=== PATIENT | male | born 1940 | race African-American/Black ===

== ENCOUNTER 2019-08-22 23:38 | Emergency (ER) | payer OTHER ==
[2019-08-22 23:52] LABS: Absolute Lymphocytes (CBC) 2.3 K/uL (0.7-4.9); Basophils % 0.7 % (0-1.3); Hematocrit 38.5 % (39.6-49.0); RBC Red Blood Cell Count 4.56 M/uL (4.33-5.43)
[2019-08-22 23:56] LABS: Protime INR 1.02
[2019-08-22] MEDS ORDERED: NA CHLORIDE 0.9% 1,000 ML ONE (23:59)
[2019-08-22] MEDS ORDERED: THIAMINE 200 MG/2 ML INJ ONE (23:59)
--- NOTE | 2019-08-23 00:05 | ER ---
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 They had seen him at 1729 and he was ok just weak. Pt did have blackout on Wednesday which he blamed on low blood sugar. Transition of care: patient was not received from another setting of care. An acute neurological deficit is present. The charge nurse has been notified. The patient has been moved to a treatment area. The patients blood glucose was checked before arriving to the hospital and was found to be normal. Onset of symptoms was August 22, 2019 at 17:30. Risk Assessment: Do you want to hurt yourself or someone else? Patient reports no desire to harm self or others. Initial Sepsis Screen: Does the patient meet any 2 criteria? No. Patient's initial sepsis screen is negative. Does the patient have a suspected source of infection? No. Patient's initial sepsis screen is negative. Care prior to arrival: None. 23:36 Method Of Arrival: Wheelchair 23:36 Acuity: PANCHO 1 Triage Assessment: 23:36 The onset of the patients symptoms was August 22, 2019 at 17:30. Stroke Activation: Symtpom onset >3 hours and < 6 hours Physician: Stroke Attending; Name: ; Notified At: ; Arrived At: Physician: Chief Stroke Resident; Name: ; Notified At: ; Arrived At: Physician: Stroke Resident; Name: ; Notified At: ; Arrived At: Physician: ED Attending; Name: Clint; Notified At: 23:36; Arrived At: 23:36 Physician: ED Resident; Name: ; Notified At: ; Arrived At: Historical: - Allergies: 08/23 00:06 Sulfa (Sulfonamide Antibiotics); fc - Home Meds: 00:06 aspirin 81 mg Oral TbEC 1 tab once daily [Active]; atorvastatin 20 mg oral tab 1 tab fc once daily [Active]; glimepiride 2 mg Oral tab 1 tab three times a day [Active]; metformin 1,000 mg oral tab 1 tab 2 times per day [Active]; gabapentin 100 mg oral cap 1 caps twice a day [Active]; - PMHx: 00:06 Diabetes - NIDDM; Hypertension; High Cholesterol; CVA; Myocardial infarction; CAD; fc - PSHx: 00:06 hemmorhoid SX; fc - Immunization history:: Adult Immunizations unknown. - Coronavirus screen:: The patient has NOT traveled to [place], [place], or [place] in the past 14 days. - Family history:: not pertinent. - Social history:: Smoking status: Patient/guardian denies using tobacco, but has a distant history of tobacco abuse, Patient uses alcohol, occasionally. Patient/guardian denies using street drugs. - Ebola Screening: : Patient negative for fever greater than or equal to 101.5 degrees Fahrenheit, and additional compatible Ebola Virus Disease symptoms. Screenin/04 23:36 Abuse screen: Denies threats or abuse. Nutritional screening: No deficits noted. fc Tuberculosis screening: No symptoms or risk factors identified. Fall Risk None identified. Assessment: 23:40 General: Appears in no apparent distress. Behavior is calm, Altered. Pain: Unable to jb4 use pain scale. Patient is disoriented. Neuro: Level of Consciousness is awake, Oriented to Unable to obtain. Teaching Assistant are unable to obtain. Speech is slurred, with expressive aphasia noted, Facial symmetry appears normal, Pupils are pinpoint. Cardiovascular: Patient's skin is warm and dry. Respiratory: Airway is patent Respiratory effort is even, unlabored, Respiratory pattern is regular, symmetrical. GI: No signs and/or symptoms were reported involving the gastrointestinal system. : No signs and/or symptoms were reported regarding the genitourinary system. EENT: No signs and/or symptoms were reported regarding the EENT system. Derm: Skin is intact, Skin is dry, Skin is normal, Skin temperature is warm. 23:40 Reassessment: unable to perform NIH stroke scale, pt is unable to follow commands or jb4 properly respond to questions. 08/23 00:15 Reassessment: instructed to hold Trandate for Systolic less than 170. jb4 00:16 Reassessment: Patient's family at bedside; aware of plan for transfer. lp1 00:50 Reassessment: Attempted to call report, instructed to wait for call back. jb4 01:05 The patient has not been NPO before screening. The patient is not alert and/or unable jb4 to follow commands. Bedside swallow screen discontinued. Patient kept NPO until cleared by Speech Therapy or Physician. The patient failed the bedside swallow screening. The patient will be kept NPO until cleared by Speech Therapy or Physician. Provider notified of bedside swallow screening results: Alex Jaramillo MD. 01:19 Reassessment: Report called to MONICA Robles. jb4 02:03 Reassessment: Patient appears in no apparent distress at this time. No changes from jb4 previously documented assessment. Patient and/or family updated on plan of care and expected duration. Pain level reassessed. Pt's family is at the bedside. Pt is moving his lower arms and speech is garbled. Vital Signs: 08/22 23:38 BP 186 / 78; Pulse 84; Resp 18; Temp 98.5(TE); Pulse Ox 97% on R/A; Weight 104.33 kg fc (R); Height 5 ft. 10 in. (177.80 cm) (R); Pain 0/10; 23:45 BP 186 / 77; Pulse 88; Resp 18; Pulse Ox 96% on R/A; lp1 02/05 00:15 BP 181 / 77; Pulse 85; Resp 19; Pulse Ox 97% on R/A; lp1 00:17 BP 176 / 78; Pulse 84; Resp 18; Pulse Ox 96% on R/A; jb4 00:30 BP 138 / 86; Pulse 80; Resp 18; Pulse Ox 97% on R/A; jb4 01:00 BP 177 / 74; Pulse 83; Resp 16; Pulse Ox 98% on R/A; jb4 01:30 BP 179 / 70; Pulse 85; Resp 18; Pulse Ox 97% on R/A; jb4 02:00 BP 173 / 70; Pulse 89; Resp 16; Pulse Ox 97% on R/A; jb4 08/22 23:38 Body Mass Index 33.00 (104.33 kg, 177.80 cm) ED Course: 08/22 23:36 Patient has correct armband on for positive identification. Placed in gown. Bed in low fc position. Call light in reach. Side rails up X2. telegraph dispatcher on. Pulse ox on. NIBP on. 23:37 Inserted saline lock: 20 gauge in left antecubital area, using aseptic technique. fc 23:38 Arm band placed on Patient placed in an exam room, on a stretcher. fc 23:39 Patient arrived in ED. jg7 23:39 Alex Jaramillo MD is Attending Physician. annalisa 23:50 EKG done, by ED staff, reviewed by Alex Jaramillo MD. fc 23:53 Triage completed. fc 23:58 X-ray(s) taken. fc 02 02:23 No provider procedures requiring assistance completed. Patient transferred, IV remains jb4 in place. 09:55 CT Stroke Brain w/o Contrast In Process Unspecified. EDMS Administered Medications: 00:03 Drug: Thiamine 100 mg Route: IV; Rate: bolus; Site: left antecubital; lp1 01:01 Follow up: Response: No adverse reaction; IV Status: Completed infusion jb4 00:03 Drug: NS 0.9% 1000 ml Route: IV; Rate: 1 bolus; Site: left antecubital; lp1 00:08 Drug: Decadron - Dexamethasone 10 mg Route: IVP; Site: left antecubital; jb4 00:33 Follow up: Response: No adverse reaction jb4 00:10 Drug: Keppra 1000 mg Route: IV; Rate: per protocol; Site: left antecubital; jb4 00:33 Follow up: Response: No adverse reaction; IV Status: Completed infusion jb4 00:45 Drug: Magnesium Sulfate 1 grams Route: IVPB; Infused Over: 1 hrs; Site: left jb4 antecubital; 01:19 Not Given (Physician Discretion): Trandate 10 mg IVP once; Over 2 minutes jb4 01:19 Not Given (Physician Discretion): Trandate 20 mg IVP once; Over 2 minutes jb4 Point of Care Testing: Blood Glucose: 08/22 23:38 Blood Glucose: 132 mg/dL; fc Ranges: Outcome: 08/23 00:04 ER care complete, transfer ordered by . annalisa 02:23 Transferred by ground EMS EMS. to [facility], Transfer form jb4 completed. X-rays sent w/ patient. 02:23 Condition: stable 02:23 Discharge instructions given to family, Instructed on the need for transfer, Demonstrated understanding of instructions. 02:24 Patient left the ED. jb4 Signatures: Dispatcher [employer] Alex Villeda MD MD cha Chretien, Felicia, RN RN Elsa Swanson, RN RN lp1 Fei Herrera RN RN jb4 Mansi Morrow jg7 Corrections: (The following items were deleted from the chart) 08/22 23:57 23:53 Inserted saline lock: 20 gauge in left antecubital area, using aseptic technique. [facility] 08/23 01:00 02 23:50 Reassessment: unable to perform NIH stroke scale, pt is unable to follow jb4 commands or properly respond to questions. jb4 08/23 02:28 08/22 23:53 Elsa Swanson, RN is Primary Nurse. lp1 lp1
--- NOTE | 2019-08-23 00:06 | EDPHYS ---
Physician Documentation [facility] Name: Luis Fernando Fox Age: 78 yrs Sex: Male : 1940 Arrival Date: 08/22/2019 Time: 23:39 Bed 6 Private MD: ED Physician Alex Jaramillo HPI: 08/22 23:42 This 78 yrs old Black Male presents to ER via Unassigned with complaints of S/S of annalisa Possible Stroke. 23:42 The patient's problem is reported as altered mental status, disoriented to self, place, annalisa time, confused. Onset: The symptoms/episode began/occurred at an unknown time. Duration: The episode is continuous. Context: occurred at home. The symptoms are alleviated by nothing. The symptoms are aggravated by nothing. Associated signs and symptoms: The patient has no apparent associated signs or symptoms. Severity of symptoms: At their worst the symptoms were moderate in the emergency department the symptoms are unchanged. Patient's baseline: Neuro: alert and fully oriented. The patient has not experienced similar symptoms in the past. Historical: - Allergies: 08/23 00:06 Sulfa (Sulfonamide Antibiotics); fc - Home Meds: 00:06 aspirin 81 mg Oral TbEC 1 tab once daily [Active]; atorvastatin 20 mg oral tab 1 tab fc once daily [Active]; glimepiride 2 mg Oral tab 1 tab three times a day [Active]; metformin 1,000 mg oral tab 1 tab 2 times per day [Active]; gabapentin 100 mg oral cap 1 caps twice a day [Active]; - PMHx: 00:06 Diabetes - NIDDM; Hypertension; High Cholesterol; CVA; Myocardial infarction; CAD; fc - PSHx: 00:06 hemmorhoid SX; fc - Immunization history:: Adult Immunizations unknown. - Coronavirus screen:: The patient has NOT traveled to [place], [place], or [place] in the past 14 days. - Family history:: not pertinent. - Social history:: Smoking status: Patient/guardian denies using tobacco, but has a distant history of tobacco abuse, Patient uses alcohol, occasionally. Patient/guardian denies using street drugs. - Ebola Screening: : Patient negative for fever greater than or equal to 101.5 degrees Fahrenheit, and additional compatible Ebola Virus Disease symptoms. ROS: 08/22 23:42 Constitutional: Negative for fever, chills, and weight loss, Eyes: Negative for injury, annalisa pain, redness, and discharge, ENT: Negative for injury, pain, and discharge, Neck: Negative for injury, pain, and swelling, Cardiovascular: Negative for chest pain, palpitations, and edema, Respiratory: Negative for shortness of breath, cough, wheezing, and pleuritic chest pain, Abdomen/GI: Negative for abdominal pain, nausea, vomiting, diarrhea, and constipation, Back: Negative for injury and pain, : Negative for injury, bleeding, discharge, and swelling, MS/Extremity: Negative for injury and deformity, Skin: Negative for injury, rash, and discoloration, Psych: Negative for depression, anxiety, suicide ideation, homicidal ideation, and hallucinations, Allergy/Immunology: Negative for hives, rash, and allergies, Endocrine: Negative for neck swelling, polydipsia, polyuria, polyphagia, and marked weight changes, Hematologic/Lymphatic: Negative for swollen nodes, abnormal bleeding, and unusual bruising. Neuro: Positive for altered mental status, gait disturbance, speech changes, weakness. Exam: 23:42 Constitutional: This is a well developed, well nourished patient who is awake, alert, annalisa and in no acute distress. Head/Face: Normocephalic, atraumatic. Eyes: Pupils equal round and reactive to light, extra-ocular motions intact. Lids and lashes normal. Conjunctiva and sclera are non-icteric and not injected. Cornea within normal limits. Periorbital areas with no swelling, redness, or edema. ENT: Nares patent. No nasal discharge, no septal abnormalities noted. Tympanic membranes are normal and external auditory canals are clear. Oropharynx with no redness, swelling, or masses, exudates, or evidence of obstruction, uvula midline. Mucous membranes moist. Neck: Trachea midline, no thyromegaly or masses palpated, and no cervical lymphadenopathy. Supple, full range of motion without nuchal rigidity, or vertebral point tenderness. No Meningismus. Chest/axilla: Normal chest wall appearance and motion. Nontender with no deformity. No lesions are appreciated. Cardiovascular: Regular rate and rhythm with a normal S1 and S2. No gallops, murmurs, or rubs. Normal PMI, no JVD. No pulse deficits. Respiratory: Lungs have equal breath sounds bilaterally, clear to auscultation and percussion. No rales, rhonchi or wheezes noted. No increased work of breathing, no retractions or nasal flaring. Abdomen/GI: Soft, non-tender, with normal bowel sounds. No distension or tympany. No guarding or rebound. No evidence of tenderness throughout. Back: No spinal tenderness. No costovertebral tenderness. Full range of motion. Male : Normal genitalia with no discharge or lesions. Skin: Warm, dry with normal turgor. Normal color with no rashes, no lesions, and no evidence of cellulitis. Psych: Awake, alert, with orientation to person, place and time. Behavior, mood, and affect are within normal limits. 23:42 Musculoskeletal/extremity: ROM: full passive range of motion, limited active range of motion, Circulation is intact in all extremities. Sensation intact. Compartment Syndrome exam of affected extremity: is normal. DVT Exam: no pain, no swelling, no tenderness, negative Homans' sign noted on exam, no appreciated bluish discoloration, no erythema, no increased warmth. 23:44 Radiologist reports: see report annalisa Vital Signs: 23:38 BP 186 / 78; Pulse 84; Resp 18; Temp 98.5(TE); Pulse Ox 97% on R/A; Weight 104.33 kg fc (R); Height 5 ft. 10 in. (177.80 cm) (R); Pain 0/10; 23:45 BP 186 / 77; Pulse 88; Resp 18; Pulse Ox 96% on R/A; lp1 02/05 00:15 BP 181 / 77; Pulse 85; Resp 19; Pulse Ox 97% on R/A; lp1 00:17 BP 176 / 78; Pulse 84; Resp 18; Pulse Ox 96% on R/A; jb4 00:30 BP 138 / 86; Pulse 80; Resp 18; Pulse Ox 97% on R/A; jb4 01:00 BP 177 / 74; Pulse 83; Resp 16; Pulse Ox 98% on R/A; jb4 01:30 BP 179 / 70; Pulse 85; Resp 18; Pulse Ox 97% on R/A; jb4 02:00 BP 173 / 70; Pulse 89; Resp 16; Pulse Ox 97% on R/A; jb4 08/22 23:38 Body Mass Index 33.00 (104.33 kg, 177.80 cm) fc MDM: 08/22 23:40 Patient medically screened. [facility] 23:44 Data reviewed: vital signs, nurses notes, lab test result(s), EKG, radiologic studies, [facility] CT scan, plain films. 08/22 23:42 Order name: Basic Metabolic Panel [facility] 08/22 23:42 Order name: CBC with Diff [facility] 08/22 23:42 Order name: LFT's [facility] 08/22 23:42 Order name: Magnesium [facility] 08/22 23:42 Order name: NT PRO-BNP [facility] 08/22 23:42 Order name: PT-INR [facility] 08/22 23:42 Order name: Troponin (emerg Dept Use Only) [facility] 08/22 23:42 Order name: Lipase [facility] 08/22 23:42 Order name: Urine Culture [facility] 08/22 23:54 Order name: CBC with Automated Diff; Complete Time: 00:15 EDMS 08/22 23:57 Order name: Protime (+INR); Complete Time: 00:15 EDMS 08/23 00:11 Order name: Glucose, Ancillary Testing; Complete Time: 00:15 EDMS 08/23 00:29 Order name: Basic Metabolic Panel; Complete Time: 00:30 EDMS 08/23 00:30 Order name: Liver (Hepatic) Function; Complete Time: 00:30 EDMS 08/22 23:42 Order name: XRAY Chest (1 view) [facility] 08/22 23:42 Order name: EKG; Complete Time: 23:42 [facility] 08/22 23:42 Order name: Cardiac monitoring; Complete Time: 00:03 [facility] 08/22 23:42 Order name: CT Head Brain wo Cont [facility] 08/22 23:43 Order name: CT Stroke Brain w/o Contrast jb4 08/23 00:30 Order name: Troponin (Emerg Dept Use Only); Complete Time: 00:30 EDMS 08/23 00:30 Order name: NT PRO-BNP; Complete Time: 00:30 EDMS 08/23 00:30 Order name: Magnesium; Complete Time: 00:30 EDMS 08/23 00:30 Order name: Lipase [facility] 08/22 23:42 Order name: EKG - Nurse/Tech; Complete Time: 00:03 [facility] 08/22 23:42 Order name: IV Saline Lock; Complete Time: 00:03 [facility] 08/22 23:42 Order name: Labs collected and sent; Complete Time: 00:03 [facility] 08/22 23:42 Order name: O2 Per Protocol; Complete Time: 00:03 annalisa 08/22 23:42 Order name: O2 Sat Monitoring; Complete Time: 00:03 [facility] 08/22 23:42 Order name: Blood Glucose Level; Complete Time: 00:03 [facility] 08/22 23:54 Order name: Seizure Precautions; Complete Time: 01:36 [facility] Administered Medications: 08/23 00:03 Drug: Thiamine 100 mg Route: IV; Rate: bolus; Site: left antecubital; lp1 01:01 Follow up: Response: No adverse reaction; IV Status: Completed infusion jb4 00:03 Drug: NS 0.9% 1000 ml Route: IV; Rate: 1 bolus; Site: left antecubital; lp1 00:08 Drug: Decadron - Dexamethasone 10 mg Route: IVP; Site: left antecubital; jb4 00:33 Follow up: Response: No adverse reaction jb4 00:10 Drug: Keppra 1000 mg Route: IV; Rate: per protocol; Site: left antecubital; jb4 00:33 Follow up: Response: No adverse reaction; IV Status: Completed infusion jb4 00:45 Drug: Magnesium Sulfate 1 grams Route: IVPB; Infused Over: 1 hrs; Site: left jb4 antecubital; 01:19 Not Given (Physician Discretion): Trandate 10 mg IVP once; Over 2 minutes jb4 01:19 Not Given (Physician Discretion): Trandate 20 mg IVP once; Over 2 minutes jb4 Point of Care Testing: Blood Glucose: 08/22 23:38 Blood Glucose: 132 mg/dL; fc Ranges: Critical Glucose Levels:Adult <50 mg/dl or >400 mg/dl <40 mg/dl or >180 mg/dl Disposition: 08/23/19 00:04 Transfer ordered to [facility]. Diagnosis are Essential (primary) hypertension, Aphasia following nontraumatic intracerebral hemorrhage - with vasogenic edema, Hypomagnesemia. - Reason for transfer: Higher level of care. - Accepting physician is to [place], dr cervantes. - Condition is Fair. - Problem is new. - Symptoms have improved. Signatures: Dispatcher [employer] EDAlex Roche MD MD cha Chretien, Felicia, RN RN fc Elsa Swanson, RN RN lp1 Fei Herrera RN RN jb4 Corrections: (The following items were deleted from the chart) 08/23 00:30 00:04 08/23/2019 00:04 Transfer ordered to [facility]. annalisa Diagnosis is Essential (primary) hypertension; Aphasia following nontraumatic intracerebral hemorrhage - with vasogenic edema. Reason for transfer: Higher level of care. Accepting physician is to [place], dr cervantes. Condition is Fair. Problem is new. Symptoms have improved. annalisa 02:24 00:30 08/23/2019 00:04 Transfer ordered to [facility]. jb4 Diagnosis is Essential (primary) hypertension; Aphasia following nontraumatic intracerebral hemorrhage - with vasogenic edema; Hypomagnesemia. Reason for transfer: Higher level of care. Accepting physician is to dr billy feldman. Condition is Fair. Problem is new. Symptoms have improved. annalisa
[2019-08-23] MEDS ORDERED: LEVETIRACETAM 500 MG/5 ML VIAL IV ONE ×2 (00:09)
[2019-08-23] MEDS ORDERED: NA CHLORIDE 0.9% 100 ML IV ONE (00:09)
[2019-08-23] MEDS ORDERED: dexAMETHasone 10 MG/ML VIAL ONE (00:09)
[2019-08-23 00:21] LABS: ALT/SGPT 29 U/L (12-78); AST/SGOT 20 U/L (15-37); Albumin 3.7 g/dL (3.4-5.0); Alkaline Phosphatase 45 U/L (45-117); BUN Blood Urea Nitrogen 27 mg/dL (7-18); Bicarbonate 27 mmol/L (21-32); Bilirubin Direct < 0.1 mg/dL (0-0.2); Bilirubin Total 0.3 mg/dL (0.2-1.0); Glucose Level 169 mg/dL (74-106); Lipase 103 U/L (73-393); NT PRO-BNP 467 pg/mL (<450); Potassium 3.8 mmol/L (3.5-5.1); Protein, Total 7.5 g/dL (6.4-8.2); Sodium Level 137 mmol/L (136-145); Troponin (Emerg Dept Use Only) < 0.02 ng/mL (0.0-0.045)
[2019-08-23 00:29] LABS: Magnesium 1.4 mg/dL (1.8-2.4)
[2019-08-23] MEDS ORDERED: LABETALOL 20 MG/4ML SYRINGE IV ONE (00:31)
[2019-08-23] MEDS ORDERED: MAGNESIUM SULFATE 1 gm IVPB 1 GM/100 ML BAG IV ONE (00:42)
--- NOTE | 2019-08-23 08:35 | RAD REPORT ---
EXAM DESCRIPTION: Nadia Single View08/23/2019 12:13 am CLINICAL HISTORY: cough COMPARISON: none FINDINGS: The lungs appear clear of acute infiltrate. The heart is normal size IMPRESSION: No acute abnormalities displayed
--- NOTE | 2019-08-23 09:10 | EKG ---
Test Date: 2019-08-22 Test Time: 23:50:26 Construction Management Assistant: JOSHUA MEASUREMENT RESULTS: Intervals: Rate: 85 NM: 168 QRSD: 80 QT: 410 QTc: 487 [place]: P: 71 NM: 168 QRS: 69 T: 41 INTERPRETIVE STATEMENTS: Sinus rhythm with occasional premature ventricular complexes and premature atrial complexes Prolonged QT Abnormal ECG Compared to ECG 11/11/1998 11:39:00 Atrial premature complex(es) now present Ventricular premature complex(es) now present Prolonged QT interval now present Electronically Signed On 08-23-19 09:09:52 STRUCTURAL WELDER by Jose Marion
[2019-08-23 09:37] VITALS: TEMP 98.5
[2019-08-23 09:46] VITALS: O2SAT 97
[2019-08-23 09:47] VITALS: BP 173/70
--- NOTE | 2019-08-23 10:59 | RAD REPORT ---
EXAM DESCRIPTION: CT - Ct Stroke Brain Wo Cont - 08/23/2019 2:04 am CLINICAL HISTORY: DIZZINESS COMPARISON: None. TECHNIQUE: Axial unenhanced CT imaging of the brain. Reformatted coronal and sagittal images obtaine d. This examination was performed according to our departmental dose optimization program, which include s automated exposure control, adjustment of the mA and/or kV according to patient size and/or use of iterative reconstruction technique. FINDINGS: There is a 2.2 cm hyperdense mass at the left parietal-occipital junction within the white matter with surrounding marked edema. There is effacement of the overlying sulci. There is an 9 mm h yperdense focus slightly more laterally within the left parietal lobe compatible with an additional s mall focus of hemorrhage within a mass lesion. There is moderate generalized cortical atrophy. There is an extra-axial fluid collection overlying th e right posterior parietal cortex, 5.6 x 2.2 x 5.4 cm which may represent an arachnoid cyst. 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 There is no midline shift. There is no hemorrhage within the posterior fossa. The vermis and cerebellum appear normal. No cerebellar tonsillar ectopia. Sella con tents appear normal. Intraorbital contents appear normal. Clear paranasal sinuses. Mastoid air cells are well aerated. Int act skull base and calvarium. Unremarkable scalp soft tissues. IMPRESSION: 1. Two hemorrhagic foci within the left parietal occipital lobe with significant associa mervat vasogenic edema suggestive of metastatic lesions. No midline shift. 2. Extra-axial fluid collection over the posterior right parietal lobe suspicious for an arachnoid cy st. 3. 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 4. Generalized cortical atrophy. Findings directly discussed with Dr. Alex Jaramillo at 1210 hours on 08/23/2019. Electronically signed by: Heather Fitzpatrick DO 08/23/2019 12:15 AM DETECTIVE BUREAU CHIEF Due to temporary technical issues with the PACS/Fluency reporting system, reports are being signed by the in house radiologist as a courtesy to ensure prompt reporting. The interpreting radiologist is f ully responsible for the content of the report.
== END 2019-08-23 02:24 | disposition short-term general hospital (02) ==
LOC: ER 23:38
DX: I61.9 Nontraumatic intracerebral hemorrhage, unspecified (principal); R47.01 Aphasia; G93.6 Cerebral edema; E83.42 Hypomagnesemia; I10 Essential (primary) hypertension; E11.9 Type 2 diabetes mellitus without complications; I25.2 Old myocardial infarction; I25.10 Atherosclerotic heart disease of native coronary artery without angina pectoris; Z88.2 Allergy status to sulfonamides
CPT/HCPCS: 96365; 93005; 85025; 80048; 36415; 83735; 85610; 82947 ×2; 80076; 84484; 83690; 83880; 70450; 71045; 96375; 99285; J3411; J3475; J1100; J1953 ×2; J7030

== ENCOUNTER 2019-11-20 19:39 | Emergency (ER) | payer OTHER ==
--- OUTSIDE RECORDS SUMMARY | 2019-11-20 19:43 | XMS REPORT ---
:1940 Author Organization [facility] t Address [address] 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 Medications Ordered Filled Start Stop Current Ordering Indication Dosage Frequency Signature Comments Components Medication Medication Date Date Medication? Clinician (SIG) Name Name amlodipine amlodipine No 1 Q1D amlodipine 10 mg 10 mg 10 mg tablet Take tablet Take tablet 1 tablet 1 tablet Take 1 every day every day tablet by oral by oral every day route. route. by oral route. atorvastati atorvastati No 1 Q1D atorvast at n 20 mg n 20 mg in 20 mg tablet Take tablet Take tablet 1 tablet 1 tablet Take 1 every day every day tablet by oral by oral every day route. route. by oral route. dexamethaso dexamethaso No dexameth as ne 2 tab ne 2 tab one 2 tab twice daily twice daily twice daily gabapentin gabapentin No 1capsul BID gabapent in 100 mg 100 mg e(s) 100 mg capsule capsule capsule Take 1 Take 1 Take 1 capsule capsule capsule twice a day twice a day twice a by oral by oral day by route. route. oral route. glimepiride glimepiride No 1 Q1D glimepir id 2 mg tablet 2 mg tablet e 2 mg Take 1 Take 1 tablet tablet tablet Take 1 every day every day tablet by oral by oral every day route. route. by oral route. metformin metformin No 1 BID metformin 1,000 mg 1,000 mg 1,000 mg tablet Take tablet Take tablet 1 tablet 1 tablet Take 1 twice a day twice a day tablet by oral by oral twice a route. route. day by oral route. valsartan valsartan No 1 Q1D valsartan 320 320 320 mg-hydrochl mg-hydrochl mg-hydro ch orothiazide orothiazide lorothia zi 25 mg 25 mg de 25 mg tablet Take tablet Take tablet 1 tablet 1 tablet Take 1 every day every day tablet by oral by oral every day route. route. by oral route. Vital Signs Vital Name Observation Time Observation Value Comments BP Diastolic 2019-09-26 00:00:00 75 mm[Hg] Height 2019-09-26 00:00:00 69 [in_i] BP Systolic 2019-09-26 00:00:00 135 mm[Hg] Body Weight 2019-09-26 00:00:00 199 [lb_av] Encounters Start End Encounter Admission Attending Care Care Encounter Date/Time Date/Time Type Type Clinicians Facility Department ID 2019-09-26 2019-09-26 [facility] [place] - [id number] 00:00:00 00:00:00 [facility] , SAND CAR[employer]ER: [id number] Young, [email or web address]_ [place] [address], [place] Direct [phone], Ph. Results Test Description Test Time Test Comments Text Results Atomic Results Result Comments TISSUE EXAM 2019-09-07 16:35:00 Surgical Pathology Re port Case: [id number] Authorizing Provider: Kaden Doran i, MD Collected: [id number] Ordering Location: [facility] PERIOPERATIVE Received: 1422 SERVICE S Pathologist: Arsalan Kim MD Specimens: A) - Soft Tissu e, Other, left medial parietal lesion B) - Soft Tissue, Other, Left Medial Parietal Lesion A. BRAIN, LEFT MEDIAL PARIET AL, CRANIOTOMY:METASTATIC ADENOC ARCINOMA, CONSISTENT WITH LUNG PRIMARYB. BRAIN, L EFT MEDIAL PARIETAL, CRANIOTOMY:METASTATIC ADENOC ARCINOMA, CONSISTENT WITH LUNG PRIMARY Signi ng Pathologist Direct Phone Line: [phone] tronically signed by Arsalan Kim MD on 2019 at 4:35 PMThe tumor is well-circumscribed with gland formation. Immunoperoxidase stains for cytokeratin 7, TTF1, Napsin-A and CEA are diffuse ly positive. Immunoperoxidase stains for cytokeratin 20, cdx-2, villain, PAX-5, [place]-8 , thyroglobulin, and WT-1 are negative in tumor. The findings are consistent with a lung prima ry. Positivity for Napsin-A with negative stain ing for thyroglobulin excludes a thyroid primary. 84097 x 2; 52532; 28270; 27860 x 10Multifocal brain tumors suspicious for metastasis of unknown primaryA. Soft tissue other, left medi al parietal lesion. B. Soft tissue, other, descr iption left medial parietal lesionA. Received f [facility] for intraoperative consultation diagnosis labeled with the patient's name, acc ession number and "soft tissue" is a 0.5 x 0.5 x 0.2 cm aggregate of multiple shields-pink fragmen t of soft tissue. Touch prep is performed and frozen section is performed. The specimen is s ubmitted entirely for permanent sections in [facility] te FSA1. HS/plB. Specimen is received in form chava labeled with the patient's name, accession nu mber and "soft tissue" consists of multiple shields-pink and hemorrhagic fragments of tis cielo measuring from 1.5 x 1 x 0.5 to 0.8 x 0.3 x 0.2 to 0.1 x 0.1 x 0.1 cm in aggregate. The spe cimen is serially sectioned and submitted enti rely into cassettes B1-B2. HS/ew A. FSA1, TP1: L EFT MEDIAL PARIETAL LESION, BIOPSY: - METASTAT IC ADENOCARCINOMAVerbally repor mervat to Dr. You by Dr. Kim at 2:40 p.m. Aug. Performed on A and BThe interpretation of this case included the use of immunohistochemis try or special stains.Control Slides Examin ed: In-house known positive controls were evalu ated along with the test tissue. These control slides run alongside of the patients sample show appropriate staining. Internal positive and negati ve controls when available are evaluated Immu nohistochemistry technical testing was perfor med at [facility], Patho logy Laboratory where it was developed and its per formance characteristics were determi rosalio. It has not been cleared or approved by the U .S. Food and Drug Administration. The FDA has determined that such clearance or approval is not necessary. The test is used for clinical purpose s. It should not be regarded as investigational or for research. This laboratory is certified unde r the Clinical Laboratory Improvement Amend ments of 1988 (CLIA-88) as qualified to pe rform high complexity clinical laboratory testing. POCT-GLUCOSE METER 2019-09-07 07:52:00 Test Item Value Reference Range Comments POC-GLUCOSE METER (BEAKER) 220 mg/dL 70-110 : Not ified RN/MD: TESTED AT [facility] [address] (test code = 1538) [place], [address]: Lab Intern/Technic cyn ID = [id number] for KAI ADAMS BASIC METABOLIC [id number] 04:25:00 Test Item Value Reference Range Comments SODIUM (BEAKER) (test 133 meq/L 136-145 code = 381) POTASSIUM (BEAKER) (test 5.1 meq/L 3.5-5.1 code = 379) CHLORIDE (BEAKER) (test 105 meq/L 98-107 code = 382) CO2 (BEAKER) (test code = 24 meq/L 22-29 355) BLOOD UREA NITROGEN 30 mg/dL 7-21 (BEAKER) (test code = 354) CREATININE (BEAKER) (test 1.32 mg/dL 0.57-1.25 code = 358) GLUCOSE RANDOM (BEAKER) 245 mg/dL 70-105 (test code = 652) CALCIUM (BEAKER) (test 8.0 mg/dL 8.4-10.2 code = 697) EGFR (BEAKER) (test code 64 mL/min/1.73 sq m EST IMATED GFR IS NOT = 1092) ACCURATE CREA TININE CLEARANCE IN PRE DICTING GLOMERULAR FILTR ATION RATE. ESTIMATED GFR IS NOT APPLICABLE F OR DIALYSIS PATIENT S. Lab Intern ID - GALAPCBC (HEMOGRAM ONLY)2019-09-07 03:54:00 Test Item Value Reference Range Comments WHITE BLOOD CELL COUNT (BEAKER) (test code = 14.3 K/ L 3.5 -10.5 775) RED BLOOD CELL COUNT (BEAKER) (test code = 761) 3.91 M/ L 4.63-6.08 HEMOGLOBIN (BEAKER) (test code = 410) 11.0 GM/DL 13.7-17.5 HEMATOCRIT (BEAKER) (test code = 411) 34.2 % 40.1-51.0 MEAN CORPUSCULAR VOLUME (BEAKER) (test code = 87.5 fL 79 .0-92.2 753) MEAN CORPUSCULAR HEMOGLOBIN (BEAKER) (test code 28.1 pg 25.7-32.2 = 751) MEAN CORPUSCULAR HEMOGLOBIN CONC (BEAKER) (test 32.2 GM/DL 32.3-36.5 code = 752) RED CELL DISTRIBUTION WIDTH (BEAKER) (test code 13.6 % 11.6-14.4 = 412) PLATELET COUNT (BEAKER) (test code = 756) 136 K/CU MM 150-45 0 MEAN PLATELET VOLUME (BEAKER) (test code = 754) 10.5 fL 9.4-12.4 NUCLEATED RED BLOOD CELLS (BEAKER) (test code = 0 /100 WBC 0-0 413) POCT-GLUCOSE [id number] 21:57:00 Test Item Value Reference Range Comments POC-GLUCOSE METER (BEAKER) 286 mg/dL 70-110 : NERY MERVAT AT [facility] [address] [facility] (test code = 1538) [facility], [address]: Lab Intern/Technic cyn ID = [id number] for MURIEL PHELAN HERNANDEZ POCT-GLUCOSE [id number] 18:03:00 Test Item Value Reference Range Comments POC-GLUCOSE METER (BEAKER) 215 mg/dL 70-110 : NERY MERVAT AT [facility] [address] [facility] (test code = 1538) [facility], [address]: Lab Intern/Technic cyn ID = [id number] for JAS SMALL POCT-GLUCOSE [id number] 12:10:00 Test Item Value Reference Range Comments POC-GLUCOSE METER (BEAKER) 294 mg/dL 70-110 : Not ified RN/MD: TESTED AT (test code = 1538) [facility] [address] [facility], [address]: Lab Intern/ Cytopathologist ID = [id number] for ANGIE CHEEMA POCT-GLUCOSE [id number] 08:18:00 Test Item Value Reference Range Comments POC-GLUCOSE METER (BEAKER) 283 mg/dL 70-110 : Not ified RN/MD: TESTED AT (test code = 1538) [facility] [address] [facility], [address]: Lab Intern/ Cytopathologist ID = [id number] for ANGIE CHEEMA [id number] 06:56:00 Test Item Value Reference Range Comments PROSTATE SPECIFIC ANTIGEN (BEAKER) (test code = 3.8 ng/mL 0.0-4.0 844) Lab Intern ID - DBCARCINOEMBRYONIC ANTIGEN (CEA)2019-09-06 06:56:00 Test Item Value Reference Range Comments CARCINOEMBRYONIC ANTIGEN (BEAKER) (test code = 2.0 ng/mL 0 .0-5.0 685) Lab Intern ID - DBBASIC METABOLIC [id number] 06:36:00 Test Item Value Reference Range Comments SODIUM (BEAKER) (test 134 meq/L 136-145 code = 381) POTASSIUM (BEAKER) (test 4.7 meq/L 3.5-5.1 code = 379) CHLORIDE (BEAKER) (test 106 meq/L 98-107 code = 382) CO2 (BEAKER) (test code = 23 meq/L 22-29 355) BLOOD UREA NITROGEN 34 mg/dL 7-21 (BEAKER) (test code = 354) CREATININE (BEAKER) (test 1.50 mg/dL 0.57-1.25 code = 358) GLUCOSE RANDOM (BEAKER) 293 mg/dL 70-105 (test code = 652) CALCIUM (BEAKER) (test 7.9 mg/dL 8.4-10.2 code = 697) EGFR (BEAKER) (test code 55 mL/min/1.73 sq m EST IMATED GFR IS NOT = 1092) ACCURATE CREA TININE CLEARANCE IN PRE DICTING GLOMERULAR FILTR ATION RATE. ESTIMATED GFR IS NOT APPLICABLE F OR DIALYSIS PATIENT S. Lab Intern ID - NOREEN [facility] (HEMOGRAM ONLY)2019-09-06 06:09:00 Test Item Value Reference Range Comments WHITE BLOOD CELL COUNT (BEAKER) (test code = 14.9 K/ L 3.5 -10.5 775) RED BLOOD CELL COUNT (BEAKER) (test code = 761) 3.78 M/ L 4.63-6.08 HEMOGLOBIN (BEAKER) (test code = 410) 10.7 GM/DL 13.7-17.5 HEMATOCRIT (BEAKER) (test code = 411) 33.0 % 40.1-51.0 MEAN CORPUSCULAR VOLUME (BEAKER) (test code = 87.3 fL 79 .0-92.2 753) MEAN CORPUSCULAR HEMOGLOBIN (BEAKER) (test code 28.3 pg 25.7-32.2 = 751) MEAN CORPUSCULAR HEMOGLOBIN CONC (BEAKER) (test 32.4 GM/DL 32.3-36.5 code = 752) RED CELL DISTRIBUTION WIDTH (BEAKER) (test code 13.7 % 11.6-14.4 = 412) PLATELET COUNT (BEAKER) (test code = 756) 135 K/CU MM 150-45 0 MEAN PLATELET VOLUME (BEAKER) (test code = 754) 10.0 fL 9.4-12.4 NUCLEATED RED BLOOD CELLS (BEAKER) (test code = 0 /100 WBC 0-0 413) POCT-GLUCOSE [id number] 22:52:00 Test Item Value Reference Range Comments POC-GLUCOSE METER (BEAKER) 288 mg/dL 70-110 : NERY MERVAT AT [facility] [address] [facility] (test code = 1538) [place], [address]: Lab Intern/Technic cyn ID = [id number] for PORFIRIO BARKER POCT-GLUCOSE [id number] 18:18:00 Test Item Value Reference Range Comments POC-GLUCOSE METER (BEAKER) 276 mg/dL 70-110 : Not ified RN/MD: TESTED AT (test code = 1538) [facility] [address] [facility], [address]: Lab Intern/ Cytopathologist ID = [id number] for ANGIE CHEEMA [id number] 11:57:00 Test Item Value Reference Range Comments MAGNESIUM (BEAKER) (test code = 627) 2.1 mg/dL 1.6-2.6 Lab Intern ID - LORIN FPOCT-GLUCOSE [id number] 11:39:00 Test Item Value Reference Range Comments POC-GLUCOSE METER (BEAKER) 298 mg/dL 70-110 : NERY MERVAT AT [facility] [address] [facility] (test code = 1538) [facility], [address]: Lab Intern/Technic cyn ID = [id number] for THAO GRANADOS POCT-GLUCOSE [id number] 07:53:00 Test Item Value Reference Range Comments POC-GLUCOSE METER (BEAKER) 223 mg/dL 70-110 : Not ified RN/MD: TESTED AT (test code = 1538) [facility] [address] [facility], [address]: Lab Intern/ Cytopathologist ID = [id number] for ANGIE CHEEMA CT, BRAIN, WITHOUT [id number] 04:33:00FINAL REPORT CT Head without contrast CLINICAL HISTORY: s/p craniotomy for resection of brain lesion TECHNIQUE: Contiguous axial images through the head without contrast. This exam was performed according to the departmental dose optimization program which includes automated exposure control, adjustment of the mA and/or kV according to the patient size, and/or use of an iterative reconstruction technique. COMPARISON: CT head dated 08/23/2019 FINDINGS:Postsurgical changes of a left parietal craniotomy for resection of a hemorrhagic lesion in the left parietal lobe. There is small amount of gas, blood in the resection cavity. Thin extra-axial blood along the craniotomy defect. There is improved surrounding edema with minimal mass effect on adjacent structures. Unchanged encephalomalacia of the right posterior frontal parietal and occipital lobes with ex vacuo dilatation of the right lateral ventricle. Scattered areas of pneumocephalus along the falx and left cerebral convexity. The additional previously described parenchymal lesions are not well-seen on the current examination. No acute large territory infarction. There is periventricular and subcortical white matter hypodensity which is nonspecific but compatible with chronic microvascular ischemic change. There are ather osclerotic calcifications of the intracranial circulation. There is generalized parenchymal volume loss . Basilar cisterns are patent. The visualized paranasal sinuses are well-aerated. Intraorbital contents are unremarkable. Postsurgical changes of the left parietal scalp. IMPRESSION: Expected post surgical changes of left parietal craniotomy for resection of a left parietal lobe hemorrhagic lesion. Small amount of blood within the resection bed and along the craniotomy defect. The additional previously described supratentorial parenchymal lesions are not well-seen on the current examination. Signed: Renee Iniguezeport Verified Date/Time: 09/05/2019 04:33:40 C METABOLIC [id number] 04:00:00 Test Item Value Reference Range Comments SODIUM (BEAKER) (test 133 meq/L 136-145 code = 381) POTASSIUM (BEAKER) (test 4.8 meq/L 3.5-5.1 code = 379) CHLORIDE (BEAKER) (test 105 meq/L 98-107 code = 382) CO2 (BEAKER) (test code = 21 meq/L 22-29 355) BLOOD UREA NITROGEN 29 mg/dL 7-21 (BEAKER) (test code = 354) CREATININE (BEAKER) (test 1.66 mg/dL 0.57-1.25 code = 358) GLUCOSE RANDOM (BEAKER) 253 mg/dL 70-105 (test code = 652) CALCIUM (BEAKER) (test 7.8 mg/dL 8.4-10.2 code = 697) EGFR (BEAKER) (test code 49 mL/min/1.73 sq m EST IMATED GFR IS NOT = 1092) ACCURATE CREA TININE CLEARANCE IN PRE DICTING GLOMERULAR FILTR ATION RATE. ESTIMATED GFR IS NOT APPLICABLE F OR DIALYSIS PATIENT S. Lab Intern ID - NOREEN [id number] 03:56:00 Test Item Value Reference Range Comments PHOSPHORUS (BEAKER) (test code = 604) 4.5 mg/dL 2.3-4.7 Lab Intern ID - NOREEN [id number] 03:56:00 Test Item Value Reference Range Comments MAGNESIUM (BEAKER) (test code = 627) 1.7 mg/dL 1.6-2.6 Lab Intern ID - NOREEN [facility] W/PLT COUNT & AUTO [id number] 03:41:00 Test Item Value Reference Range Comments WHITE BLOOD CELL COUNT (BEAKER) (test code = 19.4 K/ L 3.5 -10.5 775) RED BLOOD CELL COUNT (BEAKER) (test code = 761) 4.19 M/ L 4.63-6.08 HEMOGLOBIN (BEAKER) (test code = 410) 11.9 GM/DL 13.7-17.5 HEMATOCRIT (BEAKER) (test code = 411) 36.0 % 40.1-51.0 MEAN CORPUSCULAR VOLUME (BEAKER) (test code = 85.9 fL 79 .0-92.2 753) MEAN CORPUSCULAR HEMOGLOBIN (BEAKER) (test code 28.4 pg 25.7-32.2 = 751) MEAN CORPUSCULAR HEMOGLOBIN CONC (BEAKER) (test 33.1 GM/DL 32.3-36.5 code = 752) RED CELL DISTRIBUTION WIDTH (BEAKER) (test code 13.6 % 11.6-14.4 = 412) PLATELET COUNT (BEAKER) (test code = 756) 144 K/CU MM 150-45 0 MEAN PLATELET VOLUME (BEAKER) (test code = 754) 9.7 fL 9.4-12.4 NUCLEATED RED BLOOD CELLS (BEAKER) (test code = 0 /100 WBC 0-0 413) NEUTROPHILS RELATIVE PERCENT (BEAKER) (test code 93 % = 429) LYMPHOCYTES RELATIVE PERCENT (BEAKER) (test code 3 % = 430) MONOCYTES RELATIVE PERCENT (BEAKER) (test code = 3 % 431) EOSINOPHILS RELATIVE PERCENT (BEAKER) (test code 0 % = 432) BASOPHILS RELATIVE PERCENT (BEAKER) (test code = 0 % 437) NEUTROPHILS ABSOLUTE COUNT (BEAKER) (test code = 17.92 K/ L 1.78-5.38 670) LYMPHOCYTES ABSOLUTE COUNT (BEAKER) (test code = 0.64 K/ L 1.32-3.57 414) MONOCYTES ABSOLUTE COUNT (BEAKER) (test code = 0.64 K/ L 0 .30-0.82 415) EOSINOPHILS ABSOLUTE COUNT (BEAKER) (test code = 0.00 K/ L 0.04-0.54 416) BASOPHILS ABSOLUTE COUNT (BEAKER) (test code = 0.02 K/ L 0 .01-0.08 417) IMMATURE GRANULOCYTES-RELATIVE PERCENT (BEAKER) 1 % 0-1 (test code = 2801) POCT-GLUCOSE [id number] 17:02:00 Test Item Value Reference Range Comments POC-GLUCOSE METER (BEAKER) 202 mg/dL 70-110 : NERY MERVAT AT [facility] [address] [facility] (test code = 1538) [facility], [address]: Lab Intern/Technic cyn ID = [id number] for LYNN DEGROOT POCT-GLUCOSE [id number] 15:03:00 Test Item Value Reference Range Comments POC-GLUCOSE METER (BEAKER) 171 mg/dL 70-110 : NERY MERVAT AT [address] (test code = 1538) [facility], [address]: Lab Intern/Technic cyn ID = [id number] for ROEL MCDANIEL POCT-GLUCOSE [id number] 11:29:00 Test Item Value Reference Range Comments POC-GLUCOSE METER (BEAKER) 177 mg/dL 70-110 : NERY MERVAT AT [address] (test code = 1538) [facility], [address]: Lab Intern/Technic cyn ID = [id number] for TON WALL BASIC METABOLIC [id number] 04:36:00 Test Item Value Reference Range Comments SODIUM (BEAKER) (test 133 meq/L 136-145 code = 381) POTASSIUM (BEAKER) (test 4.9 meq/L 3.5-5.1 code = 379) CHLORIDE (BEAKER) (test 102 meq/L 98-107 code = 382) CO2 (BEAKER) (test code = 25 meq/L 22-29 355) BLOOD UREA NITROGEN 31 mg/dL 7-21 (BEAKER) (test code = 354) CREATININE (BEAKER) (test 1.61 mg/dL 0.57-1.25 code = 358) GLUCOSE RANDOM (BEAKER) 241 mg/dL 70-105 (test code = 652) CALCIUM (BEAKER) (test 8.5 mg/dL 8.4-10.2 code = 697) EGFR (BEAKER) (test code 51 mL/min/1.73 sq m EST IMATED GFR IS NOT = 1092) ACCURATE CREA TININE CLEARANCE IN PRE DICTING GLOMERULAR FILTR ATION RATE. ESTIMATED GFR IS NOT APPLICABLE F OR DIALYSIS PATIENT S. Lab Intern ID - [facility] (HEMOGRAM ONLY)2019-09-04 04:12:00 Test Item Value Reference Range Comments WHITE BLOOD CELL COUNT (BEAKER) (test code = 11.0 K/ L 3.5 -10.5 775) RED BLOOD CELL COUNT (BEAKER) (test code = 761) 4.31 M/ L 4.63-6.08 HEMOGLOBIN (BEAKER) (test code = 410) 12.4 GM/DL 13.7-17.5 HEMATOCRIT (BEAKER) (test code = 411) 36.4 % 40.1-51.0 MEAN CORPUSCULAR VOLUME (BEAKER) (test code = 84.5 fL 79 .0-92.2 753) MEAN CORPUSCULAR HEMOGLOBIN (BEAKER) (test code 28.8 pg 25.7-32.2 = 751) MEAN CORPUSCULAR HEMOGLOBIN CONC (BEAKER) (test 34.1 GM/DL 32.3-36.5 code = 752) RED CELL DISTRIBUTION WIDTH (BEAKER) (test code 13.2 % 11.6-14.4 = 412) PLATELET COUNT (BEAKER) (test code = 756) 138 K/CU MM 150-45 0 MEAN PLATELET VOLUME (BEAKER) (test code = 754) 10.3 fL 9.4-12.4 NUCLEATED RED BLOOD CELLS (BEAKER) (test code = 0 /100 WBC 0-0 413) POCT-GLUCOSE [id number] 21:26:00 Test Item Value Reference Range Comments POC-GLUCOSE METER (BEAKER) 307 mg/dL 70-110 : NERY MERVAT AT [address] (test code = 1538) [facility], [address]: Lab Intern/Technic cyn ID = [id number] for DOVE CHEKAR A POCT-GLUCOSE [id number] 17:04:00 Test Item Value Reference Range Comments POC-GLUCOSE METER (BEAKER) 237 mg/dL 70-110 : NERY MERVAT AT [address] (test code = 1538) [facility], [address]: Lab Intern/Technic cyn ID = [id number] for Naida Richardson BASIC METABOLIC [id number] 04:53:00 Test Item Value Reference Range Comments SODIUM (BEAKER) (test 131 meq/L 136-145 code = 381) POTASSIUM (BEAKER) (test 4.4 meq/L 3.5-5.1 code = 379) CHLORIDE (BEAKER) (test 103 meq/L 98-107 code = 382) CO2 (BEAKER) (test code = 21 meq/L 22-29 355) BLOOD UREA NITROGEN 25 mg/dL 7-21 (BEAKER) (test code = 354) CREATININE (BEAKER) (test 1.34 mg/dL 0.57-1.25 code = 358) GLUCOSE RANDOM (BEAKER) 209 mg/dL 70-105 (test code = 652) CALCIUM (BEAKER) (test 8.4 mg/dL 8.4-10.2 code = 697) EGFR (BEAKER) (test code 63 mL/min/1.73 sq m EST IMATED GFR IS NOT = 1092) ACCURATE CREA TININE CLEARANCE IN PRE DICTING GLOMERULAR FILTR ATION RATE. ESTIMATED GFR IS NOT APPLICABLE F OR DIALYSIS PATIENT S. Lab Intern ID - NOREEN [facility] W/PLT COUNT & AUTO [id number] 04:34:00 Test Item Value Reference Range Comments WHITE BLOOD CELL COUNT (BEAKER) (test code = 8.4 K/ L 3.5 -10.5 775) RED BLOOD CELL COUNT (BEAKER) (test code = 761) 4.39 M/ L 4.63-6.08 HEMOGLOBIN (BEAKER) (test code = 410) 12.4 GM/DL 13.7-17.5 HEMATOCRIT (BEAKER) (test code = 411) 37.7 % 40.1-51.0 MEAN CORPUSCULAR VOLUME (BEAKER) (test code = 85.9 fL 79 .0-92.2 753) MEAN CORPUSCULAR HEMOGLOBIN (BEAKER) (test code 28.2 pg 25.7-32.2 = 751) MEAN CORPUSCULAR HEMOGLOBIN CONC (BEAKER) (test 32.9 GM/DL 32.3-36.5 code = 752) RED CELL DISTRIBUTION WIDTH (BEAKER) (test code 13.1 % 11.6-14.4 = 412) PLATELET COUNT (BEAKER) (test code = 756) 127 K/CU MM 150-45 0 MEAN PLATELET VOLUME (BEAKER) (test code = 754) 10.0 fL 9.4-12.4 NUCLEATED RED BLOOD CELLS (BEAKER) (test code = 0 /100 WBC 0-0 413) NEUTROPHILS RELATIVE PERCENT (BEAKER) (test code 72 % = 429) LYMPHOCYTES RELATIVE PERCENT (BEAKER) (test code 16 % = 430) MONOCYTES RELATIVE PERCENT (BEAKER) (test code = 11 % 431) EOSINOPHILS RELATIVE PERCENT (BEAKER) (test code 0 % = 432) BASOPHILS RELATIVE PERCENT (BEAKER) (test code = 0 % 437) NEUTROPHILS ABSOLUTE COUNT (BEAKER) (test code = 6.04 K/ L 1.78-5.38 670) LYMPHOCYTES ABSOLUTE COUNT (BEAKER) (test code = 1.37 K/ L 1.32-3.57 414) MONOCYTES ABSOLUTE COUNT (BEAKER) (test code = 0.88 K/ L 0 .30-0.82 415) EOSINOPHILS ABSOLUTE COUNT (BEAKER) (test code = 0.02 K/ L 0.04-0.54 416) BASOPHILS ABSOLUTE COUNT (BEAKER) (test code = 0.01 K/ L 0 .01-0.08 417) IMMATURE GRANULOCYTES-RELATIVE PERCENT (BEAKER) 1 % 0-1 (test code = 2801) POCT-GLUCOSE [id number] 22:58:00 Test Item Value Reference Range Comments POC-GLUCOSE METER (BEAKER) 226 mg/dL 70-110 : NERY MERVAT AT [facility] [address] [facility] (test code = 1538) [facility], [address]: Lab Intern/Technic cyn ID = [id number] for MARGARITA KUMAR [id number] 11:49:00 Test Item Value Reference Range Comments PARTIAL THROMBOPLASTIN TIME (BEAKER) (test code 22.4 seconds 22.5-36.0 = 760) PROTHROMBIN TIME/[id number] 11:48:00 Test Item Value Reference Range Comments PROTIME (BEAKER) (test code = 759) 13.8 seconds 11.9-14.2 INR (BEAKER) (test code = 370) 1.1 <=5.9 Effective 12/14/2018: PT Reference Range ChangeNew: 11.9-14.2 Previous: 11.7- 14.7RECOMMENDED COUMADIN/WARFARIN INR THERAPY RANGESSTANDARD DOSE: 2.0-3.0 Includes: PROPHYLAXIS for venous thrombosis, systemic embolization; TREATMENT for venous thrombosis and/or pulmonary embolus.HIGH RISK: Target INR is2.5-3.5 for patients wiht mechanical heart valves.RAD, CHEST, 1 VIEW, NON [id number] 10:57:00Reason for exam:->preopShould this be performed at the bedside?->YesFINAL REPORT History: Preoperative examination Comparison: 08/16/2014 Findings: The lungs are clear. No pleural effusions or pneumothorax. The heart shadow is normal in size. Thethoracic aorta is mildly tortuous. Hypertrophic changes are present in the spine. Impression: No evidence of acute cardiopulmonary disease. Signed: Zacarias Cantu Verified Date/Time: 09/02/201910:57:02 Reading Location: [address] Reading Room POCT-GLUCOSE [id number] 22:36:00 Test Item Value Reference Range Comments POC-GLUCOSE METER (BEAKER) 232 mg/dL 70-110 : NERY MERVAT AT [address] (test code = 1538) [facility], 7 [address]: Lab Intern/Technic cyn ID = [id number] for TASH STONER A POCT-GLUCOSE [id number] 18:54:00 Test Item Value Reference Range Comments POC-GLUCOSE METER (BEAKER) 242 mg/dL 70-110 : NERY MERVAT AT [address] (test code = 1538) [facility], 7 [address]: Lab Intern/Technic cyn ID = [id number] for KE KHOURY IA [id number] 12:31:00Medical Cytology Report Case: [id number] Authorizing Provider: Anjali Rosa MD Collected: 08/29/2019 1710 Ordering Location: [address] Received: 08/30/2019 0999 Service Pathologist: Jamison Miller MD Specimen: Thyroid, Right RIGHT LOBE THYROID GLAND NODULE FNA BY CLINICIAN (CYTOSPINS AND CELL BLOCK OF ASPIRATE): - DIAGNOSTIC CATEGORY: 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 Abundant background colloid is seen on cell block sections. Mild cytological atypia is most likely due to extensive Hurthle cell changes. Immunostains performed on cell block section show the follicular cells are positive for PAX8 and thyroglobulin. Synaptophysin and calcitonin show mainly nonspecific staining in those cells. The findings are supportive follicular nature of the cells sampled. 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 Clinical/radiological correlation is bela mmended. 53810, 41547, 17130, 33326 x 3(3.5 x 1.9 x 2.9 cm) mostly solid slightly heterogeneous solid nodule in the head to lower pole of the right thyroid lobe.RIGHT LOBE THYROID GLAND NODULE FNAReceived 35 ml cytorich red fixative samplePrepared cell block(A2) using collodion bag and 4 cytospinsColle cted: [id number]: [id number] interpretation of this case included the use of immunohistochemistryor special stains.Please see the immunohistochemistry results in the COMMENT section. Control SlidesExamined: In-house known positive controls were evaluated along with the test tissue. These control slides run alongside of the patients sample show appropriate staining. Internal positive and negative controls when available are evaluated Immunohistochemistry technical testing was performed at [facility], Pathology Laboratory where it was developed and its performance characteristics were determined. It has not been cleared or approved by the U.S. Food and Drug Administration. The FDA has determined that such clearance or approval is not necessary. The test is used for clinical purposes. It should not be regarded as investigational or for research. This laboratory is certified under the Clinical Laboratory Improvement Amendments of 1988 (CLIA-88) as qualified to perform hi complexity clinical laboratory testing.[facility], Department of Pathology,[address] [place] [address], [facility], [address] [place] [address], [facility], [facility] of [facility], [address] [place] [address], [place] [address], TRCS-GLUCOSE [id number] 12:18:00 Test Item Value Reference Range Comments POC-GLUCOSE METER (BEAKER) 211 mg/dL 70-110 : NERY MERVAT AT [facility] [address] [place] [address] (test code = 1538) [facility], [address]: Lab Intern/Technic cyn ID = [id number] for KE KHOURY IA POCT-GLUCOSE [id number] 08:20:00 Test Item Value Reference Range Comments POC-GLUCOSE METER (BEAKER) 167 mg/dL 70-110 : NERY MERVAT AT [address] (test code = 1538) [facility], 7 [address]: Lab Intern/Technic cyn ID = [id number] for KEVIN KHOURYRIC IA BASIC METABOLIC [id number] 05:53:00 Test Item Value Reference Range Comments SODIUM (BEAKER) (test 131 meq/L 136-145 code = 381) POTASSIUM (BEAKER) (test 4.5 meq/L 3.5-5.1 Specime n slightly code = 379) hemolyzed CHLORIDE (BEAKER) (test 104 meq/L 98-107 code = 382) CO2 (BEAKER) (test code = 20 meq/L 22-29 355) BLOOD UREA NITROGEN 26 mg/dL 7-21 (BEAKER) (test code = 354) CREATININE (BEAKER) (test 1.38 mg/dL 0.57-1.25 Specim en slightly code = 358) hemolyzed GLUCOSE RANDOM (BEAKER) 165 mg/dL 70-105 (test code = 652) CALCIUM (BEAKER) (test 8.1 mg/dL 8.4-10.2 code = 697) EGFR (BEAKER) (test code 61 mL/min/1.73 sq m EST IMATED GFR IS NOT = 1092) ACCURATE CREA TININE CLEARANCE IN PRE DICTING GLOMERULAR FILTR ATION RATE. ESTIMATED GFR IS NOT APPLICABLE F OR DIALYSIS PATIENT S. Lab Intern ID - EMELYN WPOCT-GLUCOSE [id number] 21:11:00 Test Item Value Reference Range Comments POC-GLUCOSE METER (BEAKER) 226 mg/dL 70-110 : NERY MERVAT AT [address] (test code = 1538) [facility], 7 30: Lab Intern/Technic cyn ID = [id number] for TASH STONER A POCT-GLUCOSE [id number] 17:14:00 Test Item Value Reference Range Comments POC-GLUCOSE METER (BEAKER) 218 mg/dL 70-110 : NERY MERVAT AT [address] (test code = 1538) [facility], 7 [address]: Lab Intern/Technic cyn ID = [id number] for KHOURY, KE IA POCT-GLUCOSE [id number] 12:07:00 Test Item Value Reference Range Comments POC-GLUCOSE METER (BEAKER) 167 mg/dL 70-110 : NERY MERVAT AT [address] (test code = 1538) [facility], 7 [address]: Lab Intern/Technic cyn ID = [id number] for KHOURY, KE IA POCT-GLUCOSE [id number] 09:12:00 Test Item Value Reference Range Comments POC-GLUCOSE METER (BEAKER) 162 mg/dL 70-110 : NERY MERVAT AT [address] (test code = 1538) [facility], 7 30: Lab Intern/Technic cyn ID = [id number] for KHOURY, KE IA BASIC METABOLIC [id number] 07:05:00 Test Item Value Reference Range Comments SODIUM (BEAKER) (test 134 meq/L 136-145 code = 381) POTASSIUM (BEAKER) (test 4.1 meq/L 3.5-5.1 code = 379) CHLORIDE (BEAKER) (test 106 meq/L 98-107 code = 382) CO2 (BEAKER) (test code = 22 meq/L 22-29 355) BLOOD UREA NITROGEN 27 mg/dL 7-21 (BEAKER) (test code = 354) CREATININE (BEAKER) (test 1.42 mg/dL 0.57-1.25 code = 358) GLUCOSE RANDOM (BEAKER) 171 mg/dL 70-105 (test code = 652) CALCIUM (BEAKER) (test 8.3 mg/dL 8.4-10.2 code = 697) EGFR (BEAKER) (test code 59 mL/min/1.73 sq m EST IMATED GFR IS NOT = 1092) ACCURATE CREA ISAAKINE CLEARANCE IN PRE DICTING GLOMERULAR FILTR ATION RATE. ESTIMATED GFR IS NOT APPLICABLE F OR DIALYSIS PATIENT S. Lab Intern ID - LAPOCT-GLUCOSE [id number] 21:59:00 Test Item Value Reference Range Comments POC-GLUCOSE METER (BEAKER) 310 mg/dL 70-110 : NERY MERVAT AT [address] (test code = 1538) [facility], 7 30: Lab Intern/Technic cyn ID = [id number] for KATIA RODRIGUEZ POCT-GLUCOSE [id number] 18:32:00 Test Item Value Reference Range Comments POC-GLUCOSE METER (BEAKER) 222 mg/dL 70-110 : NERY MERVAT AT [address] (test code = 1538) [facility], 7 [address]: Lab Intern/Technic cyn ID = [id number] for BROWN, MONA LLE POCT-GLUCOSE [id number] 13:39:00 Test Item Value Reference Range Comments POC-GLUCOSE METER (BEAKER) 148 mg/dL 70-110 : NERY MERVAT AT [address] (test code = 1538) [facility], 7 30: Lab Intern/Technic cyn ID = [id number] for BROWN, MONA LLE POCT-GLUCOSE [id number] 07:59:00 Test Item Value Reference Range Comments POC-GLUCOSE METER (BEAKER) 214 mg/dL 70-110 : NERY MERVAT AT [address] (test code = 1538) [facility], 7 30: Lab Intern/Technic cyn ID = [id number] for BROWN, MONA LLE BASIC METABOLIC [id number] 05:54:00 Test Item Value Reference Range Comments SODIUM (BEAKER) (test 135 meq/L 136-145 code = 381) POTASSIUM (BEAKER) (test 4.4 meq/L 3.5-5.1 code = 379) CHLORIDE (BEAKER) (test 108 meq/L 98-107 code = 382) CO2 (BEAKER) (test code = 21 meq/L 22-29 355) BLOOD UREA NITROGEN 30 mg/dL 7-21 (BEAKER) (test code = 354) CREATININE (BEAKER) (test 1.41 mg/dL 0.57-1.25 code = 358) GLUCOSE RANDOM (BEAKER) 159 mg/dL 70-105 (test code = 652) CALCIUM (BEAKER) (test 8.0 mg/dL 8.4-10.2 code = 697) EGFR (BEAKER) (test code 59 mL/min/1.73 sq m EST IMATED GFR IS NOT = 1092) ACCURATE CREA TININE CLEARANCE IN PRE DICTING GLOMERULAR FILTR ATION RATE. ESTIMATED GFR IS NOT APPLICABLE F OR DIALYSIS PATIENT S. Lab Intern ID - GALAPCBC W/PLT COUNT & AUTO [id number] 05:14:00 Test Item Value Reference Range Comments WHITE BLOOD CELL COUNT (BEAKER) (test code = 7.6 K/ L 3.5 -10.5 775) RED BLOOD CELL COUNT (BEAKER) (test code = 761) 4.44 M/ L 4.63-6.08 HEMOGLOBIN (BEAKER) (test code = 410) 12.6 GM/DL 13.7-17.5 HEMATOCRIT (BEAKER) (test code = 411) 37.9 % 40.1-51.0 MEAN CORPUSCULAR VOLUME (BEAKER) (test code = 85.4 fL 79 .0-92.2 753) MEAN CORPUSCULAR HEMOGLOBIN (BEAKER) (test code 28.4 pg 25.7-32.2 = 751) MEAN CORPUSCULAR HEMOGLOBIN CONC (BEAKER) (test 33.2 GM/DL 32.3-36.5 code = 752) RED CELL DISTRIBUTION WIDTH (BEAKER) (test code 13.4 % 11.6-14.4 = 412) PLATELET COUNT (BEAKER) (test code = 756) 131 K/CU MM 150-45 0 MEAN PLATELET VOLUME (BEAKER) (test code = 754) 10.2 fL 9.4-12.4 NUCLEATED RED BLOOD CELLS (BEAKER) (test code = 0 /100 WBC 0-0 413) NEUTROPHILS RELATIVE PERCENT (BEAKER) (test code 70 % = 429) LYMPHOCYTES RELATIVE PERCENT (BEAKER) (test code 18 % = 430) MONOCYTES RELATIVE PERCENT (BEAKER) (test code = 12 % 431) EOSINOPHILS RELATIVE PERCENT (BEAKER) (test code 0 % = 432) BASOPHILS RELATIVE PERCENT (BEAKER) (test code = 0 % 437) NEUTROPHILS ABSOLUTE COUNT (BEAKER) (test code = 5.29 K/ L 1.78-5.38 670) LYMPHOCYTES ABSOLUTE COUNT (BEAKER) (test code = 1.37 K/ L 1.32-3.57 414) MONOCYTES ABSOLUTE COUNT (BEAKER) (test code = 0.87 K/ L 0 .30-0.82 415) EOSINOPHILS ABSOLUTE COUNT (BEAKER) (test code = 0.01 K/ L 0.04-0.54 416) BASOPHILS ABSOLUTE COUNT (BEAKER) (test code = 0.00 K/ L 0 .01-0.08 417) IMMATURE GRANULOCYTES-RELATIVE PERCENT (BEAKER) 1 % 0-1 (test code = 2801) POCT-GLUCOSE [id number] 21:36:00 Test Item Value Reference Range Comments POC-GLUCOSE METER (BEAKER) 242 mg/dL 70-110 : NERY MERVAT AT [facility] [address] [facility] (test code = 1538) [facility], [address]: Lab Intern/Technic cyn ID = [id number] for KATIA RODRIGUEZ U/S, FINE NEEDLE ASPIRATION (FNA), [id number] 19:49:00Discussed with IR Dr. Montano for exam:->right thyroid noduleFINAL REPORT History: Right thyroid nodule. PROCEDURE: Following informed written consent and limited sonographic examination of the right thyroid lobe, the patient's cervical region was prepped and draped in the usual sterile manner. 2% lidocaine was given locally for anesthesia. No conscious sedation was administered. Using ultrasound guidance and an anterior approach, a total of three 25-gauge fine-needle aspirates were obtained from the patient's solid right thyroid lobe nodule described below and submitted to pathology for evaluation. Overall, the patient tolerated the procedure well without immediate complications and was discharged from the department in stable condition. FINDINGS: Limited sonographic examination of the right thyroid lobe performed prior to and during the biopsy demonstrates a 3.5 x 1.9 x 2.9 cm mostly solid slightly heterogeneous solid nodule in the head to lower pole of the right thyroid lobe. A small cystic component is also seen adjacent to thenodule. During the aspirates, the needle tip is noted to lie within the solid component of the nodule. After the aspiration, there are no surrounding fluid collections or or evidence for hemorrhage. IMPRESSION: 1. Successful uncomplicated ultrasound-guided fine-needle aspiration of the patient's solidright thyroid nodule as described in detail above. This procedure was performed by Elsa Benitez PA-C under direct supervision by me. Signed: Angel Cuetoort Verified Date/Time: 08/29/201919:49:28 Reading Location: [facility] P048 Angio Body Reading Room POCT-GLUCOSE [id number] 18:04:00 Test Item Value Reference Range Comments POC-GLUCOSE METER (BEAKER) 176 mg/dL 70-110 : NERY MERVAT AT [address] (test code = 1538) [facility], 7 [address]: Lab Intern/Technic cyn ID = [id number] for BROWN, MONA LLE POCT-GLUCOSE [id number] 12:58:00 Test Item Value Reference Range Comments POC-GLUCOSE METER (BEAKER) 136 mg/dL 70-110 : NERY MERVAT AT [address] (test code = 1538) [facility], 7 [address]: Lab Intern/Technic cyn ID = [id number] for BROWN, MONA LLE POCT-GLUCOSE [id number] 08:20:00 Test Item Value Reference Range Comments POC-GLUCOSE METER (BEAKER) 154 mg/dL 70-110 : NERY MERVAT AT [address] (test code = 1538) [facility], 7 [address]: Lab Intern/Technic cyn ID = [id number] for BROWN, MONA LLE BASIC METABOLIC [id number] 06:46:00 Test Item Value Reference Range Comments SODIUM (BEAKER) (test 135 meq/L 136-145 code = 381) POTASSIUM (BEAKER) (test 4.6 meq/L 3.5-5.1 Specime n slightly code = 379) hemolyzed CHLORIDE (BEAKER) (test 109 meq/L 98-107 code = 382) CO2 (BEAKER) (test code = 19 meq/L 22-29 355) BLOOD UREA NITROGEN 29 mg/dL 7-21 (BEAKER) (test code = 354) CREATININE (BEAKER) (test 1.37 mg/dL 0.57-1.25 Specim en slightly code = 358) hemolyzed GLUCOSE RANDOM (BEAKER) 150 mg/dL 70-105 (test code = 652) CALCIUM (BEAKER) (test 8.1 mg/dL 8.4-10.2 code = 697) EGFR (BEAKER) (test code 61 mL/min/1.73 sq m EST IMATED GFR IS NOT = 1092) ACCURATE CREA TININE CLEARANCE IN PRE DICTING GLOMERULAR FILTR ATION RATE. ESTIMATED GFR IS NOT APPLICABLE F OR DIALYSIS PATIENT S. Lab Intern ID - NOREEN MPROTHROMBIN [id number] 06:14:00 Test Item Value Reference Range Comments PROTIME (BEAKER) (test code = 759) 13.9 seconds 11.9-14.2 INR (BEAKER) (test code = 370) 1.1 <=5.9 Effective 12/14/2018: PT Reference Range ChangeNew: 11.9-14.2 Previous: 11.7- 14.7RECOMMENDED COUMADIN/WARFARIN INR THERAPY RANGESSTANDARD DOSE: 2.0-3.0 Includes: PROPHYLAXIS for venous thrombosis, systemic embolization; TREATMENT for venous thrombosis and/or pulmonary embolus.HIGH RISK: Target INR is2.5-3.5 for patients wiht mechanical heart valves.CBC W/PLT COUNT & AUTO [id number] 06:05:00 Test Item Value Reference Range Comments WHITE BLOOD CELL COUNT (BEAKER) (test code = 8.8 K/ L 3.5 -10.5 775) RED BLOOD CELL COUNT (BEAKER) (test code = 761) 4.61 M/ L 4.63-6.08 HEMOGLOBIN (BEAKER) (test code = 410) 13.0 GM/DL 13.7-17.5 HEMATOCRIT (BEAKER) (test code = 411) 39.8 % 40.1-51.0 MEAN CORPUSCULAR VOLUME (BEAKER) (test code = 86.3 fL 79 .0-92.2 753) MEAN CORPUSCULAR HEMOGLOBIN (BEAKER) (test code 28.2 pg 25.7-32.2 = 751) MEAN CORPUSCULAR HEMOGLOBIN CONC (BEAKER) (test 32.7 GM/DL 32.3-36.5 code = 752) RED CELL DISTRIBUTION WIDTH (BEAKER) (test code 13.6 % 11.6-14.4 = 412) PLATELET COUNT (BEAKER) (test code = 756) 138 K/CU MM 150-45 0 MEAN PLATELET VOLUME (BEAKER) (test code = 754) 10.4 fL 9.4-12.4 NUCLEATED RED BLOOD CELLS (BEAKER) (test code = 0 /100 WBC 0-0 413) NEUTROPHILS RELATIVE PERCENT (BEAKER) (test code 80 % = 429) LYMPHOCYTES RELATIVE PERCENT (BEAKER) (test code 11 % = 430) MONOCYTES RELATIVE PERCENT (BEAKER) (test code = 8 % 431) EOSINOPHILS RELATIVE PERCENT (BEAKER) (test code 0 % = 432) BASOPHILS RELATIVE PERCENT (BEAKER) (test code = 0 % 437) NEUTROPHILS ABSOLUTE COUNT (BEAKER) (test code = 7.07 K/ L 1.78-5.38 670) LYMPHOCYTES ABSOLUTE COUNT (BEAKER) (test code = 0.98 K/ L 1.32-3.57 414) MONOCYTES ABSOLUTE COUNT (BEAKER) (test code = 0.72 K/ L 0 .30-0.82 415) EOSINOPHILS ABSOLUTE COUNT (BEAKER) (test code = 0.00 K/ L 0.04-0.54 416) BASOPHILS ABSOLUTE COUNT (BEAKER) (test code = 0.00 K/ L 0 .01-0.08 417) IMMATURE GRANULOCYTES-RELATIVE PERCENT (BEAKER) 1 % 0-1 (test code = 2801) POCT-GLUCOSE [id number] 21:00:00 Test Item Value Reference Range Comments POC-GLUCOSE METER (BEAKER) 236 mg/dL 70-110 : NERY MERVAT AT [facility] [address] [facility] (test code = 1538) [facility], [address]: Lab Intern/Technic cyn ID = [id number] for KATIA RODRIGUEZ CT, [id number] 16:23:00Please specify:->AdrenalsFINAL REPORT CT scan of the abdomen and pelvis. HISTORY: Evaluate adrenal lesi on. COMPARISON STUDY: CT scan of the abdomen and pelvis dated August 25, 2019 TECHNIQUE: Contiguoushelical slices were acquired through the abdomen and pelvis posted ministration of oral contrast. Nointravenous contrast was administered. This exam was performed according to our department dose optimization program which includes automated exposure control, adjustment of the mA and/or kV according to the patient's size and/or use of iterative reconstruction technique. FINDINGS: Two nodules are seen in the right lung base measuring 1 mm in size each, stable from previous and for which no imaging follow-up is recommended in a low-risk patient. There is a 1.2 cm bleb in the left lower lobe. The liver, spleen, pancreas, adrenal glands and kidneys are unremarkable. There is a 2.8 x 2.6 cm lesion in the right adrenal gland with Hounsfield units of 8 consistent with a benign adenoma. There are no dilated loops of bowel seen to suggest obstruction. A normal appendix is seen. Diverticulosis is noted wi thout evidence of diverticulitis. There is no free fluid or free air. No suspicious adenopathy is seen. The aorta is normal in caliber. Atherosclerosis is identified. Bone windows demonstrate degenerative changes. IMPRESSION:1. The lesion in right adrenal gland represents an adenoma.2. No other significant change from previous. Signed: Patricia Regaladoeport Verified Date/Time: 08/28/2019 16:23:59Reading Location: [address] Body Reading Room POCT- GLUCOSE [id number] 16:09:00 Test Item Value Reference Range Comments POC-GLUCOSE METER (BEAKER) 152 mg/dL 70-110 : NERY MERVAT AT [facility] [address] [facility] (test code = 1538) [facility], [address]: Lab Intern/Technic cyn ID = [id number] for BANKS GLADYS Sandy POCT-GLUCOSE [id number] 11:48:00 Test Item Value Reference Range Comments POC-GLUCOSE METER (BEAKER) 214 mg/dL 70-110 : Not ified RN/MD: TESTED AT (test code = 1538) [facility] [address] [facility], [address]: Lab Intern/ Cytopathologist ID = [id number] for HELENA ROSEN BASIC METABOLIC [id number] 08:30:00 Test Item Value Reference Range Comments SODIUM (BEAKER) (test 137 meq/L 136-145 code = 381) POTASSIUM (BEAKER) (test 4.5 meq/L 3.5-5.1 code = 379) CHLORIDE (BEAKER) (test 109 meq/L 98-107 code = 382) CO2 (BEAKER) (test code = 22 meq/L 22-29 355) BLOOD UREA NITROGEN 28 mg/dL 7-21 (BEAKER) (test code = 354) CREATININE (BEAKER) (test 1.37 mg/dL 0.57-1.25 code = 358) GLUCOSE RANDOM (BEAKER) 153 mg/dL 70-105 (test code = 652) CALCIUM (BEAKER) (test 8.3 mg/dL 8.4-10.2 code = 697) EGFR (BEAKER) (test code 61 mL/min/1.73 sq m EST IMATED GFR IS NOT = 1092) ACCURATE CREA TININE CLEARANCE IN PRE DICTING GLOMERULAR FILTR ATION RATE. ESTIMATED GFR IS NOT APPLICABLE F OR DIALYSIS PATIENT S. Lab Intern ID - ANTONIETTA CPOCT-GLUCOSE [id number] 08:16:00 Test Item Value Reference Range Comments POC-GLUCOSE METER (BEAKER) 166 mg/dL 70-110 : NERY MERVAT AT [facility] [address] [facility] (test code = 1538) [facility], [address]: Lab Intern/Technic cyn ID = [id number] for KERRI DOE CBC W/PLT COUNT & AUTO [id number] 08:10:00 Test Item Value Reference Range Comments WHITE BLOOD CELL COUNT (BEAKER) (test code = 8.7 K/ L 3.5 -10.5 775) RED BLOOD CELL COUNT (BEAKER) (test code = 761) 4.52 M/ L 4.63-6.08 HEMOGLOBIN (BEAKER) (test code = 410) 12.8 GM/DL 13.7-17.5 HEMATOCRIT (BEAKER) (test code = 411) 38.9 % 40.1-51.0 MEAN CORPUSCULAR VOLUME (BEAKER) (test code = 86.1 fL 79 .0-92.2 753) MEAN CORPUSCULAR HEMOGLOBIN (BEAKER) (test code 28.3 pg 25.7-32.2 = 751) MEAN CORPUSCULAR HEMOGLOBIN CONC (BEAKER) (test 32.9 GM/DL 32.3-36.5 code = 752) RED CELL DISTRIBUTION WIDTH (BEAKER) (test code 13.5 % 11.6-14.4 = 412) PLATELET COUNT (BEAKER) (test code = 756) 144 K/CU MM 150-45 0 MEAN PLATELET VOLUME (BEAKER) (test code = 754) 10.7 fL 9.4-12.4 NUCLEATED RED BLOOD CELLS (BEAKER) (test code = 0 /100 WBC 0-0 413) NEUTROPHILS RELATIVE PERCENT (BEAKER) (test code 79 % = 429) LYMPHOCYTES RELATIVE PERCENT (BEAKER) (test code 12 % = 430) MONOCYTES RELATIVE PERCENT (BEAKER) (test code = 9 % 431) EOSINOPHILS RELATIVE PERCENT (BEAKER) (test code 0 % = 432) BASOPHILS RELATIVE PERCENT (BEAKER) (test code = 0 % 437) NEUTROPHILS ABSOLUTE COUNT (BEAKER) (test code = 6.89 K/ L 1.78-5.38 670) LYMPHOCYTES ABSOLUTE COUNT (BEAKER) (test code = 1.02 K/ L 1.32-3.57 414) MONOCYTES ABSOLUTE COUNT (BEAKER) (test code = 0.75 K/ L 0 .30-0.82 415) EOSINOPHILS ABSOLUTE COUNT (BEAKER) (test code = 0.00 K/ L 0.04-0.54 416) BASOPHILS ABSOLUTE COUNT (BEAKER) (test code = 0.01 K/ L 0 .01-0.08 417) IMMATURE GRANULOCYTES-RELATIVE PERCENT (BEAKER) 0 % 0-1 (test code = 2801) POCT-GLUCOSE [id number] 21:52:00 Test Item Value Reference Range Comments POC-GLUCOSE METER (BEAKER) 195 mg/dL 70-110 : NERY MERVAT AT [address] (test code = 1538) [facility], [address]: Lab Intern/Technic cyn ID = [id number] for DEBBY PHELANSarbjit OLSEN POCT-GLUCOSE [id number] 17:49:00 Test Item Value Reference Range Comments POC-GLUCOSE METER (BEAKER) 217 mg/dL 70-110 : NERY MERVAT AT [address] (test code = 1538) [facility], [address]: Lab Intern/Technic cyn ID = [id number] for KE KHOURY SHARLA POCT-GLUCOSE [id number] 12:14:00 Test Item Value Reference Range Comments POC-GLUCOSE METER (BEAKER) 215 mg/dL 70-110 : NERY MERVAT AT [address] (test code = 1538) [facility], [address]: Lab Intern/Technic cyn ID = [id number] for IRAIDA KE IA POCT-GLUCOSE [id number] 08:29:00 Test Item Value Reference Range Comments POC-GLUCOSE METER (BEAKER) 160 mg/dL 70-110 : NERY MERVAT AT [facility] [address] (test code = 1538) [facility], 7 75: Lab Intern/Technic cyn ID = [id number] for KHOURY, [place] BASIC METABOLIC [id number] 06:45:00 Test Item Value Reference Range Comments SODIUM (BEAKER) (test 134 meq/L 136-145 code = 381) POTASSIUM (BEAKER) (test 4.3 meq/L 3.5-5.1 code = 379) CHLORIDE (BEAKER) (test 106 meq/L 98-107 code = 382) CO2 (BEAKER) (test code = 22 meq/L 22-29 355) BLOOD UREA NITROGEN 28 mg/dL 7-21 (BEAKER) (test code = 354) CREATININE (BEAKER) (test 1.49 mg/dL 0.57-1.25 code = 358) GLUCOSE RANDOM (BEAKER) 165 mg/dL 70-105 (test code = 652) CALCIUM (BEAKER) (test 8.2 mg/dL 8.4-10.2 code = 697) EGFR (BEAKER) (test code 56 mL/min/1.73 sq m EST IMATED GFR IS NOT = 1092) ACCURATE CREA TININE CLEARANCE IN PRE DICTING GLOMERULAR FILTR ATION RATE. ESTIMATED GFR IS NOT APPLICABLE F OR DIALYSIS PATIENT S. Lab Intern ID - EMELYN WCBC W/PLT COUNT & AUTO [id number] 05:44:00 Test Item Value Reference Range Comments WHITE BLOOD CELL COUNT (BEAKER) (test code = 8.9 K/ L 3.5 -10.5 775) RED BLOOD CELL COUNT (BEAKER) (test code = 761) 4.43 M/ L 4.63-6.08 HEMOGLOBIN (BEAKER) (test code = 410) 12.2 GM/DL 13.7-17.5 HEMATOCRIT (BEAKER) (test code = 411) 37.2 % 40.1-51.0 MEAN CORPUSCULAR VOLUME (BEAKER) (test code = 84.0 fL 79 .0-92.2 753) MEAN CORPUSCULAR HEMOGLOBIN (BEAKER) (test code 27.5 pg 25.7-32.2 = 751) MEAN CORPUSCULAR HEMOGLOBIN CONC (BEAKER) (test 32.8 GM/DL 32.3-36.5 code = 752) RED CELL DISTRIBUTION WIDTH (BEAKER) (test code 13.5 % 11.6-14.4 = 412) PLATELET COUNT (BEAKER) (test code = 756) 152 K/CU MM 150-45 0 MEAN PLATELET VOLUME (BEAKER) (test code = 754) 10.4 fL 9.4-12.4 NUCLEATED RED BLOOD CELLS (BEAKER) (test code = 0 /100 WBC 0-0 413) NEUTROPHILS RELATIVE PERCENT (BEAKER) (test code 80 % = 429) LYMPHOCYTES RELATIVE PERCENT (BEAKER) (test code 11 % = 430) MONOCYTES RELATIVE PERCENT (BEAKER) (test code = 9 % 431) EOSINOPHILS RELATIVE PERCENT (BEAKER) (test code 0 % = 432) BASOPHILS RELATIVE PERCENT (BEAKER) (test code = 0 % 437) NEUTROPHILS ABSOLUTE COUNT (BEAKER) (test code = 7.13 K/ L 1.78-5.38 670) LYMPHOCYTES ABSOLUTE COUNT (BEAKER) (test code = 0.97 K/ L 1.32-3.57 414) MONOCYTES ABSOLUTE COUNT (BEAKER) (test code = 0.77 K/ L 0 .30-0.82 415) EOSINOPHILS ABSOLUTE COUNT (BEAKER) (test code = 0.00 K/ L 0.04-0.54 416) BASOPHILS ABSOLUTE COUNT (BEAKER) (test code = 0.01 K/ L 0 .01-0.08 417) IMMATURE GRANULOCYTES-RELATIVE PERCENT (BEAKER) 0 % 0-1 (test code = 2801) POCT-GLUCOSE [id number] 21:51:00 Test Item Value Reference Range Comments POC-GLUCOSE METER (BEAKER) 156 mg/dL 70-110 : Not ified RN/MD: TESTED AT (test code = 1538) [facility] [address] [facility], [address]: Lab Intern/ Cytopathologist ID = [id number] for BOOKER AILEEN POCT-GLUCOSE [id number] 17:32:00 Test Item Value Reference Range Comments POC-GLUCOSE METER (BEAKER) 177 mg/dL 70-110 : NERY MERVAT AT [facility] [address] [facility] (test code = 1538) [facility], [address]: Lab Intern/Technic cyn ID = [id number] for KHOURY, KE IA POCT-GLUCOSE [id number] 12:14:00 Test Item Value Reference Range Comments POC-GLUCOSE METER (BEAKER) 210 mg/dL 70-110 : NERY MERVAT AT [address] (test code = 1538) [facility], [address]: Lab Intern/Technic cyn ID = [id number] for KHOURY, KE IA POCT-GLUCOSE [id number] 08:16:00 Test Item Value Reference Range Comments POC-GLUCOSE METER (BEAKER) 169 mg/dL 70-110 : NERY MERVAT AT [address] (test code = 1538) [facility], [address]: Lab Intern/Technic cyn ID = [id number] for KHOURY, KE IA BASIC METABOLIC [id number] 07:33:00 Test Item Value Reference Range Comments SODIUM (BEAKER) (test 133 meq/L 136-145 code = 381) POTASSIUM (BEAKER) (test 4.5 meq/L 3.5-5.1 code = 379) CHLORIDE (BEAKER) (test 105 meq/L 98-107 code = 382) CO2 (BEAKER) (test code = 23 meq/L 22-29 355) BLOOD UREA NITROGEN 28 mg/dL 7-21 (BEAKER) (test code = 354) CREATININE (BEAKER) (test 1.54 mg/dL 0.57-1.25 code = 358) GLUCOSE RANDOM (BEAKER) 158 mg/dL 70-105 (test code = 652) CALCIUM (BEAKER) (test 8.5 mg/dL 8.4-10.2 code = 697) EGFR (BEAKER) (test code 53 mL/min/1.73 sq m EST IMATED GFR IS NOT = 1092) ACCURATE CREA TININE CLEARANCE IN PRE DICTING GLOMERULAR FILTR ATION RATE. ESTIMATED GFR IS NOT APPLICABLE F OR DIALYSIS PATIENT S. Lab Intern ID - PIAYA LCBC W/PLT COUNT & AUTO [id number] 05:59:00 Test Item Value Reference Range Comments WHITE BLOOD CELL COUNT (BEAKER) (test code = 8.5 K/ L 3.5 -10.5 775) RED BLOOD CELL COUNT (BEAKER) (test code = 761) 4.48 M/ L 4.63-6.08 HEMOGLOBIN (BEAKER) (test code = 410) 12.7 GM/DL 13.7-17.5 HEMATOCRIT (BEAKER) (test code = 411) 37.8 % 40.1-51.0 MEAN CORPUSCULAR VOLUME (BEAKER) (test code = 84.4 fL 79 .0-92.2 753) MEAN CORPUSCULAR HEMOGLOBIN (BEAKER) (test code 28.3 pg 25.7-32.2 = 751) MEAN CORPUSCULAR HEMOGLOBIN CONC (BEAKER) (test 33.6 GM/DL 32.3-36.5 code = 752) RED CELL DISTRIBUTION WIDTH (BEAKER) (test code 13.6 % 11.6-14.4 = 412) PLATELET COUNT (BEAKER) (test code = 756) 152 K/CU MM 150-45 0 MEAN PLATELET VOLUME (BEAKER) (test code = 754) 11.1 fL 9.4-12.4 NUCLEATED RED BLOOD CELLS (BEAKER) (test code = 0 /100 WBC 0-0 413) NEUTROPHILS RELATIVE PERCENT (BEAKER) (test code 81 % = 429) LYMPHOCYTES RELATIVE PERCENT (BEAKER) (test code 11 % = 430) MONOCYTES RELATIVE PERCENT (BEAKER) (test code = 8 % 431) EOSINOPHILS RELATIVE PERCENT (BEAKER) (test code 0 % = 432) BASOPHILS RELATIVE PERCENT (BEAKER) (test code = 0 % 437) NEUTROPHILS ABSOLUTE COUNT (BEAKER) (test code = 6.88 K/ L 1.78-5.38 670) LYMPHOCYTES ABSOLUTE COUNT (BEAKER) (test code = 0.90 K/ L 1.32-3.57 414) MONOCYTES ABSOLUTE COUNT (BEAKER) (test code = 0.67 K/ L 0 .30-0.82 415) EOSINOPHILS ABSOLUTE COUNT (BEAKER) (test code = 0.00 K/ L 0.04-0.54 416) BASOPHILS ABSOLUTE COUNT (BEAKER) (test code = 0.00 K/ L 0 .01-0.08 417) IMMATURE GRANULOCYTES-RELATIVE PERCENT (BEAKER) 0 % 0-1 (test code = 2801) POCT-GLUCOSE [id number] 21:46:00 Test Item Value Reference Range Comments POC-GLUCOSE METER (BEAKER) 219 mg/dL 70-110 : NERY MERVAT AT [facility] [address] [facility] (test code = 1538) [facility], [address]: Lab Intern/Technic cyn ID = [id number] for ROSITA LOPEZ POCT-GLUCOSE [id number] 17:19:00 Test Item Value Reference Range Comments POC-GLUCOSE METER (BEAKER) 225 mg/dL 70-110 : NERY MERVAT AT [facility] [address] [facility] (test code = 1538) [facility], [address]: Lab Intern/Technic cyn ID = [id number] for KE KHOURY IA CT, CHEST, WITH [id number] 16:30:00FINAL REPORT CT of the chest, abdomen and pelvis, with contrast Clinical History: Neoplasm: abdomen, metastaticMEtastatic brain lesions, assess for primary Technique: CT of thechest, abdomen and pelvis is performed with intravenous contrast administration. This exam was performed according to our departmental dose optimization program which includes automated exposure control, adjustment of the mA and/or kV according to patient's size and/or use of iterative reconstructivetechnique. Comparison Film: None Discussion: In the right lobe of thyroid, there is a 2.6 cm nodule. No supraclavicular, axillary, mediastinal or hilar lymphadenopathy. The main pulmonary artery is mildly enlarged, measuring 3.2 cm. Heart and pericardium are unremarkable. There is no mass or consolida tion in the lung. No pleural effusion. In the middle lobe, there is a subpleural 8 mm nodular opacity. Central airways are patent, no bronchiectasis, or bronchial wall thickening. No liver lesion is identified. There is no biliary ductal dilatation, and the gallbladder is unremarkable. The spleen, pancreas are unremarkable. In the right adrenal gland, there is a indeterminate 3 cm nodule. Kidneys demonstrate no mass, hydronephrosis or radiopaque stone. No evidence of bowel obstruction or abnormal bowel wall thickening. There is colonic diverticulosis, no evidence of acute diverticulitis. Normal appendix. In the pelvis, bladder is unremarkable. Prostate gland is enlarged. There is advanced vascularcalcification with suspected occlusion versus critical narrowing of the distal aorta and common iliac vessels and reconstitution of flow more distally. No ascites, or lymphadenopathy. Osseous structures demonstrate degenerative changes. No suspicious bony lesion is identified. Impression: 2.6 cm right thyroid nodule, amenable to sonographic correlation. 8mm pulmonary nodule in the right middle lobe. Suggest three month follow-up and/or PET correlation. Indeterminate 3 cm right adrenal lesion. If further characterization is desired, consider dedicated adrenal protocol CT or MRI. Enlarged prostate gland. Advanced atherosclerotic disease. The distal aorta, and common iliac vessels appear occluded or critically stenotic. Signed: Danette Davis MDReport Verified Date/Time: 08/25/2019 16:30:29 Reading Location: [facility] C013X Ortho Consult Reading Room CT, [id number] 16:30:00FINAL REPORT CT of the chest, abdomen and pelvis, with contrast Clinical History: Neoplasm: abdomen, metastaticMEtastatic brain lesions, assess for primary Technique: CT of thechest, abdomen and pelvis is performed with intravenous contrast administration. This exam was performed according to our departmental dose optimization program which includes automated exposure control, adjustment of the mA and/or kV according to patient's size and/or use of iterative reconstructivetechnique. Comparison Film: None Discussion: In the right lobe of thyroid, there is a 2.6 cm nodule. No supraclavicular, axillary, mediastinal or hilar lymphadenopathy. The main pulmonary artery is mildly enlarged, measuring 3.2 cm. Heart and pericardium are unremarkable. There is no mass or consolida tion in the lung. No pleural effusion. In the middle lobe, there is a subpleural 8 mm nodular opacity. Central airways are patent, no bronchiectasis, or bronchial wall thickening. No liver lesion is identified. There is no biliary ductal dilatation, and the gallbladder is unremarkable. The spleen, pancreas are unremarkable. In the right adrenal gland, there is a indeterminate 3 cm nodule. Kidneys demonstrate no mass, hydronephrosis or radiopaque stone. No evidence of bowel obstruction or abnormal bowel wall thickening. There is colonic diverticulosis, no evidence of acute diverticulitis. Normal appendix. In the pelvis, bladder is unremarkable. Prostate gland is enlarged. There is advanced vascularcalcification with suspected occlusion versus critical narrowing of the distal aorta and common iliac vessels and reconstitution of flow more distally. No ascites, or lymphadenopathy. Osseous structures demonstrate degenerative changes. No suspicious bony lesion is identified. Impression: 2.6 cm right thyroid nodule, amenable to sonographic correlation. 8mm pulmonary nodule in the right middle lobe. Suggest three month follow-up and/or PET correlation. Indeterminate 3 cm right adrenal lesion. If further characterization is desired, consider dedicated adrenal protocol CT or MRI. Enlarged prostate gland. Advanced atherosclerotic disease. The distal aorta, and common iliac vessels appear occluded or critically stenotic. Signed: Danette Daviseport Verified Date/Time: 08/25/2019 16:30:29 Reading Location: [facility] C0X Ortho Consult Reading Room POCT-GLUCOSE [id number] 11:56:00 Test Item Value Reference Range Comments POC-GLUCOSE METER (BEAKER) 187 mg/dL 70-110 : NERY LOPEZ AT [address] (test code = 1538) [facility], [address]: Lab Intern/Technic cyn ID = [id number] for KHOURY, KE IA POCT-GLUCOSE [id number] 08:56:00 Test Item Value Reference Range Comments POC-GLUCOSE METER (BEAKER) 154 mg/dL 70-110 : NERY MERVAT AT [address] (test code = 1538) [facility], [address]: Lab Intern/Technic cyn ID = [id number] for KHOURY, KE IA CBC W/PLT COUNT & AUTO [id number] 06:23:00 Test Item Value Reference Range Comments WHITE BLOOD CELL COUNT (BEAKER) (test code = 10.9 K/ L 3.5 -10.5 775) RED BLOOD CELL COUNT (BEAKER) (test code = 761) 4.57 M/ L 4.63-6.08 HEMOGLOBIN (BEAKER) (test code = 410) 13.2 GM/DL 13.7-17.5 HEMATOCRIT (BEAKER) (test code = 411) 38.3 % 40.1-51.0 MEAN CORPUSCULAR VOLUME (BEAKER) (test code = 83.8 fL 79 .0-92.2 753) MEAN CORPUSCULAR HEMOGLOBIN (BEAKER) (test code 28.9 pg 25.7-32.2 = 751) MEAN CORPUSCULAR HEMOGLOBIN CONC (BEAKER) (test 34.5 GM/DL 32.3-36.5 code = 752) RED CELL DISTRIBUTION WIDTH (BEAKER) (test code 13.5 % 11.6-14.4 = 412) PLATELET COUNT (BEAKER) (test code = 756) 167 K/CU MM 150-45 0 MEAN PLATELET VOLUME (BEAKER) (test code = 754) 11.4 fL 9.4-12.4 NUCLEATED RED BLOOD CELLS (BEAKER) (test code = 0 /100 WBC 0-0 413) NEUTROPHILS RELATIVE PERCENT (BEAKER) (test code 85 % = 429) LYMPHOCYTES RELATIVE PERCENT (BEAKER) (test code 9 % = 430) MONOCYTES RELATIVE PERCENT (BEAKER) (test code = 6 % 431) EOSINOPHILS RELATIVE PERCENT (BEAKER) (test code 0 % = 432) BASOPHILS RELATIVE PERCENT (BEAKER) (test code = 0 % 437) NEUTROPHILS ABSOLUTE COUNT (BEAKER) (test code = 9.21 K/ L 1.78-5.38 670) LYMPHOCYTES ABSOLUTE COUNT (BEAKER) (test code = 0.99 K/ L 1.32-3.57 414) MONOCYTES ABSOLUTE COUNT (BEAKER) (test code = 0.64 K/ L 0 .30-0.82 415) EOSINOPHILS ABSOLUTE COUNT (BEAKER) (test code = 0.00 K/ L 0.04-0.54 416) BASOPHILS ABSOLUTE COUNT (BEAKER) (test code = 0.01 K/ L 0 .01-0.08 417) IMMATURE GRANULOCYTES-RELATIVE PERCENT (BEAKER) 0 % 0-1 (test code = 2801) [id number] 06:12:00 Test Item Value Reference Range Comments MAGNESIUM (BEAKER) (test code = 627) 2.0 mg/dL 1.6-2.6 Lab Intern ID - NOREEN MBASIC METABOLIC [id number] 06:12:00 Test Item Value Reference Range Comments SODIUM (BEAKER) (test 137 meq/L 136-145 code = 381) POTASSIUM (BEAKER) (test 4.4 meq/L 3.5-5.1 code = 379) CHLORIDE (BEAKER) (test 107 meq/L 98-107 code = 382) CO2 (BEAKER) (test code = 21 meq/L 22-29 355) BLOOD UREA NITROGEN 23 mg/[facility] 7-[facility] (test code = 354) CREATININE (BEAKER) (test 1.44 mg/dL 0.57-1.25 code = 358) GLUCOSE RANDOM ([facility]) 144 mg/dL 70-105 (test code = 652) CALCIUM (BEAKER) (test 9.3 mg/dL 8.4-10.2 code = 697) EGFR ([facility]) (test code 58 mL/min/1.73 sq m EST IMATED GFR IS NOT = 1092) ACCURATE CREA TININE CLEARANCE IN PRE DICTING GLOMERULAR FILTR ATION RATE. ESTIMATED GFR IS NOT APPLICABLE F OR DIALYSIS PATIENT S. Lab Intern ID - NOREEN MPOCT-GLUCOSE [id number] 20:14:00 Test Item Value Reference Range Comments POC-GLUCOSE METER (BEAKER) 120 mg/dL 70-110 : Not ified RN/MD: TESTED AT (test code = 1538) [address], [address]: Lab Intern/ Cytopathologist ID = [id number] for JENNIFER RUIZ POCT-GLUCOSE [id number] 18:17:00 Test Item Value Reference Range Comments POC-GLUCOSE METER (BEAKER) 153 mg/dL 70-110 : NERY MERVAT AT [address] (test code = 1538) [facility], [address]: Lab Intern/Technic cyn ID = [id number] for NECROKIRTI, JAS EPH POCT-GLUCOSE [id number] 12:20:00 Test Item Value Reference Range Comments POC-GLUCOSE METER (BEAKER) 149 mg/dL 70-110 : NERY MERVAT AT [address] (test code = 1538) [facility], [address]: Lab Intern/Technic cyn ID = [id number] for NECROTO, JAS EPH POCT-GLUCOSE [id number] 06:15:00 Test Item Value Reference Range Comments POC-GLUCOSE METER (BEAKER) 154 mg/dL 70-110 : NERY MERVAT AT [address] (test code = 1538) [facility], [address]: Lab Intern/Technic cyn ID = [id number] for Li, Margaret [id number] 04:59:00 Test Item Value Reference Range Comments PHOSPHORUS (BEAKER) (test code = 604) 3.0 mg/dL 2.3-4.7 Lab Intern TERESA Alvarez on admission and Daily AM afterwardsMAGNESIUM 2019-08-24 04:59:00 Test Item Value Reference Range Comments MAGNESIUM (BEAKER) (test code = 627) 2.1 mg/dL 1.6-2.6 Lab Intern TERESA Alvarez on admission and Daily AM afterwardsBASIC METABOLIC [id number] 04:59:00 Test Item Value Reference Range Comments SODIUM (BEAKER) (test 137 meq/L 136-145 code = 381) POTASSIUM (BEAKER) (test 4.4 meq/L 3.5-5.1 code = 379) CHLORIDE (BEAKER) (test 108 meq/L 98-107 code = 382) CO2 (BEAKER) (test code = 23 meq/L 22-29 355) BLOOD UREA NITROGEN 23 mg/dL 7-21 (BEAKER) (test code = 354) CREATININE (BEAKER) (test 1.46 mg/dL 0.57-1.25 code = 358) GLUCOSE RANDOM (BEAKER) 158 mg/dL 70-105 (test code = 652) CALCIUM (BEAKER) (test 8.7 mg/dL 8.4-10.2 code = 697) EGFR (BEAKER) (test code 57 mL/min/1.73 sq m EST IMATED GFR IS NOT = 1092) ACCURATE CREA TININE CLEARANCE IN PRE DICTING GLOMERULAR FILTR ATION RATE. ESTIMATED GFR IS NOT APPLICABLE F OR DIALYSIS PATIENT S. Gonzalo Alvarez on admission and Daily AM afterwardsCBC (HEMOGRAM ONLY)2019-08-24 03:42:00 Test Item Value Reference Range Comments WHITE BLOOD CELL COUNT (BEAKER) (test code = 9.1 K/ L 3.5 -10.5 775) RED BLOOD CELL COUNT (BEAKER) (test code = 761) 4.03 M/ L 4.63-6.08 HEMOGLOBIN (BEAKER) (test code = 410) 11.4 GM/DL 13.7-17.5 HEMATOCRIT (BEAKER) (test code = 411) 34.0 % 40.1-51.0 MEAN CORPUSCULAR VOLUME (BEAKER) (test code = 84.4 fL 79 .0-92.2 753) MEAN CORPUSCULAR HEMOGLOBIN (BEAKER) (test code 28.3 pg 25.7-32.2 = 751) MEAN CORPUSCULAR HEMOGLOBIN CONC (BEAKER) (test 33.5 GM/DL 32.3-36.5 code = 752) RED CELL DISTRIBUTION WIDTH (BEAKER) (test code 13.3 % 11.6-14.4 = 412) PLATELET COUNT (BEAKER) (test code = 756) 146 K/CU MM 150-45 0 MEAN PLATELET VOLUME (BEAKER) (test code = 754) 10.8 fL 9.4-12.4 NUCLEATED RED BLOOD CELLS (BEAKER) (test code = 0 /100 WBC 0-0 413) POCT-GLUCOSE [id number] 23:51:00 Test Item Value Reference Range Comments POC-GLUCOSE METER (BEAKER) 152 mg/dL 70-110 : NERY MERVAT AT [facility] [address] [facility] (test code = 1538) [facility], [address]: Lab Intern/Technic cyn ID = [id number] for Margaret Marquez [id number] 22:28:00 Test Item Value Reference Range Comments MAGNESIUM (BEAKER) (test code = 627) 2.6 mg/dL 1.6-2.6 Lab Intern ID - DBPOCT-GLUCOSE [id number] 18:40:00 Test Item Value Reference Range Comments POC-GLUCOSE METER (BEAKER) 174 mg/dL 70-110 : NERY MERVAT AT [facility] [address] [facility] (test code = 1538) [facility], [address]: Lab Intern/Technic cyn ID = [id number] for JAS SMALL EPH [id number] 15:28:00 Test Item Value Reference Range Comments MAGNESIUM (BEAKER) (test code = 2.0 mg/dL 1.6-2.6 Specimen slightly hemolyzed 627) Lab Intern ID - [id number] 15:28:00 Test Item Value Reference Range Comments SODIUM (BEAKER) (test code = 381) 136 meq/L 136-145 Lab Intern ID - BSLIPID [id number] 15:28:00 Test Item Value Reference Range Comments TRIGLYCERIDES (BEAKER) (test 43 mg/dL Spe cimen slightly hemolyzed code = 540) CHOLESTEROL (BEAKER) (test code 145 mg/dL Specimen slightly hemolyzed = 631) HDL CHOLESTEROL (BEAKER) (test 40 mg/dL code = 976) LDL CHOLESTEROL CALCULATED 96 mg/dL (BEAKER) (test code = 633) Triglyceride Reference Range: Low Risk <150 Borderline 150-199 High Risk 200-499 Very High Risk >=500Cholesterol Reference Range: Low Risk <200 Borderline 200-239 High Risk >240HDL Cholesterol Reference Range: Low Risk >=60 High Risk <40LDL Cholesterol Reference Range: Optimal <100 Near Optimal 100-129 Borderline 130-159 High 160-189 Very High >=190 Lab Intern ID - BSPOCT-GLUCOSE [id number] 13:49:00 Test Item Value Reference Range Comments POC-GLUCOSE METER (BEAKER) 176 mg/dL 70-110 : NERY MERVAT AT [facility] [address] [facility] (test code = 1538) [facility], [address]: Lab Intern/Technic cyn ID = [id number] for JAS SMALL EPH MR, BRAIN, [id number] 13:31:00Anesthesia:->NoneDeos the patient have an implanted electronic device?->YesFINAL REPORT MR, BRAIN, WITH \\T\\ WITHOUT CONTRAST INDICATION: ICH TECHNIQUE: Multiplanar, multisequence MR imaging of the brain was obtained before and after uneventful administration of gadolinium contrast. COMPARISON: CT brain August 16, 2014, CT angiography August 23, 2019 FINDINGS:Parenchymal hemorrhage in the left occipital lobe as expected given prior imaging. Enhancing, nonhemorrhagic disease more peripherally in the occipital lobe with a small degree of adjacent vasogenic edema. Peripherally enhancing bilobed lesion is noted at the parieto- occipital region on the left without associated hemorrhagic change. A third area of enhancement without hemorrhagic conversion is present in the right frontal lobe anteriorly, measuring 8 mm in greatest dimension. There is no midline shift. The ventricular system is normal in size and configuration. No abnormality of the skullbase or calvarium is present. The visualized paranasal sinuses, mastoid air cells, and orbits are within normal limits. 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 Signed: JR Crystal Robert ANNAgabrielaort Verified Date/Time: 08/23/2019 13:31:53 Reading Location: [facility] C013V Neuro Reading Room GLOBIN [id number] 08:25:00 Test Item Value Reference Range Comments HEMOGLOBIN A1C (BEAKER) (test code = 368) 6.8 % 4.3-6. 1 [id number] 07:52:00 Test Item Value Reference Range Comments PHOSPHORUS (BEAKER) (test code = 604) 2.2 mg/dL 2.3-4.7 Lab Intern ID - ASOnce on admission and Daily AM afterwardsPOCT-GLUCOSE METER 2019-08-23 07:03:00 Test Item Value Reference Range Comments POC-GLUCOSE METER (BEAKER) 175 mg/dL 70-110 : NERY MERVAT AT [facility] [address] [facility] (test code = 1538) [facility], [address]: Lab Intern/Technic cyn ID = [id number] for MOE SOLORIO EDENILSON CT, CTANGIO [id number] 05:51:00Anesthesia:->NoneFINAL REPORT EXAM: CT, CAROTID, ANGIO, CT, CTANGIO BRAIN CLINICAL INDICATION: Known intracranial hemorrhage. TECHNIQUE: Helical CT of the head without IV contrast. Postcontrast CTA of the head and CTA of the neck with IV contrast. Multiplanar reconstructed images. 3D reconstructions with MIP images were performed. This exam was performed according to our departmental dose-o ptimization program, which includes automated exposure control, adjustment of the mA and/or kV according to patient size and/or use of iterative reconstruction technique. COMPARISON: 08/16/2014 noncontrast FINDINGS:CT HEAD: Parenchyma: Acute parenchymal hemorrhage centered at the left parasagittal parie david lobe with measurements of 2.4 x 1.6 x 2.2 cm (4 cc). No intraventricular extension or shift of midline structures. Moderate associated vasogenic edema. Chronic posterior right MCA territory with exvacuo dilatation of the right lateral ventricle. Patchy and confluent areas of hypoattenuation are present in the cerebral white matter that are nonspecific but compatible with moderate chronic microvascular ischemic changes. Generalized cerebral parenchymal volume loss. Extra-axial Collection: None Ventricular System: No hydrocephalus. Osseous Structures: Normal Paranasal Sinuses: Predominantly clear Tympanomastoid Cavities: Normal Other: None CTA HEAD: Anterior Circulation:Right intracranial internal carotid artery (ICA): Diffusely diminutive with marked atherosclerotic calcifications at the supraclinoid segment.Right anterior cerebral artery (MICA): NormalRight middle cerebral artery (MCA): Moderately diminutive with mild to moderate stenosis of the mid M1 segment. No large vessel central cut off. There is tapering of the distal posterior branches compatible with chronic infarction. Left intracranial internal carotid artery (ICA): Moderate atherosclerotic narrowing of the cavernous andsupraclinoid segments with patent flow at the terminus. Left anterior cerebral artery (MICA): NormalLeft middle cerebral artery (MCA): Normal Anterior communicating artery (AComm): PresentPosterior communicating arteries (PComm): Present bilaterally. Posterior Circulation:Right posterior cerebral artery (ENGINEERING VICE PRESIDENT): There is fusiform dilatation of the proximal P2 segment at the junction with the right posterior communicating artery with diameter of 0.6 cm and length of 0.7 cm.Left posterior cerebral artery(ENGINEERING VICE PRESIDENT): Hypoplastic P1 segment with the remainder of the left MICA supplied by the left posterior communicating artery Right vertebral artery (VA): Diminutive distal to the takeoff of the PICA with mild irregular stenosis of the V4 segment.Left vertebral artery (VA): Mild focal stenosis of the distal Y2rgobeoo.Basilar artery (BA): Hypoplastic without focal stenosis. Other: No evidence of vascular malformation. Dural Venous Sinuses: Normal CTA NECK:Aortic arch and proximal great vessels: Atherosclerotic changes without significant narrowing. Right carotid arterial system: Atherosclerotic changes results in internal carotid artery occlusion with faint reconstitution at the skull base. Left carotid arterial system: Mild (<50%) internal carotid artery narrowing at the carotid bulb. Evaluatio n somewhat limited by marked tortuosity and medialized course of the internal carotid artery. Right vertebral artery: Diffusely hypoplastic without focal stenosis.Left vertebral artery: Normal Where applicable, evaluation of internal carotid artery (ICA) stenosis was performed using NASCET-like criteria, where the site of greatest stenosis is compared to the diameter of the ICA distal to the stenosis at a point where the ICA noel become parallel. Neck Soft Tissues: Unremarkable. Osseous Structures: No acute osseous abnormality. Multilevel advanced degenerative disc disease of the cervical spine.Included Lung Apices: Moderate paraseptal emphysema. IMPRESSION: 1.Acute focal intraparenchymal hemor rhage within the left parietal lobe with moderate vasogenic edema. No shift of midline structures orintraventricular extension of hemorrhage. No etiology identified on CTA.2. Remote right MCA territory infarction and background of moderate chronic microvascular ischemic changes of the brain.3. Occluded extracranial right ICA with faint reconstitution at the skull base. Mild atherosclerotic narrowingof the left ICA at the carotid bulb although evaluation is somewhat limited by vessel tortuosity.4. Multifocal moderate to mild intracranial stenoses, as described, without large vessel cut off. There is fusiform 0.6 cm dilatation of the proximal right P2 segment.5.Pulmonary emphysema. Signed: Jere Roach MDReport Verified Date/Time: 08/23/2019 05:51:29 CT, CAROTID, [id number] 05:51:00FINAL REPORT EXAM: CT, CAROTID, ANGIO, CT, CTANGIO BRAIN CLINICAL INDICATION: Known intracranial hemorrhage. TECHNIQUE: Helical CT of the head without IV contrast. Postcontrast CTA of the head and CTA of the neck with IV contrast. Multiplanar reconstructed images. 3D reconstructions with MIP images were performed. This exam was performed according to our departmental dose-optimization program, which includes automated exposure control, adjustment of the mA and/or kV accord ing to patient size and/or use of iterative reconstruction technique. COMPARISON: 08/16/2014 noncontrast FINDINGS:CT HEAD: Parenchyma: Acute parenchymal hemorrhage centered at the left parasagittal parietal lobe with measurements of 2.4 x 1.6 x 2.2 cm (4 cc). No intraventricular extension or shift of midline structures. Moderate associated vasogenic edema. Chronic posterior right MCA territory with exvacuo dilatation of the right lateral ventricle. Patchy and confluent areas of hypoattenuation are present in the cerebral white matter that are nonspecific but compatible with moderate chronic microvascular ischemic changes. Generalized cerebral parenchymal volume loss. Extra-axial Collection: None Ventricular System: No hydrocephalus. Osseous Structures: Normal Paranasal Sinuses: Predominantly clear Tympanomastoid Cavities: Normal Other: None CTA HEAD: Anterior Circulation:Right intracranial internal carotid artery (ICA): Diffusely diminutive with marked atherosclerotic calcifications at the supraclinoid segment.Right anterior cerebral artery (MICA): NormalRight middle cerebral artery (MCA): Moderately diminutive with mild to moderate stenosis of the mid M1 segment. No large vessel central cut off. There is tapering of the distal posterior branches compatible with chronic infarction. Left intracranial internal carotid artery (ICA): Moderate atherosclerotic narrowing of the cavernous andsupraclinoid segments with patent flow at the terminus. Left anterior cerebral artery (MICA): NormalLe ft middle cerebral artery (MCA): Normal Anterior communicating artery (AComm): PresentPosterior communicating arteries (PComm): Present bilaterally. Posterior Circulation:Right posterior cerebral artery (ENGINE[employer]ING VICE PRESIDENT): There is fusiform dilatation of the proximal P2 segment at the junction with the right posterior communicating artery with diameter of 0.6 cm and length of 0.7 cm.Left posterior cerebral artery(ENG[employer]ICE PRESIDENT): Hypoplastic P1 segment with the remainder of the left IMCA supplied by the left posterior communicating artery Right vertebral artery (VA): Diminutive distal to the takeoff of the PICA with mild irregular stenosis of the V4 segment.Left vertebral artery (VA): Mild focal stenosis of the distal [id number].Basilar artery (BA): Hypoplastic without focal stenosis. Other: No evidence of vascular malformation. Dural Venous Sinuses: Normal CTA NECK:Aortic arch and proximal great vessels: Atherosclerotic changes without significant narrowing. Right carotid arterial system: Atherosclerotic changes results in internal carotid artery occlusion with faint reconstitution at the skull base. Left carotid arterial system: Mild (<50%) internal carotid artery narrowing at the carotid bulb. Evaluation somewhat limited by marked tortuosity and medialized course of the internal carotid artery. Right vertebral artery: Diffusely hypoplastic without focal stenosis.Left vertebral artery: Normal Where applicable, evaluation of internal carotid artery (ICA) stenosis was performed using NASCET-like criteria, where the site of greatest stenosis is compared to the diameter of the ICA distal to the stenosis at a point where the ICA noel become parallel. Neck Soft Tissues: Unremarkable. Osseous Structures: No acute osseous abnormality. Multilevel advanced degenerative disc disease of the cervical spine.Included Lung Apices: Moderate paraseptal emphysema. IMPRESSION: 1.Acute focal intraparenchymal hemorrhage within the left parietal lobe with moderate vasogenic edema. No shift of midline structures or intraventricular extension of hemorrhage. No etiology identified on CTA.2. Remote right MCA territory infarction and background of moderate chronic microvascular ischemic changes of the brain.3. Occluded extracranial right ICA with faint reconstitution at the skull base. Mild atherosclerotic narrowingof the left ICA at the carotid bulb although evaluation is somewhat limited by vessel tortuosity.4. Multifocal moderate to mild intracranial stenoses, as described, without large vessel cut off. There is fusiform 0.6 cm dilatation of the proximal right P2 segment.5.Pulmonary emphysema. Signed: Jere Roach MDReport Verified Date/Time: 08/23/2019 05:51:29 PROTHROMBIN TIME/[id number] 05:06:00 Test Item Value Reference Range Comments PROTIME (BEAKER) (test code = 759) 13.8 seconds 11.9-14.2 INR (BEAKER) (test code = 370) 1.1 <=5.9 Effective 12/14/2018: PT Reference Range ChangeNew: 11.9-14.2 Previous: 11.7- 14.7RECOMMENDED COUMADIN/WARFARIN INR THERAPY RANGESSTANDARD DOSE: 2.0-3.0 Includes: PROPHYLAXIS for venous thrombosis, systemic embolization; TREATMENT for venous thrombosis and/or pulmonary embolus.HIGH RISK: Target INR is2.5-3.5 for patients wiht mechanical heart valves.[id number] 05:06:00 Test Item Value Reference Range Comments PARTIAL THROMBOPLASTIN TIME (BEAKER) (test code 23.7 seconds 22.5-36.0 = 760) [id number] 05:05:00 Test Item Value Reference Range Comments MAGNESIUM (BEAKER) (test code = 627) 1.5 mg/dL 1.6-2.6 Lab Intern ID - ASOnce on admission and Daily AM afterwardsBASIC METABOLIC PANEL 2019-08-23 05:05:00 Test Item Value Reference Range Comments SODIUM (BEAKER) (test 133 meq/L 136-145 code = 381) POTASSIUM (BEAKER) (test 4.0 meq/L 3.5-5.1 code = 379) CHLORIDE (BEAKER) (test 103 meq/L 98-107 code = 382) CO2 (BEAKER) (test code = 22 meq/L 22-29 355) BLOOD UREA NITROGEN 25 mg/dL 7-21 (BEAKER) (test code = 354) CREATININE (BEAKER) (test 1.59 mg/dL 0.57-1.25 code = 358) GLUCOSE RANDOM (BEAKER) 221 mg/dL 70-105 (test code = 652) CALCIUM (BEAKER) (test 9.0 mg/dL 8.4-10.2 code = 697) EGFR (BEAKER) (test code 52 mL/min/1.73 sq m EST IMATED GFR IS NOT = 1092) ACCURATE CREA TININE CLEARANCE IN PRE DICTING GLOMERULAR FILTR ATION RATE. ESTIMATED GFR IS NOT APPLICABLE F OR DIALYSIS PATIENT S. Lab Intern ID - ASOnce on admission and Daily AM afterwardsHEPATIC FUNCTION PANEL 2019-08-23 05:05:00 Test Item Value Reference Range Comments TOTAL PROTEIN (BEAKER) (test code = 770) 7.0 gm/dL 6.0-8.3 ALBUMIN (BEAKER) (test code = 1145) 4.0 g/dL 3.5-5.0 BILIRUBIN TOTAL (BEAKER) (test code = 377) 0.4 mg/dL 0.2-1 .2 BILIRUBIN DIRECT (BEAKER) (test code = 706) 0.1 mg/dL 0.1- 0.5 ALKALINE PHOSPHATASE (BEAKER) (test code = 346) 44 U/L 40-150 AST (SGOT) (BEAKER) (test code = 353) 19 U/L 5-34 ALT (SGPT) (BEAKER) (test code = 347) 23 U/L 6-55 Lab Intern ID - ASOnce on admission and Daily AM afterwardsCBC (HEMOGRAM ONLY) 2019-08-23 04:45:00 Test Item Value Reference Range Comments WHITE BLOOD CELL COUNT (BEAKER) (test code = 6.4 K/ L 3.5 -10.5 775) RED BLOOD CELL COUNT (BEAKER) (test code = 761) 4.37 M/ L 4.63-6.08 HEMOGLOBIN (BEAKER) (test code = 410) 12.3 GM/DL 13.7-17.5 HEMATOCRIT (BEAKER) (test code = 411) 37.2 % 40.1-51.0 MEAN CORPUSCULAR VOLUME (BEAKER) (test code = 85.1 fL 79 .0-92.2 753) MEAN CORPUSCULAR HEMOGLOBIN (BEAKER) (test code 28.1 pg 25.7-32.2 = 751) MEAN CORPUSCULAR HEMOGLOBIN CONC (BEAKER) (test 33.1 GM/DL 32.3-36.5 code = 752) RED CELL DISTRIBUTION WIDTH (BEAKER) (test code 13.0 % 11.6-14.4 = 412) PLATELET COUNT (BEAKER) (test code = 756) 150 K/CU MM 150-45 0 MEAN PLATELET VOLUME (BEAKER) (test code = 754) 10.3 fL 9.4-12.4 NUCLEATED RED BLOOD CELLS (BEAKER) (test code = 0 /100 WBC 0-0 413)
[2019-11-20 20:19] LABS: Absolute Lymphocytes (CBC) 0.9 K/uL (0.7-4.9); Basophils % 0.3 % (0-1.3); Hematocrit 38.9 % (39.6-49.0); Lymphocytes % 12.9 % (15.3-44.8); MPV 8.3 fL (7.6-11.3); RBC Red Blood Cell Count 4.56 M/uL (4.33-5.43)
[2019-11-20 20:20] LABS: Protime INR 1.24
--- NOTE | 2019-11-20 20:55 | RAD REPORT ---
EXAM DESCRIPTION: RAD - Chest Single View - 11/20/2019 8:13 pm CLINICAL HISTORY: edema COMPARISON: Portable August 22 TECHNIQUE: AP portable chest image was obtained 11/20/2019 8:13 pm . FINDINGS: Lung volumes are low. No peripheral mass or consolidation. No failure or volume overload. Heart and vasculature are normal. No measurable pleural effusion and no pneumothorax. No acute bony a bnormality seen. No acute aortic findings suspected. IMPRESSION: No acute cardiopulmonary process.
[2019-11-20 20:59] LABS: ALT/SGPT 35 U/L (12-78); AST/SGOT 16 U/L (15-37); Albumin 3.3 g/dL (3.4-5.0); Alkaline Phosphatase 45 U/L (45-117); BUN Blood Urea Nitrogen 14 mg/dL (7-18); Bicarbonate 25 mmol/L (21-32); Bilirubin Direct 0.1 mg/dL (0-0.2); Bilirubin Total 0.5 mg/dL (0.2-1.0); Glucose Level 181 mg/dL (74-106); NT PRO-BNP 682 pg/mL (<450); Potassium 3.7 mmol/L (3.5-5.1); Protein, Total 6.9 g/dL (6.4-8.2); Sodium Level 139 mmol/L (136-145); Troponin (Emerg Dept Use Only) < 0.02 ng/mL (0.0-0.045)
[2019-11-20 21:01] LABS: Magnesium 1.1 mg/dL (1.8-2.4)
[2019-11-20 21:13] LABS: Urine White Blood Cell Casts OK
[2019-11-20 21:14] LABS: Blood Morphology Comment NOTED (NOT SEEN); Burr Cells 1+; Platelet Estimate DECR
[2019-11-20 21:27] LABS: Urine Blood 2+ (NEG); Urine Glucose TRACE (NEG); Urine Protein 3+ (NEG); Urine Specific Gravity >1.030 (1.005-1.030); Urine pH 5.5 (5.0-7.0)
[2019-11-20 21:42] LABS: Urine Bacteria <20 /HPF (NONE SEEN); Urine Culture Reflex Order NOT NEEDED; Urine Mucus 2+ /HPF (NONE SEEN)
[2019-11-20] MEDS ORDERED: MAGNESIUM SULFATE 1 gm IVPB 1 GM/100 ML BAG IV ONE (22:00)
--- NOTE | 2019-11-20 22:25 | EDPHYS ---
Physician Documentation [facility] Name: Luis Fernando Fox Age: 79 yrs Sex: Male : 1940 Arrival Date: 11/20/2019 Time: 19:40 Bed 5 Private MD: ED Physician Bill Ramos HPI: 11/19 21:31 This 79 yrs old Black Male presents to ER via EMS with complaints of lowr extremtiy tw4 swelling. 21:31 The patient presents with swelling. The complaints affect the left lateral ankle, tw4 lateral aspect of left foot, left Achilles, left heel, left medial ankle, medial aspect of left foot, anterior aspect of left ankle and dorsum of left foot, right ankle, lateral aspect of right foot, right Achilles, right heel, medial aspect of right foot, anterior aspect of right ankle and dorsum of right foot. Onset: The symptoms/episode began/occurred 1 week(s) ago. Modifying factors: The symptoms are alleviated by nothing. the symptoms are aggravated by nothing. Associated signs and symptoms: The patient has no apparent associated signs or symptoms. Severity of symptoms: At their worst the symptoms were moderate, in the emergency department the symptoms are unchanged. The patient has not experienced similar symptoms in the past. Historical: - Allergies: 19:40 Sulfa (Sulfonamide Antibiotics); jb4 - Home Meds: 19:40 atorvastatin 20 mg Oral tab 1 tab once daily [Active]; gabapentin 100 mg Oral cap 1 jb4 caps twice a day [Active]; aspirin 81 mg Oral TbEC 1 tab once daily [Active]; metformin 1,000 mg Oral tab 1 tab 2 times per day [Active]; glimepiride 2 mg Oral tab 1 tab three times a day [Active]; amlodipine oral [Active]; - PMHx: 19:40 CAD; CVA; Diabetes - NIDDM; High Cholesterol; Hypertension; Myocardial infarction; jb4 stage 4 brain cancer; - PSHx: 19:40 hemmorhoid SX; tumor removal; jb4 - Immunization history:: Adult Immunizations up to date. - Social history:: Smoking status: Patient denies any tobacco usage or history of. Patient uses alcohol, occasionally. Patient/guardian denies using street drugs. ROS: 21:31 Constitutional: Negative for fever, chills, and weight loss, Eyes: Negative for injury, tw4 pain, redness, and discharge, Cardiovascular: Negative for chest pain, palpitations, and edema, Respiratory: Negative for shortness of breath, cough, wheezing, and pleuritic chest pain, Abdomen/GI: Negative for abdominal pain, nausea, vomiting, diarrhea, and constipation, Back: Negative for injury and pain, Skin: Negative for injury, rash, and discoloration, Neuro: Negative for headache, weakness, numbness, tingling, and seizure. 21:31 MS/extremity: Positive for swelling, of the right foot and left foot. Exam: 21:31 Constitutional: This is a well developed, well nourished patient who is awake, alert, tw4 and in no acute distress. Head/Face: Normocephalic, atraumatic. Chest/axilla: Normal chest wall appearance and motion. Nontender with no deformity. No lesions are appreciated. Cardiovascular: Regular rate and rhythm with a normal S1 and S2. No gallops, murmurs, or rubs. Normal PMI, no JVD. No pulse deficits. Respiratory: Lungs have equal breath sounds bilaterally, clear to auscultation and percussion. No rales, rhonchi or wheezes noted. No increased work of breathing, no retractions or nasal flaring. Abdomen/GI: Soft, non-tender, with normal bowel sounds. No distension or tympany. No guarding or rebound. No evidence of tenderness throughout. Vital Signs: 19:40 BP 128 / 92; Pulse 82; Resp 18; Temp 97.6(TE); Pulse Ox 96% on R/A; Weight 81.65 kg jb4 (R); Height 5 ft. 6 in. (167.64 cm); Pain 0/10; 20:30 BP 130 / 67; Pulse 77; Resp 20; Pulse Ox 97% on R/A; jb4 21:30 BP 141 / 62; Pulse 79; Resp 22; Pulse Ox 98% on R/A; jb4 22:30 BP 146 / 67; Pulse 76; Resp 16; Pulse Ox 99% on R/A; jb4 23:45 BP 138 / 63; Pulse 74; Resp 20; Pulse Ox 98% on R/A; jb4 19:40 Body Mass Index 29.05 (81.65 kg, 167.64 jason) jb4 MDM: 19:41 Patient medically screened. tw4 23:50 Data reviewed: vital signs, nurses notes. Data reviewed: lab test result(s), cardiac tw4 enzymes, CBC, hepatic panel, EKG, radiologic studies, CT scan. Data interpreted: Pulse oximetry: Interpretation: normal. Counseling: I had a detailed discussion with the patient and/or guardian regarding: the historical points, exam findings, and any diagnostic results supporting the discharge/admit diagnosis, lab results, radiology results. Special discussion: I discussed with the patient/guardian in detail that at this point there is no indication for admission to the hospital. It is understood, however, that if the symptoms persist or worsen the patient needs to return immediately for re-evaluation. 11/19 19:45 Order name: Basic Metabolic Panel; Complete Time: 21:38 11/19 21:38 Interpretation: Normal except: GLUC 181; CRE 1.94; GFR 41. 11/19 19:45 Order name: CBC with Diff; Complete Time: 21:38 11/19 21:38 Interpretation: Normal except: HGB 12.9; HCT 38.9; PLT 97; LYM% 12.9; JOSSUE% 78.9. 11/19 19:45 Order name: LFT's; Complete Time: 21:38 11/19 21:38 Interpretation: Normal except: ALB 3.3; GLOB 3.6; A/G 0.9. 11/19 19:45 Order name: Magnesium; Complete Time: 21:38 11/19 21:38 Interpretation: Abnormal: MG 1.1. 11/19 19:45 Order name: NT PRO-BNP; Complete Time: 21:38 11/19 21:38 Interpretation: Abnormal: NT PRO-BNP 682. 11/19 19:45 Order name: PT-INR; Complete Time: 21:38 11/19 21:39 Interpretation: Abnormal: PT 14.6. 11/19 19:45 Order name: Troponin (emerg Dept Use Only); Complete Time: 21:38 11/19 21:39 Interpretation: Within normal limits: TROPED < 0.02. 11/19 19:45 Order name: XRAY Chest (1 view); Complete Time: 21:38 11/19 19:45 Order name: Urine Microscopic Only; Complete Time: 21:55 [facility] 11/19 20:20 Order name: Glucose, Ancillary Testing; Complete Time: 21:38 EDCT 11/19 21:39 Interpretation: Abnormal: GLUC,ANCIL 163. 11/19 20:29 Order name: CBC Smear Scan; Complete Time: 21:38 EDCT 11/19 21:26 Order name: Urine Dipstick--Ancillary (enter results); Complete Time: 21:38 ct 11/19 21:39 Interpretation: Abnormal: USPGR >1.030; UKET 1+; UBLD 2+; UPROT 3+. 11/19 22:32 Order name: CT Head Brain wo Cont 11/19 19:45 Order name: EKG; Complete Time: 19:46 [facility] 11/19 19:45 Order name: Cardiac monitoring; Complete Time: 20:09 [facility] 11/19 19:45 Order name: EKG - Nurse/Tech; Complete Time: 20:38 [facility] 11/19 19:45 Order name: IV Saline Lock; Complete Time: 20:09 [facility] 11/19 19:45 Order name: Labs collected and sent; Complete Time: 20:09 [facility] 11/19 19:45 Order name: O2 Per Protocol; Complete Time: 20:09 [facility] 11/19 19:45 Order name: O2 Sat Monitoring; Complete Time: 20:09 [facility] 11/19 19:45 Order name: Urine Dipstick-Ancillary (obtain specimen); Complete Time: 21:22 tw4 EC:31 Rhythm is regular. QRS [place] is Normal. VA interval is normal. QRS interval is normal. tw4 QT interval is prolonged. No Q waves. T waves are Normal. No ST changes noted. Clinical impression: NSR w/ Non-specific ST/T Changes. Interpreted by me. Reviewed by me. Administered Medications: 21:57 Drug: Magnesium Sulfate 1 grams Route: IVPB; Infused Over: 1 hrs; Site: right rv antecubital; 22:27 Follow up: Response: No adverse reaction; IV Status: Completed infusion; IV Intake: jb4 100ml Disposition: 11/20/19 22:23 Discharged to Home. Impression: Edema, unspecified, Hypomagnesemia, Weakness. - Condition is Stable. - Discharge Instructions: Hypomagnesemia, Tremor, Weakness, Edema, [id number], Essential Tremor. - Medication Reconciliation Form, Thank You Letter, Antibiotic Education, Prescription Opioid Use form. - Follow up: Private Physician; When: Upon discharge from the Emergency Department; Reason: Recheck today's complaints, Continuance of care, Re-evaluation by your physician. Follow up: Jordi Cervantes MD; When: Upon discharge from the Emergency Department; Reason: Recheck today's complaints, Continuance of care, Re-evaluation by your physician. Follow up: Jamin De Dios MD; When: Upon discharge from the Emergency Department; Reason: Recheck today's complaints, Continuance of care, Re-evaluation by your physician. - Problem is new. - Symptoms have improved. Signatures: Dispatcher [employer] EDMS Fei Herrera, RN RN jb4 Bill Ramos MD MD tw4 Capo Fang RN RN rv Corrections: (The following items were deleted from the chart) 23:52 22:23 11/20/2019 22:23 Discharged to Home. Impression: Edema, unspecified; tw4 Hypomagnesemia; Weakness. Condition is Stable. Forms are Medication Reconciliation Form, Thank You Letter, Antibiotic Education, Prescription Opioid Use. Follow up: Private Physician; When: Upon discharge from the Emergency Department; Reason: Recheck today's complaints, Continuance of care, Re-evaluation by your physician. Problem is new. Symptoms have improved. tw4 11/20 00:10 05/ 23:52 11/20/2019 22:23 Discharged to Home. Impression: Edema, unspecified; jb4 Hypomagnesemia; Weakness. Condition is Stable. Discharge Instructions: Hypomagnesemia, Weakness, Edema, [id number], Tremor, Essential Tremor. Forms are Medication Reconciliation Form, Thank You Letter, Antibiotic Education, Prescription Opioid Use. Follow up: Private Physician; When: Upon discharge from the Emergency Department; Reason: Recheck today's complaints, Continuance of care, Re-evaluation by your physician. Follow up: Jordi Cervantes; When: Upon discharge from the Emergency Department; Reason: Recheck today's complaints, Continuance of care, Re-evaluation by your physician. Follow up: Jamin De Dios; When: Upon discharge from the Emergency Department; Reason: Recheck today's complaints, Continuance of care, Re-evaluation by your physician. Problem is new. Symptoms have improved. tw4
--- NOTE | 2019-11-20 22:25 | ER ---
Nurse's Notes [facility] [address] Name: Luis Fernando Fox Age: 79 yrs Sex: Male : 1940 Arrival Date: 11/20/2019 Time: 19:40 Bed 5 Private MD: Diagnosis: Edema, unspecified;Hypomagnesemia;Weakness Presentation: 11/19 19:40 Chief complaint: EMS states: PT's family called due to swelling of the lower extremity, jb4 being forgetful, and twitching on the left side all starting 1 week ago. Pt has a history of brain cancer. 19:40 Coronavirus screen: Proceed with normal triage. Ebola Screen: No symptoms or risks jb4 identified at this time. Initial Sepsis Screen: Does the patient meet any 2 criteria? No. Patient's initial sepsis screen is negative. Does the patient have a suspected source of infection? No. Patient's initial sepsis screen is negative. Risk Assessment: Do you want to hurt yourself or someone else? Patient reports no desire to harm self or others. Onset of symptoms was November 14, 2019. Transition of care: patient was received from another setting of care (hospital). 19:40 Method Of Arrival: EMS: [facility] jb4 19:40 Acuity: PANCHO 3 jb4 Historical: - Allergies: 19:40 Sulfa (Sulfonamide Antibiotics); jb4 - Home Meds: 19:40 atorvastatin 20 mg Oral tab 1 tab once daily [Active]; gabapentin 100 mg Oral cap 1 jb4 caps twice a day [Active]; aspirin 81 mg Oral TbEC 1 tab once daily [Active]; metformin 1,000 mg Oral tab 1 tab 2 times per day [Active]; glimepiride 2 mg Oral tab 1 tab three times a day [Active]; amlodipine oral [Active]; - PMHx: 19:40 CAD; CVA; Diabetes - NIDDM; High Cholesterol; Hypertension; Myocardial infarction; jb4 stage 4 brain cancer; - PSHx: 19:40 hemmorhoid SX; tumor removal; jb4 - Immunization history:: Adult Immunizations up to date. - Social history:: Smoking status: Patient denies any tobacco usage or history of. Patient uses alcohol, occasionally. Patient/guardian denies using street drugs. Screenin:00 Abuse screen: Denies threats or abuse. Nutritional screening: No deficits noted. jb4 Tuberculosis screening: No symptoms or risk factors identified. Fall Risk IV access (20 points). Total John Fall Scale indicates No Risk (0-24 pts). Assessment: 19:40 General: Appears in no apparent distress. comfortable, Behavior is calm, cooperative, jb4 appropriate for age. Pain: Denies pain. Neuro: Level of Consciousness is awake, alert, obeys commands, Oriented to person, place, situation, Pt is aware if who the president is and aware of length of service, but believes the year is 2016.. Speech is normal, Facial symmetry appears normal, Pupils are Pupil Size: Left pupil is 3mm and 2mm on the right pinpoint. Cardiovascular: Patient's skin is warm and dry. Pulses are 2+ in right dorsalis pedis artery and left dorsalis pedis artery Edema is 1+ to left ankle and right ankle is 3+ to left foot and right foot pitting to left ankle, left foot, right ankle and right foot Rhythm is sinus rhythm. Respiratory: Airway is patent Respiratory effort is even, unlabored, Respiratory pattern is regular, symmetrical. GI: No signs and/or symptoms were reported involving the gastrointestinal system. : No signs and/or symptoms were reported regarding the genitourinary system. EENT: No signs and/or symptoms were reported regarding the EENT system. Derm: Skin is intact, Skin is dry, Skin is normal, Skin temperature is warm. Musculoskeletal: Circulation, motion, and sensation intact. Capillary refill < 3 seconds, in bilateral toes. Range of motion: intact in all extremities, Swelling present in right foot and left foot. 21:00 Reassessment: Patient appears in no apparent distress at this time. Patient and/or jb4 family updated on plan of care and expected duration. Pain level reassessed. Patient is alert, oriented x 3, equal unlabored respirations, skin warm/dry/pink. Patient denies pain at this time. 21:30 Reassessment: Provider renotified of Magnesium of 1.1. See [facility] for orders. jb4 22:00 Reassessment: Patient appears in no apparent distress at this time. Patient and/or jb4 family updated on plan of care and expected duration. Pain level reassessed. Patient is alert, oriented x 3, equal unlabored respirations, skin warm/dry/pink. 22:30 Reassessment: Provider notified pt continues to have twitch in the left arm, provider jb4 placed an order for CT. 22:45 Reassessment: Family updated on plan of care. Family reports last known normal was jb4 yesterday \T\ 1200, tried to call the patient earlier today and he did not answer, daughter went to check on him around 1800 and noticed he had a twitch in his left arm and was forgetful. Provider notified, no new orders at this time. 11/20 00:07 Reassessment: Patient appears in no apparent distress at this time. Patient and/or jb4 family updated on plan of care and expected duration. Pain level reassessed. Patient is alert, oriented x 3, equal unlabored respirations, skin warm/dry/pink. Provider continues with decision to d/c patient. Tremor in left arm remains present. PT and daughter verbalized understanding of d/c and follow up instructions. Denies questions or concerns. PT assisted to vehicle via wheelchair. Patient denies pain at this time. Vital Signs: 11/19 19:40 BP 128 / 92; Pulse 82; Resp 18; Temp 97.6(TE); Pulse Ox 96% on R/A; Weight 81.65 kg jb4 (R); Height 5 ft. 6 in. (167.64 cm); Pain 0/10; 20:30 BP 130 / 67; Pulse 77; Resp 20; Pulse Ox 97% on R/A; jb4 21:30 BP 141 / 62; Pulse 79; Resp 22; Pulse Ox 98% on R/A; jb4 22:30 BP 146 / 67; Pulse 76; Resp 16; Pulse Ox 99% on R/A; jb4 23:45 BP 138 / 63; Pulse 74; Resp 20; Pulse Ox 98% on R/A; jb4 19:40 Body Mass Index 29.05 (81.65 kg, 167.64 cm) jb4 ED Course: 19:40 Patient arrived in ED. ds1 19:40 Arm band placed on right wrist. jb4 19:40 Patient has correct armband on for positive identification. Placed in gown. Bed in low jb4 position. Call light in reach. Side rails up X 1. ekg monitor on. Pulse ox on. NIBP on. 19:40 Initial lab(s) drawn, by me, sent to lab. Inserted saline lock: 20 gauge in right jb4 antecubital area, using aseptic technique. Blood collected. 19:41 Capo Fang, RN is Primary Nurse. rv 19:41 Bill Ramos MD is Attending Physician. tw4 19:51 Triage completed. jb4 20:08 EKG done, by ED staff, reviewed by Bill Ramos MD. jb4 20:13 XRAY Chest (1 view) In Process Unspecified. EDMS 20:38 Troponin (emerg Dept Use Only) Sent. jb4 20:38 NT PRO-BNP Sent. jb4 20:38 Magnesium Sent. jb4 20:38 LFT's Sent. jb4 20:38 Basic Metabolic Panel Sent. jb4 20:39 CBC Smear Scan Sent. jb4 21:13 Primary Nurse role handed off by Capo Fang RN jb4 21:13 Fei Herrera, RN is Primary Nurse. jb4 22:57 CT Head Brain wo Cont In Process Unspecified. EDMS 23:51 Jordi Cervantes MD is Referral Physician. tw4 23:52 Jamin De Dios MD is Referral Physician. tw4 11/20 00:00 No provider procedures requiring assistance completed. IV discontinued, intact, jb4 bleeding controlled, No redness/swelling at site. Pressure dressing applied. Administered Medications: 11/19 21:57 Drug: Magnesium Sulfate 1 grams Route: IVPB; Infused Over: 1 hrs; Site: right rv antecubital; 22:27 Follow up: Response: No adverse reaction; IV Status: Completed infusion; IV Intake: jb4 100ml Intake: 22:27 IV: 100ml; Total: 100ml. jb4 Outcome: 22:23 Discharge ordered by . tw4 11/20 00:07 Discharged to home via wheelchair, with family. jb4 Condition: stable Discharge instructions given to patient, family, Instructed on discharge instructions, follow up and referral plans. Demonstrated understanding of instructions, follow-up care. 00:10 Patient left the ED. jb4 Signatures: Dispatcher [employer] [facility] Clarissa Meneses ds1 Fei Herrera, MONICA RN jb4 Bill Ramos MD MD tw4 Capo Fang RN RN rv Corrections: (The following items were deleted from the chart) 11/19 22:49 22:48 Response: No adverse reaction; IV Status: Completed infusion; IV Intake: 100ml [id number]
[2019-11-20] MEDS ORDERED: FUROSEMIDE 20 MG TABLET ONE (22:30)
[2019-11-21 00:24] VITALS: TEMP 97.6
[2019-11-21 00:27] VITALS: O2SAT 98
[2019-11-21 00:31] VITALS: BP 138/63
--- NOTE | 2019-11-21 11:36 | EKG ---
Test Date: 2019-11-20 Test Time: 20:21:19 Photographic Machine Operator: JOSHUA MEASUREMENT RESULTS: Intervals: Rate: 78 DC: 158 QRSD: 78 QT: 422 QTc: 481 [place]: P: 58 DC: 158 QRS: 52 T: 38 INTERPRETIVE STATEMENTS: Sinus rhythm with premature atrial complexes Prolonged QT Abnormal ECG Compared to ECG 08/22/2019 23:50:26 Ventricular premature complex(es) no longer present Electronically Signed On 11-21-19 11:34:56 CDT by Abel Burgess
--- NOTE | 2019-11-21 11:56 | RAD REPORT ---
EXAM DESCRIPTION: Head Brain Wo Cont CLINICAL HISTORY: 79-year-old male with involuntary LEFT arm movement. COMPARISON: 08/22/2019. TECHNIQUE: CT brain without contrast. This exam was performed according to our departmental dose opt imization program which includes use of automated exposure control, adjustment of the mA and/or kV ac cording to patient size and/or use of iterative reconstruction technique. FINDINGS: Multifocal regions of patchy hypoattenuation are present in a subcortical and periventricu lar deep white matter distribution, nonspecific; however, most likely represent small vessel ischemic disease, age indeterminate. The ventricles, and sulci are enlarged compatible with underlying volume loss. 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 Additionally bilateral parietal volume loss appears similar in comparison to the previous examination. The painter-white matter differentiation is preserved. Ther e is no mass effect, midline shift, intra- or extra-axial fluid collection/acute hemorrhage. The os seous structures reveal postoperative changes of the LEFT parietal high convexity otherwise are unrem arkable. The paranasal sinuses and mastoid air cells are clear. IMPRESSION: 1. No acute intracranial abnormalities. Nonspecific white matter change most likely sm all vessel ischemic disease, age indeterminate. 2. CT is insensitive for early evaluation of acute stroke. If there is clinical concern for acute ischemia, an MRI may be considered. Electronically signed by: Christina Quigley MD 11/20/2019 11:37 PM CDT Due to temporary technical issues with the PACS/Fluency reporting system, reports are being signed by the in house radiologist as a courtesy to ensure prompt reporting. The interpreting radiologist is f ully responsible for the content of the report.
== END 2019-11-21 00:10 | disposition home or self-care (01) ==
LOC: ER 19:39
DX: E83.42 Hypomagnesemia (principal); R53.1 Weakness; I10 Essential (primary) hypertension; E78.00 Pure hypercholesterolemia, unspecified; E11.9 Type 2 diabetes mellitus without complications; I25.2 Old myocardial infarction; Z79.82 Long term (current) use of aspirin; Z88.2 Allergy status to sulfonamides; Z85.841 Personal history of malignant neoplasm of brain; Z86.73 Personal history of transient ischemic attack (TIA), and cerebral infarction without residual deficits
CPT/HCPCS: 96365; 93005; 85025; 80048; 36415; 83735; 85610; 82947; 80076; 84484; 83880; 70450; 71045; 99285; J3475; 81003; 81015

== ENCOUNTER 2019-11-24 09:49 | Emergency (ER) | payer OTHER ==
--- OUTSIDE RECORDS SUMMARY | 2019-11-24 09:54 | XMS REPORT | Clinical Summary ---
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 (09/06/2019 5:25 AM RAILWAY SWITCH OPERATOR) CEA, SERUM 2.0 0.0 - 5.0 ng/mL [facility] Specimen Blood Narrative Performed At [facility] - DB [facility] Performing Organization Address [facility]/[place] [address] CENTER Magnesium (09/05/2019 11:23 AM RAILWAY SWITCH OPERATOR)Only the most recent of7 resultswithin the time period is included. Magnesium 2.1 1.6 - 2.6 mg/dL [facility] Specimen Blood Narrative Performed At [facility] - [place] F [facility] Performing Organization Address [facility] [place] [address] [place] CBC with platelet count + automated diff (09/05/2019 3:24 AM RAILWAY SWITCH OPERATOR)Only the most recent of8 resultswithin the time period is included. WBC 19.4 (H) 3.5 - 10.5 K/L [facility] RBC 4.19 (L) 4.63 - 6.08 M/L [facility] Hemoglobin 11.9 (L) 13.7 - 17.5 GM/DL [facility] Hematocrit 36.0 (L) 40.1 - 51.0 % [facility] MCV 85.9 79.0 - 92.2 fL [facility] MCH 28.4 25.7 - 32.2 pg [facility] MCHC 33.1 32.3 - 36.5 GM/DL [facility] RDW 13.6 11.6 - 14.4 % [facility] Platelets 144 (L) 150 - 450 K/CU MM [facility] MPV 9.7 9.4 - 12.4 fL [facility] HE ALTH [facility] nRBC 0 0 - 0 /[address] [facility] AL[facility] % Neutros 93 % [facility] AL[facility] % Lymphs 3 % [facility] % Monos 3 % [facility] AL[facility] % Eos 0 % [facility] ALTH [facility] % Baso 0 % [facility] # Neutros 17.92 (H) 1.78 - 5.38 K/L [facility] # Lymphs 0.64 (L) 1.32 - 3.57 K/L [facility] # Monos 0.64 0.30 - 0.82 K/L [facility] # Eos 0.00 (L) 0.04 - 0.54 K/L [facility] # Baso 0.02 0.01 - 0.08 K/L [facility] Immature 1 0 - 1 % [facility] ALTH [facility] Granulocytes-Relative MEDICAL CE NTER Specimen Blood Performing Organization Address City/[facility]/Zipcode Phone Number [address] [address] CENTER Phosphorus (09/05/2019 3:24 AM RAILWAY SWITCH OPERATOR)Only the most recent of3 resultswithin the time period is included. Phosphorus 4.5 2.3 - 4.7 mg/dL [facility] Specimen Blood Narrative Performed At [facility] - NOREEN Patel [facility] Performing Organization Address City/[facility]/Zipcode Phone Number [address] brain without IV contrast (09/05/2019 3:13 AM RAILWAY SWITCH OPERATOR) Specimen Narrative Performed At FINAL REPORT GE R[facility] CT Head without contrast CLINICAL HISTORY: s/p craniotomy for res ection of brain lesion TECHNIQUE: Contiguous axial images throu gh the head without contrast. This exam was performed according to the departmental dose optimization program which includes auto mated exposure control, adjustment of the mA and/or kV according to the patient size, and/or use of an iterative reconstruction techn ique. COMPARISON: CT head dated 08/23/2019 FINDINGS: Postsurgical changes of a left parietal craniotomy for resection of a hemorrhagic lesion in the left parietal lobe. There is small amount of gas, blood in the resection cavity. T hin extra-axial blood along the craniotomy defect. There is improved surrounding edema with minimal mass effect on adjacent structur es. Unchanged encephalomalacia of the right posterior frontal parietal and occipital lobes with ex vacuo dilatation of the right lateral ventricle. Scattered areas of pneumoceph alus along the falx and left cerebral convexity. The additional previ ously described parenchymal lesions are not well-seen on the current examination. No acute large territory infarction. There is periventr icular and subcortical white matter hypodensity which is nonspecific but compatible with chronic microvascular ischemic change. There are atherosclerotic calcifications of the intracranial circu lation. There is generalized parenchymal volume loss .Basilar cis terns are patent.The visualized paranasal sinuses are well-ae rated. Intraorbital contents are unremarkable. Postsurgical changes o f the left parietal scalp. IMPRESSION: Expected postsurgical changes of left pa rietal craniotomy for resection of a left parietal lobe hemorr hagic lesion. Small amount of blood within the resection bed and along the craniotomy defect. The additional previously described supr atentorial parenchymal lesions are not well-seen on the current examination. Signed: Kj Iniguez MD Report Verified Date/Time:09/05/2019 04:33:40 Procedure Note Interface, External Ris In - 09/05/2019 6:04 AM RAILWAY SWITCH OPERATOR FINAL REPORT CT Head without contrast CLINICAL HISTORY: s/p craniotomy for res ection of brain lesion TECHNIQUE: Contiguous axial images throu gh the head without contrast. This exam was performed according to the departmental dose optimization program which includes auto mated exposure control, adjustment of the mA and/or kV according to the patient size, and/or use of an iterative reconstruction techn ique. COMPARISON: CT head dated 08/23/2019 FINDINGS: Postsurgical changes of a left parietal craniotomy for resection of a hemorrhagic lesion in the left parietal lobe. There is small amount of gas, blood in the resection cavity. T hin extra-axial blood along the craniotomy defect. There is improved surrounding edema with minimal mass effect on adjacent structur es. Unchanged encephalomalacia of the right posterior frontal parietal and occipital lobes with ex vacuo dilatation of the right lateral ventricle. Scattered areas of pneumoceph alus along the falx and left cerebral convexity. The additional previ ously described parenchymal lesions are not well-seen on the current examination. No acute large territory infarction. There is periventr icular and subcortical white matter hypodensity which is nonspecific but compatible with chronic microvascular ischemic change. There are atherosclerotic calcifications of the intracranial circu lation. There is generalized parenchymal volume loss . Basilar ciste rns are patent. The visualized paranasal sinuses are well-ae rated. Intraorbital contents are unremarkable. Postsurgical changes o f the left parietal scalp. IMPRESSION: Expected postsurgical changes of left pa rietal craniotomy for resection of a left parietal lobe hemorr hagic lesion. Small amount of blood within the resection bed and along the craniotomy defect. The additional previously described supr atentorial parenchymal lesions are not well-seen on the current examination. Signed: Kj Iniguez MD Report Verified Date/Time: 09/05/2019 0 4:33:40 Performing Organization Address City/State/Zipcode Phone Number GE [facility] Tissue Exam (09/04/2019 1:54 PM RAILWAY SWITCH OPERATOR) Case Report Surgical Pathology Report Case: [id number] [facility] Authorizing Provider:Kaden Cisneros MDCollected: 09/04/[address] [place] [address] MEDICAL Ordering Location: [facility] PERIOPERATIVE Received:09/04/2019 1422 CENTER SERVICES Pathologist: Arsalan Kim MD Specimens: A) - Soft Tis cielo, Other, left medial parietal lesion B) - Soft Tissue, Other, Left Medial Parietal Lesion DIAGNOSIS A. BRAIN, LEFT MEDIAL PARIETAL, CRANIOTOMY: [facility] METASTATIC ADENOCARCINOMA, CONSISTENT WITH LUNG PRIMARY [facility] B. BRAIN, LEFT MEDIAL PARIETAL, CRANIOTOMY: METASTATIC ADENOCARCINOMA, CONSISTENT WITH LUNG PRIMARY Signing Pathologist Direct Phone Line: COMMENT The tumor is well-circumscribed [facility] with gland formation. [facility] Immunoperoxidase stains for CENT ER cytokeratin 7, TTF1, Napsin-A and CEA are diffusely positive. Immunoperoxidase stains for cytokeratin 20, cdx-2, villain, PAX-5, Lowell-8, thyroglobulin, and WT-1 are negative in tumor. The findings are consistent with a lung primary. Positivity for Napsin-A with negative staining for thyroglobulin excludes a thyroid primary. CPT Code(s) 03053 x 2; 24045; 59083; 91306 C [facility] x 10 [facility] CLINICAL HISTORY Multifocal brain tumors susp icious for metastasis of unknown primary [facility] SPECIMEN SOURCE A. Soft tissue other, left [facility] medial parietal lesion. B. [facility] tissue, other, description left CENTER medial parietal lesion GROSS DESCRIPTION A. Received fresh for intrao perative consultation diagnosis labeled with the patient's name, accession number and "soft tissue" is a 0.5 x 0.5 x 0.2 cm aggregate of multiple shields-pink fragment of soft ti [facility] ssue. Touch prep is performe d and frozen section is performed. The specimen is submitted entirely for permanent sections in cassette FSA1. HS/pl [facility] B. Specimen is received in f ormalin labeled with the patient's name, accession number and "soft tissue" consists of multiple shields-pink and hemorrhagic fragments of tissue measuring from 1.5 x 1 x 0.5 to 0.8 x 0.3 x 0.2 to 0.1 x 0.1 x 0.1 cm in aggregate. The specimen is serially sectioned and submitted entirely into cassettes B1-B2. HS/ew INTRAOPERATIVE A. FSA1, TP1: LEFT MEDIAL PARIETAL LESION, BIOPS Y: [facility] CONSULTATION - METASTATIC ADENOCARCINOMA H [facility] Verbally reported to Dr. You by Dr. Kim at 2 :40 p.m. Sep 04, 2019. MICROSCOPIC DESCRIPTION Performed on A and B [facility] CENTER SPECIAL STUDIES The interpretation of this c ase included the use of immunohistochemistry or special stains. [facility] Control Slides Examined: In -house known positive controls were evaluated along with the test tissue. These control slides run alongside of the patients sample show appropriate staining. Internal posit CENTER zeus and negative controls when available are joyce pope Immunohistochemistry technic al testing was performed at [facility], Pathology Laboratory where it was developed and its performance characteristics were determined. It has not be en cleared or approved by [facility] [place].S. Food and Drug Administration. The FDA has determined that such clearance or approval is not necessary. The test is used for clinical purposes. It should not be regarde d as investigational or for research. This laboratory is certified under the Clinical Laboratory Improvement Amendments of 1988 (CLIA-88) as qualified to perform high complexity clinical laboratory testing. Specimen Tissue Tissue - Soft tissue (navigational jayant pt) Performing Organization Address City/State/Zipcode Phone Number [facility] [address] [place] [address] CENTER ECG 12 lead (09/02/2019 11:48 AM RAILWAY SWITCH OPERATOR) Specimen Narrative Performed At Ventricular Rate 56 BPM GE MUSE Atrial Rate 56 BPM P-R Interval 180 ms QRS Duration 76 ms Q-T Interval 438 ms QTC Calculation(Bazett) 422 ms P [place] 52 degrees R [place] 44 degrees T [place] 101 degrees Sinus bradycardia T wave inversion in I and aVL Nonspecific T wave abnormality Abnormal ECG When compared with ECG of 17-AUG-2014 07 :20, T wave inversion now evident in Lateral leads Confirmed by MD YURI, DEDE ([id number]) on 09/04/2019 6:49:21 PM Procedure Note Interface, External Ris In - 09/04/2019 6:49 PM RAILWAY SWITCH OPERATOR Ventricular Rate 56 BPM Atrial Rate 56 BPM P-R Interval 180 ms QRS Duration 76 ms Q-T Interval 438 ms QTC Calculation(Bazett) 422 ms P [place] 52 degrees R [place] 44 degrees T [place] 101 degrees Sinus bradycardia T wave inversion in I and aVL Nonspecific T wave abnormality Abnormal ECG When compared with ECG of 17-AUG-2014 07 :20, T wave inversion now evident in Lateral leads Confirmed by MD YURI, DEDE ([id number]) on 09/04/2019 6:49:21 PM Performing Organization Address [facility] Phone Number AVA aPTT (09/02/2019 11:17 AM RAILWAY SWITCH OPERATOR)Only the most recent of2 resultswithin the time period is included. PTT 22.4 (L) 22.5 - 36.0 seconds [facility] Specimen Blood Performing Organization Address [facility] Phone Number [address] [address] CENTER Prothrombin time/INR (09/02/2019 11:17 AM RAILWAY SWITCH OPERATOR)Only the most recent of3 results within the time period is included. Protime 13.8 11.9 - 14.2 seconds [facility] INR 1.1 <=5.9 [facility] Specimen Blood Narrative Performed At Effective 12/14/2018: PT Reference Range [facility] Change New: 11.9-14.2Previous: 11.7-14.7 RECOMMENDED COUMADIN/WARFARIN INR THERAPY RANGES STANDARD DOSE: 2.0-3.0Includes: PROPHYLAXIS for venous thrombosis, systemic embolization; TREATMENT for venous thrombosis and/or pulmonary embolus. HIGH RISK: Target INR is 2.5-3.5 for patients wiht mechanical heart valves. Performing Organization Address [facility] Phone Number [address] [address] [place] XR chest 1 view portable / bedside (09/02/2019 10:26 AM RAILWAY SWITCH OPERATOR) Specimen Narrative Performed At FINAL REPORT [facility] History: Preoperative examination Comparison: 08/16/2014 Findings: The lungs are clear. No pleura l effusions or pneumothorax. The heart shadow is normal in size. The thoracic aorta is mildly tortuous. Hypertrophic changes are prese nt in the spine. Impression: No evidence of acute cardiop ulmonary disease. Signed: Zacarias Cantu MD Report Verified Date/Time:09/02/2019 10:57:02 Reading Location: [facility] B1 C013T Transitio nal Reading Room Procedure Note Interface, External Ris In - 09/02/2019 10:59 AM RAILWAY SWITCH OPERATOR FINAL REPORT History: Preoperative examination Comparison: 08/16/2014 Findings: The lungs are clear. No pleura l effusions or pneumothorax. The heart shadow is normal in size. The thoracic aorta is mildly tortuous. Hypertrophic changes are prese nt in the spine. Impression: No evidence of acute cardiop ulmonary disease. Signed: Zacarias Cantu MD Report Verified Date/Time: 09/02/2019 1 0:57:02 Reading Location: [facility] B1 C013T Transitio nal Reading Room Performing Organization Address City/State/Zipcode Phone Number GE [facility] Cytology (08/29/2019 5:10 PM RAILWAY SWITCH OPERATOR) Case Report Medical Cytology Report Case: [id number] [facility] Authorizing Provider:Anjali Rosa MDCollected: 08/29/2019 1710 [facility] Ordering Location: [address] Received:08/30/2019 0938 Service Pathologist: Jamison Miller MD Specimen:Thyroid, Right DIAGNOSIS RIGHT LOBE THYROID GLAND NOD ULE FNA BY CLINICIAN (CYTOSPINS AND CELL BLOCK OF ASPIRATE): [facility] - DIAGNOSTIC CATEGORY: BENIGN [facility] - 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 Clinical/radiological correlation is recommended. CPT Code(s) 30259, 17709, 79778, 99048 x 3 C [facility] CLINICAL DATA (3.5 x 1.9 x 2.9 cm) mostly [facility] solid slightly heterogeneous [facility] solid nodule in the head to lower pole of the right thyroid lobe. SPECIMEN SOURCE RIGHT LOBE THYROID GLAND NODULE [facility] FNA [facility] GROSS DESCRIPTION Received 35 ml cytorich red fixative sample [facility] Prepared cell block(A2) using collodion bag and 4 cytospins [facility] Collected: [id number] Received: [id number] SPECIAL STUDIES The interpretation of this c ase included the use of immunohistochemistry or special stains. [facility] Please see the immunohistochemistry results in t he COMMENT section. [facility] Control Slides Examined: In -house known positive controls were evaluated along with the test tissue. These control slides run alongside of the patients sample show appropriate staining. Internal posit zeus and negative controls when available are joyce pope Immunohistochemistry technic al testing was performed at [facility], Pathology Laboratory where it was developed and its performance characteristics were determined. It has not be en cleared or approved by [facility] [place]. Food and Drug Administration. The FDA has determined that such clearance or approval is not necessary. The test is used for clinical purposes. It should not be regarde d as investigational or for research. This laboratory is certified under the Clinical Laboratory Improvement Amendments of 1988 (CLIA-88) as qualified to perform high complexity clinical laboratory testing. Gross assessment was [facility] performed at [place], Department of [facility] Pathology, [address] [place] [address], Technical component was [facility] performed at [place], Department of [facility] Pathology, [address] [place] [address], Professional component [facility] was performed at [place], Department of [facility] Pathology, [address] [place] [address], Specimen Fine Needle Aspirate - Thyroid, Right Narrative Performed At This result has an attachment that is no t available. Performing Organization Address City/State/Zipcode Phone Number [facility] MEDICAL [address] [place] [address] CENTER US fine needle aspiration thyroid (08/29/2019 4:50 PM RAILWAY SWITCH OPERATOR) Specimen Narrative Performed At FINAL REPORT [employer] History: Right thyroid nodule. PROCEDURE: Following informed written consent and l imited sonographic examination of the right thyroid lobe, t he patient's cervical region was prepped and draped in the usual ster ile manner. 2% lidocaine was given locally for anesthesia. No conscio us sedation was administered. Using ultrasound guidance and an anterio r approach, a total of three 25-gauge fine-needle aspirates were obta ined from the patient's solid right thyroid lobe nodule described belo w and submitted to pathology for evaluation. Overall, the patient lynette erated the procedure well without immediate complications and was discharged from the department in stable condition. FINDINGS: Limited sonographic examination of the r ight thyroid lobe performed prior to and during the biopsy demonstra chloe a 3.5 x 1.9 x 2.9 cm mostly solid slightly heterogeneous jayshree d nodule in the head to lower pole of the right thyroid lobe. A small cystic component is also seen adjacent to the nodule. During the aspir ates, the needle tip is noted to lie within the solid component of the nodule. After the aspiration, there are no surrounding flu id collections or or evidence for hemorrhage. IMPRESSION: 1. Successful uncomplicated ultrasound-g uided fine-needle aspiration of the patient's solid right thyroid nod ule as described in detail above. This procedure was performed by Elsa hernandez PA-C under direct supervision by me. Signed: Angel Cueto MD Report Verified Date/Time:08/29/2019 19:49:28 Reading Location: [facility] P048 [facility] Body Reading Room Procedure Note Interface, External Ris In - 08/29/2019 7:51 PM RAILWAY SWITCH OPERATOR FINAL REPORT History: Right thyroid nodule. PROCEDURE: Following informed written consent and l imited sonographic examination of the right thyroid lobe, t he patient's cervical region was prepped and draped in the usual ster ile manner. 2% lidocaine was given locally for anesthesia. No conscio us sedation was administered. Using ultrasound guidance and an anterio r approach, a total of three 25-gauge fine-needle aspirates were obta ined from the patient's solid right thyroid lobe nodule described belo w and submitted to pathology for evaluation. Overall, the patient lynette erated the procedure well without immediate complications and was discharged from the department in stable condition. FINDINGS: Limited sonographic examination of the r ight thyroid lobe performed prior to and during the biopsy demonstra chloe a 3.5 x 1.9 x 2.9 cm mostly solid slightly heterogeneous jayshree d nodule in the head to lower pole of the right thyroid lobe. A small cystic component is also seen adjacent to the nodule. During the aspir ates, the needle tip is noted to lie within the solid component of the nodule. After the aspiration, there are no surrounding flu id collections or or evidence for hemorrhage. IMPRESSION: 1. Successful uncomplicated ultrasound-g uided fine-needle aspiration of the patient's solid right thyroid nod ule as described in detail above. This procedure was performed by Elsa hernandez PA-C under direct supervision by me. Signed: Angel Cueto MD Report Verified Date/Time: 08/29/2019 1 9:49:28 Reading Location: [place] [address] Angio Body Reading Room Performing Organization Address City/State/Zipcode Phone Number [employer] CT abdomen/pelvis without iv contrast (08/28/2019 2:46 PM RAILWAY SWITCH OPERATOR) Specimen Narrative Performed At FINAL REPORT [employer] CT scan of the abdomen and pelvis. HISTORY: Evaluate adrenal lesion. COMPARISON STUDY: CT scan of the abdomen and pelvis dated August 25, 2019 TECHNIQUE: Contiguous helical slices wer e acquired through the abdomen and pelvis posted ministration o f oral contrast. No intravenous contrast was administered. T his exam was performed according to our department dose optimiz ation program which includes automated exposure control, adjustment o f the mA and/or kV according to the patient's size and/or use of iter ative reconstruction technique. FINDINGS: Two nodules are seen in the ri ght lung base measuring 1 mm in size each, stable from previous and f or which no imaging follow-up is recommended in a low-risk patient. Th ere is a 1.2 cm bleb in the left lower lobe. The liver, spleen, pancreas, adrenal gla nds and kidneys are unremarkable. There is a 2.8 x 2.6 cm le tri in the right adrenal gland with Hounsfield units of 8 consist ent with a benign adenoma. There are no dilated loops of bowel seen to suggest obstruction. A normal appendix is seen. Diverticulosis is noted without evidence of diverticulitis. There is no free fluid or free air. No s uspicious adenopathy is seen. The aorta is normal in caliber. Atherosc lerosis is identified. Bone windows demonstrate degenerative ch anges. IMPRESSION: 1. The lesion in right adrenal gland rep resents an adenoma. 2. No other significant change from prev ious. Signed: Reggie Regalado MD Report Verified Date/Time:08/28/2019 16:23:59 Reading Location: [facility] C013Y CT Body R [facility] Room Procedure Note Interface, External Ris In - 08/28/2019 4:26 PM RAILWAY SWITCH OPERATOR FINAL REPORT CT scan of the abdomen and pelvis. HISTORY: Evaluate adrenal lesion. COMPARISON STUDY: CT scan of the abdomen and pelvis dated August 25, 2019 TECHNIQUE: Contiguous helical slices wer e acquired through the abdomen and pelvis posted ministration o f oral contrast. No intravenous contrast was administered. T his exam was performed according to our department dose optimiz ation program which includes automated exposure control, adjustment o f the mA and/or kV according to the patient's size and/or use of iter ative reconstruction technique. FINDINGS: Two nodules are seen in the ri ght lung base measuring 1 mm in size each, stable from previous and f or which no imaging follow-up is recommended in a low-risk patient. Th ere is a 1.2 cm bleb in the left lower lobe. The liver, spleen, pancreas, adrenal gla nds and kidneys are unremarkable. There is a 2.8 x 2.6 cm le tri in the right adrenal gland with Hounsfield units of 8 consist ent with a benign adenoma. There are no dilated loops of bowel seen to suggest obstruction. A normal appendix is seen. Diverticulosis is noted without evidence of diverticulitis. There is no free fluid or free air. No s uspicious adenopathy is seen. The aorta is normal in caliber. Atherosc lerosis is identified. Bone windows demonstrate degenerative ch anges. IMPRESSION: 1. The lesion in right adrenal gland rep resents an adenoma. 2. No other significant change from prev ious. Signed: Reggie Regalado MD Report Verified Date/Time: 08/28/2019 1 6:23:59 Reading Location: [facility] B1 C013Y CT Body R eading Room Performing Organization Address City/State/Zipcode Phone Number [employer] CT abdomen/pelvis with IV contrast (08/25/2019 2:50 PM RAILWAY SWITCH OPERATOR) Specimen Narrative Performed At FINAL REPORT [employer] CT of the chest, abdomen and pelvis, wit h contrast Clinical History:Neoplasm: abdomen, metastatic MEtastatic brain lesions, assess for chuyita amber Technique: CT of the chest, abdomen and pelvis is performed with intravenous contrast administration. This exam was performed according to our departmental dose optim ization program which includes automated exposure control, adj ustment of the mA and/or kV according to patient's size and/or use o f iterative reconstructive technique. Comparison Film:None Discussion: In the right lobe of thyroid, there is a 2.6 cm nodule. No supraclavicular, axillary, mediastinal o r hilar lymphadenopathy. The main pulmonary artery is mildly enlarged , measuring 3.2 cm. Heart and pericardium are unremarkable. There is no mass or consolidation in the lung. No pleural effusion. In the middle lobe, there is a subpleura l 8 mm nodular opacity. Central airways are patent, no bronchiec tasis, or bronchial wall thickening. No liver lesion is identified. There is no biliary ductal dilatation, and the gallbladder is unremarkable. The spleen, pancreas are unremarkable. I n the right adrenal gland, there is a indeterminate 3 cm nodule. Kidneys demonstrate no mass, hydronephro sis or radiopaque stone. No evidence of bowel obstruction or abno rmal bowel wall thickening. There is colonic diverticulosis, no evid ence of acute diverticulitis. Normal appendix. In the pelvis, bladder is unremarkable. Prostate gland is enlarged. There is advanced vascular calcification with suspected occlusion versus critical narrowing of the distal aorta and common iliac vessels and reconstitution of flow more distally. No ascites, or lymphadenopathy. Osseous structures demo nstrate degenerative changes. No suspicious bony lesion is identified. Impression: 2.6 cm right thyroid nodule, amenable to sonographic correlation. 8mm pulmonary nodule in the right middle lobe. Suggest three month follow-up and/or PET correlation. Indeterminate 3 cm right adrenal lesion. If further characterization is desired, consider dedicated adrenal p rotocol CT or MRI. Enlarged prostate gland. Advanced atherosclerotic disease. The di stal aorta, and common iliac vessels appear occluded or critically st enotic. Signed: Danette Davis MD Report Verified Date/Time:08/25/2019 16:30:29 Reading Location: [facility] C013X [facility] Reading Room Procedure Note Interface, External Ris In - 08/25/2019 4:32 PM RAILWAY SWITCH OPERATOR FINAL REPORT CT of the chest, abdomen and pelvis, wit h contrast Clinical History: Neoplasm: abdomen, me tastatic MEtastatic brain lesions, assess for chuyita amber Technique: CT of the chest, abdomen and pelvis is performed with intravenous contrast administration. Th is exam was performed according to our departmental dose optim ization program which includes automated exposure control, adj ustment of the mA and/or kV according to patient's size and/or use o f iterative reconstructive technique. Comparison Film: None Discussion: In the right lobe of thyroid, there is a 2.6 cm nodule. No supraclavicular, axillary, mediastinal o r hilar lymphadenopathy. The main pulmonary artery is mildly enlarged , measuring 3.2 cm. Heart and pericardium are unremarkable. There is no mass or consolidation in the lung. No pleural effusion. In the middle lobe, there is a subpleura l 8 mm nodular opacity. Central airways are patent, no bronchiec tasis, or bronchial wall thickening. No liver lesion is identified. There is no biliary ductal dilatation, and the gallbladder is unremarkable. The spleen, pancreas are unremarkable. I n the right adrenal gland, there is a indeterminate 3 cm nodule. Kidneys demonstrate no mass, hydronephro sis or radiopaque stone. No evidence of bowel obstruction or abno rmal bowel wall thickening. There is colonic diverticulosis, no evid ence of acute diverticulitis. Normal appendix. In the pelvis, bladder is unremarkable. Prostate gland is enlarged. There is advanced vascular calcification with suspected occlusion versus critical narrowing of the distal aorta and common iliac vessels and reconstitution of flow more distally. No ascites, or lymphadenopathy. Osseous structures demo nstrate degenerative changes. No suspicious bony lesion is identified. Impression: 2.6 cm right thyroid nodule, amenable to sonographic correlation. 8mm pulmonary nodule in the right middle lobe. Suggest three month follow-up and/or PET correlation. Indeterminate 3 cm right adrenal lesion. If further characterization is desired, consider dedicated adrenal p rotocol CT or MRI. Enlarged prostate gland. Advanced atherosclerotic disease. The di stal aorta, and common iliac vessels appear occluded or critically st enotic. Signed: Danette Davis MD Report Verified Date/Time: 08/25/2019 1 6:30:29 Reading Location: [address] Reading Room Performing Organization Address City/State/Zipcode Phone Number [employer] CT chest with IV contrast (08/25/2019 2:50 PM RAILWAY SWITCH OPERATOR) Specimen Narrative Performed At FINAL REPORT [employer] CT of the chest, abdomen and pelvis, wit h contrast Clinical History:Neoplasm: abdomen, metastatic MEtastatic brain lesions, assess for chuyita amber Technique: CT of the chest, abdomen and pelvis is performed with intravenous contrast administration. This exam was performed according to our departmental dose optim ization program which includes automated exposure control, adj ustment of the mA and/or kV according to patient's size and/or use o f iterative reconstructive technique. Comparison Film:None Discussion: In the right lobe of thyroid, there is a 2.6 cm nodule. No supraclavicular, axillary, mediastinal o r hilar lymphadenopathy. The main pulmonary artery is mildly enlarged , measuring 3.2 cm. Heart and pericardium are unremarkable. There is no mass or consolidation in the lung. No pleural effusion. In the middle lobe, there is a subpleura l 8 mm nodular opacity. Central airways are patent, no bronchiec tasis, or bronchial wall thickening. No liver lesion is identified. There is no biliary ductal dilatation, and the gallbladder is unremarkable. The spleen, pancreas are unremarkable. I n the right adrenal gland, there is a indeterminate 3 cm nodule. Kidneys demonstrate no mass, hydronephro sis or radiopaque stone. No evidence of bowel obstruction or abno rmal bowel wall thickening. There is colonic diverticulosis, no evid ence of acute diverticulitis. Normal appendix. In the pelvis, bladder is unremarkable. Prostate gland is enlarged. There is advanced vascular calcification with suspected occlusion versus critical narrowing of the distal aorta and common iliac vessels and reconstitution of flow more distally. No ascites, or lymphadenopathy. Osseous structures demo nstrate degenerative changes. No suspicious bony lesion is identified. Impression: 2.6 cm right thyroid nodule, amenable to sonographic correlation. 8mm pulmonary nodule in the right middle lobe. Suggest three month follow-up and/or PET correlation. Indeterminate 3 cm right adrenal lesion. If further characterization is desired, consider dedicated adrenal p rotocol CT or MRI. Enlarged prostate gland. Advanced atherosclerotic disease. The di stal aorta, and common iliac vessels appear occluded or critically st enotic. Signed: Danette Davis MD Report Verified Date/Time:08/25/2019 16:30:29 Reading Location: [address] Reading Room Procedure Note Interface, External Ris In - 08/25/2019 4:32 PM RAILWAY SWITCH OPERATOR FINAL REPORT CT of the chest, abdomen and pelvis, wit h contrast Clinical History: Neoplasm: abdomen, me tastatic MEtastatic brain lesions, assess for chuyita amber Technique: CT of the chest, abdomen and pelvis is performed with intravenous contrast administration. Th is exam was performed according to our departmental dose optim ization program which includes automated exposure control, adj ustment of the mA and/or kV according to patient's size and/or use o f iterative reconstructive technique. Comparison Film: None Discussion: In the right lobe of thyroid, there is a 2.6 cm nodule. No supraclavicular, axillary, mediastinal o r hilar lymphadenopathy. The main pulmonary artery is mildly enlarged , measuring 3.2 cm. Heart and pericardium are unremarkable. There is no mass or consolidation in the lung. No pleural effusion. In the middle lobe, there is a subpleura l 8 mm nodular opacity. Central airways are patent, no bronchiec tasis, or bronchial wall thickening. No liver lesion is identified. There is no biliary ductal dilatation, and the gallbladder is unremarkable. The spleen, pancreas are unremarkable. I n the right adrenal gland, there is a indeterminate 3 cm nodule. Kidneys demonstrate no mass, hydronephro sis or radiopaque stone. No evidence of bowel obstruction or abno rmal bowel wall thickening. There is colonic diverticulosis, no evid ence of acute diverticulitis. Normal appendix. In the pelvis, bladder is unremarkable. Prostate gland is enlarged. There is advanced vascular calcification with suspected occlusion versus critical narrowing of the distal aorta and common iliac vessels and reconstitution of flow more distally. No ascites, or lymphadenopathy. Osseous structures demo nstrate degenerative changes. No suspicious bony lesion is identified. Impression: 2.6 cm right thyroid nodule, amenable to sonographic correlation. 8mm pulmonary nodule in the right middle lobe. Suggest three month follow-up and/or PET correlation. Indeterminate 3 cm right adrenal lesion. If further characterization is desired, consider dedicated adrenal p rotocol CT or MRI. Enlarged prostate gland. Advanced atherosclerotic disease. The di stal aorta, and common iliac vessels appear occluded or critically st enotic. Signed: Danette Davis MD Report Verified Date/Time: 08/25/2019 1 6:30:29 Reading Location: [address] Reading Room Performing Organization Address City/State/Zipcode Phone Number [facility] Sodium (08/23/2019 2:09 PM RAILWAY SWITCH OPERATOR) Sodium 136 136 - 145 meq/L [facility] Specimen Blood Narrative Performed At [place] [facility] - BS [facility] Performing Organization Address City/[facility]/Zipcode Phone Number [facility] [address] [place] [phone] CENTER Lipid panel (08/23/2019 2:09 PM RAILWAY SWITCH OPERATOR) Triglycerides 43Comment: Specimen slightly mg/dL [facility] hemolyzed [facility] Cholesterol 145Comment: Specimen slightly mg/dL CH I [facility] HDL 40 mg/dL [facility] LDL Calculated 96 mg/dL [facility] Specimen Blood Narrative Performed At Triglyceride Reference Range: [facility] Low Risk <150 [id number] High Risk 200-499 Very High Risk>=500 Cholesterol Reference Range: Low Risk <200 [id number] High Risk>240 HDL Cholesterol Reference Range: Low Risk >=60 High Risk <40 LDL Cholesterol Reference Range: Optimal<100 Near [id number] Very High >=190 [place] ID - BS Performing Organization Address City/State/Zipcode Phone Number [facility] [address] [place] [address] CENTER MR brain without & with IV contrast (08/23/2019 1:00 PM RAILWAY SWITCH OPERATOR) Specimen Narrative Performed At FINAL REPORT [employer] MR, BRAIN, WITH \\T\\ WITHOUT CONTRAST INDICATION: ICH TECHNIQUE: Multiplanar, multisequence MR imaging of the brain was obtained before and after uneventful adm inistration of gadolinium contrast. COMPARISON: CT brain August 16, 2014, C T angiography August 23, 2019 FINDINGS: Parenchymal hemorrhage in the left occip ital lobe as expected given prior imaging. Enhancing, nonhemorrhagic disease more peripherally in the occipital lobe with a small degree o f adjacent vasogenic edema. Peripherally enhancing bilobed lesion is noted at the parieto-occipital region on the left wit hout associated hemorrhagic change. A third area of enhancement with out hemorrhagic conversion is present in the right frontal lobe anteri ginny, measuring 8 mm in greatest dimension. There is no midline shift. The ventricular system is normal in size and configuration. No abnormality of the skull base or calv arium is present. The visualized paranasal sinuses, mastoid ai r cells, and orbits are within normal limits. 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 Signed: JR Crystal Robert MD Report Verified Date/Time:08/23/2019 13:31:53 Reading Location: [facility] C013V [facility] Room Procedure Note Interface, External Ris In - 08/23/2019 1:34 PM RAILWAY SWITCH OPERATOR FINAL REPORT MR, BRAIN, WITH \\T\\ WITHOUT CONTRAST INDICATION: ICH TECHNIQUE: Multiplanar, multisequence MR imaging of the brain was obtained before and after uneventful adm inistration of gadolinium contrast. COMPARISON: CT brain August 16, 2014, C T angiography August 23, 2019 FINDINGS: Parenchymal hemorrhage in the left occip ital lobe as expected given prior imaging. Enhancing, nonhemorrhagic disease more peripherally in the occipital lobe with a small degree o f adjacent vasogenic edema. Peripherally enhancing bilobed lesion is noted at the parieto-occipital region on the left wit hout associated hemorrhagic change. A third area of enhancement with out hemorrhagic conversion is present in the right frontal lobe anteri ginny, measuring 8 mm in greatest dimension. There is no midline shift. The ventricular system is normal in size and configuration. No abnormality of the skull base or calv arium is present. The visualized paranasal sinuses, mastoid ai r cells, and orbits are within normal limits. 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 Signed: JR Crystal Robert MD Report Verified Date/Time: 08/23/2019 1 3:31:53 Reading Location: [facility] B1 C013V [facility] Room Performing Organization Address City/State/Zipcode Phone Number GE [facility]IS Hemoglobin A1c (08/23/2019 6:50 AM RAILWAY SWITCH OPERATOR) Hemoglobin A1C 6.8 (H) 4.3 - 6.1 % [facility] Specimen Blood Performing Organization Address City/State/Zipcode Phone Number [facility] [address] [place] [phone] CENTER CTA carotid (08/23/2019 5:03 AM RAILWAY SWITCH OPERATOR) Specimen Narrative Performed At FINAL REPORT GE RIS EXAM: CT, CAROTID, ANGIO, CT, CTANGIO BRAIN CLINICAL INDICATION: Known intracranial hemorrhage. TECHNIQUE: Helical CT of the head withou t IV contrast. Postcontrast CTA of the head and CTA of the neck with IV contrast. Multiplanar reconstructed images. 3D reconstructions with MIP images were performed. This exam was performed accor ding to our departmental dose-optimization program, which include s automated exposure control, adjustment of the mA and/or kV according to patient size and/or use of iterative reconstruction technique. COMPARISON: 08/16/2014 noncontrast FINDINGS: CT HEAD: Parenchyma: Acute parenchymal hemorrhage centered at the left parasagittal parietal lobe with measurem ents of 2.4 x 1.6 x 2.2 cm (4 cc). No intraventricular extension or sh ift of midline structures. Moderate associated vasogenic edema. Chr onic posterior right MCA territory with ex vacuo dilatation of th e right lateral ventricle. Patchy and confluent areas of hypoattenu ation are present in the cerebral white matter that are nonspecif ic but compatible with moderate chronic microvascular ischemic changes. Generalized cerebral parenchymal volume loss. Extra-axial Collection:None Ventricular System:No hydrocephalus. Osseous Structures:Normal Paranasal Sinuses:Predominantly onelia r Tympanomastoid Cavities:Normal Other:None CTA HEAD: Anterior Circulation: Right intracranial internal carotid tessy ry (ICA): Diffusely diminutive with marked atherosclerotic c alcifications at the supraclinoid segment. Right anterior cerebral artery (MICA): No rmal Right middle cerebral artery (MCA): Mode rately diminutive with mild to moderate stenosis of the mid M1 segme nt. No large vessel central cut off. There is tapering of the distal posterior branches compatible with chronic infarction. Left intracranial internal carotid arter y (ICA): Moderate atherosclerotic narrowing of the caverno us and supraclinoid segments with patent flow at the terminus. Left anterior cerebral artery (MICA): Nor mal Left middle cerebral artery (MCA): Jory l Anterior communicating artery (AComm): P resent Posterior communicating arteries (PComm) : Present bilaterally. Posterior Circulation: Right posterior cerebral artery ([employer]CRETARY): T here is fusiform dilatation of the proximal P2 segment at the juncti on with the right posterior communicating artery with diameter of 0. 6 cm and length of 0.7 cm. Left posterior cerebral artery (ES[employer] SECRETARY): Hy poplastic P1 segment with the remainder of the left MICA supplied by th e left posterior communicating artery Right vertebral artery (VA): Diminutive distal to the takeoff of the PICA with mild irregular stenosis of the V4 segment. Left vertebral artery (VA): Mild focal s tenosis of the distal V4 segment. Basilar artery (BA): Hypoplastic without focal stenosis. Other: No evidence of vascular malformat ion. Dural Venous Sinuses:Normal CTA NECK: Aortic arch and proximal great vessels: Atherosclerotic changes without significant narrowing. 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 Left carotid arterial system: Mild (<50% ) internal carotid artery narrowing at the carotid bulb.Evalua tion somewhat limited by marked tortuosity and medialized course of the internal carotid artery. Right vertebral artery: Diffusely hypopl astic without focal stenosis. Left vertebral artery: Normal Where applicable, evaluation of internal carotid artery(ICA) stenosis was performed using NASCET-like criteria, where the site of greatest stenosis is compared to the lucas meter of the ICA distal to the stenosis at a point where the ICA wa lls become parallel. Neck Soft Tissues: Unremarkable. Osseous Structures:No acute osseous abnormality. Multilevel advanced degenerative disc disease of th e cervical spine. Included Lung Apices: Moderate parasepta l emphysema. IMPRESSION: 1.Acute focal intraparenchymal hemorrhag e within the left parietal lobe with moderate vasogenic edema. No s hift of midline structures or intraventricular extension of hemorrhage . No etiology identified on CTA. 2. Remote right MCA territory infarction and background of moderate chronic microvascular ischemic changes o f the brain. 3. Occluded extracranial right ICA with faint reconstitution at the skull base. Mild atherosclerotic narrowi ng of the left ICA at the carotid bulb although evaluation is some what limited by vessel tortuosity. 4. Multifocal moderate to mild intracran ial stenoses, as described, without large vessel cut off. There is f usiform 0.6 cm dilatation of the proximal right P2 segment. 5.Pulmonary emphysema. Signed: Jere Roach MD Report Verified Date/Time:08/23/2019 05:51:29 Procedure Note Interface, External Ris In - 08/23/2019 5:54 AM RAILWAY SWITCH OPERATOR FINAL REPORT EXAM: CT, CAROTID, ANGIO, CT, CTANGIO B RAIN CLINICAL INDICATION: Known intracranial hemorrhage. TECHNIQUE: Helical CT of the head withou t IV contrast. Postcontrast CTA of the head and CTA of the neck with IV contrast. Multiplanar reconstructed images. 3D reconstructions with MIP images were performed. This exam was performed accor ding to our departmental dose-optimization program, which include s automated exposure control, adjustment of the mA and/or kV according to patient size and/or use of iterative reconstruction technique. COMPARISON: 08/16/2014 noncontrast FINDINGS: CT HEAD: Parenchyma: Acute parenchymal hemorrhage centered at the left parasagittal parietal lobe with measurem ents of 2.4 x 1.6 x 2.2 cm (4 cc). No intraventricular extension or sh ift of midline structures. Moderate associated vasogenic edema. Chr onic posterior right MCA territory with ex vacuo dilatation of th e right lateral ventricle. Patchy and confluent areas of hypoattenu ation are present in the cerebral white matter that are nonspecif ic but compatible with moderate chronic microvascular ischemic changes. Generalized cerebral parenchymal volume loss. Extra-axial Collection: None Ventricular System: No hydrocephalus. Osseous Structures: Normal Paranasal Sinuses: Predominantly clear Tympanomastoid Cavities: Normal Other: None CTA HEAD: Anterior Circulation: Right intracranial internal carotid tessy ry (ICA): Diffusely diminutive with marked atherosclerotic c alcifications at the supraclinoid segment. Right anterior cerebral artery (MICA): No rmal Right middle cerebral artery (MCA): Mode rately diminutive with mild to moderate stenosis of the mid M1 segme nt. No large vessel central cut off. There is tapering of the distal posterior branches compatible with chronic infarction. Left intracranial internal carotid arter y (ICA): Moderate atherosclerotic narrowing of the caverno us and supraclinoid segments with patent flow at the terminus. Left anterior cerebral artery (MICA): Nor mal Left middle cerebral artery (MCA): Jory l Anterior communicating artery (AComm): P resent Posterior communicating arteries (PComm) : Present bilaterally. Posterior Circulation: Right posterior cerebral artery (ESCROW SECRETARY): T here is fusiform dilatation of the proximal P2 segment at the juncti on with the right posterior communicating artery with diameter of 0. 6 cm and length of 0.7 cm. Left posterior cerebral artery (ESCROW SECRETARY): Hy poplastic P1 segment with the remainder of the left MICA supplied by th e left posterior communicating artery Right vertebral artery (VA): Diminutive distal to the takeoff of the PICA with mild irregular stenosis of the V4 segment. Left vertebral artery (VA): Mild focal s tenosis of the distal V4 segment. Basilar artery (BA): Hypoplastic without focal stenosis. Other: No evidence of vascular malformat ion. Dural Venous Sinuses: Normal CTA NECK: Aortic arch and proximal great vessels: Atherosclerotic changes without significant narrowing. 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 Left carotid arterial system: Mild (<50% ) internal carotid artery narrowing at the carotid bulb. Evaluati on somewhat limited by marked tortuosity and medialized course of the internal carotid artery. Right vertebral artery: Diffusely hypopl astic without focal stenosis. Left vertebral artery: Normal Where applicable, evaluation of internal carotid artery (ICA) stenosis was performed using NASCET-like criteria, where the site of greatest stenosis is compared to the lucas meter of the ICA distal to the stenosis at a point where the ICA wa lls become parallel. Neck Soft Tissues: Unremarkable. Osseous Structures: No acute osseous ab normality. Multilevel advanced degenerative disc disease of th e cervical spine. Included Lung Apices: Moderate parasepta l emphysema. IMPRESSION: 1.Acute focal intraparenchymal hemorrhag e within the left parietal lobe with moderate vasogenic edema. No s hift of midline structures or intraventricular extension of hemorrhage . No etiology identified on CTA. 2. Remote right MCA territory infarction and background of moderate chronic microvascular ischemic changes o f the brain. 3. Occluded extracranial right ICA with faint reconstitution at the skull base. Mild atherosclerotic narrowi ng of the left ICA at the carotid bulb although evaluation is some what limited by vessel tortuosity. 4. Multifocal moderate to mild intracran ial stenoses, as described, without large vessel cut off. There is f usiform 0.6 cm dilatation of the proximal right P2 segment. 5.Pulmonary emphysema. Signed: Jere Roach MD Report Verified Date/Time: 08/23/2019 0 5:51:29 Performing Organization Address City/State/Zipcode Phone Number [facility] CTA brain (08/23/2019 5:03 AM RAILWAY SWITCH OPERATOR) Specimen Narrative Performed At FINAL REPORT Media Redefined [facility] EXAM: CT, CAROTID, ANGIO, CT, CTANGIO BRAIN CLINICAL INDICATION: Known intracranial hemorrhage. TECHNIQUE: Helical CT of the head withou t IV contrast. Postcontrast CTA of the head and CTA of the neck with IV contrast. Multiplanar reconstructed images. 3D reconstructions with MIP images were performed. This exam was performed accor ding to our departmental dose-optimization program, which include s automated exposure control, adjustment of the mA and/or kV according to patient size and/or use of iterative reconstruction technique. COMPARISON: 08/16/2014 noncontrast FINDINGS: CT HEAD: Parenchyma: Acute parenchymal hemorrhage centered at the left parasagittal parietal lobe with measurem ents of 2.4 x 1.6 x 2.2 cm (4 cc). No intraventricular extension or sh ift of midline structures. Moderate associated vasogenic edema. Chr onic posterior right MCA territory with ex vacuo dilatation of th e right lateral ventricle. Patchy and confluent areas of hypoattenu ation are present in the cerebral white matter that are nonspecif ic but compatible with moderate chronic microvascular ischemic changes. Generalized cerebral parenchymal volume loss. Extra-axial Collection:None Ventricular System:No hydrocephalus. Osseous Structures:Normal Paranasal Sinuses:Predominantly onelia r Tympanomastoid Cavities:Normal Other:None CTA HEAD: Anterior Circulation: Right intracranial internal carotid tessy ry (ICA): Diffusely diminutive with marked atherosclerotic c alcifications at the supraclinoid segment. Right anterior cerebral artery (MICA): No rmal Right middle cerebral artery (MCA): Mode rately diminutive with mild to moderate stenosis of the mid M1 segme nt. No large vessel central cut off. There is tapering of the distal posterior branches compatible with chronic infarction. Left intracranial internal carotid arter y (ICA): Moderate atherosclerotic narrowing of the caverno us and supraclinoid segments with patent flow at the terminus. Left anterior cerebral artery (MICA): Nor mal Left middle cerebral artery (MCA): Jory l Anterior communicating artery (AComm): P resent Posterior communicating arteries (PComm) : Present bilaterally. Posterior Circulation: Right posterior cerebral artery (ESCROW SECRETARY): T here is fusiform dilatation of the proximal P2 segment at the juncti on with the right posterior communicating artery with diameter of 0. 6 cm and length of 0.7 cm. Left posterior cerebral artery (ESCROW SECRETARY): Hy poplastic P1 segment with the remainder of the left MICA supplied by th e left posterior communicating artery Right vertebral artery (VA): Diminutive distal to the takeoff of the PICA with mild irregular stenosis of the V4 segment. Left vertebral artery (VA): Mild focal s tenosis of the distal V4 segment. Basilar artery (BA): Hypoplastic without focal stenosis. Other: No evidence of vascular malformat ion. Dural Venous Sinuses:Normal CTA NECK: Aortic arch and proximal great vessels: Atherosclerotic changes without significant narrowing. 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 Left carotid arterial system: Mild (<50% ) internal carotid artery narrowing at the carotid bulb.Evalua tion somewhat limited by marked tortuosity and medialized course of the internal carotid artery. Right vertebral artery: Diffusely hypopl astic without focal stenosis. Left vertebral artery: Normal Where applicable, evaluation of internal carotid artery(ICA) stenosis was performed using NASCET-like criteria, where the site of greatest stenosis is compared to the lucas meter of the ICA distal to the stenosis at a point where the ICA wa lls become parallel. Neck Soft Tissues: Unremarkable. Osseous Structures:No acute osseous abnormality. Multilevel advanced degenerative disc disease of th e cervical spine. Included Lung Apices: Moderate parasepta l emphysema. IMPRESSION: 1.Acute focal intraparenchymal hemorrhag e within the left parietal lobe with moderate vasogenic edema. No s hift of midline structures or intraventricular extension of hemorrhage . No etiology identified on CTA. 2. Remote right MCA territory infarction and background of moderate chronic microvascular ischemic changes o f the brain. 3. Occluded extracranial right ICA with faint reconstitution at the skull base. Mild atherosclerotic narrowi ng of the left ICA at the carotid bulb although evaluation is some what limited by vessel tortuosity. 4. Multifocal moderate to mild intracran ial stenoses, as described, without large vessel cut off. There is f usiform 0.6 cm dilatation of the proximal right P2 segment. 5.Pulmonary emphysema. Signed: Jere Roach MD Report Verified Date/Time:08/23/2019 05:51:29 Procedure Note Interface, External Ris In - 08/23/2019 5:54 AM RAILWAY SWITCH OPERATOR FINAL REPORT EXAM: CT, CAROTID, ANGIO, CT, CTANGIO B [facility] CLINICAL INDICATION: Known intracranial hemorrhage. TECHNIQUE: Helical CT of the head withou t IV contrast. Postcontrast CTA of the head and CTA of the neck with IV contrast. Multiplanar reconstructed images. 3D reconstructions with MIP images were performed. This exam was performed accor ding to our departmental dose-optimization program, which include s automated exposure control, adjustment of the mA and/or kV according to patient size and/or use of iterative reconstruction technique. COMPARISON: 08/16/2014 noncontrast FINDINGS: CT HEAD: Parenchyma: Acute parenchymal hemorrhage centered at the left parasagittal parietal lobe with measurem ents of 2.4 x 1.6 x 2.2 cm (4 cc). No intraventricular extension or sh ift of midline structures. Moderate associated vasogenic edema. Chr onic posterior right MCA territory with ex vacuo dilatation of th e right lateral ventricle. Patchy and confluent areas of hypoattenu ation are present in the cerebral white matter that are nonspecif ic but compatible with moderate chronic microvascular ischemic changes. Generalized cerebral parenchymal volume loss. Extra-axial Collection: None Ventricular System: No hydrocephalus. Osseous Structures: Normal Paranasal Sinuses: Predominantly clear Tympanomastoid Cavities: Normal Other: None CTA HEAD: Anterior Circulation: Right intracranial internal carotid tessy ry (ICA): Diffusely diminutive with marked atherosclerotic c alcifications at the supraclinoid segment. Right anterior cerebral artery (MICA): No rmal Right middle cerebral artery (MCA): Mode rately diminutive with mild to moderate stenosis of the mid M1 segme nt. No large vessel central cut off. There is tapering of the distal posterior branches compatible with chronic infarction. Left intracranial internal carotid arter y (ICA): Moderate atherosclerotic narrowing of the caverno us and supraclinoid segments with patent flow at the terminus. Left anterior cerebral artery (MICA): Nor mal Left middle cerebral artery (MCA): Jory l Anterior communicating artery (AComm): P resent Posterior communicating arteries (PComm) : Present bilaterally. Posterior Circulation: Right posterior cerebral artery (ESCROW SECRETARY): T here is fusiform dilatation of the proximal P2 segment at the juncti on with the right posterior communicating artery with diameter of 0. 6 cm and length of 0.7 cm. Left posterior cerebral artery (ESCROW SECRETARY): Hy poplastic P1 segment with the remainder of the left MICA supplied by th e left posterior communicating artery Right vertebral artery (VA): Diminutive distal to the takeoff of the PICA with mild irregular stenosis of the V4 segment. Left vertebral artery (VA): Mild focal s tenosis of the distal V4 segment. Basilar artery (BA): Hypoplastic without focal stenosis. Other: No evidence of vascular malformat ion. Dural Venous Sinuses: Normal CTA NECK: Aortic arch and proximal great vessels: Atherosclerotic changes without significant narrowing. 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 Left carotid arterial system: Mild (<50% ) internal carotid artery narrowing at the carotid bulb. Evaluati on somewhat limited by marked tortuosity and medialized course of the internal carotid artery. Right vertebral artery: Diffusely hypopl astic without focal stenosis. Left vertebral artery: Normal Where applicable, evaluation of internal carotid artery (ICA) stenosis was performed using NASCET-like criteria, where the site of greatest stenosis is compared to the lucas meter of the ICA distal to the stenosis at a point where the ICA wa lls become parallel. Neck Soft Tissues: Unremarkable. Osseous Structures: No acute osseous ab normality. Multilevel advanced degenerative disc disease of th e cervical spine. Included Lung Apices: Moderate parasepta l emphysema. IMPRESSION: 1.Acute focal intraparenchymal hemorrhag e within the left parietal lobe with moderate vasogenic edema. No s hift of midline structures or intraventricular extension of hemorrhage . No etiology identified on CTA. 2. Remote right MCA territory infarction and background of moderate chronic microvascular ischemic changes o f the brain. 3. Occluded extracranial right ICA with faint reconstitution at the skull base. Mild atherosclerotic narrowi ng of the left ICA at the carotid bulb although evaluation is some what limited by vessel tortuosity. 4. Multifocal moderate to mild intracran ial stenoses, as described, without large vessel cut off. There is f usiform 0.6 cm dilatation of the proximal right P2 segment. 5.Pulmonary emphysema. Signed: Jere Roach MD Report Verified Date/Time: 08/23/2019 0 5:51:29 Performing Organization Address City/State/Zipcode Phone Number [facility] Hepatic function panel (08/23/2019 4:35 AM RAILWAY SWITCH OPERATOR) Protein, Total 7.0 6.0 - 8.3 gm/dL [facility] Albumin 4.0 3.5 - 5.0 g/dL [facility] Total Bilirubin 0.4 0.2 - 1.2 mg/dL [facility] Bilirubin, Direct 0.1 0.1 - 0.5 mg/dL [facility] Alkaline Phosphatase 44 40 - 150 U/L [facility] AST 19 5 - 34 U/L [facility] ALT 23 6 - 55 U/L [facility] Specimen Blood Narrative Performed At [place] [facility] Once on admission and Daily AM afterwards Performing Organization Address City/State/Zipcode Phone Number [facility] [address] [place] [address] CENTER after 11/23/2018 Insurance Payer Benefit Plan / Group Subscriber ID Type Phone A ddress [employer] xxxxxxxxx Maps Contracted Advance Directives For more information, please contact:[facility], [place] [phone] Code Status Date Activated Date Inactivated Comments Full Code 09/04/2019 9:13 PM 09/07/2019 3:27 PM This code status was determined by: Patient Full Code 08/23/2019 4:12 AM 09/04/2019 9:13 PM This code status was determined by: Child Full Code 08/16/2014 3:45 PM 08/20/2014 3:41 PM This code status was determined by: Patient
--- OUTSIDE RECORDS SUMMARY | 2019-11-24 09:57 | XMS REPORT ---
:1940 Author Organization [facility] t Address [address] 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 Results Test Description Test Time Test Comments Text Results Atomic Results Result Comments TISSUE EXAM 2019-09-07 16:35:00 Surgical Pathology Re port Case: [id number] Authorizing Provider: Kaden Doran i, MD Collected: 7617 Ordering Location: [facility] Received: 1422 SERVICE S Pathologist: Arsalan Kim MD Specimens: A) - Soft Tissu e, Other, left medial parietal lesion B) - Soft Tissue, Other, Left Medial Parietal Lesion A. BRAIN, LEFT MEDIAL PARIET AL, CRANIOTOMY:METASTATIC ADENOC ARCINOMA, CONSISTENT WITH LUNG PRIMARYB. BRAIN, L EFT MEDIAL PARIETAL, CRANIOTOMY:METASTATIC ADENOC ARCINOMA, CONSISTENT WITH LUNG PRIMARY Signi ng Pathologist Direct Phone Line: [phone] tronically signed by Arsalan Kim MD on 2019 at 4:35 PMThe tumor is well-circumscribed with gland formation. Immunoperoxidase stains for cytokeratin 7, TTF1, Napsin-A and CEA are diffuse ly positive. Immunoperoxidase stains for cytokeratin 20, cdx-2, villain, PAX-5, [place]-8 , thyroglobulin, and WT-1 are negative in tumor. The findings are consistent with a lung prima ry. Positivity for Napsin-A with negative stain ing for thyroglobulin excludes a thyroid primary. 82526 x 2; 59418; 49529; 83535 x 10Multifocal brain tumors suspicious for metastasis of unknown primaryA. Soft tissue other, left medi al parietal lesion. B. Soft tissue, other, descr iption left medial parietal lesionA. Received f [facility] for intraoperative consultation diagnosis labeled with the patient's name, acc ession number and "soft tissue" is a 0.5 x 0.5 x 0.2 cm aggregate of multiple shields-pink fragmen t of soft tissue. Touch prep is performed and frozen section is performed. The specimen is s ubmitted entirely for permanent sections in [facility] te FSA1. HS/plB. Specimen is received in [...] nohistochemistry technical testing was perfor med at [facility], Patho logy Laboratory where it was [...] 70-110 : Not ified RN/MD: TESTED AT [facility] [address] (test code = 1538) [place], [address]: Development Consultant/Technic cyn ID = [id number] for KAI ADAMS BASIC METABOLIC [id number] 04:25:00 Test Item Value Reference Range Comments [...] NOT APPLICABLE F OR DIALYSIS PATIENT S. Development Consultant ID - GALAPCBC (HEMOGRAM ONLY)2019-09-07 03:54:00 Test [...] = 0 /100 WBC 0-0 413) POCT-GLUCOSE [id number] 21:57:00 Test Item Value Reference Range Comments POC-GLUCOSE METER (BEAKER) 286 mg/dL 70-110 : NERY MERVAT AT [facility] [address] [facility] (test code = 1538) [facility], [address]: Development Consultant/Technic cyn ID = [id number] for MURIEL PHELAN HERNANDEZ POCT-GLUCOSE [id number] 18:03:00 Test Item Value Reference Range Comments POC-GLUCOSE METER (BEAKER) 215 mg/dL 70-110 : NERY MERVAT AT [facility] [address] [facility] (test code = 1538) [facility], [address]: Development Consultant/Technic cyn ID = [id number] for JAS SMALL POCT-GLUCOSE [id number] 12:10:00 Test Item Value Reference Range Comments POC-GLUCOSE METER (BEAKER) 294 mg/dL 70-110 : Not ified RN/MD: TESTED AT (test code = 1538) [facility] [address] [facility], [address]: Development Consultant/ Assistant Shift Supervisor ID = [id number] for ANGIE CHEEMA POCT-GLUCOSE [id number] 08:18:00 Test Item Value Reference Range Comments POC-GLUCOSE METER (BEAKER) 283 mg/dL 70-110 : Not ified RN/MD: TESTED AT (test code = 1538) [facility] [address] [facility], [address]: Development Consultant/ Assistant Shift Supervisor ID = [id number] for ANGIE CHEEMA [id number] 06:56:00 Test Item Value Reference Range Comments PROSTATE SPECIFIC ANTIGEN (BEAKER) (test code = 3.8 ng/mL 0.0-4.0 844) Development Consultant ID - DBCARCINOEMBRYONIC ANTIGEN (CEA)2019-09-06 06:56:00 Test Item Value Reference Range Comments CARCINOEMBRYONIC ANTIGEN (BEAKER) (test code = 2.0 ng/mL 0 .0-5.0 685) Development Consultant ID - DBBASIC METABOLIC [id number] 06:36:00 Test Item Value Reference Range Comments [...] NOT APPLICABLE F OR DIALYSIS PATIENT S. Development Consultant ID - NOREEN [facility] (HEMOGRAM ONLY)2019-09-06 06:09:00 Test Item Value Reference [...] = 0 /100 WBC 0-0 413) POCT-GLUCOSE [id number] 22:52:00 Test Item Value Reference Range Comments POC-GLUCOSE METER (BEAKER) 288 mg/dL 70-110 : NERY MERVAT AT [facility] [address] [facility] (test code = 1538) [place], [address]: Development Consultant/Technic cyn ID = [id number] for PORFIRIO BARKER POCT-GLUCOSE [id number] 18:18:00 Test Item Value Reference Range Comments POC-GLUCOSE METER (BEAKER) 276 mg/dL 70-110 : Not ified RN/MD: TESTED AT (test code = 1538) [facility] [address] [facility], [address]: Development Consultant/ Assistant Shift Supervisor ID = [id number] for ANGIE CHEEMA [id number] 11:57:00 Test Item Value Reference Range Comments MAGNESIUM (BEAKER) (test code = 627) 2.1 mg/dL 1.6-2.6 Development Consultant ID - LORIN FPOCT-GLUCOSE [id number] 11:39:00 Test Item Value Reference Range Comments POC-GLUCOSE METER (BEAKER) 298 mg/dL 70-110 : NERY MERVAT AT [facility] [address] [facility] (test code = 1538) [facility], [address]: Development Consultant/Technic cyn ID = [id number] for THAO GRANADOS POCT-GLUCOSE [id number] 07:53:00 Test Item Value Reference Range Comments POC-GLUCOSE METER (BEAKER) 223 mg/dL 70-110 : Not ified RN/MD: TESTED AT (test code = 1538) [facility] [address] [facility] [facility], [address]: Development Consultant/ Assistant Shift Supervisor ID = [id number] for ANGIE CHEEMA CT, BRAIN, WITHOUT [id number] 04:33:00FINAL REPORT CT Head without contrast CLINICAL [...] Iniguezeport Verified Date/Time: 09/05/2019 04:33:40 C METABOLIC [id number] 04:00:00 Test Item Value Reference Range Comments [...] NOT APPLICABLE F OR DIALYSIS PATIENT S. Development Consultant ID - NOREEN [id number] 03:56:00 Test Item Value Reference Range Comments PHOSPHORUS (BEAKER) (test code = 604) 4.5 mg/dL 2.3-4.7 Development Consultant ID - NOREEN [id number] 03:56:00 Test Item Value Reference Range Comments MAGNESIUM (BEAKER) (test code = 627) 1.7 mg/dL 1.6-2.6 Development Consultant ID - NOREEN MCBC W/PLT COUNT & AUTO [id number] 03:41:00 Test Item Value Reference Range Comments [...] % 0-1 (test code = 2801) POCT-GLUCOSE [id number] 17:02:00 Test Item Value Reference Range Comments POC-GLUCOSE METER (BEAKER) 202 mg/dL 70-110 : NERY MERVAT AT [facility] [address] [facility] (test code = 1538) [facility], [address]: Development Consultant/Technic cyn ID = [id number] for LYNN DEGROOT POCT-GLUCOSE [id number] 15:03:00 Test Item Value Reference Range Comments POC-GLUCOSE METER (BEAKER) 171 mg/dL 70-110 : NERY MERVAT AT [address] (test code = 1538) [facility], [address]: Development Consultant/Technic cyn ID = [id number] for ROEL MCDANIEL POCT-GLUCOSE [id number] 11:29:00 Test Item Value Reference Range Comments POC-GLUCOSE METER (BEAKER) 177 mg/dL 70-110 : NERY MERVAT AT [address] (test code = 1538) [facility], [address]: Development Consultant/Technic cyn ID = [id number] for TON WALL BASIC METABOLIC [id number] 04:36:00 Test Item Value Reference Range Comments [...] NOT APPLICABLE F OR DIALYSIS PATIENT S. Development Consultant ID - LACBC (HEMOGRAM ONLY)2019-09-04 04:12:00 Test [...] = 0 /100 WBC 0-0 413) POCT-GLUCOSE [id number] 21:26:00 Test Item Value Reference Range Comments POC-GLUCOSE METER (BEAKER) 307 mg/dL 70-110 : NERY MERVAT AT [address] (test code = 1538) [facility], [address]: Development Consultant/Technic cyn ID = [id number] for DOVE CHEKAR A POCT-GLUCOSE [id number] 17:04:00 Test Item Value Reference Range Comments POC-GLUCOSE METER (BEAKER) 237 mg/dL 70-110 : NERY MERVAT AT [address] (test code = 1538) [facility], [address]: Development Consultant/Technic cyn ID = [id number] for Naida Richardson BASIC METABOLIC [id number] 04:53:00 Test Item Value Reference Range Comments [...] NOT APPLICABLE F OR DIALYSIS PATIENT S. Development Consultant ID - NOREEN MCBC W/PLT COUNT & AUTO [id number] 04:34:00 Test Item Value Reference Range Comments [...] % 0-1 (test code = 2801) POCT-GLUCOSE [id number] 22:58:00 Test Item Value Reference Range Comments POC-GLUCOSE METER (BEAKER) 226 mg/dL 70-110 : NERY MERVAT AT [facility] [address] [facility] code = 1538[facility], [address]: Development Consultant/Technic cyn ID = [id number] for MARGARITA KUMAR [id number] 11:49:00 Test Item Value Reference Range Comments PARTIAL THROMBOPLASTIN TIME (BEAKER) (test code 22.4 seconds 22.5-36.0 = 760) PROTHROMBIN TIME/[id number] 11:48:00 Test Item Value Reference Range Comments [...] mechanical heart valves.RAD, CHEST, 1 VIEW, NON [id number] 10:57:00Reason for exam:->preopShould this be performed at the bedside?->YesFINAL REPORT History: Preoperative examination Comparison: 08/16/2014 Findings: The lungs are clear. No pleural effusions or pneumothorax. The heart shadow is normal in size. Thethoracic aorta is mildly tortuous. Hypertrophic changes are present in the spine. Impression: No evidence of acute cardiopulmonary disease. Signed: Zacarias Cantu Verified Date/Time: 09/02/201910:57:02 Reading Location: [address] Reading Room POCT-GLUCOSE [id number] 22:36:00 Test Item Value Reference Range Comments POC-GLUCOSE METER (BEAKER) 232 mg/dL 70-110 : NERY MERVAT AT [address] (test code = 1538) [facility], [address]: Development Consultant/Technic cyn ID = [id number] for TASH STONER A POCT-GLUCOSE [id number] 18:54:00 Test Item Value Reference Range Comments POC-GLUCOSE METER (BEAKER) 242 mg/dL 70-110 : NERY MERVAT AT [address] (test code = 1538) [facility], [address]: Development Consultant/Technic cyn ID = [id number] for KE KHOURY IA [id number] 12:31:00Medical Cytology Report Case: [id number] Authorizing Provider: Anjali Rosa MD Collected: 08/29/2019 1710 Ordering Location: [address] Received: 08/30/2019 0965 Service Pathologist: Jamison Miller MD Specimen: Thyroid, Right RIGHT LOBE THYROID GLAND NODULE FNA BY CLINICIAN (CYTOSPINS AND CELL BLOCK OF ASPIRATE): - DIAGNOSTIC 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 Clinical/radiological correlation is bela mmended. 03968, 99013, 81078, 08752 x 3(3.5 x 1.9 x 2.9 cm) mostly solid slightly heterogeneous solid nodule in the head to lower pole of the right thyroid lobe.RIGHT LOBE THYROID GLAND NODULE FNAReceived 35 ml cytorich red fixative samplePrepared cell block(A2) using collodion bag and 4 cytospinsColle cted: [id number]: [id number] interpretation of this case included the use of immunohistochemistryor special stains.Please see the immunohistochemistry results in the COMMENT section. Control SlidesExamined: In-house known positive controls were evaluated along with the test tissue. These control slides run alongside of the patients sample show appropriate staining. Internal positive and negative controls when available are evaluated Immunohistochemistry technical testing was performed at [facility], Pathology Laboratory where it was developed [...] qualified to perform hi complexity clinical laboratory testing.[facility], Department of Pathology,[address] [place] [address], [facility], [address] [place] [address], [facility], [facility] of [facility], [address] [place] [address], [place] [address], YZKA-GLUCOSE [id number] 12:18:00 Test Item Value Reference Range Comments POC-GLUCOSE METER (BEAKER) 211 mg/dL 70-110 : NERY MERVAT AT [facility] [address] [place] [address] (test code = 1538) [facility], [address]: Development Consultant/Technic cyn ID = [id number] for KE KHOURY IA POCT-GLUCOSE [id number] 08:20:00 Test Item Value Reference Range Comments POC-GLUCOSE METER (BEAKER) 167 mg/dL 70-110 : NERY MERVAT AT [address] (test code = 1538) [facility], [address]: Development Consultant/Technic cyn ID = [id number] for KEVIN KHOURYRIC IA BASIC METABOLIC [id number] 05:53:00 Test Item Value Reference Range Comments [...] NOT APPLICABLE F OR DIALYSIS PATIENT S. Development Consultant ID - EMELYN WPOCT-GLUCOSE [id number] 21:11:00 Test Item Value Reference Range Comments POC-GLUCOSE METER (BEAKER) 226 mg/dL 70-110 : NERY MERVAT AT [address] (test code = 1538) [facility], [address]: Development Consultant/Technic cyn ID = [id number] for TASH STONER A POCT-GLUCOSE [id number] 17:14:00 Test Item Value Reference Range Comments POC-GLUCOSE METER (BEAKER) 218 mg/dL 70-110 : NERY MERVAT AT [address] (test code = 1538) [facility], [address]: Development Consultant/Technic cyn ID = [id number] for KHOURY, KE IA POCT-GLUCOSE [id number] 12:07:00 Test Item Value Reference Range Comments POC-GLUCOSE METER (BEAKER) 167 mg/dL 70-110 : NERY MERVAT AT [address] (test code = 1538) [facility], [address]: Development Consultant/Technic cyn ID = [id number] for KHOURY, KE IA POCT-GLUCOSE [id number] 09:12:00 Test Item Value Reference Range Comments POC-GLUCOSE METER (BEAKER) 162 mg/dL 70-110 : NERY MERVAT AT [address] (test code = 1538) [facility], [address]: Development Consultant/Technic cyn ID = [id number] for KHOURY, KE IA BASIC METABOLIC [id number] 07:05:00 Test Item Value Reference Range Comments [...] NOT APPLICABLE F OR DIALYSIS PATIENT S. Development Consultant ID - LAPOCT-GLUCOSE [id number] 21:59:00 Test Item Value Reference Range Comments POC-GLUCOSE METER (BEAKER) 310 mg/dL 70-110 : NERY MERVAT AT [address] (test code = 1538) [facility], [address]: Development Consultant/Technic cyn ID = [id number] for KATIA RODRIGUEZ POCT-GLUCOSE [id number] 18:32:00 Test Item Value Reference Range Comments POC-GLUCOSE METER (BEAKER) 222 mg/dL 70-110 : NERY MERVAT AT [address] (test code = 1538) [facility], [address]: Development Consultant/Technic cyn ID = [id number] for BROWN, MONA LLE POCT-GLUCOSE [id number] 13:39:00 Test Item Value Reference Range Comments POC-GLUCOSE METER (BEAKER) 148 mg/dL 70-110 : NERY MERVAT AT [address] (test code = 1538) [facility], 7 [address]: Development Consultant/Technic cyn ID = [id number] for BROWN, MONA LLE POCT-GLUCOSE [id number] 07:59:00 Test Item Value Reference Range Comments POC-GLUCOSE METER (BEAKER) 214 mg/dL 70-110 : NERY MERVAT AT [address] (test code = 1538) [facility], 7 [address]: Development Consultant/Technic cyn ID = [id number] for BROWN, MONA LLE BASIC METABOLIC [id number] 05:54:00 Test Item Value Reference Range Comments [...] NOT APPLICABLE F OR DIALYSIS PATIENT S. Development Consultant ID - GALAPCBC W/PLT COUNT & AUTO [id number] 05:14:00 Test Item Value Reference Range Comments [...] % 0-1 (test code = 2801) POCT-GLUCOSE [id number] 21:36:00 Test Item Value Reference Range Comments POC-GLUCOSE METER (BEAKER) 242 mg/dL 70-110 : NERY MERVAT AT [facility] [address] [facility] (test code = 1538) [facility], [address]: Development Consultant/Technic cyn ID = [id number] for KATIA RODRIGUEZ U/S, FINE NEEDLE ASPIRATION (FNA), [id number] 19:49:00Discussed with IR Dr. Montano for exam:->right [...] Angel Cuetoort Verified Date/Time: 08/29/201919:49:28 Reading Location: [facility] P048 Angio Body Reading Room POCT-GLUCOSE [id number] 18:04:00 Test Item Value Reference Range Comments POC-GLUCOSE METER (BEAKER) 176 mg/dL 70-110 : NERY MERVAT AT [address] (test code = 1538) [facility], [address]: Development Consultant/Technic cyn ID = [id number] for BROWN, MONA LLE POCT-GLUCOSE [id number] 12:58:00 Test Item Value Reference Range Comments POC-GLUCOSE METER (BEAKER) 136 mg/dL 70-110 : NERY MERVAT AT [address] (test code = 1538) [facility], [address]: Development Consultant/Technic cyn ID = [id number] for BROWN, MONA LLE POCT-GLUCOSE [id number] 08:20:00 Test Item Value Reference Range Comments POC-GLUCOSE METER (BEAKER) 154 mg/dL 70-110 : NERY MERVAT AT [address] (test code = 1538) [facility], [address]: Development Consultant/Technic cyn ID = [id number] for BROWN, MONA LLE BASIC METABOLIC [id number] 06:46:00 Test Item Value Reference Range Comments [...] NOT APPLICABLE F OR DIALYSIS PATIENT S. Development Consultant ID - NOREEN MPROTHROMBIN TIME/[id number] 06:14:00 Test Item Value Reference Range Comments [...] mechanical heart valves.CBC W/PLT COUNT & AUTO [id number] 06:05:00 Test Item Value Reference Range Comments [...] % 0-1 (test code = 2801) POCT-GLUCOSE [id number] 21:00:00 Test Item Value Reference Range Comments POC-GLUCOSE METER (BEAKER) 236 mg/dL 70-110 : NERY MERVAT AT [facility] [address] [facility] (test code = 1538) [facility], [address]: Development Consultant/Technic cyn ID = [id number] for KATIA RODRIGUEZ CT, [id number] 16:23:00Please specify:->AdrenalsFINAL REPORT CT scan of the [...] Patricia Regaladoeport Verified Date/Time: 08/28/2019 16:23:59Reading Location: [address] Body Reading Room POCT- GLUCOSE [id number] 16:09:00 Test Item Value Reference Range Comments POC-GLUCOSE METER (BEAKER) 152 mg/dL 70-110 : NERY MERVAT AT [facility] [address] [facility] (test code = 1538) [facility], [address]: Development Consultant/Technic cyn ID = [id number] for BANKS GLADYS Sandy POCT-GLUCOSE [id number] 11:48:00 Test Item Value Reference Range Comments POC-GLUCOSE METER (BEAKER) 214 mg/dL 70-110 : Not ified RN/MD: TESTED AT (test code = 1538) [facility] [address] [facility], [address]: Development Consultant/ Assistant Shift Supervisor ID = [id number] for HELENA ROSEN BASIC METABOLIC [id number] 08:30:00 Test Item Value Reference Range Comments [...] NOT APPLICABLE F OR DIALYSIS PATIENT S. Development Consultant ID - ANTONIETTA CPOCT-GLUCOSE [id number] 08:16:00 Test Item Value Reference Range Comments POC-GLUCOSE METER (BEAKER) 166 mg/dL 70-110 : NERY MERVAT AT [facility] [address] [facility] (test code = 1538) [facility], [address]: Development Consultant/Technic cyn ID = [id number] for KERRI DOE CBC W/PLT COUNT & AUTO [id number] 08:10:00 Test Item Value Reference Range Comments [...] % 0-1 (test code = 2801) POCT-GLUCOSE [id number] 21:52:00 Test Item Value Reference Range Comments POC-GLUCOSE METER (BEAKER) 195 mg/dL 70-110 : NERY EMRVAT AT [address] (test code = 1538) [facility], [address]: Development Consultant/Technic cyn ID = [id number] for DEBBY PHELANSarbjit OLSEN POCT-GLUCOSE [id number] 17:49:00 Test Item Value Reference Range Comments POC-GLUCOSE METER (BEAKER) 217 mg/dL 70-110 : NERY MERVAT AT [address] (test code = 1538) [facility], [address]: Development Consultant/Technic cyn ID = [id number] for KE KHOURY SHARLA POCT-GLUCOSE [id number] 12:14:00 Test Item Value Reference Range Comments POC-GLUCOSE METER (BEAKER) 215 mg/dL 70-110 : NERY MERVAT AT [address] (test code = 1538) [facility], [address]: Development Consultant/Technic cyn ID = [id number] for IRAIDA KE IA POCT-GLUCOSE [id number] 08:29:00 Test Item Value Reference Range Comments POC-GLUCOSE METER (BEAKER) 160 mg/dL 70-110 : NERY MERVAT AT [facility] [address] [place] (test code = 1538) [facility], [address]: Development Consultant/Technic cyn ID = [id number] for KHOURY, KE IA BASIC METABOLIC [id number] 06:45:00 Test Item Value Reference Range Comments [...] NOT APPLICABLE F OR DIALYSIS PATIENT S. Development Consultant ID - EMELYN WCBC W/PLT COUNT & AUTO [id number] 05:44:00 Test Item Value Reference Range Comments [...] % 0-1 (test code = 2801) POCT-GLUCOSE [id number] 21:51:00 Test Item Value Reference Range Comments POC-GLUCOSE METER (BEAKER) 156 mg/dL 70-110 : Not ified RN/MD: TESTED AT (test code = 1538) [facility] [address] [facility], [address]: Development Consultant/ Assistant Shift Supervisor ID = [id number] for BOOKER AILEEN POCT-GLUCOSE [id number] 17:32:00 Test Item Value Reference Range Comments POC-GLUCOSE METER (BEAKER) 177 mg/dL 70-110 : NERY MERVAT AT [facility] [address] [facility] (test code = 1538) [facility], [address]: Development Consultant/Technic cyn ID = [id number] for KHOURY, KE IA POCT-GLUCOSE [id number] 12:14:00 Test Item Value Reference Range Comments POC-GLUCOSE METER (BEAKER) 210 mg/dL 70-110 : NERY MERVAT AT [address] (test code = 1538) [facility], [address]: Development Consultant/Technic cyn ID = [id number] for KHOURY, KE IA POCT-GLUCOSE [id number] 08:16:00 Test Item Value Reference Range Comments POC-GLUCOSE METER (BEAKER) 169 mg/dL 70-110 : NERY MERVAT AT [address] (test code = 1538) [facility], [address]: Development Consultant/Technic cyn ID = [id number] for KHOURY, KE IA BASIC METABOLIC [id number] 07:33:00 Test Item Value Reference Range Comments [...] NOT APPLICABLE F OR DIALYSIS PATIENT S. Development Consultant ID - PIAYA LCBC W/PLT COUNT & AUTO [id number] 05:59:00 Test Item Value Reference Range Comments [...] % 0-1 (test code = 2801) POCT-GLUCOSE [id number] 21:46:00 Test Item Value Reference Range Comments POC-GLUCOSE METER (BEAKER) 219 mg/dL 70-110 : NERY MERVAT AT [facility] [address] [facility] (test code = 1538) [facility], [address]: Development Consultant/Technic cyn ID = [id number] for ROSITA LOPEZ POCT-GLUCOSE [id number] 17:19:00 Test Item Value Reference Range Comments POC-GLUCOSE METER (BEAKER) 225 mg/dL 70-110 : NERY MERVAT AT [facility] [address] [facility] (test code = 1538) [facility], [address]: Development Consultant/Technic cyn ID = [id number] for KE KHOURY IA CT, CHEST, WITH [id number] 16:30:00FINAL REPORT CT of the chest, abdomen [...] MDReport Verified Date/Time: 08/25/2019 16:30:29 Reading Location: [facility] C013X Ortho Consult Reading Room CT, [id number] 16:30:00FINAL REPORT CT of the chest, abdomen [...] Daviseport Verified Date/Time: 08/25/2019 16:30:29 Reading Location: [facility] C0X Ortho Consult Reading Room POCT-GLUCOSE [id number] 11:56:00 Test Item Value Reference Range Comments POC-GLUCOSE METER (BEAKER) 187 mg/dL 70-110 : NERY LOPEZ AT [address] (test code = 1538) [facility], [address]: Development Consultant/Technic cyn ID = [id number] for KHOURY, KE IA POCT-GLUCOSE [id number] 08:56:00 Test Item Value Reference Range Comments POC-GLUCOSE METER (BEAKER) 154 mg/dL 70-110 : NERY MERVAT AT [address] (test code = 1538) [facility], 7 30: Development Consultant/Technic cyn ID = [id number] for KHOURY, [place] CBC W/PLT COUNT & AUTO [id number] 06:23:00 Test Item Value Reference Range Comments [...] 0 % 0-1 (test code = 2801) [id number] 06:12:00 Test Item Value Reference Range Comments MAGNESIUM (BEAKER) (test code = 627) 2.0 mg/dL 1.6-2.6 Development Consultant ID - NOREEN MBASIC METABOLIC [id number] 06:12:00 Test Item Value Reference Range Comments SODIUM (BEAKER) (test 137 meq/L 136-145 code = 381) POTASSIUM (BEAKER) (test 4.4 meq/L 3.5-5.1 code = 379) CHLORIDE (BEAKER) (test 107 meq/L 98-107 code = 382) CO2 (BEAKER) (test code = 21 meq/L 22-29 355) BLOOD UREA NITROGEN 23 mg/dL 7-21 [facility] (test code = 354) CREATININE (BEAKER) (test 1.44 mg/dL 0.57-1.25 code = 358) GLUCOSE RANDOM ([facility]) 144 mg/dL 70-105 (test code = 652) CALCIUM (BEAKER) (test 9.3 mg/dL 8.4-10.2 code = 697) EGFR ([facility]) (test code 58 mL/min/1.73 sq m EST IMATED GFR IS NOT = 1092) ACCURATE CREA TININE CLEARANCE IN PRE DICTING GLOMERULAR FILTR ATION RATE. ESTIMATED GFR IS NOT APPLICABLE F OR DIALYSIS PATIENT S. Development Consultant ID - NOREEN MPOCT-GLUCOSE [id number] 20:14:00 Test Item Value Reference Range Comments POC-GLUCOSE METER (BEAKER) 120 mg/dL 70-110 : Not ified RN/MD: TESTED AT (test code = 1538) [address], [address]: Development Consultant/ Assistant Shift Supervisor ID = [id number] for JENNIFER RUIZ POCT-GLUCOSE [id number] 18:17:00 Test Item Value Reference Range Comments POC-GLUCOSE METER (BEAKER) 153 mg/dL 70-110 : NERY MERVAT AT [address] (test code = 1538) [facility], [address]: Development Consultant/Technic cyn ID = [id number] for NECROKIRTI, JAS EPH POCT-GLUCOSE [id number] 12:20:00 Test Item Value Reference Range Comments POC-GLUCOSE METER (BEAKER) 149 mg/dL 70-110 : NERY MERVAT AT [address] (test code = 1538) [facility], [address]: Development Consultant/Technic cyn ID = [id number] for NECROTO, JAS EPH POCT-GLUCOSE [id number] 06:15:00 Test Item Value Reference Range Comments POC-GLUCOSE METER (BEAKER) 154 mg/dL 70-110 : NERY MERVAT AT [address] (test code = 1538) [facility], [address]: Development Consultant/Technic cyn ID = [id number] for Li, Margaret [id number] 04:59:00 Test Item Value Reference Range Comments PHOSPHORUS (BEAKER) (test code = 604) 3.0 mg/dL 2.3-4.7 Development Consultant TERESA Alvarez on admission and Daily AM afterwardsMAGNESIUM 2019-08-24 04:59:00 Test Item Value Reference Range Comments MAGNESIUM (BEAKER) (test code = 627) 2.1 mg/dL 1.6-2.6 Development Consultant TERESA Alvarez on admission and Daily AM afterwardsBASIC METABOLIC [id number] 04:59:00 Test Item Value Reference Range Comments [...] = 0 /100 WBC 0-0 413) POCT-GLUCOSE [id number] 23:51:00 Test Item Value Reference Range Comments POC-GLUCOSE METER (BEAKER) 152 mg/dL 70-110 : NERY MERVAT AT [facility] [address] [facility] (test code = 1538) [facility], [address]: Development Consultant/Technic cyn ID = [id number] for Margaret Marquez [id number] 22:28:00 Test Item Value Reference Range Comments MAGNESIUM (BEAKER) (test code = 627) 2.6 mg/dL 1.6-2.6 Development Consultant ID - DBPOCT-GLUCOSE [id number] 18:40:00 Test Item Value Reference Range Comments POC-GLUCOSE METER (BEAKER) 174 mg/dL 70-110 : NERY MERVAT AT [facility] [address] [facility] (test code = 1538) [facility], [address]: Development Consultant/Technic cyn ID = [id number] for JAS SMALL EPH [id number] 15:28:00 Test Item Value Reference Range Comments MAGNESIUM (BEAKER) (test code = 2.0 mg/dL 1.6-2.6 Specimen slightly hemolyzed 627) Development Consultant ID - [id number] 15:28:00 Test Item Value Reference Range Comments SODIUM (BEAKER) (test code = 381) 136 meq/L 136-145 Development Consultant ID - BSLIPID [id number] 15:28:00 Test Item Value Reference Range Comments [...] Borderline 130-159 High 160-189 Very High >=190 Development Consultant ID - BSPOCT-GLUCOSE [id number] 13:49:00 Test Item Value Reference Range Comments POC-GLUCOSE METER (BEAKER) 176 mg/dL 70-110 : NERY MERVAT AT [facility] [address] [facility] (test code = 1538) [facility], [address]: Development Consultant/Technic cyn ID = [id number] for JAS SMALL EPH MR, BRAIN, [id number] 13:31:00Anesthesia:->NoneDeos the patient have an implanted electronic [...] ANNAgabrielaort Verified Date/Time: 08/23/2019 13:31:53 Reading Location: [facility] C013V Neuro Reading Room GLOBIN [id number] 08:25:00 Test Item Value Reference Range Comments HEMOGLOBIN A1C (BEAKER) (test code = 368) 6.8 % 4.3-6. 1 [id number] 07:52:00 Test Item Value Reference Range Comments PHOSPHORUS (BEAKER) (test code = 604) 2.2 mg/dL 2.3-4.7 Development Consultant ID - ASOnce on admission and Daily AM afterwardsPOCT-GLUCOSE METER 2019-08-23 07:03:00 Test Item Value Reference Range Comments POC-GLUCOSE METER (BEAKER) 175 mg/dL 70-110 : NERY MERVAT AT [facility] [address] [facility] (test code = 1538) [facility], [address]: Development Consultant/Technic cyn ID = [id number] for MOE SOLORIO EDENILSON CT, CTANGIO [id number] 05:51:00Anesthesia:->NoneFINAL REPORT EXAM: CT, CAROTID, ANGIO, CT, [...] Present bilaterally. Posterior Circulation:Right posterior cerebral artery (PAIN COORDINATOR): There is fusiform dilatation of the proximal P2 segment at the junction with the right posterior communicating artery with diameter of 0.6 cm and length of 0.7 cm.Left posterior cerebral artery(PAIN COORDINATOR): Hypoplastic P1 segment with the remainder of the left MICA supplied by the left posterior communicating artery Right vertebral artery (VA): Diminutive distal to the takeoff of the PICA with mild irregular stenosis of the V4 segment.Left vertebral artery (VA): Mild focal stenosis of the distal [id number].Basilar artery (BA): Hypoplastic without focal stenosis. Other: [...] MDReport Verified Date/Time: 08/23/2019 05:51:29 CT, CAROTID, [id number] 05:51:00FINAL REPORT EXAM: CT, CAROTID, ANGIO, CT, [...] Present bilaterally. Posterior Circulation:Right posterior cerebral artery (PAIN COORDINATOR): There is fusiform dilatation of the proximal P2 segment at the junction with the right posterior communicating artery with diameter of 0.6 cm and length of 0.7 cm.Left posterior cerebral artery(PAIN COORDINATOR): Hypoplastic P1 segment with the remainder of the left MICA supplied by the left posterior communicating artery Right vertebral artery (VA): Diminutive distal to the takeoff of the PICA with mild irregular stenosis of the V4 segment.Left vertebral artery (VA): Mild focal stenosis of the distal [id number].Basilar artery (BA): Hypoplastic without focal stenosis. Other: [...] Roach MDReport Verified Date/Time: 08/23/2019 05:51:29 PROTHROMBIN TIME/[id number] 05:06:00 Test Item Value Reference Range Comments PROTIME (BEAKER) (test code = 759) 13.8 seconds 11.9-14.2 INR (BEAKER) (test code = 370) 1.1 <=5.9 Effective 12/14/2018: PT Reference Range ChangeNew: 11.9-14.2 Previous: 11.7- 14.7RECOMMENDED COUMADIN/WARFARIN INR THERAPY RANGESSTANDARD DOSE: 2.0-3.0 Includes: PROPHYLAXIS for venous thrombosis, systemic embolization; TREATMENT for venous thrombosis and/or pulmonary embolus.HIGH RISK: Target INR is2.5-3.5 for patients wiht mechanical heart valves.[id number] 05:06:00 Test Item Value Reference Range Comments PARTIAL THROMBOPLASTIN TIME (BEAKER) (test code 23.7 seconds 22.5-36.0 = 760) [id number] 05:05:00 Test Item Value Reference Range Comments MAGNESIUM (BEAKER) (test code = 627) 1.5 mg/dL 1.6-2.6 Development Consultant ID - ASOnce on admission and Daily [...] NOT APPLICABLE F OR DIALYSIS PATIENT S. Development Consultant ID - ASOnce on admission and Daily [...] (test code = 347) 23 U/L 6-55 Development Consultant ID - ASOnce on admission and Daily [...]
[2019-11-24] MEDS ORDERED: D50W 25 GM/50 ML SYRINGE/VIAL IV ONE (10:07)
[2019-11-24 10:25] LABS: Absolute Lymphocytes (CBC) 0.9 K/uL (0.7-4.9); Basophils % 0.2 % (0-1.3); Hematocrit 32.5 % (39.6-49.0); Lymphocytes % 16.2 % (15.3-44.8); MPV 7.9 fL (7.6-11.3); RBC Red Blood Cell Count 3.82 M/uL (4.33-5.43)
[2019-11-24 10:31] LABS: Protime INR 1.22
--- NOTE | 2019-11-24 10:31 | RAD REPORT ---
EXAM DESCRIPTION: CT - Ct Stroke Brain Wo Cont - 11/24/2019 10:19 am CLINICAL HISTORY: right sided weakness, slurred speech CVA symptomology COMPARISON: Head Brain Wo Cont dated 11/20/2019; Ct Stroke Brain Wo Cont dated 08/22/2019 TECHNIQUE: All CT scans are performed using dose optimization technique as appropriate and may inclu de automated exposure control or mA/KV adjustment according to patient size. FINDINGS: No intracranial hemorrhage, hydrocephalus or extra-axial fluid collection.Large area of gl iosis is seen in the right parietal lobe likely related to prior infarction. Moderate brain atrophy w ith moderate periventricular and deep white matter chronic microvascular ischemic changes are noted. The paranasal sinuses and mastoids are clear. Left superior posterior craniotomy changes. IMPRESSION: No acute intracranial abnormality. The findings were discussed with Dr. Jaramillo On 11/24/2019 at 10:25 a.m. by telephone.
[2019-11-24 10:37] LABS: Potassium 3.3 mmol/L (3.5-5.1)
--- NOTE | 2019-11-24 10:51 | RAD REPORT ---
EXAM DESCRIPTION: RAD - Chest Single View - 11/24/2019 10:39 am CLINICAL HISTORY: MD quiñones Chest pain. COMPARISON: Chest Single View dated 11/20/2019; Chest Single View dated 08/22/2019 FINDINGS: Portable technique limits examination quality. The lungs are grossly clear. The heart is normal in size. No displaced fractures. IMPRESSION: No acute intrathoracic process suspected.
--- NOTE | 2019-11-24 11:41 | ER ---
Nurse's Notes [facility] Name: Luis Fernando Fox Age: 79 yrs Sex: Male : 1940 Arrival Date: 11/24/2019 Time: 09:55 Bed 3 Private MD: Diagnosis: Hypokalemia;Hypoglycemia, unspecified;Type 2 diabetes mellitus Presentation: 11/23 09:55 Chief complaint: EMS states: R SIDED WEAKNESS AND INCREASED SLURRED SPEECH. LAST KNOWN bp NORMAL Y/D. Coronavirus screen: Proceed with normal triage. Ebola Screen: No symptoms or risks identified at this time. An acute neurological deficit is present. The charge nurse has been notified. The patient has been moved to a treatment area. The patients blood glucose was checked before arriving to the hospital and was found to be hypoglycemic. Initial Sepsis Screen: Does the patient meet any 2 criteria? Altered Mental Status. No. Patient's initial sepsis screen is negative. Does the patient have a suspected source of infection? No. Patient's initial sepsis screen is negative. Risk Assessment: Do you want to hurt yourself or someone else? Patient reports no desire to harm self or others. Onset of symptoms is unknown. Care prior to arrival: Glucose check: 41. 09:55 Method Of Arrival: EMS: [facility] bp 09:55 Acuity: PANCHO 2 bp Triage Assessment: 10:00 The onset of the patients symptoms was November 23, 2019 at 06:30. General: Appears in no bp apparent distress. comfortable, Behavior is calm, cooperative. Pain: Denies pain. EENT: No deficits noted. Neuro: Level of Consciousness is obeys commands, confused, lethargic, Oriented to person, place, [place] are weak on right Weakness in right arm(s) leg(s) Speech is slurred, Facial droop on right, Reports paresthesias weakness. Cardiovascular: Rhythm is sinus rhythm. Respiratory: No deficits noted. GI: No signs and/or symptoms were reported involving the gastrointestinal system. : No signs and/or symptoms were reported regarding the genitourinary system. Derm: No deficits noted. Musculoskeletal: No deficits noted. Stroke Activation: Symptom onset > 6 hours Physician: Stroke Attending; Name: ; Notified At: ; Arrived At: Physician: Chief Stroke Resident; Name: ; Notified At: ; Arrived At: Physician: Stroke Resident; Name: ; Notified At: ; Arrived At: Physician: ED Attending; Name: ; Notified At: ; Arrived At: Physician: ED Resident; Name: ; Notified At: ; Arrived At: Historical: - Allergies: Sulfa (Sulfonamide Antibiotics); bp - Home Meds: metformin 1,000 mg Oral tab 1 tab 2 times per day [Active]; glimepiride 2 mg Oral tab 1 bp tab three times a day [Active]; gabapentin 100 mg Oral cap 1 caps twice a day [Active]; atorvastatin 20 mg Oral tab 1 tab once daily [Active]; aspirin 81 mg Oral TbEC 1 tab once daily [Active]; amlodipine oral [Active]; - PMHx: stage 4 brain cancer; Myocardial infarction; Hypertension; High Cholesterol; Diabetes - bp NIDDM; CVA; CAD; - Immunization history:: Adult Immunizations unknown. - Social history:: Smoking status: unknown. Screenin:00 Abuse screen: Denies threats or abuse. Denies injuries from another. Nutritional bp screening: No deficits noted. Tuberculosis screening: No symptoms or risk factors identified. Fall Risk None identified. Assessment: 10:00 VAN Scoring: Arm Drift: Flaccid/no antigravity Visual Disturbance: No visual bp disturbance noted. Aphasia: No aphasia noted. Neglect: No neglect noted. The patient has not been NPO before screening. The patient is alert, and able to follow commands. The patient exhibits slurred or garbled speech. The patient is exhibiting difficulty speaking. The patient does not exhibit difficulty understanding words. The patient is able to swallow own secretions with no drooling or need for suction. NOT TRIED NOT TRIED The patient failed the bedside swallow screening. The patient will be kept NPO until cleared by Speech Therapy or Physician. Provider notified of bedside swallow screening results: Alex Jaramillo MD. T-PA (Activase) Screening: Contraindications: Other: STAGE 4 BRAIN CA Patient reports onset of signs and symptoms of stroke greater than 6 hours ago: Yes. General: SEE TRIAGE NOTE. 10:53 Reassessment: PT RETURNED FROM CT. bp 11:00 Reassessment: S/S IMPROVING. bp 12:04 Reassessment: Patient appears in no apparent distress at this time. Patient is alert, ca1 oriented x 3, equal unlabored respirations, skin warm/dry/pink. Tolerated juice and sandwich. 12:42 Reassessment: Patient appears in no apparent distress at this time. Patient is alert, ca1 oriented x 3, equal unlabored respirations, skin warm/dry/pink. 12:56 Reassessment: PT D/C HOME VIA W/C WITH FAMILY, DX WITH HYPOGLYCEMIA. bp Vital Signs: 09:55 BP 128 / 64; Pulse 71; Resp 18; Temp 98.3; Pulse Ox 95% ; bp 10:53 BP 146 / 62; Pulse 77; Resp 19; Pulse Ox 100% ; bp 11:30 BP 161 / 68; Pulse 83; Resp 16 S; Pulse Ox 100% on R/A; ca1 12:00 BP 164 / 74; Pulse 91; Resp 16 S; Pulse Ox 100% on R/A; ca1 12:30 BP 157 / 78; Pulse 94; Resp 16 S; Pulse Ox 99% on R/A; ca1 NIH Stroke Scale Scores: 10:00 NIHSS Score: 10 bp 10:42 NIHSS Score: 0 annalisa 11:00 NIHSS Score: 4 bp ED Course: 09:55 Patient arrived in ED. bp 09:58 Triage completed. bp 09:59 Arm band placed on Patient placed in an exam room, on a stretcher, in view of staff bp members, on alarm security or surveillance monitor, on pulse oximetry. 10:00 Patient has correct armband on for positive identification. Bed in low position. Call bp light in reach. Side rails up X2. 10:00 Inserted saline lock: 22 gauge in right hand, using aseptic technique. bp 10:02 Alex Jaramillo MD is Attending Physician. annalisa 10:06 Catracho Moreira, MONICA is Primary Nurse. bp 10:19 No provider procedures requiring assistance completed. Initial lab(s) drawn, by me, ca1 sent to lab. Missed attempt(s): 20 gauge in left antecubital area. Bleeding controlled, band aid applied, catheter tip intact. 10:20 CT Stroke Brain w/o Contrast In Process Unspecified. EDMS 10:39 Stroke CXR 1 View In Process Unspecified. EDMS 12:43 IV discontinued, intact, bleeding controlled, No redness/swelling at site. Pressure ca1 dressing applied. Administered Medications: 10:03 Drug: D50W 50 ml Route: IVP; Site: right hand; aa5 10:52 Follow up: Response: Blood sugar is elevated bp Point of Care Testing: Blood Glucose: 09:59 Blood Glucose: 30 mg/dL; bp 10:27 Blood Glucose: 62 mg/dL; aa5 10:27 Dr. Jaramillo notified. aa5 Ranges: Outcome: 11:41 Discharge ordered by . annalisa 12:43 Discharged to home via wheelchair, with family. ca1 12:43 Condition: stable 12:43 Discharge instructions given to patient, Instructed on discharge instructions, follow up and referral plans. Demonstrated understanding of instructions, follow-up care. 12:58 Patient left the ED. bp NIH Stroke Scale - NIH Stroke Score Date: 11/24/2019 Time: 10:00 Total Score = 10 1a. Level of Consciousness (LOC) - 0(Alert) 1b. Level of Consciousness (LOC) (Year \T\ Age) - 0(Both) 1c. LOC Commands (Open \T\ Closes Eyes/Petroleum Geologist) - 0(Both) 2. Best Gaze (Lateral Gaze Paresis) - 0(Normal) 3. Visual Field Loss - 0(No visual loss) 4. Facial Palsy - 2(Partial paralysis) 5a. Left Arm: Motor (10-second hold) - 0(No drift) 5b. Right Arm: Motor (10-second hold) - 3(No effort against gravity) 6a. Left Leg: Motor (5-second hold - always test supine) - 1(Drift) 6b. Right Leg: Motor (5-second hold - always test supine) - 3(No effort against gravity) 7. Limb Ataxia (finger/nose \T\ heel/lauren - test with eyes open) - 0(Absent) 8. Sensory Loss (pinprick arms/legs/face) - 0(Normal) 9. Best Language: Aphasia (description/naming/reading) - 0(No aphasia) 10. Dysarthria (speech clarity - read or repeat words) - 1(Mild to Moderate) 11. Extinction and Inattention (visual/tactile/auditory/spatial/personal) - 0(No abnormality) Initials: bp NIH Stroke Scale - NIH Stroke Score Date: 11/24/2019 Time: 10:42 Total Score = 0 1a. Level of Consciousness (LOC) - 0(Alert) 1b. Level of Consciousness (LOC) (Year \T\ Age) - 0(Both) 1c. LOC Commands (Open \T\ Closes Eyes/Petroleum Geologist) - 0(Both) 2. Best Gaze (Lateral Gaze Paresis) - 0(Normal) 3. Visual Field Loss - 0(No visual loss) 4. Facial Palsy - 0(Normal) 5a. Left Arm: Motor (10-second hold) - 0(No drift) 5b. Right Arm: Motor (10-second hold) - 0(No drift) 6a. Left Leg: Motor (5-second hold - always test supine) - 0(No drift) 6b. Right Leg: Motor (5-second hold - always test supine) - 0(No drift) 7. Limb Ataxia (finger/nose \T\ heel/lauren - test with eyes open) - 0(Absent) 8. Sensory Loss (pinprick arms/legs/face) - 0(Normal) 9. Best Language: Aphasia (description/naming/reading) - 0(No aphasia) 10. Dysarthria (speech clarity - read or repeat words) - 0(Normal) 11. Extinction and Inattention (visual/tactile/auditory/spatial/personal) - 0(No abnormality) Initials: [facility] NIH Stroke Scale - NIH Stroke Score Date: 11/24/2019 Time: 11:00 Total Score = 4 1a. Level of Consciousness (LOC) - 0(Alert) 1b. Level of Consciousness (LOC) (Year \T\ Age) - 0(Both) 1c. LOC Commands (Open \T\ Closes Eyes/Petroleum Geologist) - 0(Both) 2. Best Gaze (Lateral Gaze Paresis) - 0(Normal) 3. Visual Field Loss - 0(No visual loss) 4. Facial Palsy - 1(Minor Paralysis) 5a. Left Arm: Motor (10-second hold) - 0(No drift) 5b. Right Arm: Motor (10-second hold) - 1(Drift) 6a. Left Leg: Motor (5-second hold - always test supine) - 0(No drift) 6b. Right Leg: Motor (5-second hold - always test supine) - 1(Drift) 7. Limb Ataxia (finger/nose \T\ heel/lauren - test with eyes open) - 0(Absent) 8. Sensory Loss (pinprick arms/legs/face) - 0(Normal) 9. Best Language: Aphasia (description/naming/reading) - 0(No aphasia) 10. Dysarthria (speech clarity - read or repeat words) - 1(Mild to Moderate) 11. Extinction and Inattention (visual/tactile/auditory/spatial/personal) - 0(No abnormality) Initials: bp Signatures: Dispatcher [employer] Alex Villeda MD MD cha Calderon, Audri, RN RN aa5 Catracho Moreira RN RN Kimberly Pires RN RN ca1 Corrections: (The following items were deleted from the chart) 10:27 10:25 Blood Glucose: Blood Glucose Reading=62 mg/dL. aa5 aa5
--- NOTE | 2019-11-24 11:41 | EDPHYS ---
Physician Documentation [facility] Name: Luis Fernando Fox Age: 79 yrs Sex: Male : 1940 Arrival Date: 11/24/2019 Time: 09:55 Bed 3 Private MD: ED Physician Alex Jaramillo HPI: 11/23 10:40 This 79 yrs old Black Male presents to ER via EMS with complaints of Weakness. annalisa Historical: - Allergies: 09:59 Sulfa (Sulfonamide Antibiotics); bp - Home Meds: 09:59 metformin 1,000 mg Oral tab 1 tab 2 times per day [Active]; glimepiride 2 mg Oral tab 1 bp tab three times a day [Active]; gabapentin 100 mg Oral cap 1 caps twice a day [Active]; atorvastatin 20 mg Oral tab 1 tab once daily [Active]; aspirin 81 mg Oral TbEC 1 tab once daily [Active]; amlodipine oral [Active]; - PMHx: 09:59 stage 4 brain cancer; Myocardial infarction; Hypertension; High Cholesterol; Diabetes - bp NIDDM; CVA; CAD; - Immunization history:: Adult Immunizations unknown. - Social history:: Smoking status: unknown. ROS: 10:42 Constitutional: Negative for fever, chills, and weight loss, Eyes: Negative for injury, annalisa pain, redness, and discharge, ENT: Negative for injury, pain, and discharge, Neck: Negative for injury, pain, and swelling, Cardiovascular: Negative for chest pain, palpitations, and edema, Respiratory: Negative for shortness of breath, cough, wheezing, and pleuritic chest pain, Abdomen/GI: Negative for abdominal pain, nausea, vomiting, diarrhea, and constipation, Back: Negative for injury and pain, : Negative for injury, bleeding, discharge, and swelling, MS/Extremity: Negative for injury and deformity, Skin: Negative for injury, rash, and discoloration, Psych: Negative for depression, anxiety, suicide ideation, homicidal ideation, and hallucinations, Allergy/Immunology: Negative for hives, rash, and allergies, Endocrine: Negative for neck swelling, polydipsia, polyuria, polyphagia, and marked weight changes, Hematologic/Lymphatic: Negative for swollen nodes, abnormal bleeding, and unusual bruising. 10:42 Neuro: Positive for altered mental status, speech changes, weakness, of the right arm, left arm, right leg and left leg. Exam: 10:42 Constitutional: This is a well developed, well nourished patient who is awake, alert, annalisa and in no acute distress. Head/Face: Normocephalic, atraumatic. Eyes: Pupils equal round and reactive to light, extra-ocular motions intact. Lids and lashes normal. Conjunctiva and sclera are non-icteric and not injected. Cornea within normal limits. Periorbital areas with no swelling, redness, or edema. ENT: Nares patent. No nasal discharge, no septal abnormalities noted. Tympanic membranes are normal and external auditory canals are clear. Oropharynx with no redness, swelling, or masses, exudates, or evidence of obstruction, uvula midline. Mucous membranes moist. Neck: Trachea midline, no thyromegaly or masses palpated, and no cervical lymphadenopathy. Supple, full range of motion without nuchal rigidity, or vertebral point tenderness. No Meningismus. Chest/axilla: Normal chest wall appearance and motion. Nontender with no deformity. No lesions are appreciated. Cardiovascular: Regular rate and rhythm with a normal S1 and S2. No gallops, murmurs, or rubs. Normal PMI, no JVD. No pulse deficits. Respiratory: Lungs have equal breath sounds bilaterally, clear to auscultation and percussion. No rales, rhonchi or wheezes noted. No increased work of breathing, no retractions or nasal flaring. Abdomen/GI: Soft, non-tender, with normal bowel sounds. No distension or tympany. No guarding or rebound. No evidence of tenderness throughout. Back: No spinal tenderness. No costovertebral tenderness. Full range of motion. Male : Normal genitalia with no discharge or lesions. Skin: Warm, dry with normal turgor. Normal color with no rashes, no lesions, and no evidence of cellulitis. MS/ Extremity: Pulses equal, no cyanosis. Neurovascular intact. Full, normal range of motion. Neuro: Awake and alert, GCS 15, oriented to person, place, time, and situation. Cranial nerves II-XII grossly intact. Motor strength 5/5 in all extremities. Sensory grossly intact. Cerebellar exam normal. Normal gait. Psych: Awake, alert, with orientation to person, place and time. Behavior, mood, and affect are within normal limits. Vital Signs: 09:55 BP 128 / 64; Pulse 71; Resp 18; Temp 98.3; Pulse Ox 95% ; bp 10:53 BP 146 / 62; Pulse 77; Resp 19; Pulse Ox 100% ; bp 11:30 BP 161 / 68; Pulse 83; Resp 16 S; Pulse Ox 100% on R/A; ca1 12:00 BP 164 / 74; Pulse 91; Resp 16 S; Pulse Ox 100% on R/A; ca1 12:30 BP 157 / 78; Pulse 94; Resp 16 S; Pulse Ox 99% on R/A; ca1 NIH Stroke Scale Scores: 10:00 NIHSS Score: 10 bp 10:42 NIHSS Score: 0 annalisa 11:00 NIHSS Score: 4 bp MDM: 10:03 Patient medically screened. [facility] 10:44 Data reviewed: vital signs, nurses notes, lab test result(s), EKG, radiologic studies, [facility] CT scan, plain films. 10:44 Data interpreted: security monitor: rate is 71 beats/min. Test interpretation: by ED [facility] physician or midlevel provider: ECG, plain radiologic studies. Counseling: I had a detailed discussion with the patient and/or guardian regarding: the historical points, exam findings, and any diagnostic results supporting the discharge/admit diagnosis, lab results, radiology results, the need for outpatient follow up, for definitive care, a neurologist. 10:44 ED course: generalized weakness this am, fbs 41mg/dl. [facility] 10:48 Medication response: d50 given, pt in usual state, no deficits, last glimepiride [facility] yesterday. 11:43 ED course: pt at baseline, tolerated Po diet, pt to withhold glimepiride until seen by [facility] pcp. 11/23 10:06 Order name: Basic Metabolic Panel; Complete Time: 11:35 ca1 11/23 10:06 Order name: CBC with Diff ca1 11/23 10:06 Order name: Protime (+inr); Complete Time: 11:35 ca1 11/23 10:06 Order name: Ptt, Activated; Complete Time: 11:35 ca1 11/23 10:06 Order name: Glucose [facility] 11/23 10:12 Order name: Glucose, Ancillary Testing; Complete Time: 10:40 EDMS 11/23 10:06 Order name: CT Stroke Brain w/o Contrast; Complete Time: 10:40 ca1 11/23 10:06 Order name: Stroke CXR 1 View; Complete Time: 11:35 [facility] 11/23 10:06 Order name: EKG; Complete Time: 10:07 [facility] 11/23 10:36 Order name: Glucose, Ancillary Testing; Complete Time: 10:40 EDIN 11/23 11:53 Order name: Urine Dipstick--Ancillary (enter results) 11/23 12:06 Order name: CBC Smear Scan [facility] 11/23 12:20 Order name: Glucose, Ancillary Testing [facility] 11/23 10:06 Order name: Accucheck; Complete Time: 10:06 [facility] 11/23 10:06 Order name: Cardiac monitoring; Complete Time: 10: [facility] 11/23 10:06 Order name: EKG - Nurse/Tech; Complete Time: 10:07 [facility] 11/23 10:06 Order name: IV Saline Lock; Complete Time: 10:07 [facility] 11/23 10:06 Order name: Labs collected and sent; Complete Time: 10:20 [facility] 11/23 10:06 Order name: NPO; Complete Time: 10:07 [facility] 11/23 10:06 Order name: O2 Per Protocol; Complete Time: 10: [facility] 11/23 10:06 Order name: O2 Sat Monitoring; Complete Time: 10: [facility] 11/23 10:06 Order name: Stroke Swallow Screen; Complete Time: 10:07 [facility] 11/23 10:39 Order name: Diet Regular; Complete Time: 10:40 [facility] 11/23 11:38 Order name: PO challenge: juice please; Complete Time: 11:47 [facility] 11/23 11:52 Order name: Blood Glucose Level; Complete Time: 12:08 [facility] Administered Medications: 10:03 Drug: [id number] 50 ml Route: IVP; Site: right hand; aa5 10:52 Follow up: Response: Blood sugar is elevated bp Point of Care Testing: Blood Glucose: 09:59 Blood Glucose: 30 mg/dL; bp 10:27 Blood Glucose: 62 mg/dL; aa5 10:27 Dr. Jaramillo notified. aa5 Ranges: Critical Glucose Levels:Adult <50 mg/dl or >400 mg/dl <40 mg/dl or >180 mg/dl Disposition: 11/24/19 11:41 Discharged to Home. Impression: Hypokalemia, Hypoglycemia, unspecified, Type 2 diabetes mellitus. - Condition is Stable. - Discharge Instructions: Type 2 Diabetes Mellitus, Diagnosis, Adult, Potassium Content of Foods, Hypoglycemia, Blood Glucose Monitoring, Adult, Type 2 Diabetes Mellitus, Diagnosis, Adult, [id number], Hypoglycemia, [id number], Hypokalemia. - Medication Reconciliation Form, Thank You Letter, Antibiotic Education, Prescription Opioid Use form. - Follow up: Private Physician; When: 2 - 3 days; Reason: Recheck today's complaints, Continuance of care, Re-evaluation by your physician. - Problem is new. - Symptoms have improved. NIH Stroke Scale - NIH Stroke Score Date: 11/24/2019 Time: 10:00 Total Score = 10 1a. Level of Consciousness (LOC) - 0(Alert) 1b. Level of Consciousness (LOC) (Year \T\ Age) - 0(Both) 1c. LOC Commands (Open \T\ Closes Eyes/Analytics Leader) - 0(Both) 2. Best Gaze (Lateral Gaze Paresis) - 0(Normal) 3. Visual Field Loss - 0(No visual loss) 4. Facial Palsy - 2(Partial paralysis) 5a. Left Arm: Motor (10-second hold) - 0(No drift) 5b. Right Arm: Motor (10-second hold) - 3(No effort against gravity) 6a. Left Leg: Motor (5-second hold - always test supine) - 1(Drift) 6b. Right Leg: Motor (5-second hold - always test supine) - 3(No effort against gravity) 7. Limb Ataxia (finger/nose \T\ heel/lauren - test with eyes open) - 0(Absent) 8. Sensory Loss (pinprick arms/legs/face) - 0(Normal) 9. Best Language: Aphasia (description/naming/reading) - 0(No aphasia) 10. Dysarthria (speech clarity - read or repeat words) - 1(Mild to Moderate) 11. Extinction and Inattention (visual/tactile/auditory/spatial/personal) - 0(No abnormality) Initials: bp NIH Stroke Scale - NIH Stroke Score Date: 11/24/2019 Time: 10:42 Total Score = 0 1a. Level of Consciousness (LOC) - 0(Alert) 1b. Level of Consciousness (LOC) (Year \T\ Age) - 0(Both) 1c. LOC Commands (Open \T\ Closes Eyes/Analytics Leader) - 0(Both) 2. Best Gaze (Lateral Gaze Paresis) - 0(Normal) 3. Visual Field Loss - 0(No visual loss) 4. Facial Palsy - 0(Normal) 5a. Left Arm: Motor (10-second hold) - 0(No drift) 5b. Right Arm: Motor (10-second hold) - 0(No drift) 6a. Left Leg: Motor (5-second hold - always test supine) - 0(No drift) 6b. Right Leg: Motor (5-second hold - always test supine) - 0(No drift) 7. Limb Ataxia (finger/nose \T\ heel/lauren - test with eyes open) - 0(Absent) 8. Sensory Loss (pinprick arms/legs/face) - 0(Normal) 9. Best Language: Aphasia (description/naming/reading) - 0(No aphasia) 10. Dysarthria (speech clarity - read or repeat words) - 0(Normal) 11. Extinction and Inattention (visual/tactile/auditory/spatial/personal) - 0(No abnormality) Initials: [facility] NIH Stroke Scale - NIH Stroke Score Date: 11/24/2019 Time: 11:00 Total Score = 4 1a. Level of Consciousness (LOC) - 0(Alert) 1b. Level of Consciousness (LOC) (Year \T\ Age) - 0(Both) 1c. LOC Commands (Open \T\ Closes Eyes/Analytics Leader) - 0(Both) 2. Best Gaze (Lateral Gaze Paresis) - 0(Normal) 3. Visual Field Loss - 0(No visual loss) 4. Facial Palsy - 1(Minor Paralysis) 5a. Left Arm: Motor (10-second hold) - 0(No drift) 5b. Right Arm: Motor (10-second hold) - 1(Drift) 6a. Left Leg: Motor (5-second hold - always test supine) - 0(No drift) 6b. Right Leg: Motor (5-second hold - always test supine) - 1(Drift) 7. Limb Ataxia (finger/nose \T\ heel/lauren - test with eyes open) - 0(Absent) 8. Sensory Loss (pinprick arms/legs/face) - 0(Normal) 9. Best Language: Aphasia (description/naming/reading) - 0(No aphasia) 10. Dysarthria (speech clarity - read or repeat words) - 1(Mild to Moderate) 11. Extinction and Inattention (visual/tactile/auditory/spatial/personal) - 0(No abnormality) Initials: bp Signatures: Dispatcher [employer] EDAlex Roche MD MD cha Calderon, Audri, RN RN aa5 Catracho Moreira RN RN Kimberly Pires RN RN ca1 Corrections: (The following items were deleted from the chart) 12:58 11:41 11/24/2019 11:41 Discharged to Home. Impression: Hypokalemia; bp Hypoglycemia, unspecified; Type 2 diabetes mellitus. Condition is Stable. Forms are Medication Reconciliation Form, Thank You Letter, Antibiotic Education, Prescription Opioid Use. Follow up: Private Physician; When: 2 - 3 days; Reason: Recheck today's complaints, Continuance of care, Re-evaluation by your physician. Problem is new. Symptoms have improved. annalisa
[2019-11-24 12:06] LABS: Blood Morphology Comment NOT SEEN (NOT SEEN); Platelet Estimate DECR; Urine White Blood Cell Casts OK
[2019-11-24 12:44] LABS: Urine Blood 2+ (NEG); Urine Glucose 1+ (NEG); Urine Protein 2+ (NEG); Urine Specific Gravity 1.015 (1.005-1.030)
[2019-11-24 13:04] VITALS: TEMP 98.3
[2019-11-24 13:09] VITALS: BP 157/78; O2SAT 99
--- NOTE | 2019-11-24 17:06 | EKG ---
Test Date: 2019-11-24 Test Time: 10:00:07 Remote Sensing Analyst: SARBJIT MEASUREMENT RESULTS: Intervals: Rate: 89 MN: 150 QRSD: 80 QT: 386 QTc: 469 [place]: P: 43 MN: 150 QRS: 26 T: 39 INTERPRETIVE STATEMENTS: Sinus rhythm with sinus arrhythmia with occasional premature ventricular complexes Otherwise normal ECG Compared to ECG 11/20/2019 20:21:19 Ventricular premature complex(es) now present Atrial premature complex(es) no longer present Prolonged QT interval no longer present Electronically Signed On 11-24-19 17:04:32 CDT by Abel Burgess
== END 2019-11-24 12:58 | disposition home or self-care (01) ==
LOC: ER 09:49
DX: E11.649 Type 2 diabetes mellitus with hypoglycemia without coma (principal); E87.6 Hypokalemia; I10 Essential (primary) hypertension; E78.00 Pure hypercholesterolemia, unspecified; Z79.82 Long term (current) use of aspirin; Z88.2 Allergy status to sulfonamides; Z85.841 Personal history of malignant neoplasm of brain; Z86.73 Personal history of transient ischemic attack (TIA), and cerebral infarction without residual deficits
CPT/HCPCS: 36415; 70450; 71045; 80048; 81003; 82947; 85025; 85610; 85730; 93005; 96374; 99285

== ENCOUNTER 2019-12-02 17:28 | Emergency (ER) | payer OTHER ==
[2019-12-02] MEDS ORDERED: NA CHLORIDE 0.9% 250 ML IV ONE (17:29)
[2019-12-02] MEDS ORDERED: Caclcium Chloride 10% INJ SYR IV ONE (17:29)
[2019-12-02] MEDS ORDERED: NA CHLORIDE 0.9% 1,000 ML IV ONE (17:29)
[2019-12-02] MEDS ORDERED: DEXTROSE IV ONE ×2 (17:29)
[2019-12-02] MEDS ORDERED: EPINEPHrine 1 MG/10 ML SYR IV ONE (17:29)
[2019-12-02] MEDS ORDERED: SODIUM CHLORIDE IV ONE ×2 (17:29)
[2019-12-02] MEDS ORDERED: D50W 25 GM/50 ML SYRINGE/VIAL IV ONE ×2 (17:29→19:48)
--- OUTSIDE RECORDS SUMMARY | 2019-12-02 17:32 | XMS REPORT | Clinical Summary ---
:1940 Author Organization [facility] Address [address] [place] [address] Care Team Providers Name Role Phone Pcp, [...] continued (PRAVACHOL) 20 MG mouth daily. tablet [id number] Take by 0 0 Discontinued E (BEANO [...] mobili ty and ADLs 08/23/2019 Travel after 12/01/2018 Social History Tobacco Use Types Packs/Day Years [...] Taken Blood Pressure 125/50 09/07/2019 12:00 PM CNC OPERATOR Pulse 54 09/07/2019 12:00 PM CNC OPERATOR Temperature 37 C (98.6 F) 09/07/2019 11:00 AM CNC OPERATOR Respiratory Rate 19 09/07/2019 12:00 PM CNC OPERATOR Oxygen Saturation 97% 09/07/2019 12:00 PM CNC OPERATOR Inhaled Oxygen Concentration 21% 09/04/2019 12:45 AM CNC OPERATOR Weight 94.2 kg (207 lb 10.8 oz) 09/05/2019 2:0 8 AM CNC OPERATOR Height 175.3 cm (5' 9") 08/23/2019 3:47 AM CNC OPERATOR Body Mass Index 30.67 09/05/2019 2:08 AM CNC OPERATOR Plan of Treatment Not on file Implants Implanted Type Area Internet Site Designer Device Shelf Model / Identifier Expiration Serial / Date Lot Scr Un3 [place] Self Drl 1.5x4mm [id number] - [id number] IMPLANTS Left: CRUZ:CRANIOMA [id number] / Implanted: Qty: 9 on 09/04/2019 by Kaden You MD Head [facility] / Cvr [place] Lp 10mm W/Tab [id number] - [id number] IMPLANTS Left: CRUZ:CRANIOMA [id number] / Implanted: Qty: 1 on 09/04/2019 by Kaden You MD Head [facility] / Plt Str Un3 2h W/Tab [id number] - [id number] IMPLANTS Left: CRUZ: CRANIOMA [id number] / Implanted: Qty: 2 on 09/04/2019 by Kaden You MD Head [facility] / Procedures Procedure Name Priority Date/Time Associated Comments Diagnosis RHYTHM STRIP - SCAN 09/12/2019 7:31 AM CNC OPERATOR INTRAOPERATIVE PATH 09/12/2019 7:30 REPORT - SCAN AM CNC OPERATOR POCT-GLUCOSE METER Routine 09/07/2019 7:36 Resul ts for this AM CNC OPERATOR procedure are i n the results section. BASIC METABOLIC PANEL Routine 09/07/2019 3:15 Re sults for this (7) AM CNC OPERATOR procedure are i n the results section. CBC (HEMOGRAM ONLY) Routine 09/07/2019 3:15 Resu lts for this AM CNC OPERATOR procedure are i n the results section. POCT-GLUCOSE METER Routine 09/06/2019 9:46 Resul ts for this PM CNC OPERATOR procedure are i n the results section. POCT-GLUCOSE METER Routine 09/06/2019 5:51 Resul ts for this PM CNC OPERATOR procedure are i n the results section. POCT-GLUCOSE METER Routine 09/06/2019 11:57 Resul ts for this AM CNC OPERATOR procedure are i n the results section. POCT-GLUCOSE METER Routine 09/06/2019 8:05 Resul ts for this AM CNC OPERATOR procedure are i n the results section. BASIC METABOLIC PANEL Routine 09/06/2019 5:25 Re sults for this (7) AM CNC OPERATOR procedure are i n the results section. CBC (HEMOGRAM ONLY) Routine 09/06/2019 5:25 Resu lts for this AM CNC OPERATOR procedure are i n the results section. PSA Routine 09/06/2019 5:25 Results for this AM CNC OPERATOR procedure are i n the results section. CARBOHYDRATE ANTIGEN Routine 09/06/2019 5:25 Res ults for this 19-9 (CA 19-9) AM CNC OPERATOR procedure are in the results section. CARCINOEMBRYONIC Routine 09/06/2019 5:25 Results for this ANTIGEN (CEA) AM CNC OPERATOR procedure are in the results section. POCT-GLUCOSE METER Routine 09/05/2019 10:37 Resul ts for this PM CNC OPERATOR procedure are i n the results section. POCT-GLUCOSE METER Routine 09/05/2019 6:05 Resul ts for this PM CNC OPERATOR procedure are i n the results section. POCT-GLUCOSE METER Routine 09/05/2019 11:26 Resul ts for this AM CNC OPERATOR procedure are i n the results section. MAGNESIUM Routine 09/05/2019 11:23 Results for this AM CNC OPERATOR procedure are i n the results section. POCT-GLUCOSE METER Routine 09/05/2019 7:42 Resul ts for this AM CNC OPERATOR procedure are i n the results section. CBC W/PLT COUNT & AUTO Routine 09/05/2019 3:24 R esults for this DIFFERENTIAL AM CNC OPERATOR procedure are i n the results section. PHOSPHORUS Routine 09/05/2019 3:24 Results for this AM CNC OPERATOR procedure are i n the results section. MAGNESIUM Routine 09/05/2019 3:24 Results for this AM CNC OPERATOR procedure are i n the results section. BASIC METABOLIC PANEL Routine 09/05/2019 3:24 Re sults for this (7) AM CNC OPERATOR procedure are i n the results section. CBC W/PLT COUNT & AUTO Routine 09/05/2019 3:24 R esults for this DIFFERENTIAL AM CNC OPERATOR procedure are i n the results section. CT BRAIN WITHOUT IV Routine 09/05/2019 3:13 Resu lts for this CONTRAST AM CNC OPERATOR procedure are i n the results section. POCT-GLUCOSE METER Routine 09/04/2019 4:51 Resul ts for this PM CNC OPERATOR procedure are i n the results section. POCT-GLUCOSE METER Routine 09/04/2019 2:52 Resul ts for this PM CNC OPERATOR procedure are i n the results section. TISSUE EXAM AP Routine 09/04/2019 1:54 Results for this PM CNC OPERATOR procedure are i n the results section. POCT-GLUCOSE METER Routine 09/04/2019 11:17 Resul ts for this AM CNC OPERATOR procedure are i n the results section. CRANIOTOMY 09/04/2019 11:00 Intracranial AM CNC OPERATOR space-occupying lesion Special Needs REQ: AFTER 10 AM BASIC METABOLIC PANEL (7) Routine 09/04/2019 3:52 AM CNC OPERATOR Results for this procedure are i n the results section . CBC (HEMOGRAM ONLY) Routine 09/04/2019 3:52 AM CNC OPERATOR Results for this procedure are i n the results section . POCT-GLUCOSE METER Routine 09/03/2019 9:15 PM CNC OPERATOR Results for this procedure are i n the results section . POCT-GLUCOSE METER Routine 09/03/2019 4:52 PM CNC OPERATOR Results for this procedure are i n the results section . CBC W/PLT COUNT & AUTO Routine 09/03/2019 4:16 AM CNC OPERATOR Results for this DIFFERENTIAL procedure are i n the results section . BASIC METABOLIC PANEL (7) Routine 09/03/2019 4:16 AM CNC OPERATOR Results for this procedure are i n the results section . CBC W/PLT COUNT & AUTO Routine 09/03/2019 4:16 AM CNC OPERATOR Results for this DIFFERENTIAL procedure are i n the results section . POCT-GLUCOSE METER Routine 09/02/2019 10:46 PM CNC OPERATOR Results for this procedure are i n the results section . ECG 12-LEAD STAT 09/02/2019 11:48 AM CNC OPERATOR Resu lts for this procedure are i n the results section . APTT STAT 09/02/2019 11:17 AM CNC OPERATOR Resu lts for this procedure are i n the results section . PROTHROMBIN TIME/INR STAT 09/02/2019 11:17 AM CNC OPERATOR Results for this procedure are i n the results section . XR CHEST 1 VIEW Routine 09/02/2019 10:26 AM CNC OPERATOR R esults for this PORTABLE/BEDSIDE procedure a re in the results section . POCT-GLUCOSE METER Routine 09/01/2019 10:25 PM CNC OPERATOR Results for this procedure are i n the results section . POCT-GLUCOSE METER Routine 09/01/2019 5:42 PM CNC OPERATOR Results for this procedure are i n the results section . POCT-GLUCOSE METER Routine 09/01/2019 12:05 PM CNC OPERATOR Results for this procedure are i n the results section . POCT-GLUCOSE METER Routine 09/01/2019 7:57 AM CNC OPERATOR Results for this procedure are i n the results section . BASIC METABOLIC PANEL (7) Routine 09/01/2019 4:27 AM CNC OPERATOR Results for this procedure are i n the results section . POCT-GLUCOSE METER Routine 08/31/2019 9:00 PM CNC OPERATOR Results for this procedure are i n the results section . POCT-GLUCOSE METER Routine 08/31/2019 5:01 PM CNC OPERATOR Results for this procedure are i n the results section . POCT-GLUCOSE METER Routine 08/31/2019 11:48 AM CNC OPERATOR Results for this procedure are i n the results section . POCT-GLUCOSE METER Routine 08/31/2019 8:45 AM CNC OPERATOR Results for this procedure are i n the results section . BASIC METABOLIC PANEL (7) Routine 08/31/2019 5:23 AM CNC OPERATOR Results for this procedure are i n the results section . POCT-GLUCOSE METER Routine 08/30/2019 9:48 PM CNC OPERATOR Results for this procedure are i n the results section . POCT-GLUCOSE METER Routine 08/30/2019 6:19 PM CNC OPERATOR Results for this procedure are i n the results section . POCT-GLUCOSE METER Routine 08/30/2019 1:01 PM CNC OPERATOR Results for this procedure are i n the results section . POCT-GLUCOSE METER Routine 08/30/2019 7:47 AM CNC OPERATOR Results for this procedure are i n the results section . CBC W/PLT COUNT & AUTO Routine 08/30/2019 4:48 AM CNC OPERATOR Results for this DIFFERENTIAL procedure are i n the results section . BASIC METABOLIC PANEL (7) Routine 08/30/2019 4:48 AM CNC OPERATOR Results for this procedure are i n the results section . CBC W/PLT COUNT & AUTO Routine 08/30/2019 4:48 AM CNC OPERATOR Results for this DIFFERENTIAL procedure are i n the results section . POCT-GLUCOSE METER Routine 08/29/2019 9:24 PM CNC OPERATOR Results for this procedure are i n the results section . POCT-GLUCOSE METER Routine 08/29/2019 5:52 PM CNC OPERATOR Results for this procedure are i n the results section . CYTOLOGY AP Routine 08/29/2019 5:10 PM CNC OPERATOR Resu lts for this procedure are i n the results section . US FINE NEEDLE ASPIRATION Routine 08/29/2019 4:50 PM CNC OPERATOR Results for this THYROID procedure are i n the results section . POCT-GLUCOSE METER Routine 08/29/2019 12:46 PM CNC OPERATOR Results for this procedure are i n the results section . POCT-GLUCOSE METER Routine 08/29/2019 8:08 AM CNC OPERATOR Results for this procedure are i n the results section . CBC W/PLT COUNT & AUTO Routine 08/29/2019 5:27 AM CNC OPERATOR Results for this DIFFERENTIAL procedure are i n the results section . PROTHROMBIN TIME/INR Routine 08/29/2019 5:27 AM CNC OPERATOR Results for this procedure are i n the results section . BASIC METABOLIC PANEL (7) Routine 08/29/2019 5:27 AM CNC OPERATOR Results for this procedure are i n the results section . CBC W/PLT COUNT & AUTO Routine 08/29/2019 5:27 AM CNC OPERATOR Results for this DIFFERENTIAL procedure are i n the results section . POCT-GLUCOSE METER Routine 08/28/2019 8:44 PM CNC OPERATOR Results for this procedure are i n the results section . POCT-GLUCOSE METER Routine 08/28/2019 3:57 PM CNC OPERATOR Results for this procedure are i n the results section . CT ABDOMEN/PELVIS WITHOUT SILKE 08/28/2019 2:46 PM CNC OPERATOR Results for this IV CONTRAST procedure are i n the results section . POCT-GLUCOSE METER Routine 08/28/2019 11:32 AM CNC OPERATOR Results for this procedure are i n the results section . POCT-GLUCOSE METER Routine 08/28/2019 8:04 AM CNC OPERATOR Results for this procedure are i n the results section . CBC W/PLT COUNT & AUTO Routine 08/28/2019 5:09 AM CNC OPERATOR Results for this DIFFERENTIAL procedure are i n the results section . CBC W/PLT COUNT & AUTO Routine 08/28/2019 5:09 AM CNC OPERATOR Results for this DIFFERENTIAL procedure are i n the results section . BASIC METABOLIC PANEL (7) Routine 08/28/2019 5:09 AM CNC OPERATOR Results for this procedure are i n the results section . POCT-GLUCOSE METER Routine 08/27/2019 9:40 PM CNC OPERATOR Results for this procedure are i n the results section . POCT-GLUCOSE METER Routine 08/27/2019 5:35 PM CNC OPERATOR Results for this procedure are i n the results section . POCT-GLUCOSE METER Routine 08/27/2019 12:02 PM CNC OPERATOR Results for this procedure are i n the results section . POCT-GLUCOSE METER Routine 08/27/2019 8:13 AM CNC OPERATOR Results for this procedure are i n the results section . CBC W/PLT COUNT & AUTO Routine 08/27/2019 5:22 AM CNC OPERATOR Results for this DIFFERENTIAL procedure are i n the results section . CBC W/PLT COUNT & AUTO Routine 08/27/2019 5:22 AM CNC OPERATOR Results for this DIFFERENTIAL procedure are i n the results section . BASIC METABOLIC PANEL (7) Routine 08/27/2019 5:22 AM CNC OPERATOR Results for this procedure are i n the results section . POCT-GLUCOSE METER Routine 08/26/2019 9:40 PM CNC OPERATOR Results for this procedure are i n the results section . POCT-GLUCOSE METER Routine 08/26/2019 5:19 PM CNC OPERATOR Results for this procedure are i n the results section . POCT-GLUCOSE METER Routine 08/26/2019 11:56 AM CNC OPERATOR Results for this procedure are i n the results section . POCT-GLUCOSE METER Routine 08/26/2019 8:04 AM CNC OPERATOR Results for this procedure are i n the results section . CBC W/PLT COUNT & AUTO Routine 08/26/2019 5:24 AM CNC OPERATOR Results for this DIFFERENTIAL procedure are i n the results section . CBC W/PLT COUNT & AUTO Routine 08/26/2019 5:24 AM CNC OPERATOR Results for this DIFFERENTIAL procedure are i n the results section . BASIC METABOLIC PANEL (7) Routine 08/26/2019 5:24 AM CNC OPERATOR Results for this procedure are i n the results section . POCT-GLUCOSE METER Routine 08/25/2019 9:35 PM CNC OPERATOR Results for this procedure are i n the results section . POCT-GLUCOSE METER Routine 08/25/2019 5:07 PM CNC OPERATOR Results for this procedure are i n the results section . CT ABDOMEN/PELVIS WITH IV Routine 08/25/2019 2:50 PM CNC OPERATOR Results for this CONTRAST procedure are i n the results section . CT CHEST WITH IV CONTRAST Routine 08/25/2019 2:50 PM CNC OPERATOR Results for this procedure are i n the results section . POCT-GLUCOSE METER Routine 08/25/2019 11:44 AM CNC OPERATOR Results for this procedure are i n the results section . POCT-GLUCOSE METER Routine 08/25/2019 8:05 AM CNC OPERATOR Results for this procedure are i n the results section . CBC W/PLT COUNT & AUTO Routine 08/25/2019 3:55 AM CNC OPERATOR Results for this DIFFERENTIAL procedure are i n the results section . CBC W/PLT COUNT & AUTO Routine 08/25/2019 3:55 AM CNC OPERATOR Results for this DIFFERENTIAL procedure are i n the results section . BASIC METABOLIC PANEL (7) Routine 08/25/2019 3:55 AM CNC OPERATOR Results for this procedure are i n the results section . MAGNESIUM Routine 08/25/2019 3:55 AM CNC OPERATOR Resu lts for this procedure are i n the results section . POCT-GLUCOSE METER Routine 08/24/2019 8:02 PM CNC OPERATOR Results for this procedure are i n the results section . POCT-GLUCOSE METER Routine 08/24/2019 6:06 PM CNC OPERATOR Results for this procedure are i n the results section . POCT-GLUCOSE METER Routine 08/24/2019 12:05 PM CNC OPERATOR Results for this procedure are i n the results section . POCT-GLUCOSE METER Routine 08/24/2019 6:02 AM CNC OPERATOR Results for this procedure are i n the results section . BASIC METABOLIC PANEL (7) Routine 08/24/2019 4:11 AM CNC OPERATOR Results for this procedure are i n the results section . MAGNESIUM Routine 08/24/2019 4:11 AM CNC OPERATOR Resu lts for this procedure are i n the results section . PHOSPHORUS Routine 08/24/2019 4:11 AM CNC OPERATOR Resu lts for this procedure are i n the results section . CBC (HEMOGRAM ONLY) Routine 08/24/2019 3:34 AM CNC OPERATOR Results for this procedure are i n the results section . POCT-GLUCOSE METER Routine 08/23/2019 11:39 PM CNC OPERATOR Results for this procedure are i n the results section . MAGNESIUM Routine 08/23/2019 10:01 PM CNC OPERATOR Resu lts for this procedure are i n the results section . POCT-GLUCOSE METER Routine 08/23/2019 6:29 PM CNC OPERATOR Results for this procedure are i n the results section . MAGNESIUM Routine 08/23/2019 2:09 PM CNC OPERATOR Resu lts for this procedure are i n the results section . LIPID PANEL Routine 08/23/2019 2:09 PM CNC OPERATOR Resu lts for this procedure are i n the results section . SODIUM Routine 08/23/2019 2:09 PM CNC OPERATOR Resu lts for this procedure are i n the results section . POCT-GLUCOSE METER Routine 08/23/2019 1:37 PM CNC OPERATOR Results for this procedure are i n the results section . MR BRAIN WITH & WITHOUT IV STAT 08/23/2019 1:00 PM CNC OPERATOR Results for this CONTRAST procedure are i n the results section . POCT-GLUCOSE METER Routine 08/23/2019 6:52 AM CNC OPERATOR Results for this procedure are i n the results section . HEMOGLOBIN A1C Routine 08/23/2019 6:50 AM CNC OPERATOR Re sults for this procedure are i n the results section . CT/CTA CAROTID STAT 08/23/2019 5:03 AM CNC OPERATOR Re sults for this procedure are i n the results section . CTA BRAIN STAT 08/23/2019 5:03 AM CNC OPERATOR Resu lts for this procedure are i n the results section . PHOSPHORUS Add-On 08/23/2019 4:35 AM CNC OPERATOR Resu lts for this procedure are i n the results section . MAGNESIUM Routine 08/23/2019 4:35 AM CNC OPERATOR Resu lts for this procedure are i n the results section . HEPATIC FUNCTION PANEL Routine 08/23/2019 4:35 AM CNC OPERATOR Results for this procedure are i n the results section . BASIC METABOLIC PANEL (7) Routine 08/23/2019 4:35 AM CNC OPERATOR Results for this procedure are i n the results section . APTT Routine 08/23/2019 4:35 AM CNC OPERATOR Resu lts for this procedure are i n the results section . CBC (HEMOGRAM ONLY) Routine 08/23/2019 4:35 AM CNC OPERATOR Results for this procedure are i n the results section . PROTHROMBIN TIME/INR Routine 08/23/2019 4:35 AM CNC OPERATOR Results for this procedure are i n the results section . after 12/01/2018 Results RHYTHM STRIP - SCAN (09/12/2019 7:31 AM CNC OPERATOR) Narrative Performed At This result has an attachment that is no t available. INTRAOPERATIVE PATH REPORT - SCAN (09/12/2019 7:30 AM CNC OPERATOR) Narrative Performed At This result has an attachment that is no t available. POC-Glucose meter (09/07/2019 7:36 AM CNC OPERATOR)Only the most recent of55 results within the time period is included. POC-Glucose Meter 220 (H)Comment: : Notified 70 - 110 mg/dL [facility] BCM RN/MD: TESTED AT [facility] [address] [facility], [address]: [employer]/Slot Machine Key Person ID = [id number] for KAI ADAMS Specimen Blood Performing Organization Address City/State/Zipcode Phone Number [facility] [address] [place] [address] [place] CBC (Hemogram only) (09/07/2019 3:15 AM CNC OPERATOR)Only the most recent of5 results within the time period is included. WBC 14.3 (H) 3.5 - 10.5 K/L [facility] RBC 3.91 (L) 4.63 - 6.08 M/L [facility] Hemoglobin 11.0 (L) 13.7 - 17.5 GM/DL [facility] Hematocrit 34.2 (L) 40.1 - 51.0 % [facility] MCV 87.5 79.0 - 92.2 fL [facility] MCH 28.1 25.7 - 32.2 pg [facility] MCHC 32.2 (L) 32.3 - 36.5 GM/DL [facility] RDW 13.6 11.6 - 14.4 % [facility] Platelets 136 (L) 150 - 450 K/CU MM [facility] MPV 10.5 9.4 - 12.4 fL [facility] nRBC 0 0 - 0 /100 WBC [facility] Specimen Blood Performing Organization Address City/State/Zipcode Phone Number [facility] [address] [place] [address] [place] Basic Metabolic Panel (09/07/2019 3:15 AM CNC OPERATOR)Only the most recent of15 results within the time period is included. Sodium 133 (L) 136 - 145 meq/L [facility] Potassium 5.1 3.5 - 5.1 meq/L [facility] Chloride 105 98 - 107 meq/L [facility] CO2 24 22 - 29 meq/L [facility] HE AL[facility] BUN 30 (H) 7 - 21 mg/dL [facility] AL[facility] Creatinine 1.32 (H) 0.57 - 1.25 mg/dL [facility] Glucose 245 (H) 70 - 105 mg/dL [facility] Calcium 8.0 (L) 8.4 - 10.2 mg/dL [facility] EGFR 64Comment: ESTIMATED GFR IS mL/min/1.73 sq m [facility] NOT ACCURATE CREATININE ME D[facility]ENTER CLEARANCE IN PREDICTING GLOMERULAR FILTRATION RATE. ESTIMATED GFR IS NOT APPLICABLE FOR DIALYSIS PATIENTS. Specimen Blood Narrative Performed At [employer] ID - [facility] Performing Organization Address City/[facility]/Zipcode Phone Number [place] [phone] [place] [address] [place] Carbohydrate antigen 19-9 (CA 19-9) (09/06/2019 5:25 AM CNC OPERATOR) CA 19-9 16 <34 U/mL [facility] [...] [facility] [address] [address] [place] [address] Soledad Chung MD, PhD, BUBBA Performing Organization Address City/State/[facility] Phone Number [facility] [place] [address] [facility] [address] [facility] PSA (09/06/2019 5:25 AM CNC OPERATOR) PSA 3.8 0.0 - 4.0 ng/mL [facility] Specimen Blood Narrative Performed At [employer] ID - DB [facility] Performing Organization Address City/[facility]/Zipcode Phone Number [place] [phone] [place], [place] [phone] CENTER Carcinoembryonic Antigen (CEA) (09/06/2019 5:25 AM CNC OPERATOR) CEA, SERUM 2.0 0.0 - 5.0 ng/mL [facility] Specimen Blood Narrative Performed At [employer] ID - DB [facility] Performing Organization Address [facility] Phone Number [address] [phone] CENTER Magnesium (09/05/2019 11:23 AM CNC OPERATOR)Only the most recent of7 resultswithin the time period is included. Magnesium 2.1 1.6 - 2.6 mg/dL [facility] Specimen Blood Narrative Performed At [employer] ID - [place] [facility] Performing Organization Address [facility] Hospital[facility] Phone Number [address] [phone] CENTER CBC with platelet count + automated diff (09/05/2019 3:24 AM CNC OPERATOR)Only the most recent of8 resultswithin the time period is included. WBC 19.4 (H) 3.5 - 10.5 K/L [facility] RBC 4.19 (L) 4.63 - 6.08 M/L [facility] Hemoglobin 11.9 (L) 13.7 - 17.5 GM/DL [facility] Hematocrit 36.0 (L) 40.1 - 51.0 % [facility] MCV 85.9 79.0 - 92.2 fL [facility] MCH 28.4 25.7 - 32.2 pg [facility] MCHC 33.1 32.3 - 36.5 GM/DL [facility] RDW 13.6 11.6 - 14.4 % [facility] Platelets 144 (L) 150 - 450 K/CU MM [facility] MPV 9.7 9.4 - 12.4 fL [facility] nRBC 0 0 - 0 /[address] [facility] % Neutros 93 % [facility] % Lymphs 3 % [facility] % Monos 3 % [facility] % Eos 0 % [facility] % Baso 0 % [facility] # Neutros 17.92 (H) 1.78 - 5.38 K/L [facility] # Lymphs 0.64 (L) 1.32 - 3.57 K/L [facility] # Monos 0.64 0.30 - 0.82 K/L [facility] # Eos 0.00 (L) 0.04 - 0.54 K/L [facility] # Baso 0.02 0.01 - 0.08 K/L [facility] Immature 1 0 - 1 % [facility] Granulocytes-Relative MEDICAL CE NTER Specimen Blood Performing Organization Address City/[facility]/Zipcode Phone Number [address] [address] CENTER Phosphorus (09/05/2019 3:24 AM CNC OPERATOR)Only the most recent of3 resultswithin the time period is included. Phosphorus 4.5 2.3 - 4.7 mg/dL [facility] Specimen Blood Narrative Performed At [employer] [place] - NOREEN Patel [facility] Performing Organization Address City/[facility]/Zipcode Phone Number [address] brain without IV contrast (09/05/2019 3:13 AM CNC OPERATOR) Specimen Narrative Performed At FINAL REPORT [facility] CT Head without contrast CLINICAL HISTORY: s/p [...] External Ris In - 09/05/2019 6:04 AM CNC OPERATOR FINAL REPORT CT Head without contrast [...] GE RIS Tissue Exam (09/04/2019 1:54 PM CNC OPERATOR) Case Report Surgical Pathology Report Case: [id number] [facility] Authorizing Provider:Kaden Cisneros MDCollected: 09/04/2019 01:54 PM [facility] MEDICAL Ordering Location: [facility] PERIOPERATIVE Received:09/04/2019 02:22 PM CENTER SERVICES Pathologist: Arsalan Kim MD Specimens: A) - Soft Tis cielo, Other, left medial parietal lesion B) - Soft Tissue, Other, Left Medial Parietal Lesion ADDENDUM The following results are re ceived from [employer], Please see attached reports: [facility] ROS1 gene rearrangement is NOT DETECTED. [place] EGFR mutations are NOT DETEC JOHN by Dasha sequencing for exons 18. 19. 20 T790M, 20 other mutations, and 21. PD-L1 28-8 FDA (OPDIVo) has negative immunopreac tivity. ALK rearrangement is NOT DETECTED DIAGNOSIS A. BRAIN, LEFT MEDIAL PARIETAL, CRANIOTOMY: [facility] METASTATIC ADENOCARCINOMA, CONSISTENT WITH LUNG PRIMARY [facility] B. BRAIN, LEFT MEDIAL PARIETAL, CRANIOTOMY: METASTATIC ADENOCARCINOMA, CONSISTENT WITH LUNG PRIMARY Signing Pathologist Direct Phone Line: COMMENT The tumor is well-circumscribed [facility]' with gland formation. [facility] Immunoperoxidase stains for CENT ER cytokeratin 7, TTF1, Napsin-A and CEA are diffusely positive. Immunoperoxidase stains for cytokeratin 20, cdx-2, villain, PAX-5, [place]-8, thyroglobulin, and WT-1 are negative in tumor. The findings are consistent with a lung primary. Positivity for Napsin-A with negative staining for thyroglobulin excludes a thyroid primary. CPT Code(s) 76825 x 2; 55613; 90074; 71264 C [facility] x 10 [facility] CLINICAL HISTORY Multifocal brain tumors susp icious for metastasis of unknown primary [facility] SPECIMEN SOURCE A. Soft tissue other, left [facility] S Sandy LUJOSHUA'S medial parietal lesion. B. [facility] tissue, other, description left CENTER medial parietal lesion GROSS DESCRIPTION A. Received fresh for intrao perative consultation diagnosis labeled with the patient's name, accession number and "soft tissue" is a 0.5 x 0.5 x 0.2 cm aggregate of multiple shields-pink fragment of soft ti [facility]JOSHUAS ssue. Touch prep is performe d and frozen section is performed. The specimen is submitted entirely for permanent sections in cassette FSA1. HS/pl [facility] B. Specimen is received in f ormalin [...] TP1: LEFT MEDIAL PARIETAL LESION, BIOPS Y: [facility] CONSULTATION - METASTATIC ADENOCARCINOMA H [facility] Verbally reported to Dr. You by Dr. Kim at 2 :40 p.m. Sep 04, 2019. MICROSCOPIC DESCRIPTION Performed on A and B [facility] CENTER SPECIAL STUDIES The interpretation of this c ase included the use of immunohistochemistry or special stains. [facility] Control Slides Examined: In -house known positive controls were evaluated along with the test tissue. These control slides run alongside of the patients sample show appropriate staining. Internal [facility] CENTER zeus and negative controls when available are joyce pope Immunohistochemistry technic al testing was performed at [facility], Pathology Laboratory where it was developed and its performance characteristics were determined. It has not be en cleared or approved by [facility] U.S. Food and Drug Administration. The FDA [...] Tissue - Soft tissue (navigational jayant pt) Narrative Performed At This result has an attachment that is no t available. Performing Organization Address City/State/Zipcode Phone Number [facility] [address] [place] [address] CENTER ECG 12 lead (09/02/2019 11:48 AM CNC OPERATOR) Specimen Narrative Performed At Ventricular Rate 56 BPM GE MUSE Atrial Rate 56 BPM P-R Interval 180 ms QRS Duration 76 ms Q-T Interval 438 ms QTC Calculation(Bazett) 422 ms P [place] 52 degrees R [place] 44 degrees T [place] 101 degrees Sinus bradycardia T wave inversion in I and aVL Nonspecific T wave abnormality Abnormal ECG When compared with ECG of 17-AUG-2014 07 :20, T wave inversion now evident in Lateral leads Confirmed by MD WELCH YOCHAI ([id number]) on 09/04/2019 6:49:21 PM Procedure Note Interface, External Ris In - 09/04/2019 6:49 PM CNC OPERATOR Ventricular Rate 56 BPM Atrial Rate 56 BPM P-R Interval 180 ms QRS Duration 76 ms Q-T Interval 438 ms QTC Calculation(Bazett) 422 ms P [place] 52 degrees R [place] 44 degrees T [place] 101 degrees Sinus bradycardia T wave inversion in I and aVL Nonspecific T wave abnormality Abnormal ECG When compared with ECG of 17-AUG-2014 07 :20, T wave inversion now evident in Lateral leads Confirmed by MD WELCH YOCHAI ([id number]) on 09/04/2019 6:49:21 PM Performing Organization Address [facility] Phone Number [facility] aPTT (09/02/2019 11:17 AM CNC OPERATOR)Only the most recent of2 resultswithin the time period is included. PTT 22.4 (L) 22.5 - 36.0 seconds [facility] Specimen Blood Performing Organization Address [facility] Phone Number [address] [address] CENTER Prothrombin time/INR (09/02/2019 11:17 AM CNC OPERATOR)Only the most recent of3 results within the time period is included. Protime 13.8 11.9 - 14.2 seconds [facility] INR 1.1 <=5.9 [facility] Specimen Blood Narrative Performed At Effective 12/14/2018: PT Reference Range [facility] Change New: 11.9-14.2Previous: 11.7-14.7 RECOMMENDED COUMADIN/WARFARIN INR THERAPY RANGES STANDARD DOSE: 2.0-3.0Includes: PROPHYLAXIS for venous thrombosis, systemic embolization; TREATMENT for venous thrombosis and/or pulmonary embolus. HIGH RISK: Target INR is 2.5-3.5 for patients wiht mechanical heart valves. Performing Organization Address [facility] Phone Number [address] [place] [address] CENTER XR chest 1 view portable / bedside (09/02/2019 10:26 AM CNC OPERATOR) Specimen Narrative Performed At FINAL REPORT [facility] History: Preoperative examination Comparison: 08/16/2014 Findings: The lungs are clear. No pleura l effusions or pneumothorax. The heart shadow is normal in size. The thoracic aorta is mildly tortuous. Hypertrophic changes are prese nt in the spine. Impression: No evidence of acute cardiop ulmonary disease. Signed: Zacarias Cantu MD Report Verified Date/Time:09/02/2019 10:57:02 Reading Location: [address] [employer] [facility] Reading Room Procedure Note Interface, External Ris In - 09/02/2019 10:59 AM CNC OPERATOR FINAL REPORT History: Preoperative examination Comparison: 08/16/2014 Findings: The lungs are clear. No pleura l effusions or pneumothorax. The heart shadow is normal in size. The thoracic aorta is mildly tortuous. Hypertrophic changes are prese nt in the spine. Impression: No evidence of acute cardiop ulmonary disease. Signed: Zacarias Cantu MD Report Verified Date/Time: 09/02/2019 1 0:57:02 Reading Location: [facility] C013 Transit[employer] n[employer] Reading Room Performing Organization Address City/State/Zipcode Phone Number [facility] Cytology (08/29/2019 5:10 PM CNC OPERATOR) Case Report Medical Cytology Report Case: [id number] [facility] Authorizing Provider:Anjali Rosa MDCollected: 08/29/2019 1710 [facility] Ordering Location: [address] Received:08/30/2019 0938 Service Pathologist: Jamison Miller MD Specimen:Thyroid, Right DIAGNOSIS RIGHT LOBE THYROID GLAND NOD ULE FNA BY CLINICIAN (CYTOSPINS AND CELL BLOCK OF ASPIRATE): 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 sections show clusters of [facility] follicular cells with extensive Hurthle [...] changes. Clinical/radiological correlation is recommended. CPT Code(s) 05247, 02351, 80007, 89788 x 3 C [facility] CLINICAL DATA (3.5 x 1.9 x 2.9 cm) mostly [facility] solid slightly heterogeneous [facility] solid nodule in the head to lower pole of the right thyroid lobe. SPECIMEN SOURCE RIGHT LOBE THYROID GLAND NODULE [facility] FNA [facility] GROSS DESCRIPTION Received 35 ml cytorich red fixative sample [facility] Prepared cell block(A2) using collodion bag and 4 cytospins [facility] Collected: [id number] Received: [id number] SPECIAL STUDIES The interpretation of this c ase included the use of immunohistochemistry or special stains. [facility] Please see the immunohistochemistry results in t he COMMENT section. [facility] Control Slides Examined: In -house known positive controls were evaluated along with the test tissue. These control slides run alongside of the patients sample show appropriate staining. Internal posit zeus and negative controls when available are joyce pope Immunohistochemistry technic al testing was performed at [facility], Pathology Laboratory where it was developed and its performance characteristics were determined. It has not be en cleared or approved by [facility] U.S. Food and Drug Administration. The FDA has determined that such clearance or approval is not necessary. The test is used for clinical purposes. It should not be regarde d as investigational or for research. This laboratory is certified under the Clinical Laboratory Improvement Amendments of 1988 (CLIA-88) as qualified to perform high complexity clinical laboratory testing. Gross assessment was [facility] C HI [facility] performed at [place], Department of [facility] Pathology, [address] [place] [id number], Technical component was [facility] performed at [place], Department of [facility] Pathology, [address] [place] [address], Professional component [facility] was performed at [place], Department of [facility] Pathology, [address] [place] [address], Specimen Fine Needle Aspirate - Thyroid, Right Narrative Performed At This result has an attachment that is no t available. Performing Organization Address City/State/Zipcode Phone Number [address] [phone] [place] US fine needle aspiration thyroid (08/29/2019 4:50 PM CNC OPERATOR) Specimen Narrative Performed At FINAL REPORT QR Artist History: Right thyroid nodule. PROCEDURE: Following informed [...] MD Report Verified Date/Time:08/29/2019 19:49:28 Reading Location: [facility] P048 Angio Body Reading Room Procedure Note Interface, External Ris In - 08/29/2019 7:51 PM CNC OPERATOR FINAL REPORT History: Right thyroid nodule. [...] Verified Date/Time: 08/29/2019 1 9:49:28 Reading Location: [facility] P048 Angio Body Reading Room Performing Organization Address City/State/Zipcode Phone Number [facility] CT abdomen/pelvis without iv contrast (08/28/2019 2:46 PM CNC OPERATOR) Specimen Narrative Performed At FINAL REPORT GE RIS CT scan of the abdomen and pelvis. [...] MD Report Verified Date/Time:08/28/2019 16:23:59 Reading Location: [facility] C013Y CT Body R ding Room Procedure Note Interface, External Ris In - 08/28/2019 4:26 PM CNC OPERATOR FINAL REPORT CT scan of the [...] Verified Date/Time: 08/28/2019 1 6:23:59 Reading Location: [place] 32764Y CT Body R ding Room Performing Organization Address City/State/Zipcode Phone Number [facility] CT abdomen/pelvis with IV contrast (08/25/2019 2:50 PM CNC OPERATOR) Specimen Narrative Performed At FINAL REPORT [facility] CT of the chest, abdomen and pelvis, [...] MD Report Verified Date/Time:08/25/2019 16:30:29 Reading Location: [place] 327[address]X [facility] Reading Room Procedure Note Interface, External Ris In - 08/25/2019 4:32 PM CNC OPERATOR FINAL REPORT CT of the chest, [...] Verified Date/Time: 08/25/2019 1 6:30:29 Reading Location: [address] Reading Room Performing Organization Address City/State/Zipcode Phone Number [facility] CT chest with IV contrast (08/25/2019 2:50 PM CNC OPERATOR) Specimen Narrative Performed At FINAL REPORT [facility] CT of the chest, abdomen and pelvis, [...] MD Report Verified Date/Time:08/25/2019 16:30:29 Reading Location: [address] Reading Room Procedure Note Interface, External Ris In - 08/25/2019 4:32 PM CNC OPERATOR FINAL REPORT CT of the chest, [...] Verified Date/Time: 08/25/2019 1 6:30:29 Reading Location: [facility] C013X [facility] Reading Room Performing Organization Address City/State/Zipcode Phone Number GE RIS Sodium (08/23/2019 2:09 PM CNC OPERATOR) Sodium 136 136 - 145 meq/L [facility] Specimen Blood Narrative Performed At [employer] Platemaker ID - BS [facility] Performing Organization Address [facility]/Zipcode Phone Number [facility] [address] [place] [address] [place] Lipid panel (08/23/2019 2:09 PM CNC OPERATOR) Triglycerides 43Comment: Specimen slightly mg/dL [facility] hemolyzed [facility] Cholesterol 145Comment: Specimen slightly mg/dL [facility] HDL 40 mg/dL [facility] LDL Calculated 96 mg/dL [facility] Specimen Blood Narrative Performed At Triglyceride Reference Range: [facility] Low Risk <150 [id number] High Risk 200-499 Very High Risk>=500 Cholesterol Reference Range: Low Risk <200 Cdqrjdvthw408-818 High Risk>240 HDL Cholesterol Reference Range: Low Risk >=60 High Risk <40 LDL Cholesterol Reference Range: Optimal<100 Near Icsvcjw150-184 Loysusjjbd712-946 Kqdl544-505 Very High >=190 [employer] Platemaker ID - BS Performing Organization Address City/[facility]/Zipcode Phone Number [facility] [address] [place] [address] [place] MR brain without & with IV contrast (08/23/2019 1:00 PM CNC OPERATOR) Specimen Narrative Performed At FINAL REPORT [employer] [facility] MR, BRAIN, WITH \\T\\ WITHOUT CONTRAST INDICATION: [...] the acute finding in the reference [facility] is deemed to 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 Signed: JR Crystal Robert MD Report Verified Date/Time:08/23/2019 13:31:53 Reading Location: [facility] [address] [place] [address] Room Procedure Note Interface, External Ris In - 08/23/2019 1:34 PM CNC OPERATOR FINAL REPORT MR, BRAIN, WITH \\T\\ [...] Verified Date/Time: 08/23/2019 1 3:31:53 Reading Location: [address] Room Performing Organization Address City/State/Zipcode Phone Number GONSALO ANDREA Hemoglobin A1c (08/23/2019 6:50 AM CNC OPERATOR) Hemoglobin A1C 6.8 (H) 4.3 - 6.1 % [facility] Specimen Blood Performing Organization Address City/State/Zipcode Phone Number [facility] [address] [place] [address] CENTER CTA carotid (08/23/2019 5:03 AM CNC OPERATOR) Specimen Narrative Performed At FINAL REPORT GONSALO ANDREA EXAM: CT, CAROTID, ANGIO, CT, CTANGIO BRAIN [...] bilaterally. Posterior Circulation: Right posterior cerebral artery (ICE CRUSHER): T here is fusiform dilatation of the proximal P2 segment at the juncti on with the right posterior communicating artery with diameter of 0. 6 cm and length of 0.7 cm. Left posterior cerebral artery (ICE CRUSHER): Hy poplastic P1 segment with the remainder [...] External Ris In - 08/23/2019 5:54 AM CNC OPERATOR FINAL REPORT EXAM: CT, CAROTID, ANGIO, [...] bilaterally. Posterior Circulation: Right posterior cerebral artery (ICE CRUSHER): T here is fusiform dilatation of the proximal P2 segment at the juncti on with the right posterior communicating artery with diameter of 0. 6 cm and length of 0.7 cm. Left posterior cerebral artery (ICE CRUSHER): Hy poplastic P1 segment with the remainder [...] 5:51:29 Performing Organization Address City/State/Zipcode Phone Number [employer] CTA brain (08/23/2019 5:03 AM CNC OPERATOR) Specimen Narrative Performed At FINAL REPORT [employer] EXAM: CT, CAROTID, ANGIO, CT, CTANGIO BRAIN [...] bilaterally. Posterior Circulation: Right posterior cerebral artery (ICE CRUSHER): T here is fusiform dilatation of the proximal P2 segment at the juncti on with the right posterior communicating artery with diameter of 0. 6 cm and length of 0.7 cm. Left posterior cerebral artery (ICE CRUSHER): Hy poplastic P1 segment with the remainder [...] External Ris In - 08/23/2019 5:54 AM CNC OPERATOR FINAL REPORT EXAM: CT, CAROTID, ANGIO, [...] the supraclinoid segment. Right anterior cerebral artery (MIAC): No rmal Right middle cerebral artery (MCA): [...] bilaterally. Posterior Circulation: Right posterior cerebral artery (ICE CRUSHER): T here is fusiform dilatation of the proximal P2 segment at the juncti on with the right posterior communicating artery with diameter of 0. 6 cm and length of 0.7 cm. Left posterior cerebral artery (ICE CRUSHER): Hy poplastic P1 segment with the remainder [...] Date/Time: 08/23/2019 0 5:51:29 Performing Organization Address [facility] Hospital[facility] Phone Number GE RIS Hepatic function panel (08/23/2019 4:35 AM CNC OPERATOR) Protein, Total 7.0 6.0 - 8.3 gm/dL [facility] Albumin 4.0 3.5 - 5.0 g/dL [facility] Total Bilirubin 0.4 0.2 - 1.2 mg/dL [facility] Bilirubin, Direct 0.1 0.1 - 0.5 mg/dL [facility] Alkaline Phosphatase 44 40 - 150 U/L [facility] AST 19 5 - 34 U/L [facility] ALT 23 6 - 55 U/L [facility] Specimen Blood Narrative Performed At [employer] Platemaker ID - [facility] Once on admission and Daily AM afterwards Performing Organization Address City/[facility]/Zipcode Phone Number [facility] [address] [place] [address] CENTER after 12/01/2018 Insurance Payer Benefit Plan / Group Subscriber ID Type Phone A [employer] ALL xxxxxxxxx Maps Contracted Advance Directives For more information, please contact:[place] [address] [place], [place] [phone] Code Status Date Activated Date Inactivated Comments Full Code 09/04/2019 9:13 PM 09/07/2019 3:27 PM This code status was determined by: Patient Full Code 08/23/2019 4:12 AM 09/04/2019 9:13 PM This code status was determined by: Child Full Code 08/16/2014 3:45 PM 08/20/2014 3:41 PM This code status was determined by: Patient
--- OUTSIDE RECORDS SUMMARY | 2019-12-02 17:35 | XMS REPORT ---
:1940 Author Organization [facility] t Address 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 3-13 Family mellitus Mellitus 00:00: Practi c without without 00 e complicati Complicati on on Polyneurop Polyneurop Problem Active [facility] athy due athy Due 3-13 Family to type 2 to Type 2 00:00: Prac tic diabetes Diabetes 00 e mellitus Mellitus Body mass Body Mass Problem Active Mireya scruggs index Index 3-13 Family 25-29 - 25-29 - 00:00: Practic overweight Overweight 00 e Essential Essential Problem Active Mireya scruggs hypertensi Hypertensi 3-13 Fa jimmy on on 00:00: Practic 00 e Hyperlipid Hyperlipid Problem Active [facility] emia due emia Due 3-13 Family to type 2 to Type 2 00:00: Prac tic diabetes Diabetes 00 e mellitus Mellitus Allergies, Adverse Reactions, Alerts This patient has no known allergies or adverse reactions. Social History Smoking Status Start Date Stop Date Source Former Smoker Kallie aguilera Medications Ordered Filled Start Stop Current Ordering Indication Dosage Frequency Signature Comments Components Source Medication Medication Date Date Medication? Clinician (SIG) Name Name amlodipine amlodipine No 1 Q1D amlodipine [facility] 10 mg 10 mg 10 mg Family tablet Take tablet Take tablet Practic 1 tablet 1 tablet Take 1 e every day every day tablet by oral by oral every day route. route. by oral route. atorvastati atorvastati No 1 Q1D atorvastat [facility] n 20 mg n 20 mg in 20 mg Famil y tablet Take tablet Take tablet Practic 1 tablet 1 tablet Take 1 e every day every day tablet by oral by oral every day route. route. by oral route. dexamethaso dexamethaso No dexamethas [facility] ne 2 tab ne 2 tab one 2 tab Fa jimmy twice daily twice daily twice Practic daily e gabapentin gabapentin No 1capsul BID gabapentin [facility] 100 mg 100 mg e(s) 100 mg Family capsule capsule capsule Practi c Take 1 Take 1 Take 1 e capsule capsule capsule twice a day twice a day twice a by oral by oral day by route. route. oral route. glimepiride glimepiride No 1 Q1D glimepirid [facility] 2 mg tablet 2 mg tablet e 2 mg Family Take 1 Take 1 tablet Practic tablet tablet Take 1 e every day every day tablet by oral by oral every day route. route. by oral route. metformin metformin No 1 BID metformin [facility] 1,000 mg 1,000 mg 1,000 mg Fam carol tablet Take tablet Take tablet Practic 1 tablet 1 tablet Take 1 e twice a day twice a day tablet by oral by oral twice a route. route. day by oral route. valsartan valsartan No 1 Q1D valsartan [facility] 320 320 320 Family mg-hydrochl mg-hydrochl mg-hydroch Practic orothiazide orothiazide lorothiazi e 25 mg 25 mg de 25 mg tablet Take tablet Take tablet 1 tablet 1 tablet Take 1 every day every day tablet by oral by oral every day route. route. by oral route. Vital Signs Vital Name Observation Time Observation Value Comments Source BP Diastolic 2019-09-26 00:00:00 75 mm[Hg] [facility] Height 2019-09-26 00:00:00 69 [in_i] [facility] BMI (Body Mass 2019-09-26 00:00:00 29.4 kg/m2 [facility] BP Systolic 2019-09-26 00:00:00 135 mm[Hg] [facility] Body Weight 2019-09-26 00:00:00 199 [lb_av] [facility] Procedures This patient has no known procedures. 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 19. 20 T790M, 20 other mutations, and 21.PD-L1 28-8 FDA (OPDIVo) has negative immunopreactivity.ALK rearrangement is NOT DETECTEDAddendum electronically signed by Arsalan Kim MD on 11/30/2019 at 4:28 PMA. BRAIN, LEFT MEDIAL PARIETAL, CRANIOTOMY:METASTATIC ADENOCARCINOMA, CONSISTENT WITH LUNG PRIMARYB. BRAIN, LEFT MEDIAL PARIETAL, CRANIOTOMY:METASTATIC ADENOCARCINOMA, CONSISTENT WITH LUNG PRIMARY Signing Pathologist Direct Phone Line: [phone] signed by Arsalan Kim MD on 09/07/2019 at 4:35 PMThe tumor is well-circumscribed with gland formation. Immunoperoxidase stains for cytokeratin 7, TTF1, Napsin-A and CEA are diffusely positive. Immunoperoxidase stains for cytokeratin 20, cdx-2, villain, PAX-5, Dexter-8, thyroglobulin, and WT-1 are negative in tumor. The findings are consistent with a lung primary. Positivity for Napsin-A with negative staining for thyroglobulin excludes a thyroid primary. 81584 x 2; 81938; 26661; 69390 x 10Multifocal brain tumors suspicious for metastasis of unknown primaryA. Soft tissue other, left medial parietal lesion. B. Soft tissue, other, description left medial parietal lesionA. Received fresh for intraoperative consultation diagnosis labeled with the patient's name, accession number and "soft tissue" is a 0.5 x 0.5 x 0.2 cm aggregate of multiple shields-pink fragment of soft tissue. Touch prep is performed and frozen section is performed. The specimen is submitted entirely for permanent sections in cassette FSA1. HS/plB. Specimen is received in formalin labeled with the patient's name, accession number and "soft tissue" consists of multiple shields-pink and hemorrhagic fragments of tissue measuring from 1.5 x 1 x 0.5 to 0.8 x 0.3 x 0.2 to 0.1 x 0.1 x 0.1 cm in aggregate. The specimen is serially sectioned and submitted entirely into cassettes B1-B2. HS/ew A. FSA1, TP1: LEFT MEDIAL PARIETAL LESION, BIOPSY: - METASTATIC ADENOCARCINOMAVerbally reported to Dr. You by Dr. Kim at 2:40 p.m. Sep 04, 2019. Performed on A and BThe interpretation of this case included the use of immunohistochemistry or special stains.Control Slides Examined: In-house known positive controls were evaluated along with the test tissue. These control slides run alongside of the patients sample show appropriate staining. Internal positive and negative controls when available are evaluated Immunohistochemistry technical testing was performed at [facility] Pathology Laboratory where it was [...] to perform high complexity clinical laboratory testing. POCT-GLUCOSE METER 2019-09-07 07:52:00 Test Item Value Reference Range Interpretation Comme nts POC-GLUCOSE METER (BEAKER) 220 mg/dL 70-110 H : Notified RN/MD: TESTED AT [facility] (test code = 1538) [address] [facility], [address]: Defense Travel Administrator/Techni pino ID = [id number] for KAI ADAMS BASIC METABOLIC [id number] 04:25:00 Test Item Value Reference Range Interpretation Comments SODIUM (BEAKER) 133 meq/L 136-145 L (test code = 381) POTASSIUM (BEAKER) 5.1 meq/L 3.5-5.1 (test code = 379) CHLORIDE (BEAKER) 105 meq/L 98-107 (test code = 382) CO2 (BEAKER) (test 24 meq/L 22-29 code = 355) BLOOD UREA NITROGEN 30 mg/dL 7-21 H (BEAKER) (test code = 354) CREATININE (BEAKER) 1.32 mg/dL 0.57-1.25 H (test code = 358) GLUCOSE RANDOM 245 mg/dL 70-105 H (BEAKER) (test code = 652) CALCIUM (BEAKER) 8.0 mg/dL 8.4-10.2 L (test code = 697) EGFR (BEAKER) (test 64 mL/min/1.73 ESTIMA JOHN GFR IS code = 1092) sq m NOT ACCURATE CREATININE CLEARANCE IN PREDICTING GLOMERULAR FILTRATION RATE . ESTIMATED GFR I S NOT APPLICABLE FOR DIALYSIS PATIEN TS. Defense Travel Administrator ID - [id number] (HEMOGRAM ONLY)2019-09-07 03:54:00 Test Item Value Reference Range Interpretation Comments WHITE BLOOD CELL COUNT (BEAKER) 14.3 K/ L 3.5-10.5 H (test code = 775) RED BLOOD CELL COUNT (BEAKER) 3.91 M/ L 4.63-6.08 L (test code = 761) HEMOGLOBIN (BEAKER) (test code = 11.0 GM/DL 13.7-17.5 L 410) HEMATOCRIT (BEAKER) (test code = 34.2 % 40.1-51.0 L 411) MEAN CORPUSCULAR VOLUME (BEAKER) 87.5 fL 79.0-92.2 (test code = 753) MEAN CORPUSCULAR HEMOGLOBIN 28.1 pg 25.7-32.2 (BEAKER) (test code = 751) MEAN CORPUSCULAR HEMOGLOBIN CONC 32.2 GM/DL 32.3-36.5 L (BEAKER) (test code = 752) RED CELL DISTRIBUTION WIDTH 13.6 % 11.6-14.4 (BEAKER) (test code = 412) PLATELET COUNT (BEAKER) (test 136 K/CU MM 150-450 L code = 756) MEAN PLATELET VOLUME ([facility]) 10.5 fL 9.4-12.4 (test code = 754) NUCLEATED RED BLOOD CELLS 0 /100 WBC 0-0 ([facility]) (test code = 413) POCT-GLUCOSE [id number] 21:57:00 Test Item Value Reference Range Interpretation Comments POC-GLUCOSE METER 286 mg/dL 70-110 H : TESTED A T [facility] [address] ([facility]) (test code = [facility], 1538) [address]: Defense Travel Administrator/Techni pino ID = [id number] for STEPHANIE WETZEL POCT-GLUCOSE [id number] 18:03:00 Test Item Value Reference Range Interpretation Comments POC-GLUCOSE METER 215 mg/dL 70-110 H : TESTED A T [facility] [address] ([facility]) (test code = [facility], 1538) [address]: Defense Travel Administrator/Techni pino ID = [id number] for YANNI SPRAGUE POCT-GLUCOSE [id number] 12:10:00 Test Item Value Reference Range Interpretation Comments POC-GLUCOSE METER 294 mg/dL 70-110 H : Notified RN/MD: ([facility]) (test code = TESTED AT [place] [address]) [facility], [address]: Defense Travel Administrator/Techni pino ID = [id number] for ANGIE SOLORIO POCT-GLUCOSE [id number] 08:18:00 Test Item Value Reference Range Interpretation Comments POC-GLUCOSE METER 283 mg/dL 70-110 H : Notified RN/MD: ([facility]) (test code = TESTED AT [place] [address]) [facility], [address]: Defense Travel Administrator/Techni pino ID = [id number] for ANGIE SOLORIO [id number] 06:56:00 Test Item Value Reference Range Interpretation Comments PROSTATE SPECIFIC ANTIGEN (AKER) 3.8 ng/mL 0.0-4.0 (test code = 844) Defense Travel Administrator ID - DBCARCINOEMBRYONIC ANTIGEN (CEA)2019-09-06 06:56:00 Test Item Value Reference Range Interpretation Comments CARCINOEMBRYONIC ANTIGEN (AKER) 2.0 ng/mL 0.0-5.0 (test code = 685) Defense Travel Administrator ID - DBBASIC METABOLIC [id number] 06:36:00 Test Item Value Reference Range Interpretation Comments SODIUM (BEAKER) 134 meq/L 136-145 L (test code = 381) POTASSIUM (BEAKER) 4.7 meq/L 3.5-5.1 (test code = 379) CHLORIDE (BEAKER) 106 meq/L 98-107 (test code = 382) CO2 (BEAKER) (test 23 meq/L 22-29 code = 355) BLOOD UREA NITROGEN 34 mg/dL 7-21 H (BEAKER) (test code = 354) CREATININE (BEAKER) 1.50 mg/dL 0.57-1.25 H (test code = 358) GLUCOSE RANDOM 293 mg/dL 70-105 H (BEAKER) (test code = 652) CALCIUM (BEAKER) 7.9 mg/dL 8.4-10.2 L (test code = 697) EGFR (BEAKER) (test 55 mL/min/1.73 ESTIMA JOHN GFR IS code = 1092) sq m NOT ACCURATE CREATININE CLEARANCE IN PREDICTING GLOMERULAR FILTRATION RATE . ESTIMATED GFR I S NOT APPLICABLE FOR DIALYSIS PATIEN TS. Defense Travel Administrator ID - NOREEN MCBC (HEMOGRAM ONLY)2019-09-06 06:09:00 Test Item Value Reference Range Interpretation Comments WHITE BLOOD CELL COUNT (BEAKER) 14.9 K/ L 3.5-10.5 H (test code = 775) RED BLOOD CELL COUNT (BEAKER) 3.78 M/ L 4.63-6.08 L (test code = 761) HEMOGLOBIN (BEAKER) (test code = 10.7 GM/DL 13.7-17.5 L 410) HEMATOCRIT (BEAKER) (test code = 33.0 % 40.1-51.0 L 411) MEAN CORPUSCULAR VOLUME (BEAKER) 87.3 fL 79.0-92.2 (test code = 753) MEAN CORPUSCULAR HEMOGLOBIN 28.3 pg 25.7-32.2 (BEAKER) (test code = 751) MEAN CORPUSCULAR HEMOGLOBIN CONC 32.4 GM/DL 32.3-36.5 (BEAKER) (test code = 752) RED CELL DISTRIBUTION WIDTH 13.7 % 11.6-14.4 (BEAKER) (test code = 412) PLATELET COUNT (AKER) (test 135 K/CU MM 150-450 L code = 756) MEAN PLATELET VOLUME (AKER) 10.0 fL 9.4-12.4 (test code = 754) NUCLEATED RED BLOOD CELLS 0 /100 WBC 0-0 (BEAKER) (test code = 413) POCT-GLUCOSE [id number] 22:52:00 Test Item Value Reference Range Interpretation Comments POC-GLUCOSE METER 288 mg/dL 70-110 H : [facility] (test code = [facility], 153) [address]: Defense Travel Administrator/Techni pino ID = [id number] for EM ELOBE, CHIMAKA POCT-GLUCOSE [id number] 18:18:00 Test Item Value Reference Range Interpretation Comments POC-GLUCOSE METER 276 mg/dL 70-110 H : Notified RN/MD: ([facility]) (test code = TESTED AT [place] [address]) [facility], [address]: Defense Travel Administrator/Techni pino ID = [id number] for SH ANGIE RAGSDALE [id number] 11:57:00 Test Item Value Reference Range Interpretation Comments MAGNESIUM ([facility]) (test code = 2.1 mg/dL 1.6-2.6 627) Defense Travel Administrator ID - LORIN FPOCT-GLUCOSE [id number] 11:39:00 Test Item Value Reference Range Interpretation Comments POC-GLUCOSE METER 298 mg/dL 70-110 H : [facility] (test code = [facility], 153) [address]: Defense Travel Administrator/Techni pino ID = [id number] for STEPHAN GRANADOS LER POCT-GLUCOSE [id number] 07:53:00 Test Item Value Reference Range Interpretation Comments POC-GLUCOSE METER 223 mg/dL 70-110 H : Notified RN/MD: ([facility]) (test code = TESTED AT [place] [address]) [facility], [address]: Defense Travel Administrator/Techni pino ID = [id number] for SH ANGIE RAGSDALE CT, BRAIN, WITHOUT [id number] 04:33:00FINAL REPORT CT Head without contrast CLINICAL [...] on the current examination. Signed: Kj Iniguez [facility] Verified Date/Time: 09/05/2019 04:33:40 C METABOLIC [id number] 04:00:00 Test Item Value Reference Range Interpretation Comments SODIUM (BEAKER) 133 meq/L 136-145 L (test code = 381) POTASSIUM (BEAKER) 4.8 meq/L 3.5-5.1 (test code = 379) CHLORIDE (BEAKER) 105 meq/L 98-107 (test code = 382) CO2 (BEAKER) (test 21 meq/L 22-29 L code = 355) BLOOD UREA NITROGEN 29 mg/dL 7-21 H (BEAKER) (test code = 354) CREATININE (BEAKER) 1.66 mg/dL 0.57-1.25 H (test code = 358) GLUCOSE RANDOM 253 mg/dL 70-105 H (BEAKER) (test code = 652) CALCIUM (BEAKER) 7.8 mg/dL 8.4-10.2 L (test code = 697) EGFR (BEAKER) (test 49 mL/min/1.73 ESTIMA JOHN GFR IS code = 1092) sq m NOT ACCURATE CREATININE CLEARANCE IN PREDICTING GLOMERULAR FILTRATION RATE . ESTIMATED GFR I S NOT APPLICABLE FOR DIALYSIS PATIEN TS. Defense Travel Administrator ID - NOREEN [id number] 03:56:00 Test Item Value Reference Range Interpretation Comments PHOSPHORUS (BEAKER) (test code = 4.5 mg/dL 2.3-4.7 604) Defense Travel Administrator ID - NOREEN [id number] 03:56:00 Test Item Value Reference Range Interpretation Comments MAGNESIUM (BEAKER) (test code = 1.7 mg/dL 1.6-2.6 627) Defense Travel Administrator ID - NOREEN MCBC W/PLT COUNT & AUTO [id number] 03:41:00 Test Item Value Reference Range Interpretation Comments WHITE BLOOD CELL COUNT (BEAKER) 19.4 K/ L 3.5-10.5 H (test code = 775) RED BLOOD CELL COUNT (BEAKER) 4.19 M/ L 4.63-6.08 L (test code = 761) HEMOGLOBIN (BEAKER) (test code = 11.9 GM/DL 13.7-17.5 L 410) HEMATOCRIT (BEAKER) (test code = 36.0 % 40.1-51.0 L 411) MEAN CORPUSCULAR VOLUME (BEAKER) 85.9 fL 79.0-92.2 (test code = 753) MEAN CORPUSCULAR HEMOGLOBIN 28.4 pg 25.7-32.2 (BEAKER) (test code = 751) MEAN CORPUSCULAR HEMOGLOBIN CONC 33.1 GM/DL 32.3-36.5 (BEAKER) (test code = 752) RED CELL DISTRIBUTION WIDTH 13.6 % 11.6-14.4 (BEAKER) (test code = 412) PLATELET COUNT (BEAKER) (test 144 K/CU MM 150-450 L code = 756) MEAN PLATELET VOLUME (BEAKER) 9.7 fL 9.4-12.4 (test code = 754) NUCLEATED RED BLOOD CELLS 0 /100 WBC 0-0 (BEAKER) (test code = 413) NEUTROPHILS RELATIVE PERCENT 93 % (BEAKER) (test code = 429) LYMPHOCYTES RELATIVE PERCENT 3 % (BEAKER) (test code = 430) MONOCYTES RELATIVE PERCENT 3 % (BEAKER) (test code = 431) EOSINOPHILS RELATIVE PERCENT 0 % (BEAKER) (test code = 432) BASOPHILS RELATIVE PERCENT 0 % (BEAKER) (test code = 437) NEUTROPHILS ABSOLUTE COUNT 17.92 K/ L 1.78-5.38 H (BEAKER) (test code = 670) LYMPHOCYTES ABSOLUTE COUNT 0.64 K/ L 1.32-3.57 L (BEAKER) (test code = 414) MONOCYTES ABSOLUTE COUNT (BEAKER) 0.64 K/ L 0.30-0.82 (test code = 415) EOSINOPHILS ABSOLUTE COUNT 0.00 K/ L 0.04-0.54 L (BEAKER) (test code = 416) BASOPHILS ABSOLUTE COUNT (BEAKER) 0.02 K/ L 0.01-0.08 (test code = 417) IMMATURE GRANULOCYTES-RELATIVE 1 % 0-1 PERCENT (BEAKER) (test code = 2801) POCT-GLUCOSE [id number] 17:02:00 Test Item Value Reference Range Interpretation Comments POC-GLUCOSE METER 202 mg/dL 70-110 H : TESTED A T [facility] 6720 (BEAKER) (test code = [facility], 153) [address]: Defense Travel Administrator/Techni pino ID = [id number] for NO RIVKANISH ALLY POCT-GLUCOSE [id number] 15:03:00 Test Item Value Reference Range Interpretation Comments POC-GLUCOSE METER 171 mg/dL 70-110 H : TESTED A T [facility] 6720 (BEAKER) (test code = [facility], 1538) [address]: Defense Travel Administrator/Techni pino ID = [id number] for BRANDYN MCDANIEL POCT-GLUCOSE [id number] 11:29:00 Test Item Value Reference Range Interpretation Comments POC-GLUCOSE METER 177 mg/dL 70-110 H : TESTED A T [facility] 67[address] (BEAKER) (test code = [facility], 1538) [address]: Defense Travel Administrator/Techni pino ID = [id number] for TON DESIR BASIC METABOLIC [id number] 04:36:00 Test Item Value Reference Range Interpretation Comments SODIUM (BEAKER) 133 meq/L 136-145 L (test code = 381) POTASSIUM (BEAKER) 4.9 meq/L 3.5-5.1 (test code = 379) CHLORIDE (BEAKER) 102 meq/L 98-107 (test code = 382) CO2 (BEAKER) (test 25 meq/L 22-29 code = 355) BLOOD UREA NITROGEN 31 mg/dL 7-21 H (BEAKER) (test code = 354) CREATININE (BEAKER) 1.61 mg/dL 0.57-1.25 H (test code = 358) GLUCOSE RANDOM 241 mg/dL 70-105 H (BEAKER) (test code = 652) CALCIUM (BEAKER) 8.5 mg/dL 8.4-10.2 (test code = 697) EGFR (BEAKER) (test 51 mL/min/1.73 ESTIMA JOHN GFR IS code = 1092) sq m NOT ACCURATE CREATININE CLEARANCE IN PREDICTING GLOMERULAR FILTRATION RATE . ESTIMATED GFR I S NOT APPLICABLE FOR DIALYSIS PATIEN TS. Defense Travel Administrator ID - [id number] (HEMOGRAM ONLY)2019-09-04 04:12:00 Test Item Value Reference Range Interpretation Comments WHITE BLOOD CELL COUNT (BEAKER) 11.0 K/ L 3.5-10.5 H (test code = 775) RED BLOOD CELL COUNT (BEAKER) 4.31 M/ L 4.63-6.08 L (test code = 761) HEMOGLOBIN (BEAKER) (test code = 12.4 GM/DL 13.7-17.5 L 410) HEMATOCRIT (BEAKER) (test code = 36.4 % 40.1-51.0 L 411) MEAN CORPUSCULAR VOLUME (BEAKER) 84.5 fL 79.0-92.2 (test code = 753) MEAN CORPUSCULAR HEMOGLOBIN 28.8 pg 25.7-32.2 (BEAKER) (test code = 751) MEAN CORPUSCULAR HEMOGLOBIN CONC 34.1 GM/DL 32.3-36.5 (BEAKER) (test code = 752) RED CELL DISTRIBUTION WIDTH 13.2 % 11.6-14.4 (BEAKER) (test code = 412) PLATELET COUNT (BEAKER) (test 138 K/CU MM 150-450 L code = 756) MEAN PLATELET VOLUME (BEAKER) 10.3 fL 9.4-12.4 (test code = 754) NUCLEATED RED BLOOD CELLS 0 /100 WBC 0-0 (BEAKER) (test code = 413) POCT-GLUCOSE [id number] 21:26:00 Test Item Value Reference Range Interpretation Comments POC-GLUCOSE METER 307 mg/dL 70-110 H : TESTED A T [facility] 6720 (BEAKER) (test code = [facility], 1538) [address]: Defense Travel Administrator/Techni pino ID = [id number] for DO VEGARRY POCT-GLUCOSE [id number] 17:04:00 Test Item Value Reference Range Interpretation Comments POC-GLUCOSE METER 237 mg/dL 70-110 H : TESTED A T [facility] 67[address] (BEAKER) (test code = [facility], 1538) [address]: Defense Travel Administrator/Techni pino ID = [id number] for Sm ith, Candy BASIC METABOLIC [id number] 04:53:00 Test Item Value Reference Range Interpretation Comments SODIUM (BEAKER) 131 meq/L 136-145 L (test code = 381) POTASSIUM (BEAKER) 4.4 meq/L 3.5-5.1 (test code = 379) CHLORIDE (BEAKER) 103 meq/L 98-107 (test code = 382) CO2 (BEAKER) (test 21 meq/L 22-29 L code = 355) BLOOD UREA NITROGEN 25 mg/dL 7-21 H (BEAKER) (test code = 354) CREATININE (BEAKER) 1.34 mg/dL 0.57-1.25 H (test code = 358) GLUCOSE RANDOM 209 mg/dL 70-105 H (BEAKER) (test code = 652) CALCIUM (BEAKER) 8.4 mg/dL 8.4-10.2 (test code = 697) EGFR (BEAKER) (test 63 mL/min/1.73 ESTIMA JOHN GFR IS code = 1092) sq m NOT ACCURATE CREATININE CLEARANCE IN PREDICTING GLOMERULAR FILTRATION RATE . ESTIMATED GFR I S NOT APPLICABLE FOR DIALYSIS PATIEN TS. Defense Travel Administrator ID - NOREEN MCBC W/PLT COUNT & AUTO [id number] 04:34:00 Test Item Value Reference Range Interpretation Comments WHITE BLOOD CELL COUNT (BEAKER) 8.4 K/ L 3.5-10.5 (test code = 775) RED BLOOD CELL COUNT (BEAKER) 4.39 M/ L 4.63-6.08 L (test code = 761) HEMOGLOBIN (BEAKER) (test code = 12.4 GM/DL 13.7-17.5 L 410) HEMATOCRIT (BEAKER) (test code = 37.7 % 40.1-51.0 L 411) MEAN CORPUSCULAR VOLUME (BEAKER) 85.9 fL 79.0-92.2 (test code = 753) MEAN CORPUSCULAR HEMOGLOBIN 28.2 pg 25.7-32.2 (BEAKER) (test code = 751) MEAN CORPUSCULAR HEMOGLOBIN CONC 32.9 GM/DL 32.3-36.5 (BEAKER) (test code = 752) RED CELL DISTRIBUTION WIDTH 13.1 % 11.6-14.4 (BEAKER) (test code = 412) PLATELET COUNT (BEAKER) (test 127 K/CU MM 150-450 L code = 756) MEAN PLATELET VOLUME (BEAKER) 10.0 fL 9.4-12.4 (test code = 754) NUCLEATED RED BLOOD CELLS 0 /100 WBC 0-0 (BEAKER) (test code = 413) NEUTROPHILS RELATIVE PERCENT 72 % (BEAKER) (test code = 429) LYMPHOCYTES RELATIVE PERCENT 16 % (BEAKER) (test code = 430) MONOCYTES RELATIVE PERCENT 11 % (BEAKER) (test code = 431) EOSINOPHILS RELATIVE PERCENT 0 % (BEAKER) (test code = 432) BASOPHILS RELATIVE PERCENT 0 % (BEAKER) (test code = 437) NEUTROPHILS ABSOLUTE COUNT 6.04 K/ L 1.78-5.38 H (BEAKER) (test code = 670) LYMPHOCYTES ABSOLUTE COUNT 1.37 K/ L 1.32-3.57 (BEAKER) (test code = 414) MONOCYTES ABSOLUTE COUNT (BEAKER) 0.88 K/ L 0.30-0.82 H (test code = 415) EOSINOPHILS ABSOLUTE COUNT 0.02 K/ L 0.04-0.54 L (BEAKER) (test code = 416) BASOPHILS ABSOLUTE COUNT (BEAKER) 0.01 K/ L 0.01-0.08 (test code = 417) IMMATURE GRANULOCYTES-RELATIVE 1 % 0-1 PERCENT (BEAKER) (test code = 2801) POCT-GLUCOSE [id number] 22:58:00 Test Item Value Reference Range Interpretation Comments POC-GLUCOSE METER 226 mg/dL 70-110 H : TESTED A T BSC 6720 (BEAKER) (test code = [place], 1538) [id number]: [employer] Administrator/Techni pino ID = [id number] for DO GARRY BUTT [id number] 11:49:00 Test Item Value Reference Range Interpretation Comments PARTIAL THROMBOPLASTIN TIME 22.4 seconds 22.5-36.0 L (BEAKER) (test code = 760) PROTHROMBIN [id number] 11:48:00 Test Item Value Reference Range Interpretation Comments PROTIME (BEAKER) (test code = 13.8 seconds 11.9-14.2 759) INR (BEAKER) (test code = 370) 1.1 <=5.9 Effective 12/14/2018: PT Reference Range ChangeNew: 11.9-14.2 Previous: 11.7- 14.7RECOMMENDED COUMADIN/WARFARIN INR THERAPY RANGESSTANDARD DOSE: 2.0-3.0 Includes: PROPHYLAXIS for venous thrombosis, systemic embolization; TREATMENT for venous thrombosis and/or pulmonary embolus.HIGH RISK: Target INR is2.5-3.5 for patients wiht mechanical heart valves.RAD, CHEST, 1 VIEW, NON [id number] 10:57:00Reason for exam:->preopShould this be performed at the bedside?->YesFINAL REPORT History: Preoperative examination Comparison: 08/16/2014 Findings: The lungs are clear. No pleural effusions or pneumothorax. The heart shadow is normal in size. Thethoracic aorta is mildly tortuous. Hypertrophic changes are present in the spine. Impression: No evidence of acute cardiopulmonary disease. Signed: Zacarias Cantu Verified Date/Time: 09/02/201910:57:02 Reading Location: [address] Reading Room POCT-GLUCOSE [id number] 22:36:00 Test Item Value Reference Range Interpretation Comments POC-GLUCOSE METER 232 mg/dL 70-110 H : TESTED A T [facility] 6720 (BEAKER) (test code = [facility] Rhett [facility], 1538) 814[address]: Defense Travel Administrator/Techni pino ID = [id number] for DIONNA RICHARD POCT-GLUCOSE [id number] 18:54:00 Test Item Value Reference Range Interpretation Comments POC-GLUCOSE METER 242 mg/dL 70-110 H : TESTED A T [facility] 6720 (BEAKER) (test code = [facility] Rhett [facility], 1538) 78262: Defense Travel Administrator/Techni pino ID = [id number] for MARGOTH RAMOS [id number] 12:31:00Medical Cytology Report Case: [id number] Authorizing Provider: Anjali Rosa MD Collected: 08/29/2019 1710 Ordering Location: [address] Received: 08/30/2019 0938 Service Pathologist: Jamison Miller MD Specimen: Thyroid, Right RIGHT LOBE THYROID GLAND NODULE FNA BY CLINICIAN (CYTOSPINS AND CELL BLOCK OF ASPIRATE): - DIAGNOSTIC CATEGORY: 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 Clinical/radiological correlation is bela mmended. 21618, 70094, 53512, 47410 x 3(3.5 x 1.9 x 2.9 cm) mostly solid slightly heterogeneous solid nodule in the head to lower pole of the right thyroid lobe.RIGHT LOBE THYROID GLAND NODULE FNAReceived 35 ml cytorich red fixative samplePrepared cell block(A2) using collodion bag and 4 cytospinsColle cted: [id number]: [id number] interpretation of this case included the use of immunohistochemistryor special stains.Please see the immunohistochemistry results in the COMMENT section. Control SlidesExamined: In-house known positive controls were evaluated along with the test tissue. These control slides run alongside of the patients sample show appropriate staining. Internal positive and negative controls when available are evaluated Immunohistochemistry technical testing was performed at [facility], Pathology Laboratory where it was [...] qualified to perform hi complexity clinical laboratory testing.[facility], Department of Pathology,[address] [place] [address], [facility], [address] [place] [address], [facility], [facility], [address] [place] [address], EDQQ-GLUCOSE [id number] 12:18:00 Test Item Value Reference Range Interpretation Comments POC-GLUCOSE METER 211 mg/dL 70-110 H : TESTED A T [facility] 6720 (BEAKER) (test code = [facility], 1538) 226[address]: Defense Travel Administrator/Techni pino ID = [id number] for HU NT, MARGOTH POCT-GLUCOSE [id number] 08:20:00 Test Item Value Reference Range Interpretation Comments POC-GLUCOSE METER 167 mg/dL 70-110 H : TESTED A T [facility] 6720 (BEAKER) (test code = [facility], 1538) 99464: Defense Travel Administrator/Techni pino ID = [id number] for HU NT, MARGOTH BASIC METABOLIC [id number] 05:53:00 Test Item Value Reference Range Interpretation Comments SODIUM (BEAKER) 131 meq/L 136-145 L (test code = 381) POTASSIUM (BEAKER) 4.5 meq/L 3.5-5.1 Specimen slightly (test code = 379) hemolyzed CHLORIDE (BEAKER) 104 meq/L 98-107 (test code = 382) CO2 (BEAKER) (test 20 meq/L 22-29 L code = 355) BLOOD UREA NITROGEN 26 mg/dL 7-21 H (BEAKER) (test code = 354) CREATININE (BEAKER) 1.38 mg/dL 0.57-1.25 H Specimen slightly (test code = 358) hemolyzed GLUCOSE RANDOM 165 mg/dL 70-105 H (BEAKER) (test code = 652) CALCIUM (BEAKER) 8.1 mg/dL 8.4-10.2 L (test code = 697) EGFR (BEAKER) (test 61 mL/min/1.73 ESTIMA JOHN GFR IS code = 1092) sq m NOT ACCURATE CREATININE CLEARANCE IN PREDICTING GLOMERULAR FILTRATION RATE . ESTIMATED GFR I S NOT APPLICABLE FOR DIALYSIS PATIEN TS. Defense Travel Administrator ID - EMELYN WPOCT-GLUCOSE [id number] 21:11:00 Test Item Value Reference Range Interpretation Comments POC-GLUCOSE METER 226 mg/dL 70-110 H : TESTED A T [facility] 6720 (BEAKER) (test code = [facility], 1538) 27707: Defense Travel Administrator/Techni pino ID = [id number] for LO PEZ, NADINA POCT-GLUCOSE [id number] 17:14:00 Test Item Value Reference Range Interpretation Comments POC-GLUCOSE METER 218 mg/dL 70-110 H : TESTED A T [facility] 6720 (BEAKER) (test code = [facility], 1538) 12032: Defense Travel Administrator/Techni pino ID = [id number] for HU NT, MARGOTH POCT-GLUCOSE [id number] 12:07:00 Test Item Value Reference Range Interpretation Comments POC-GLUCOSE METER 167 mg/dL 70-110 H : TESTED A T [facility] 6720 (BEAKER) (test code = [facility], 1538) 45450: Defense Travel Administrator/Techni pino ID = [id number] for HU NT, MARGOTH POCT-GLUCOSE [id number] 09:12:00 Test Item Value Reference Range Interpretation Comments POC-GLUCOSE METER 162 mg/dL 70-110 H : TESTED A T [facility] 6720 (BEAKER) (test code = [facility], 1538) 12614: Defense Travel Administrator/Techni pino ID = [id number] for MARGOTH RAMOS BASIC METABOLIC [id number] 07:05:00 Test Item Value Reference Range Interpretation Comments SODIUM (BEAKER) 134 meq/L 136-145 L (test code = 381) POTASSIUM (BEAKER) 4.1 meq/L 3.5-5.1 (test code = 379) CHLORIDE (BEAKER) 106 meq/L 98-107 (test code = 382) CO2 (BEAKER) (test 22 meq/L 22-29 code = 355) BLOOD UREA NITROGEN 27 mg/dL 7-21 H (BEAKER) (test code = 354) CREATININE (BEAKER) 1.42 mg/dL 0.57-1.25 H (test code = 358) GLUCOSE RANDOM 171 mg/dL 70-105 H (BEAKER) (test code = 652) CALCIUM (BEAKER) 8.3 mg/dL 8.4-10.2 L (test code = 697) EGFR (BEAKER) (test 59 mL/min/1.73 ESTIMA JOHN GFR IS code = 1092) sq m NOT ACCURATE CREATININE CLEARANCE IN PREDICTING GLOMERULAR FILTRATION RATE . ESTIMATED GFR I S NOT APPLICABLE FOR DIALYSIS PATIEN TS. Defense Travel Administrator ID - LAPOCT-GLUCOSE [id number] 21:59:00 Test Item Value Reference Range Interpretation Comments POC-GLUCOSE METER 310 mg/dL 70-110 H : TESTED A T [facility] 6720 (BEAKER) (test code = [facility], 1538) 45506: Defense Travel Administrator/Techni pino ID = [id number] for DE NNIS, KATIA POCT-GLUCOSE [id number] 18:32:00 Test Item Value Reference Range Interpretation Comments POC-GLUCOSE METER 222 mg/dL 70-110 H : TESTED A T [facility] 6720 (BEAKER) (test code = [facility], 1538) 16976: Defense Travel Administrator/Techni pino ID = [id number] for BR OWN, YONIS POCT-GLUCOSE [id number] 13:39:00 Test Item Value Reference Range Interpretation Comments POC-GLUCOSE METER 148 mg/dL 70-110 H : TESTED A T [facility] 6720 (BEAKER) (test code = [facility] [place], 1538) 89502: Defense Travel Administrator/Techni pino ID = [id number] for BR OWN, YONIS POCT-GLUCOSE [id number] 07:59:00 Test Item Value Reference Range Interpretation Comments POC-GLUCOSE METER 214 mg/dL 70-110 H : TESTED A T [facility] 6720 (BEAKER) (test code = [facility] [place] [place], 1538) 890[address]: Defense Travel Administrator/Techni pino ID = [id number] for BR OWN, YONIS BASIC METABOLIC [id number] 05:54:00 Test Item Value Reference Range Interpretation Comments SODIUM (BEAKER) 135 meq/L 136-145 L (test code = 381) POTASSIUM (BEAKER) 4.4 meq/L 3.5-5.1 (test code = 379) CHLORIDE (BEAKER) 108 meq/L 98-107 H (test code = 382) CO2 (BEAKER) (test 21 meq/L 22-29 L code = 355) BLOOD UREA NITROGEN 30 mg/dL 7-21 H (BEAKER) (test code = 354) CREATININE (BEAKER) 1.41 mg/dL 0.57-1.25 H (test code = 358) GLUCOSE RANDOM 159 mg/dL 70-105 H (BEAKER) (test code = 652) CALCIUM (BEAKER) 8.0 mg/dL 8.4-10.2 L (test code = 697) EGFR (BEAKER) (test 59 mL/min/1.73 ESTIMA JOHN GFR IS code = 1092) sq m NOT ACCURATE CREATININE CLEARANCE IN PREDICTING GLOMERULAR FILTRATION RATE . ESTIMATED GFR I S NOT APPLICABLE FOR DIALYSIS PATIEN TS. Defense Travel Administrator ID - GALAPCBC W/PLT COUNT & AUTO [id number] 05:14:00 Test Item Value Reference Range Interpretation Comments WHITE BLOOD CELL COUNT (BEAKER) 7.6 K/ L 3.5-10.5 (test code = 775) RED BLOOD CELL COUNT (BEAKER) 4.44 M/ L 4.63-6.08 L (test code = 761) HEMOGLOBIN (BEAKER) (test code = 12.6 GM/DL 13.7-17.5 L 410) HEMATOCRIT (BEAKER) (test code = 37.9 % 40.1-51.0 L 411) MEAN CORPUSCULAR VOLUME (BEAKER) 85.4 fL 79.0-92.2 (test code = 753) MEAN CORPUSCULAR HEMOGLOBIN 28.4 pg 25.7-32.2 (BEAKER) (test code = 751) MEAN CORPUSCULAR HEMOGLOBIN CONC 33.2 GM/DL 32.3-36.5 (BEAKER) (test code = 752) RED CELL DISTRIBUTION WIDTH 13.4 % 11.6-14.4 (BEAKER) (test code = 412) PLATELET COUNT (BEAKER) (test 131 K/CU MM 150-450 L code = 756) MEAN PLATELET VOLUME (BEAKER) 10.2 fL 9.4-12.4 (test code = 754) NUCLEATED RED BLOOD CELLS 0 /100 WBC 0-0 (BEAKER) (test code = 413) NEUTROPHILS RELATIVE PERCENT 70 % (BEAKER) (test code = 429) LYMPHOCYTES RELATIVE PERCENT 18 % (BEAKER) (test code = 430) MONOCYTES RELATIVE PERCENT 12 % (BEAKER) (test code = 431) EOSINOPHILS RELATIVE PERCENT 0 % (BEAKER) (test code = 432) BASOPHILS RELATIVE PERCENT 0 % (BEAKER) (test code = 437) NEUTROPHILS ABSOLUTE COUNT 5.29 K/ L 1.78-5.38 (BEAKER) (test code = 670) LYMPHOCYTES ABSOLUTE COUNT 1.37 K/ L 1.32-3.57 (BEAKER) (test code = 414) MONOCYTES ABSOLUTE COUNT (BEAKER) 0.87 K/ L 0.30-0.82 H (test code = 415) EOSINOPHILS ABSOLUTE COUNT 0.01 K/ L 0.04-0.54 L (BEAKER) (test code = 416) BASOPHILS ABSOLUTE COUNT (BEAKER) 0.00 K/ L 0.01-0.08 L (test code = 417) IMMATURE GRANULOCYTES-RELATIVE 1 % 0-1 PERCENT (BEAKER) (test code = 2801) POCT-GLUCOSE [id number] 21:36:00 Test Item Value Reference Range Interpretation Comments POC-GLUCOSE METER 242 mg/dL 70-110 H : TESTED A T [facility] 6720 (BEAKER) (test code = [place], 1538) [address]: Defense Travel Administrator/Techni pino ID = [id number] for KATIA CHAVEZ U/S, FINE NEEDLE ASPIRATION (FNA), [id number] 19:49:00Discussed with IR Dr. Montano for exam:->right [...] direct supervision by me. Signed: Angel Cueto Verified Date/Time: 08/29/201919:49:28 Reading Location: [address] Body Reading Room POCT-GLUCOSE [id number] 18:04:00 Test Item Value Reference Range Interpretation Comments POC-GLUCOSE METER 176 mg/dL 70-110 H : TESTED A T [facility] 6720 (BEAKER) (test code = [place], 1538) 87[address]: Defense Travel Administrator/Techni pino ID = [id number] for BR YONIS CHAPARRO POCT-GLUCOSE [id number] 12:58:00 Test Item Value Reference Range Interpretation Comments POC-GLUCOSE METER 136 mg/dL 70-110 H : TESTED A T [facility] 6720 (BEAKER) (test code = [facility] [place] [place], 1538) 8[address]: Defense Travel Administrator/Techni pino ID = [id number] for FELICIA OWNKATHARINAYONIS POCT-GLUCOSE [id number] 08:20:00 Test Item Value Reference Range Interpretation Comments POC-GLUCOSE METER 154 mg/dL 70-110 H : TESTED A T [facility] 6720 (BEAKER) (test code = [facility] [place], 1538) 49[address]: Defense Travel Administrator/Techni pino ID = [id number] for BR OWN, YONIS BASIC METABOLIC [id number] 06:46:00 Test Item Value Reference Range Interpretation Comments SODIUM (BEAKER) 135 meq/L 136-145 L (test code = 381) POTASSIUM (BEAKER) 4.6 meq/L 3.5-5.1 Specimen slightly (test code = 379) hemolyzed CHLORIDE (BEAKER) 109 meq/L 98-107 H (test code = 382) CO2 (BEAKER) (test 19 meq/L 22-29 L code = 355) BLOOD UREA NITROGEN 29 mg/dL 7-21 H (BEAKER) (test code = 354) CREATININE (BEAKER) 1.37 mg/dL 0.57-1.25 H Specimen slightly (test code = 358) hemolyzed GLUCOSE RANDOM 150 mg/dL 70-105 H (BEAKER) (test code = 652) CALCIUM (BEAKER) 8.1 mg/dL 8.4-10.2 L (test code = 697) EGFR (BEAKER) (test 61 mL/min/1.73 ESTIMA JOHN GFR IS code = 1092) sq m NOT ACCURATE CREATININE CLEARANCE IN PREDICTING GLOMERULAR FILTRATION RATE . ESTIMATED GFR I S NOT APPLICABLE FOR DIALYSIS PATIEN TS. Defense Travel Administrator ID - NOREEN MPROTHROMBIN TIME/[id number] 06:14:00 Test Item Value Reference Range Interpretation Comments PROTIME (BEAKER) (test code = 13.9 seconds 11.9-14.2 759) INR (BEAKER) (test code = 370) 1.1 <=5.9 Effective 12/14/2018: PT Reference Range ChangeNew: 11.9-14.2 Previous: 11.7- 14.7RECOMMENDED COUMADIN/WARFARIN INR THERAPY RANGESSTANDARD DOSE: 2.0-3.0 Includes: PROPHYLAXIS for venous thrombosis, systemic embolization; TREATMENT for venous thrombosis and/or pulmonary embolus.HIGH RISK: Target INR is2.5-3.5 for patients wiht mechanical heart valves.CBC W/PLT COUNT & AUTO [id number] 06:05:00 Test Item Value Reference Range Interpretation Comments WHITE BLOOD CELL COUNT (BEAKER) 8.8 K/ L 3.5-10.5 (test code = 775) RED BLOOD CELL COUNT (BEAKER) 4.61 M/ L 4.63-6.08 L (test code = 761) HEMOGLOBIN (BEAKER) (test code = 13.0 GM/DL 13.7-17.5 L 410) HEMATOCRIT (BEAKER) (test code = 39.8 % 40.1-51.0 L 411) MEAN CORPUSCULAR VOLUME (BEAKER) 86.3 fL 79.0-92.2 (test code = 753) MEAN CORPUSCULAR HEMOGLOBIN 28.2 pg 25.7-32.2 (BEAKER) (test code = 751) MEAN CORPUSCULAR HEMOGLOBIN CONC 32.7 GM/DL 32.3-36.5 (BEAKER) (test code = 752) RED CELL DISTRIBUTION WIDTH 13.6 % 11.6-14.4 (BEAKER) (test code = 412) PLATELET COUNT (BEAKER) (test 138 K/CU MM 150-450 L code = 756) MEAN PLATELET VOLUME (BEAKER) 10.4 fL 9.4-12.4 (test code = 754) NUCLEATED RED BLOOD CELLS 0 /100 WBC 0-0 (BEAKER) (test code = 413) NEUTROPHILS RELATIVE PERCENT 80 % (BEAKER) (test code = 429) LYMPHOCYTES RELATIVE PERCENT 11 % (BEAKER) (test code = 430) MONOCYTES RELATIVE PERCENT 8 % (BEAKER) (test code = 431) EOSINOPHILS RELATIVE PERCENT 0 % (BEAKER) (test code = 432) BASOPHILS RELATIVE PERCENT 0 % (BEAKER) (test code = 437) NEUTROPHILS ABSOLUTE COUNT 7.07 K/ L 1.78-5.38 H (BEAKER) (test code = 670) LYMPHOCYTES ABSOLUTE COUNT 0.98 K/ L 1.32-3.57 L (BEAKER) (test code = 414) MONOCYTES ABSOLUTE COUNT (BEAKER) 0.72 K/ L 0.30-0.82 (test code = 415) EOSINOPHILS ABSOLUTE COUNT 0.00 K/ L 0.04-0.54 L (BEAKER) (test code = 416) BASOPHILS ABSOLUTE COUNT (BEAKER) 0.00 K/ L 0.01-0.08 L (test code = 417) IMMATURE GRANULOCYTES-RELATIVE 1 % 0-1 PERCENT (BEAKER) (test code = 2801) POCT-GLUCOSE [id number] 21:00:00 Test Item Value Reference Range Interpretation Comments POC-GLUCOSE METER 236 mg/dL 70-110 H : TESTED A T [facility] 6720 (BEAKER) (test code = [facility], 1538) 75652: Defense Travel Administrator/Techni pino ID = [id number] for DE NNIS, KTAIA CT, [id number] 16:23:00Please specify:->AdrenalsFINAL REPORT CT scan of the [...] No other significant change from previous. Signed: Reggie Regalado MDReport Verified Date/Time: 08/28/2019 16:23:59Reading Location: [facility] C[address]Y [place] Body Reading Room POCT- GLUCOSE [id number] 16:09:00 Test Item Value Reference Range Interpretation Comments POC-GLUCOSE METER 152 mg/dL 70-110 H : TESTED A T [facility] 6720 (BEAKER) (test code = [facility], 1538) 97486: Defense Travel Administrator/Techni pino ID = [id number] for SOFIA PELAYO POCT-GLUCOSE [id number] 11:48:00 Test Item Value Reference Range Interpretation Comments POC-GLUCOSE METER 214 mg/dL 70-110 H : Notified RN/MD: TESTED (BEAKER) (test code AT [facility] 67[address] [place] = 1538) [facility], 770 30: Defense Travel Administrator/Techni pino ID = [id number] for HELENA JACKSON BASIC METABOLIC [id number] 08:30:00 Test Item Value Reference Range Interpretation Comments SODIUM (BEAKER) 137 meq/L 136-145 (test code = 381) POTASSIUM (BEAKER) 4.5 meq/L 3.5-5.1 (test code = 379) CHLORIDE (BEAKER) 109 meq/L 98-107 H (test code = 382) CO2 (BEAKER) (test 22 meq/L 22-29 code = 355) BLOOD UREA NITROGEN 28 mg/dL 7-21 H (BEAKER) (test code = 354) CREATININE (BEAKER) 1.37 mg/dL 0.57-1.25 H (test code = 358) GLUCOSE RANDOM 153 mg/dL 70-105 H (BEAKER) (test code = 652) CALCIUM (BEAKER) 8.3 mg/dL 8.4-10.2 L (test code = 697) EGFR (BEAKER) (test 61 mL/min/1.73 ESTIMA JOHN GFR IS code = 1092) sq m NOT ACCURATE CREATININE CLEARANCE IN PREDICTING GLOMERULAR FILTRATION RATE . ESTIMATED GFR I S NOT APPLICABLE FOR DIALYSIS PATIEN TS. Defense Travel Administrator ID - ANTONIETTA CPOCT-GLUCOSE [id number] 08:16:00 Test Item Value Reference Range Interpretation Comments POC-GLUCOSE METER 166 mg/dL 70-110 H : TESTED A T [facility] 6720 (BEAKER) (test code [facility], = 1538) 33662: Defense Travel Administrator/Techni pino ID = [id number] for HELENA JACKSON CBC W/PLT COUNT & AUTO [id number] 08:10:00 Test Item Value Reference Range Interpretation Comments WHITE BLOOD CELL COUNT (BEAKER) 8.7 K/ L 3.5-10.5 (test code = 775) RED BLOOD CELL COUNT (BEAKER) 4.52 M/ L 4.63-6.08 L (test code = 761) HEMOGLOBIN (BEAKER) (test code = 12.8 GM/DL 13.7-17.5 L 410) HEMATOCRIT (BEAKER) (test code = 38.9 % 40.1-51.0 L 411) MEAN CORPUSCULAR VOLUME (BEAKER) 86.1 fL 79.0-92.2 (test code = 753) MEAN CORPUSCULAR HEMOGLOBIN 28.3 pg 25.7-32.2 (BEAKER) (test code = 751) MEAN CORPUSCULAR HEMOGLOBIN CONC 32.9 GM/DL 32.3-36.5 (BEAKER) (test code = 752) RED CELL DISTRIBUTION WIDTH 13.5 % 11.6-14.4 (BEAKER) (test code = 412) PLATELET COUNT (BEAKER) (test 144 K/CU MM 150-450 L code = 756) MEAN PLATELET VOLUME (BEAKER) 10.7 fL 9.4-12.4 (test code = 754) NUCLEATED RED BLOOD CELLS 0 /100 WBC 0-0 (BEAKER) (test code = 413) NEUTROPHILS RELATIVE PERCENT 79 % (BEAKER) (test code = 429) LYMPHOCYTES RELATIVE PERCENT 12 % (BEAKER) (test code = 430) MONOCYTES RELATIVE PERCENT 9 % (BEAKER) (test code = 431) EOSINOPHILS RELATIVE PERCENT 0 % (BEAKER) (test code = 432) BASOPHILS RELATIVE PERCENT 0 % (BEAKER) (test code = 437) NEUTROPHILS ABSOLUTE COUNT 6.89 K/ L 1.78-5.38 H (BEAKER) (test code = 670) LYMPHOCYTES ABSOLUTE COUNT 1.02 K/ L 1.32-3.57 L (BEAKER) (test code = 414) MONOCYTES ABSOLUTE COUNT (BEAKER) 0.75 K/ L 0.30-0.82 (test code = 415) EOSINOPHILS ABSOLUTE COUNT 0.00 K/ L 0.04-0.54 L (BEAKER) (test code = 416) BASOPHILS ABSOLUTE COUNT (BEAKER) 0.01 K/ L 0.01-0.08 (test code = 417) IMMATURE GRANULOCYTES-RELATIVE 0 % 0-1 PERCENT (BEAKER) (test code = 2801) POCT-GLUCOSE [id number] 21:52:00 Test Item Value Reference Range Interpretation Comments POC-GLUCOSE METER 195 mg/dL 70-110 H : TESTED A T [facility] 6720 (BEAKER) (test code = [facility], 1538) 36128: Defense Travel Administrator/Techni pino ID = [id number] for MATTEO WETZEL POCT-GLUCOSE [id number] 17:49:00 Test Item Value Reference Range Interpretation Comments POC-GLUCOSE METER 217 mg/dL 70-110 H : TESTED A T [facility] 6720 (BEAKER) (test code = [facility], 1538) 17550: Defense Travel Administrator/Techni pino ID = [id number] for HU NT, MARGOTH POCT-GLUCOSE [id number] 12:14:00 Test Item Value Reference Range Interpretation Comments POC-GLUCOSE METER 215 mg/dL 70-110 H : TESTED A T [facility] 6720 (BEAKER) (test code = [facility], 1538) 40377: Defense Travel Administrator/Techni pino ID = [id number] for HU NT, MARGOTH POCT-GLUCOSE [id number] 08:29:00 Test Item Value Reference Range Interpretation Comments POC-GLUCOSE METER 160 mg/dL 70-110 H : TESTED A T [facility] 6720 (BEAKER) (test code = [facility], 1538) 26765: Defense Travel Administrator/Techni pino ID = [id number] for HU NT, MARGOTH BASIC METABOLIC [id number] 06:45:00 Test Item Value Reference Range Interpretation Comments SODIUM (BEAKER) 134 meq/L 136-145 L (test code = 381) POTASSIUM (BEAKER) 4.3 meq/L 3.5-5.1 (test code = 379) CHLORIDE (BEAKER) 106 meq/L 98-107 (test code = 382) CO2 (BEAKER) (test 22 meq/L 22-29 code = 355) BLOOD UREA NITROGEN 28 mg/dL 7-21 H (BEAKER) (test code = 354) CREATININE (BEAKER) 1.49 mg/dL 0.57-1.25 H (test code = 358) GLUCOSE RANDOM 165 mg/dL 70-105 H (BEAKER) (test code = 652) CALCIUM (BEAKER) 8.2 mg/dL 8.4-10.2 L (test code = 697) EGFR (BEAKER) (test 56 mL/min/1.73 ESTIMA JOHN GFR IS code = 1092) sq m NOT ACCURATE CREATININE CLEARANCE IN PREDICTING GLOMERULAR FILTRATION RATE . ESTIMATED GFR I S NOT APPLICABLE FOR DIALYSIS PATIEN TS. Defense Travel Administrator ID - EMELYN WCBC W/PLT COUNT & AUTO [id number] 05:44:00 Test Item Value Reference Range Interpretation Comments WHITE BLOOD CELL COUNT (BEAKER) 8.9 K/ L 3.5-10.5 (test code = 775) RED BLOOD CELL COUNT (BEAKER) 4.43 M/ L 4.63-6.08 L (test code = 761) HEMOGLOBIN (BEAKER) (test code = 12.2 GM/DL 13.7-17.5 L 410) HEMATOCRIT (BEAKER) (test code = 37.2 % 40.1-51.0 L 411) MEAN CORPUSCULAR VOLUME (BEAKER) 84.0 fL 79.0-92.2 (test code = 753) MEAN CORPUSCULAR HEMOGLOBIN 27.5 pg 25.7-32.2 (BEAKER) (test code = 751) MEAN CORPUSCULAR HEMOGLOBIN CONC 32.8 GM/DL 32.3-36.5 (BEAKER) (test code = 752) RED CELL DISTRIBUTION WIDTH 13.5 % 11.6-14.4 (BEAKER) (test code = 412) PLATELET COUNT (BEAKER) (test 152 K/CU MM 150-450 code = 756) MEAN PLATELET VOLUME (BEAKER) 10.4 fL 9.4-12.4 (test code = 754) NUCLEATED RED BLOOD CELLS 0 /100 WBC 0-0 (BEAKER) (test code = 413) NEUTROPHILS RELATIVE PERCENT 80 % (BEAKER) (test code = 429) LYMPHOCYTES RELATIVE PERCENT 11 % (BEAKER) (test code = 430) MONOCYTES RELATIVE PERCENT 9 % (BEAKER) (test code = 431) EOSINOPHILS RELATIVE PERCENT 0 % (BEAKER) (test code = 432) BASOPHILS RELATIVE PERCENT 0 % (BEAKER) (test code = 437) NEUTROPHILS ABSOLUTE COUNT 7.13 K/ L 1.78-5.38 H (BEAKER) (test code = 670) LYMPHOCYTES ABSOLUTE COUNT 0.97 K/ L 1.32-3.57 L (BEAKER) (test code = 414) MONOCYTES ABSOLUTE COUNT (BEAKER) 0.77 K/ L 0.30-0.82 (test code = 415) EOSINOPHILS ABSOLUTE COUNT 0.00 K/ L 0.04-0.54 L (BEAKER) (test code = 416) BASOPHILS ABSOLUTE COUNT (BEAKER) 0.01 K/ L 0.01-0.08 (test code = 417) IMMATURE GRANULOCYTES-RELATIVE 0 % 0-1 PERCENT (BEAKER) (test code = 2801) POCT-GLUCOSE [id number] 21:51:00 Test Item Value Reference Range Interpretation Comments POC-GLUCOSE METER 156 mg/dL 70-110 H : Notified RN/MD: ([facility]) (test code = TESTED AT [place] [address]) [facility], [id number]: Defense Travel Administrator/Techni pino ID = [id number] for ED OM, AILEEN POCT-GLUCOSE [id number] 17:32:00 Test Item Value Reference Range Interpretation Comments POC-GLUCOSE METER 177 mg/dL 70-110 H : TESTED A T [place] [address] ([facility]) (test code = [facility], 153) [address]: Defense Travel Administrator/Techni pino ID = [id number] for HU NT, MARGOTH POCT-GLUCOSE [id number] 12:14:00 Test Item Value Reference Range Interpretation Comments POC-GLUCOSE METER 210 mg/dL 70-110 H : TESTED A T [facility] 67[address] ([facility]) (test code = [facility], 153) [address]: Defense Travel Administrator/Techni pino ID = [id number] for HU NT, MARGOTH POCT-GLUCOSE [id number] 08:16:00 Test Item Value Reference Range Interpretation Comments POC-GLUCOSE METER 169 mg/dL 70-110 H : TESTED A T [facility] 6720 (BEAKER) (test code = [place], 1538) [id number]: Defense Travel Administrator/Techni pino ID = [id number] for MARGOTH RAMOS BASIC METABOLIC [id number] 07:33:00 Test Item Value Reference Range Interpretation Comments SODIUM (BEAKER) 133 meq/L 136-145 L (test code = 381) POTASSIUM (BEAKER) 4.5 meq/L 3.5-5.1 (test code = 379) CHLORIDE (BEAKER) 105 meq/L 98-107 (test code = 382) CO2 (BEAKER) (test 23 meq/L 22-29 code = 355) BLOOD UREA NITROGEN 28 mg/dL 7-21 H (BEAKER) (test code = 354) CREATININE (BEAKER) 1.54 mg/dL 0.57-1.25 H (test code = 358) GLUCOSE RANDOM 158 mg/dL 70-105 H (BEAKER) (test code = 652) CALCIUM (BEAKER) 8.5 mg/dL 8.4-10.2 (test code = 697) EGFR (BEAKER) (test 53 mL/min/1.73 ESTIMA JOHN GFR IS code = 1092) sq m NOT ACCURATE CREATININE CLEARANCE IN PREDICTING GLOMERULAR FILTRATION RATE . ESTIMATED GFR I S NOT APPLICABLE FOR DIALYSIS PATIEN TS. [employer] Administrator ID - PIAYA LCBC W/PLT COUNT & AUTO [id number] 05:59:00 Test Item Value Reference Range Interpretation Comments WHITE BLOOD CELL COUNT (BEAKER) 8.5 K/ L 3.5-10.5 (test code = 775) RED BLOOD CELL COUNT (BEAKER) 4.48 M/ L 4.63-6.08 L (test code = 761) HEMOGLOBIN (BEAKER) (test code = 12.7 GM/DL 13.7-17.5 L 410) HEMATOCRIT (BEAKER) (test code = 37.8 % 40.1-51.0 L 411) MEAN CORPUSCULAR VOLUME (BEAKER) 84.4 fL 79.0-92.2 (test code = 753) MEAN CORPUSCULAR HEMOGLOBIN 28.3 pg 25.7-32.2 (BEAKER) (test code = 751) MEAN CORPUSCULAR HEMOGLOBIN CONC 33.6 GM/DL 32.3-36.5 (BEAKER) (test code = 752) RED CELL DISTRIBUTION WIDTH 13.6 % 11.6-14.4 (BEAKER) (test code = 412) PLATELET COUNT (BEAKER) (test 152 K/CU MM 150-450 code = 756) MEAN PLATELET VOLUME (BEAKER) 11.1 fL 9.4-12.4 (test code = 754) NUCLEATED RED BLOOD CELLS 0 /100 WBC 0-0 (BEAKER) (test code = 413) NEUTROPHILS RELATIVE PERCENT 81 % (BEAKER) (test code = 429) LYMPHOCYTES RELATIVE PERCENT 11 % (BEAKER) (test code = 430) MONOCYTES RELATIVE PERCENT 8 % (BEAKER) (test code = 431) EOSINOPHILS RELATIVE PERCENT 0 % (BEAKER) (test code = 432) BASOPHILS RELATIVE PERCENT 0 % (BEAKER) (test code = 437) NEUTROPHILS ABSOLUTE COUNT 6.88 K/ L 1.78-5.38 H (BEAKER) (test code = 670) LYMPHOCYTES ABSOLUTE COUNT 0.90 K/ L 1.32-3.57 L (BEAKER) (test code = 414) MONOCYTES ABSOLUTE COUNT (BEAKER) 0.67 K/ L 0.30-0.82 (test code = 415) EOSINOPHILS ABSOLUTE COUNT 0.00 K/ L 0.04-0.54 L (BEAKER) (test code = 416) BASOPHILS ABSOLUTE COUNT (BEAKER) 0.00 K/ L 0.01-0.08 L (test code = 417) IMMATURE GRANULOCYTES-RELATIVE 0 % 0-1 PERCENT (BEAKER) (test code = 2801) POCT-GLUCOSE [id number] 21:46:00 Test Item Value Reference Range Interpretation Comments POC-GLUCOSE METER 219 mg/dL 70-110 H : TESTED A T [facility] 6720 (BEAKER) ([facility] [id number]: Defense Travel Administrator/Techni pino ID = [id number] for JAYDON LR POCT-GLUCOSE [id number] 17:19:00 Test Item Value Reference Range Interpretation Comments POC-GLUCOSE METER 225 mg/dL 70-110 H : TESTED A T [facility] 6720 (BEAKER) (test code = [facility], 1538) 132[address]: Defense Travel Administrator/Techni pino ID = [id number] for MARGOTH RAMOS CT, CHEST, WITH [id number] 16:30:00FINAL REPORT CT of the chest, abdomen [...] [place] Verified Date/Time: 08/25/2019 16:30:29 Reading Location: [facility] C013X Ortho Consult Reading Room CT, [id number] 16:30:00FINAL REPORT CT of the chest, abdomen [...] MDReport Verified Date/Time: 08/25/2019 16:30:29 Reading Location: [facility] C013X Ortho Consult Reading Room POCT-GLUCOSE [id number] 11:56:00 Test Item Value Reference Range Interpretation Comments POC-GLUCOSE METER 187 mg/dL 70-110 H : TESTED A T [facility] 6720 (BEAKER) (test code = [facility], 1538) [id number]: Defense Travel Administrator/Techni pino ID = [id number] for HU NT, MAGROTH POCT-GLUCOSE [id number] 08:56:00 Test Item Value Reference Range Interpretation Comments POC-GLUCOSE METER 154 mg/dL 70-110 H : TESTED A T [facility] 6720 (BEAKER) (test code = [facility], 1538) 34318: Defense Travel Administrator/Techni pino ID = [id number] for HU NT, MARGOTH CBC W/PLT COUNT & AUTO [id number] 06:23:00 Test Item Value Reference Range Interpretation Comments WHITE BLOOD CELL COUNT (BEAKER) 10.9 K/ L 3.5-10.5 H (test code = 775) RED BLOOD CELL COUNT (BEAKER) 4.57 M/ L 4.63-6.08 L (test code = 761) HEMOGLOBIN (BEAKER) (test code = 13.2 GM/DL 13.7-17.5 L 410) HEMATOCRIT (BEAKER) (test code = 38.3 % 40.1-51.0 L 411) MEAN CORPUSCULAR VOLUME (BEAKER) 83.8 fL 79.0-92.2 (test code = 753) MEAN CORPUSCULAR HEMOGLOBIN 28.9 pg 25.7-32.2 (BEAKER) (test code = 751) MEAN CORPUSCULAR HEMOGLOBIN CONC 34.5 GM/DL 32.3-36.5 (BEAKER) (test code = 752) RED CELL DISTRIBUTION WIDTH 13.5 % 11.6-14.4 (BEAKER) (test code = 412) PLATELET COUNT (BEAKER) (test 167 K/CU MM 150-450 code = 756) MEAN PLATELET VOLUME (BEAKER) 11.4 fL 9.4-12.4 (test code = 754) NUCLEATED RED BLOOD CELLS 0 /100 WBC 0-0 (BEAKER) (test code = 413) NEUTROPHILS RELATIVE PERCENT 85 % (BEAKER) (test code = 429) LYMPHOCYTES RELATIVE PERCENT 9 % (BEAKER) (test code = 430) MONOCYTES RELATIVE PERCENT 6 % (BEAKER) (test code = 431) EOSINOPHILS RELATIVE PERCENT 0 % (BEAKER) (test code = 432) BASOPHILS RELATIVE PERCENT 0 % (BEAKER) (test code = 437) NEUTROPHILS ABSOLUTE COUNT 9.21 K/ L 1.78-5.38 H (BEAKER) (test code = 670) LYMPHOCYTES ABSOLUTE COUNT 0.99 K/ L 1.32-3.57 L (BEAKER) (test code = 414) MONOCYTES ABSOLUTE COUNT (BEAKER) 0.64 K/ L 0.30-0.82 (test code = 415) EOSINOPHILS ABSOLUTE COUNT 0.00 K/ L 0.04-0.54 L (BEAKER) (test code = 416) BASOPHILS ABSOLUTE COUNT (BEAKER) 0.01 K/ L 0.01-0.08 (test code = 417) IMMATURE GRANULOCYTES-RELATIVE 0 % 0-1 PERCENT (BEAKER) (test code = 2801) [id number] 06:12:00 Test Item Value Reference Range Interpretation Comments MAGNESIUM (BEAKER) (test code = 2.0 mg/dL 1.6-2.6 627) Defense Travel Administrator ID - NOREEN MBASIC METABOLIC [id number] 06:12:00 Test Item Value Reference Range Interpretation Comments SODIUM (BEAKER) 137 meq/L 136-145 (test code = 381) POTASSIUM (BEAKER) 4.4 meq/L 3.5-5.1 (test code = 379) CHLORIDE (BEAKER) 107 meq/L 98-107 (test code = 382) CO2 (BEAKER) (test 21 meq/L 22-29 L code = 355) BLOOD UREA NITROGEN 23 mg/dL 7-21 H (BEAKER) (test code = 354) CREATININE (BEAKER) 1.44 mg/dL 0.57-1.25 H (test code = 358) GLUCOSE RANDOM 144 mg/dL 70-105 H (BEAKER) (test code = 652) CALCIUM (BEAKER) 9.3 mg/dL 8.4-10.2 (test code = 697) EGFR (BEAKER) (test 58 mL/min/1.73 ESTIMA JOHN GFR IS code = 1092) sq m NOT ACCURATE CREATININE CLEARANCE IN PREDICTING GLOMERULAR FILTRATION RATE . ESTIMATED GFR I S NOT APPLICABLE FOR DIALYSIS PATIEN TS. Defense Travel Administrator ID - NOREEN MPOCT-GLUCOSE [id number] 20:14:00 Test Item Value Reference Range Interpretation Comments POC-GLUCOSE METER 120 mg/dL 70-110 H : Notified RN/MD: ([facility]) (test code = TESTED AT [place] [address] 1538) [facility], [address]: Defense Travel Administrator/Techni pino ID = [id number] for ANURAG FLYNN POCT-GLUCOSE [id number] 18:17:00 Test Item Value Reference Range Interpretation Comments POC-GLUCOSE METER 153 mg/dL 70-110 H : TESTED A T [facility] 6720 ([facility]) (test code = [facility], 1538) [address]: Defense Travel Administrator/Techni pino ID = [id number] for YANNI SPRAGUE POCT-GLUCOSE [id number] 12:20:00 Test Item Value Reference Range Interpretation Comments POC-GLUCOSE METER 149 mg/dL 70-110 H : [facility] (test code = [facility], 1538) [address]: Defense Travel Administrator/Techni pino ID = [id number] for YANNI SPRAGUE POCT-GLUCOSE [id number] 06:15:00 Test Item Value Reference Range Interpretation Comments POC-GLUCOSE METER 154 mg/dL 70-110 H : [facility] (test code = [facility], 1538) [address]: Defense Travel Administrator/Techni pino ID = [id number] for Bennett Marqueza [id number] 04:59:00 Test Item Value Reference Range Interpretation Comments PHOSPHORUS (BEAKER) (test code = 3.0 mg/dL 2.3-4.7 604) Defense Travel Administrator ID - EMELYN Alvarez on admission and Daily AM afterwardsMAGNESIUM 2019-08-24 04:59:00 Test Item Value Reference Range Interpretation Comments MAGNESIUM (BEAKER) (test code = 2.1 mg/dL 1.6-2.6 627) Defense Travel Administrator ID - EMELYN Alvarez on admission and Daily AM afterwardsBASIC METABOLIC [id number] 04:59:00 Test Item Value Reference Range Interpretation Comments SODIUM (BEAKER) 137 meq/L 136-145 (test code = 381) POTASSIUM (BEAKER) 4.4 meq/L 3.5-5.1 (test code = 379) CHLORIDE (BEAKER) 108 meq/L 98-107 H (test code = 382) CO2 (BEAKER) (test 23 meq/L 22-29 code = 355) BLOOD UREA NITROGEN 23 mg/dL 7-21 H (BEAKER) (test code = 354) CREATININE (BEAKER) 1.46 mg/dL 0.57-1.25 H (test code = 358) GLUCOSE RANDOM 158 mg/dL 70-105 H (BEAKER) (test code = 652) CALCIUM (BEAKER) 8.7 mg/dL 8.4-10.2 (test code = 697) EGFR (BEAKER) (test 57 mL/min/1.73 ESTIMA JOHN GFR IS code = 1092) sq m NOT ACCURATE CREATININE CLEARANCE IN PREDICTING GLOMERULAR FILTRATION RATE . ESTIMATED GFR I S NOT APPLICABLE FOR DIALYSIS PATIEN TS. Defense Travel Administrator ID - EMELYN Alvarez on [facility] and [facility]24 03:42:00 Test Item Value Reference Range Interpretation Comments WHITE BLOOD CELL COUNT (BEAKER) 9.1 K/ L 3.5-10.5 (test code = 775) RED BLOOD CELL COUNT (BEAKER) 4.03 M/ L 4.63-6.08 L (test code = 761) HEMOGLOBIN (BEAKER) (test code = 11.4 GM/DL 13.7-17.5 L 410) HEMATOCRIT (BEAKER) (test code = 34.0 % 40.1-51.0 L 411) MEAN CORPUSCULAR VOLUME (BEAKER) 84.4 fL 79.0-92.2 (test code = 753) MEAN CORPUSCULAR HEMOGLOBIN 28.3 pg 25.7-32.2 (BEAKER) (test code = 751) MEAN CORPUSCULAR HEMOGLOBIN CONC 33.5 GM/DL 32.3-36.5 (BEAKER) (test code = 752) RED CELL DISTRIBUTION WIDTH 13.3 % 11.6-14.4 (BEAKER) (test code = 412) PLATELET COUNT (BEAKER) (test 146 K/CU MM 150-450 L code = 756) MEAN PLATELET VOLUME (BEAKER) 10.8 fL 9.4-12.4 (test code = 754) NUCLEATED RED BLOOD CELLS 0 /100 WBC 0-0 (BEAKER) (test code = 413) POCT-GLUCOSE [id number] 23:51:00 Test Item Value Reference Range Interpretation Comments POC-GLUCOSE METER 152 mg/dL 70-110 H : TESTED A T [facility] 6720 (BEAKER) (test code = [facility], 1538) 118[address]: Defense Travel Administrator/Techni pino ID = [id number] for Margaret Marquez [id number] 22:28:00 Test Item Value Reference Range Interpretation Comments MAGNESIUM (BEAKER) (test code = 2.6 mg/dL 1.6-2.6 627) Defense Travel Administrator ID - DBPOCT-GLUCOSE [id number] 18:40:00 Test Item Value Reference Range Interpretation Comments POC-GLUCOSE METER 174 mg/dL 70-110 H : TESTED A T [facility] 6720 (BEAKER) (test code = [facility], 1538) 87202: Defense Travel Administrator/Techni pino ID = [id number] for YANNI SPRAGUE [id number] 15:28:00 Test Item Value Reference Range Interpretation Comments MAGNESIUM (BEAKER) 2.0 mg/dL 1.6-2.6 Specimen slightly (test code = 627) hemolyzed Defense Travel Administrator ID - [id number] 15:28:00 Test Item Value Reference Range Interpretation Comments SODIUM (BEAKER) (test code = 381) 136 meq/L 136-145 Defense Travel Administrator ID - BSLIPID [id number] 15:28:00 Test Item Value Reference Range Interpretation Comments TRIGLYCERIDES (BEAKER) 43 mg/dL Speci men slightly (test code = 540) hemolyzed CHOLESTEROL (BEAKER) 145 mg/dL Specime n slightly (test code = 631) hemolyzed HDL CHOLESTEROL (BEAKER) 40 mg/dL (test code = 976) LDL CHOLESTEROL 96 mg/dL CALCULATED (BEAKER) (test code = 633) Triglyceride Reference Range: Low Risk <150 Borderline 150-199 High Risk 200-499 Very High Risk >=500Cholesterol Reference Range: Low Risk <200 Borderline 200-239 High Risk >240HDL Cholesterol Reference Range: Low Risk >=60 High Risk <40LDL Cholesterol Reference Range: Optimal <100 Near Optimal 100-129 Borderline 130-159 High 160-189 Very High >=190 Defense Travel Administrator ID - BSPOCT-GLUCOSE [id number] 13:49:00 Test Item Value Reference Range Interpretation Comments POC-GLUCOSE METER 176 mg/dL 70-110 H : TESTED A T [facility] 6720 (BEAKER) (test code = [facility] [place], 1538) [address]: Defense Travel Administrator/Techni pino ID = [id number] for YANNI SPRAGUE MR, BRAIN, [id number] 13:31:00Anesthesia:->NoneDeos the patient have an implanted electronic [...] of unknown primary. Signed: JR Crystal Robert MDReport Verified Date/Time: 08/23/2019 13:31:53 Reading Location: [facility] C013V Neuro Reading Room GLOBIN [id number] 08:25:00 Test Item Value Reference Range Interpretation Comments HEMOGLOBIN A1C (BEAKER) (test code = 6.8 % 4.3-6.1 H 368) [id number] 07:52:00 Test Item Value Reference Range Interpretation Comments PHOSPHORUS (BIMAL) (test code = 2.2 mg/dL 2.3-4.7 L 604) Defense Travel Administrator ID - ASOnce on admission and Daily AM afterwardsPOCT-GLUCOSE METER 2019-08-23 07:03:00 Test Item Value Reference Range Interpretation Comments POC-GLUCOSE METER 175 mg/dL 70-110 H : TESTED A T [facility] (BIMAL) (test code = [facility] [place], 1538) [address]: Defense Travel Administrator/Techni pino ID = [id number] for SANAZ CHARLES CT, CTANGIO [id number] 05:51:00Anesthesia:->NoneFINAL REPORT EXAM: CT, CAROTID, ANGIO, CT, [...] Present bilaterally. Posterior Circulation:Right posterior cerebral artery (FRIT MAKER): There is fusiform dilatation of the proximal P2 segment at the junction with the right posterior communicating artery with diameter of 0.6 cm and length of 0.7 cm.Left posterior cerebral artery(FRIT MAKER): Hypoplastic P1 segment with the remainder of the left MICA supplied by the left posterior communicating artery Right vertebral artery (VA): Diminutive distal to the takeoff of the PICA with mild irregular stenosis of the V4 segment.Left vertebral artery (VA): Mild focal stenosis of the distal [id number].Basilar artery (BA): Hypoplastic without focal stenosis. Other: [...] MDReport Verified Date/Time: 08/23/2019 05:51:29 CT, CAROTID, [id number] 05:51:00FINAL REPORT EXAM: CT, CAROTID, ANGIO, CT, [...] Present bilaterally. Posterior Circulation:Right posterior cerebral artery (FRIT MAKER): There is fusiform dilatation of the proximal P2 segment at the junction with the right posterior communicating artery with diameter of 0.6 cm and length of 0.7 cm.Left posterior cerebral artery(FRIT MAKER): Hypoplastic P1 segment with the remainder of the left MICA supplied by the left posterior communicating artery Right vertebral artery (VA): Diminutive distal to the takeoff of the PICA with mild irregular stenosis of the V4 segment.Left vertebral artery (VA): Mild focal stenosis of the distal Q3zyzdazu.Basilar artery (BA): Hypoplastic without focal stenosis. Other: [...] proximal right P2 segment.5.Pulmonary emphysema. Signed: Jere [place] Verified Date/Time: 08/23/2019 05:51:29 PROTHROMBIN [id number] 05:06:00 Test Item Value Reference Range Interpretation Comments PROTIME (BEAKER) (test code = 13.8 seconds 11.9-14.2 759) INR (BEAKER) (test code = 370) 1.1 <=5.9 Effective 12/14/2018: PT Reference Range ChangeNew: 11.9-14.2 Previous: 11.7- 14.7RECOMMENDED COUMADIN/WARFARIN INR THERAPY RANGESSTANDARD DOSE: 2.0-3.0 Includes: PROPHYLAXIS for venous thrombosis, systemic embolization; TREATMENT for venous thrombosis and/or pulmonary embolus.HIGH RISK: Target INR is2.5-3.5 for patients wiht mechanical heart valves.[id number] 05:06:00 Test Item Value Reference Range Interpretation Comments PARTIAL THROMBOPLASTIN TIME 23.7 seconds 22.5-36.0 (BEAKER) (test code = 760) [id number] 05:05:00 Test Item Value Reference Range Interpretation Comments MAGNESIUM (BEAKER) (test code = 1.5 mg/dL 1.6-2.6 L 627) Defense Travel Administrator ID - ASOnce on admission and Daily AM afterwardsBASIC METABOLIC PANEL 2019-08-23 05:05:00 Test Item Value Reference Range Interpretation Comments SODIUM (BEAKER) 133 meq/L 136-145 L (test code = 381) POTASSIUM (BEAKER) 4.0 meq/L 3.5-5.1 (test code = 379) CHLORIDE (BEAKER) 103 meq/L 98-107 (test code = 382) CO2 (BEAKER) (test 22 meq/L 22-29 code = 355) BLOOD UREA NITROGEN 25 mg/dL 7-21 H (BEAKER) (test code = 354) CREATININE (BEAKER) 1.59 mg/dL 0.57-1.25 H (test code = 358) GLUCOSE RANDOM 221 mg/dL 70-105 H (BEAKER) (test code = 652) CALCIUM (BEAKER) 9.0 mg/dL 8.4-10.2 (test code = 697) EGFR (BEAKER) (test 52 mL/min/1.73 ESTIMA JOHN GFR IS code = 1092) sq m NOT ACCURATE CREATININE CLEARANCE IN PREDICTING GLOMERULAR FILTRATION RATE . ESTIMATED GFR I S NOT APPLICABLE FOR DIALYSIS PATIEN TS. Defense Travel Administrator ID - ASOnce on admission and Daily AM afterwardsHEPATIC FUNCTION PANEL 2019-08-23 05:05:00 Test Item Value Reference Range Interpretation Comments TOTAL PROTEIN (BEAKER) (test code = 7.0 gm/dL 6.0-8.3 770) ALBUMIN (BEAKER) (test code = 1145) 4.0 g/dL 3.5-5.0 BILIRUBIN TOTAL (BEAKER) (test code 0.4 mg/dL 0.2-1.2 = 377) BILIRUBIN DIRECT (BEAKER) (test 0.1 mg/dL 0.1-0.5 code = 706) ALKALINE PHOSPHATASE (BEAKER) (test 44 U/L 40-150 code = 346) AST (SGOT) (BEAKER) (test code = 19 U/L 5-34 353) ALT (SGPT) (BEAKER) (test code = 23 U/L 6-55 347) Defense Travel Administrator ID - ASOnce on admission and Daily AM afterwardsCBC (HEMOGRAM ONLY) 2019-08-23 04:45:00 Test Item Value Reference Range Interpretation Comments WHITE BLOOD CELL COUNT (BEAKER) 6.4 K/ L 3.5-10.5 (test code = 775) RED BLOOD CELL COUNT (BEAKER) 4.37 M/ L 4.63-6.08 L (test code = 761) HEMOGLOBIN (BEAKER) (test code = 12.3 GM/DL 13.7-17.5 L 410) HEMATOCRIT (BEAKER) (test code = 37.2 % 40.1-51.0 L 411) MEAN CORPUSCULAR VOLUME (BEAKER) 85.1 fL 79.0-92.2 (test code = 753) MEAN CORPUSCULAR HEMOGLOBIN 28.1 pg 25.7-32.2 (BEAKER) (test code = 751) MEAN CORPUSCULAR HEMOGLOBIN CONC 33.1 GM/DL 32.3-36.5 (BEAKER) (test code = 752) RED CELL DISTRIBUTION WIDTH 13.0 % 11.6-14.4 (BEAKER) (test code = 412) PLATELET COUNT (BEAKER) (test 150 K/CU MM 150-450 code = 756) MEAN PLATELET VOLUME (BEAKER) 10.3 fL 9.4-12.4 (test code = 754) NUCLEATED RED BLOOD CELLS 0 /100 WBC 0-0 (BEAKER) (test code = 413)
[2019-12-02] MEDS ORDERED: NA CHLORIDE 0.9% 1,000 ML ONE (18:27)
[2019-12-02] MEDS ORDERED: NOREPINEPHRINE 4mg/D5W 250mL 4 MG/250 ML BAG IV ONE (18:28)
--- NOTE | 2019-12-02 18:29 | EDPHYS ---
Physician Documentation [facility] Name: Luis Fernando Fox Age: 79 yrs Sex: Male : 1940 Arrival Date: 12/02/2019 Time: 17:39 Bed 3 Private MD: ED Physician Alex Jaramillo HPI: 12/01 18:20 This 79 yrs old Black Male presents to ER via EMS with complaints of CPR. rn 18:21 Preceding the arrest, the patient was dyspneic. The arrest occurred at home. rn Pre-hospital course: The arrest was witnessed by EMS. It is unknown whether or not the patient has had similar symptoms in the past. Per EMS and family, difficulty breathing today, otherwise no complaints, lost pulse when pulling up to ER bay here, glucose normal. Patient was difficult to wake up entire time, no verbal communication. + hx of MA and stroke, and family reports metastatic cancer, unknown primary, to lungs/liver/kidneys/brain. Full code per 2 family members present. . Historical: - Allergies: 18:03 Sulfa (Sulfonamide Antibiotics); bp - Home Meds: 18:03 amlodipine oral [Active]; aspirin 81 mg Oral TbEC 1 tab once daily [Active]; bp atorvastatin 20 mg Oral tab 1 tab once daily [Active]; gabapentin 100 mg Oral cap 1 caps twice a day [Active]; glimepiride 2 mg Oral tab 1 tab three times a day [Active]; metformin 1,000 mg Oral tab 1 tab 2 times per day [Active]; - PMHx: 18:03 CAD; CVA; Diabetes - NIDDM; High Cholesterol; Hypertension; Myocardial infarction; bp stage 4 brain cancer; - Immunization history:: Adult Immunizations unknown. - Code Status:: Full code. - Social history:: Smoking status: unknown. - Family history:: not pertinent. - Hospitalizations: : No recent hospitalization is reported. - History obtained from: family. ROS: 18:21 Unable to obtain ROS due to comatose state. rn Exam: 18:21 Constitutional: This is a well developed, well nourished patient who is unresponsive rn and pulseless Head/Face: Normocephalic, atraumatic. ENT: Dry MM, no stridor Cardiovascular: No spont cardiac activity Respiratory: coarse bilateral breath sounds with bagging Abdomen/GI: soft, non-distended Skin: warm, dry Neuro: GCS 3 18:21 ECG was reviewed by the Attending Physician. Vital Signs: 17:35 Temp 95.7; bp 18:00 BP 78 / 59; Pulse 74; Resp 14; Pulse Ox 100% ; mg2 18:15 BP 40 / 25; Pulse 62; Resp 17; Pulse Ox 100% ; mg2 18:30 BP 40 / 21; Pulse 68; Resp 16; Pulse Ox 100% ; mg2 19:00 BP 78 / 57; Pulse 68; Resp 16; Pulse Ox 100% ; mg2 19:15 BP 60 / 45; Pulse 71; Resp 16; Pulse Ox 99% ; mg2 20:15 BP 71 / 59; Pulse 84; Resp 16; Pulse Ox 100% on ETT vent; mg2 20:42 BP 90 / 35; Pulse 76; Resp 16; Pulse Ox 100% on ETT vent; mg2 21:39 BP 57 / 32; Pulse 67; Resp 16; Temp 93.6; Pulse Ox 98% on ETT vent; mg2 22:16 BP 47 / 23; Pulse 53; Resp 22 A; Pulse Ox 90% on ETT vent; jd3 22:30 Pulse 59; Resp 20 A; Pulse Ox 91% on ETT vent; jd3 23:08 Pulse 54; Resp 18 A; Temp 92.2(C); Pulse Ox 89% on ETT vent; jd3 23:27 Pulse 0; Temp 92.1(C); Pulse Ox 80% on ETT vent; jd3 Procedures: 18:21 Intubation: Intubated orally using # 4 Julius blade with 7.5 mm ETT. was successful rn on first attempt. Ventilated with Ambu bag. Cricoid pressure applied during procedure. Tube secured with ETT cannon at right side of mouth measured 23 cm at teeth. Placement verified by auscultating bilateral breath sounds, Patient tolerated well. 19:00 Central Line: the site was prepped with Betadine, in sterile fashion, a triple lumen rn catheter was inserted, in the right femoral vein, in 1 attempts. placement was verified, by blood return, the site was dressed with Tegaderm, using sterile technique, the patient tolerated the procedure, well. MDM: 17:39 Patient medically screened. rn 18:03 ED course: Pulse regained after a few rounds of CPR and 1 shock for Vfib, updated logistics intern, ECG shows inferior stemi, paging cardiology. Will also need head ct given hx of brain cancer and stroke. . 18:21 Differential diagnosis: arrythmia, cardiac arrest, respiratory arrest. Data reviewed: rn vital signs, nurses notes, lab test result(s), EKG, and as a result, I will admit patient. Counseling: I had a detailed discussion with the patient and/or guardian regarding: the historical points, exam findings, and any diagnostic results supporting the discharge/admit diagnosis, the need to transfer to another facility. ED course: No lab animal technician available here, spoke with cardiology at [facility], will life flight to [facility] CCU, did not recommend lytics or anticoagulation given reports of and unclear if brain mass and metastatic cancer. . 20:10 ED course: zbigniew family,dnr ok, comfort measures. annalisa 23:39 ED course: patient passed, [id number], zbigniew rice, call to dressage judge. annalisa 12/01 18:00 Order name: Basic Metabolic Panel; Complete Time: 23:38 rn 12/01 18:00 Order name: CBC with Diff; Complete Time: 19:43 rn 12/01 18:00 Order name: LFT's; Complete Time: 23:38 rn 12/01 18:00 Order name: Magnesium; Complete Time: 23:38 rn 12/01 18:00 Order name: NT PRO-BNP; Complete Time: 23:38 rn 12/01 18:00 Order name: PT-INR; Complete Time: 19:01 rn 12/01 18:00 Order name: Troponin (emerg Dept Use Only); Complete Time: 23:38 rn 12/01 18:00 Order name: XRAY Chest (1 view); Complete Time: 19:01 rn 12/01 19:28 Order name: Manual Differential; Complete Time: 19:43 EDMS 12/01 18:00 Order name: EKG; Complete Time: 18:01 rn 12/01 18:00 Order name: Cardiac monitoring; Complete Time: 18:19 rn 12/01 18:00 Order name: EKG - Nurse/Tech; Complete Time: 18:19 rn 12/01 18:00 Order name: IV Saline Lock; Complete Time: 18:19 rn 12/01 18:00 Order name: Labs collected and sent; Complete Time: 18: rn 12/01 18:00 Order name: O2 Per Protocol; Complete Time: 18: rn 12/01 18:00 Order name: O2 Sat Monitoring; Complete Time: 18: rn EC:21 Rate is 89 beats/min. Rhythm is regular. OH interval is normal. QRS interval is normal. rn QT interval is normal. Q waves are Present in leads V3, V4, V5. ST Segment is elevated in leads II, III, aVF, V3, V4. Clinical impression: Inferior MA - acute and Septal MA - acute. Interpreted by me. Reviewed by me. Administered Medications: 17:35 Drug: NS 0.9% 1000 ml Route: IV; Rate: 1000 ml; Site: left antecubital; rb1 19:06 Follow up: IV Status: Completed infusion; IV Intake: 1000ml mg2 18:30 Drug: NS 0.9% 1000 ml Route: IV; Rate: 1000 ml; Site: right femoral; bp 19:05 Follow up: IV Status: Completed infusion; IV Intake: 1000ml mg2 18:30 Drug: Levophed (4 mg/250 mL D5W 4 mcg/min Route: IV; Rate: calculated rate; Site: right bp femoral; 19:05 Follow up: IV Status: Infusion continued upon transfer mg2 19:06 Drug: Dopamine drip 5 mcg/kg/min - (DOPamine 400 mg, D5W 250 ml) Route: IV; Rate: mg2 calculated rate; Site: right femoral; 19:50 Drug: Calcium Gluconate 1 grams Route: IVPB; Infused Over: 20 mins; Site: right femoral;mg2 19:50 Drug: D50W 50 ml Route: IVP; Site: right femoral; mg2 19:50 Drug: Insulin Regular Human 10 units {Co-Signature: jd3 (Fabián Pruett RN).} Route: mg2 IVP; Site: right femoral; 19:52 Drug: Sodium Bicarbonate 1 amp Route: IVP; Site: right femoral; mg2 Point of Care Testing: Blood Glucose: 17:35 Blood Glucose: 114 mg/dL; bp Ranges: Critical Glucose Levels:Adult <50 mg/dl or >400 mg/dl <40 mg/dl or >180 mg/dl Disposition: 18:21 Critical Care:. rn Disposition: Patient pronounced on 12/02/19 23:27 by Alex Jaramillo. Impression: Cardiogenic shock, ST elevation (STEMI) myocardial infarction of inferior wall, Acute respiratory failure, Acute kidney failure, Hyperkalemia, Do not resuscitate. - Released to Home. Critical care time excluding procedures: 18:21 Critical care time: Bedside Care: 20 minutes, Consultation: 5 minutes, Family rn Intervention: 5 minutes. Total time: 30 minutes Signatures: Dispatcher [employer] EDMS Alex Jaramillo MD MD cha Nieto, Roman, MD MD rn Barber, Rebecca RN RN rb1 Fabián Pruett RN RN jd3 Catracho Moreira RN RN bp [place], Michele, RN RN mg2 Fabián Pruett RN jd3 Corrections: (The following items were deleted from the chart) 19:01 18:28 12/02/2019 18:28 Transfer ordered to [facility]. rn Diagnosis is ST elevation (STEMI) myocardial infarction of anterior wall; ST elevation (STEMI) myocardial infarction of inferior wall; Cardiac arrest. Reason for transfer: Higher level of care. Accepting physician is . Condition is Critical. Problem is new. Symptoms have improved. rn 19:33 19:01 12/02/2019 18:28 Transfer ordered to [facility]. mg2 Diagnosis is ST elevation (STEMI) myocardial infarction of anterior wall; ST elevation (STEMI) myocardial infarction of inferior wall; Cardiac arrest; Cardiogenic shock. Reason for transfer: Higher level of care. Accepting physician is . Condition is Critical. Problem is new. Symptoms have improved. rn 19:51 18:01 Head Brain Wo Cont+CT.RAD.BRZ ordered. EDND EDMS 20:16 19:33 12/02/2019 18:28 Transfer ordered to [facility]. annalisa Diagnosis is ST elevation (STEMI) myocardial infarction of anterior wall; ST elevation (STEMI) myocardial infarction of inferior wall; Cardiac arrest; Cardiogenic shock. Reason for transfer: Higher level of care. Accepting physician is . Condition is Critical. Problem is new. Symptoms have improved. mg2 21:06 18:21 CORONAVIRUS+MR.LAB.BRZ ordered. EDND EDMS 21:06 19:43 CORONAVIRUS+MR.LAB.BRZ reviewed. annalisa EDMS 23:37 22:18 Hospitalization Ordered by Stefan Landon for Inpatient Admission. Preliminary annalisa diagnosis is Cardiogenic shock; Acute kidney failure; Hyperkalemia; Hypotension; Acute respiratory failure - intubated; ST elevation (STEMI) myocardial infarction of inferior wall; Do not resuscitate. Bed requested for Intensive Care Unit. Status is Inpatient Admission. Condition is Critical. Problem is new. Symptoms are unchanged. annalisa 12/02 02:54 12/01 23:39 12/02/2019 23:39 Patient pronounced on 12/02/2019 at 23:27 by abdirashid Jaramillo. Impression: Cardiogenic shock; ST elevation (STEMI) myocardial infarction of inferior wall; Acute respiratory failure; Acute kidney failure; Hyperkalemia; Do not resuscitate. Released to Home. annalisa
--- NOTE | 2019-12-02 18:29 | ER ---
Nurse's Notes [facility] Name: Luis Fernando Fox Age: 79 yrs Sex: Male : 1940 Arrival Date: 12/02/2019 Time: 17:39 Bed 3 Private MD: Diagnosis: Cardiogenic shock;ST elevation (STEMI) myocardial infarction of inferior wall;Acute respiratory failure;Acute kidney failure;Hyperkalemia;Do not resuscitate Presentation: 12/01 17:35 Chief complaint: EMS states: EMS ORIGINALLY CALLED TO SCENE FOR DECREASED MENTAL bp STATUS. PT NON-RESPONSIVE ON EMS ARRIVAL. FULL CARDIOPULMONARY ARREST EN ROUTE. 17:35 Care prior to arrival: CPR manually performed by EMS and is still in progress IV bp initiated. 20 GA, in the right antecubital area, Glucose check: 135 Oxygen administered. via AMBU bag. Compressions began prior to arrival. 17:35 Method Of Arrival: EMS: [facility] bp 17:35 Acuity: PANCHO 1 bp 18:17 Coronavirus screen: Proceed with normal triage. Ebola Screen: No symptoms or risks bp identified at this time. Initial Sepsis Screen: Does the patient meet any 2 criteria? No. Patient's initial sepsis screen is negative. Does the patient have a suspected source of infection? No. Patient's initial sepsis screen is negative. Risk Assessment: Do you want to hurt yourself or someone else? Patient reports no desire to harm self or others. Onset of symptoms is unknown. Triage Assessment: 17:35 General: SEE CPR NOTE. bp 20:50 Pain: Unable to use pain scale. Patient is intubated. mg2 Historical: - Allergies: 18:03 Sulfa (Sulfonamide Antibiotics); bp - Home Meds: 18:03 amlodipine oral [Active]; aspirin 81 mg Oral TbEC 1 tab once daily [Active]; bp atorvastatin 20 mg Oral tab 1 tab once daily [Active]; gabapentin 100 mg Oral cap 1 caps twice a day [Active]; glimepiride 2 mg Oral tab 1 tab three times a day [Active]; metformin 1,000 mg Oral tab 1 tab 2 times per day [Active]; - PMHx: 18:03 CAD; CVA; Diabetes - NIDDM; High Cholesterol; Hypertension; Myocardial infarction; bp stage 4 brain cancer; - Immunization history:: Adult Immunizations unknown. - Code Status:: Full code. - Social history:: Smoking status: unknown. - Family history:: not pertinent. - Hospitalizations: : No recent hospitalization is reported. - History obtained from: family. Screenin:35 Abuse screen: Denies threats or abuse. Denies injuries from another. Nutritional bp screening: No deficits noted. Tuberculosis screening: No symptoms or risk factors identified. 18:18 Fall Risk None identified. bp Assessment: 17:35 CPR assessment: unresponsive, no respiratory effort, Ambu ventilation, pulses present bp w/ compressions. Cardiac rhythm is asystole. General: Appears obese, unkempt, Behavior is unresponsive. Neuro: Level of Consciousness is unresponsive. EENT: No deficits noted. Cardiovascular: Rhythm is asystole. Respiratory: Airway is compromised Respiratory effort is ABSENT. GI: No deficits noted. : No deficits noted. Derm: No deficits noted. Musculoskeletal: No deficits noted. 17:35 General: EMS STATES FULL ARREST ON ARRIVAL TO HOSPITAL, CPR CONTINUED BY ER STAFF. bp 17:35 Reassessment: 1 AMP EPI IVP. MANUAL CPR. INTUBATED BY . bp 17:36 Reassessment: 1 AMP BICARB IVP. MANUAL CPR. bp 17:37 Reassessment: PULSE CHECK, ASYSTOLE ON MONITOR. 1 AMP EPI IVP. bp 17:38 Reassessment: 1 AMP BICARB IVP. MANUAL CPR. bp 17:39 Reassessment: PULSE CHECK. ASYSTOLE ON MONITOR. bp 17:40 Reassessment: 1 AMP EPI IVP. MANUAL CPR. bp 17:41 Reassessment: PULSE CHECK. ASYSTOLE ON MONITOR. bp 17:42 Reassessment: MANUAL CPR. bp 17:43 Reassessment: PULSE CHECK. PEA ON MONITOR. 1 AMP EPI IVP. bp 17:44 Reassessment: MANUAL CPR. bp 17:45 Reassessment: VFIB ON MONITOR. PADDLES CHARGED, DEFIB AT 200J. bp 17:46 Reassessment: MANUAL CPR. bp 17:47 Reassessment: ROSC. bp 18:48 Reassessment: LEVOPHED MAX AT 30MCG/MIN. PT REMAINS HYPOTENSIVE. bp 19:06 Reassessment: DOPAMINE STARTED AT 20 MCG/KG/MIN. mg2 19:15 Reassessment: [facility] AT B/S FOR TRANSPORT. PER [facility], TRANSPORT ON HOLD FOR mg2 ABG. 20:25 Reassessment: patient will be kept in ED. patient is DNR. mg2 20:53 General: Appears comfortable, Behavior is unresponsive. Pain: Unable to use pain scale. jd3 Patient is unresponsive. Neuro: Level of Consciousness is unresponsive, Oriented to none. Cardiovascular: Heart tones present Rhythm is irregular. Respiratory: Airway via oral intubation. GI: No deficits noted. : No deficits noted. EENT: No deficits noted. Derm: Skin is intact, Skin is clammy, Skin is pale, Skin temperature is cool. 21:20 Reassessment: No changes from previously documented assessment. Patient and/or family jd3 updated on plan of care and expected duration. Pain level reassessed. Dr. Jaramillo updated on pt condition and decreasing vital signs, no new orders at this time. 21:40 Reassessment: No changes from previously documented assessment. Patient and/or family jd3 updated on plan of care and expected duration. Pain level reassessed. 23:10 Reassessment: No changes from previously documented assessment. Patient and/or family jd3 updated on plan of care and expected duration. Pain level reassessed. provider on the phone with family discussing plan of care. 23:26 Reassessment: Dr. Jaramillo called into room. pt is pulseless. jd3 23:27 Reassessment: Dr. Jaramillo called time of . systems programmer analyst notified. jd3 23:49 Reassessment: [facility] notified at [id number], pt is not a candidate. systems programmer analyst notified, PD on jd3 the way. 12/02 01:02 Reassessment: information given to Corry SAPP. jd3 01:30 Reassessment: awaiting undertaker for the home. jd3 Vital Signs: 12/01 17:35 Temp 95.7; bp 18:00 BP 78 / 59; Pulse 74; Resp 14; Pulse Ox 100% ; mg2 18:15 BP 40 / 25; Pulse 62; Resp 17; Pulse Ox 100% ; mg2 18:30 BP 40 / 21; Pulse 68; Resp 16; Pulse Ox 100% ; mg2 19:00 BP 78 / 57; Pulse 68; Resp 16; Pulse Ox 100% ; mg2 19:15 BP 60 / 45; Pulse 71; Resp 16; Pulse Ox 99% ; mg2 20:15 BP 71 / 59; Pulse 84; Resp 16; Pulse Ox 100% on ETT vent; mg2 20:42 BP 90 / 35; Pulse 76; Resp 16; Pulse Ox 100% on ETT vent; mg2 21:39 BP 57 / 32; Pulse 67; Resp 16; Temp 93.6; Pulse Ox 98% on ETT vent; mg2 22:16 BP 47 / 23; Pulse 53; Resp 22 A; Pulse Ox 90% on ETT vent; jd3 22:30 Pulse 59; Resp 20 A; Pulse Ox 91% on ETT vent; jd3 23:08 Pulse 54; Resp 18 A; Temp 92.2(C); Pulse Ox 89% on ETT vent; jd3 23:27 Pulse 0; Temp 92.1(C); Pulse Ox 80% on ETT vent; jd3 ED Course: 17:35 Patient has correct armband on for positive identification. Placed in gown. Bed in low bp position. Call light in reach. Side rails up X2. 17:37 Assisted provider with intubation using 7.5 mm ETT via oral route. ET tube secured at bp 23cm at the lips. Set up intubation tray. Intubated by Kaz Madrigal MD Placement verified by CO2 detector w/ + color change, auscultating bilateral breath sounds, CXR, Patient tolerated UNRESPONSIVE. 17:39 Patient arrived in ED. rn 17:39 Kaz Madrigal MD is Attending Physician. rn 17:45 Inserted saline lock: 18 gauge in right EJ, using aseptic technique. bp 17:50 Assisted provider with central line placement. Set up central line tray. Triple lumen bp line placed in right femoral. Line placed by Kaz Madrigal MD Placement verified by blood return, Dressed with Tegaderm, Patient tolerated well. Before procedure, did Practitioner(s) obtain informed consent? No. Patient \T\ family education about procedure, CLABSI prevention and S/S of infection? No. Time-out/Briefing performed prior to start of procedure? Yes. Was handwashing/sanitizing done immediately prior to procedure? Yes. Was patient positioned to in a way to prevent air embolism? Yes. Was procedure site sterilized? Yes, with chlorhexidine. Was the site allowed to dry? Yes. Was local anesthetic and/or sedation utilized? N/A. During the procedure, did the Practitioner(s) maintain a sterile field? Yes. Were unused ports clamped during insertion? Yes. Was a 2nd qualified MD obtained after 3 unsuccessful insertion attempts? N/A. Was blood aspirated from each lumen? Yes. 17:52 Catracho Moreira, RN is Primary Nurse. bp 17:58 Triage completed. bp 18:07 Arm band placed on. bp 18:07 initiated a STEMI transfer with Debra Clements from the [facility] eb 18:12 connected the shed boss restoration officer for [facility] with Dr. Madrigal for patient eb transfer consultation. 18:28 administrative approval given by Debra Clements/ patient has been accepted to [facility] CCU 1 Bed 1/ Dr. Pascual has accepted the patient in transfer/ report to be called to [phone]. 18:32 [facility] dispatched ETA 30 minutes. eb 18:40 XRAY Chest (1 view) In Process Unspecified. EDMS 19:07 Patient transferred, IV remains in place. mg2 19:55 Attending Physician role handed off by Kaz Madrigal MD annalisa 19:55 Alex Jaramillo MD is Attending Physician. annalisa 20:56 Primary Nurse role handed off by Catracho Moreira, MONICA jd3 20:56 Fabián Pruett RN is Primary Nurse. jd3 22:12 Stefan Landon is Hospitalizing Provider. annalisa 23:37 Alex Jaramillo MD is Pronouncing Provider. annalisa Administered Medications: 17:35 Drug: NS 0.9% 1000 ml Route: IV; Rate: 1000 ml; Site: left antecubital; rb1 19:06 Follow up: IV Status: Completed infusion; IV Intake: 1000ml mg2 18:30 Drug: NS 0.9% 1000 ml Route: IV; Rate: 1000 ml; Site: right femoral; bp 19:05 Follow up: IV Status: Completed infusion; IV Intake: 1000ml mg2 18:30 Drug: Levophed (4 mg/250 mL D5W 4 mcg/min Route: IV; Rate: calculated rate; Site: right bp femoral; 19:05 Follow up: IV Status: Infusion continued upon transfer mg2 19:06 Drug: Dopamine drip 5 mcg/kg/min - (DOPamine 400 mg, D5W 250 ml) Route: IV; Rate: mg2 calculated rate; Site: right femoral; 19:50 Drug: Calcium Gluconate 1 grams Route: IVPB; Infused Over: 20 mins; Site: right femoral;mg2 19:50 Drug: D50W 50 ml Route: IVP; Site: right femoral; mg2 19:50 Drug: Insulin Regular Human 10 units {Co-Signature: abdirashid (Fabián Pruett RN).} Route: mg2 IVP; Site: right femoral; 19:52 Drug: Sodium Bicarbonate 1 amp Route: IVP; Site: right femoral; mg2 Point of Care Testing: Blood Glucose: 17:35 Blood Glucose: 114 mg/dL; bp Ranges: Intake: 19:05 IV: 1000ml; Total: 1000ml. mg2 19:06 IV: 1000ml; Total: 2000ml. mg2 Outcome: 17:35 Outcome Resuscitation successful bp 18:28 ER care complete, transfer ordered by . rn 19:24 Transferred by ground EMS to [facility], Transfer form completed. mg2 19:24 Condition: stable 19:24 Instructed on the need for transfer. 19:33 Patient left the ED. mg2 22:18 Decision to Hospitalize by Provider. annalisa 23:43 Outcome Patient jd3 23:43 Patient : Time of 23:27 Pronounced by Alex Jaramillo MD 12/02 02:54 Patient : Body to home. jd3 02:54 Patient left the ED. jd3 Signatures: Dispatcher [employer] Alex Villeda MD MD cha Nieto, Roman, MD MD rn Barber, Rebecca, MONICA ANDERSON rb1 Fabián Pruett RN RN jCatracho Perdue RN Anna Martinez Michele, RN RN mg2 Fabián Pruett RN jd3 Corrections: (The following items were deleted from the chart) 12/01 18:04 18:03 Abuse screen: Denies threats or abuse. Denies injuries from another. bp bp 18:04 18:03 Nutritional screening: No deficits noted. bp bp 18:04 18:03 Tuberculosis screening: No symptoms or risk factors identified. bp bp 18:05 18:03 Temp 97F; bp bp 18:05 18:03 Blood Glucose: Blood Glucose Rubquku=084 mg/dL. bp bp 23:12 23:08 Pulse 54bpm; Resp 18bpm; Assisted; Pulse Ox 89% ET / Ventilator; jd3 jd3 23:44 23:27 Reassessment: Dr. Clint wu time of jd3 jd3
[2019-12-02 18:43] LABS: Protime INR 2.14
[2019-12-02 18:46] LABS: Absolute Lymphocytes (CBC) 4.2 K/uL (0.7-4.9); Basophils % 0.2 % (0-1.3); Hematocrit 30.9 % (39.6-49.0); Lymphocytes % 29.7 % (15.3-44.8); RBC Red Blood Cell Count 3.29 M/uL (4.33-5.43)
--- NOTE | 2019-12-02 18:54 | RAD REPORT ---
EXAM DESCRIPTION: RAD - Chest Single View - 12/02/2019 6:40 pm CLINICAL HISTORY: possible AL COMPARISON: Portable chest November 23 TECHNIQUE: AP portable chest image was obtained 12/02/2019 6:40 pm . FINDINGS: Endotracheal tube is in good position mid aortic arch level 3 cm above the reyes. NG tube is in place with the tip in the gastric antrum. Resuscitation paddles overlie the chest. Lung volumes are low but no pulmonary edema or focal lung parenchymal process seen. Heart and vascula ture are normal. No measurable pleural effusion and no pneumothorax. No acute bony abnormality seen. No acute aortic findings suspected. IMPRESSION: No acute cardiopulmonary process. Endotracheal tube and ET tube in good position.
[2019-12-02] MEDS ORDERED: DOPAMINE/D5W 400 MG/250 ML BAG IV ONE (19:08)
[2019-12-02 19:26] LABS: Potassium 7.4 mmol/L (3.5-5.1)
[2019-12-02 19:27] LABS: BUN Blood Urea Nitrogen 21 mg/dL (7-18); Bicarbonate 8 mmol/L (21-32); Glucose Level 76 mg/dL (74-106)
[2019-12-02 19:28] LABS: ALT/SGPT 2862 U/L (12-78); AST/SGOT 3600 U/L (15-37); Alkaline Phosphatase 61 U/L (45-117); Bilirubin Direct 0.3 mg/dL (0-0.2); Bilirubin Total 0.8 mg/dL (0.2-1.0); Platelet Estimate DECR
[2019-12-02 19:29] LABS: Albumin 1.9 g/dL (3.4-5.0); Blood Morphology Comment NOT SEEN (NOT SEEN); Magnesium 2.3 mg/dL (1.8-2.4); NT PRO-BNP 2955 pg/mL (<450); Protein, Total 4.8 g/dL (6.4-8.2)
[2019-12-02 19:32] LABS: Sodium Level 149 mmol/L (136-145)
[2019-12-02] MEDS ORDERED: SODIUM BICARB 50 MEQ/50ML VIAL ONE ×2 (19:44→19:49)
[2019-12-02] MEDS ORDERED: INSULIN -REGULAR HUMAN 50 UNIT/0.5 ML ML ONE (19:48)
[2019-12-02] MEDS ORDERED: NOREPINEPHRINE 4 MG/4 ML VIAL ONE (20:14)
[2019-12-02 20:19] LABS: Troponin (Emerg Dept Use Only) > 200.00 ng/mL (0.0-0.045)
[2019-12-03 03:09] VITALS: BP 47/23
[2019-12-03 03:12] VITALS: TEMP 92.1; O2SAT 80
--- NOTE | 2019-12-03 07:12 | EKG ---
Test Date: 2019-12-02 Test Time: 17:55:49 Coordinator Hotels: CARLOS MEASUREMENT RESULTS: Intervals: Rate: 92 NE: 210 QRSD: 102 QT: 342 QTc: 422 [place]: P: -83 NE: 210 QRS: 38 T: 83 INTERPRETIVE STATEMENTS: Unusual P axis, possible ectopic atrial rhythm Low voltage QRS Anterolateral infarct, possibly acute Inferior injury pattern ACUTE [place] Abnormal ECG Compared to ECG 11/24/2019 10:00:07 Low QRS voltage now present Myocardial infarct finding now present Sinus rhythm no longer present Sinus arrhythmia no longer present Ventricular premature complex(es) no longer present Electronically Signed On 12-03-19 07:11:09 CDT by Abel Burgess
--- NOTE | 2019-12-05 07:05 | EKG ---
Test Date: 2019-12-02 Test Time: 17:56:56 Slubber Operator: CARLOS MEASUREMENT RESULTS: Intervals: Rate: 89 [place]: 206 QRSD: 98 QT: 380 QTc: 462 [place]: P: [place]: 206 QRS: 39 T: 78 INTERPRETIVE STATEMENTS: Normal sinus rhythm Low voltage QRS Cannot rule out Anterior infarct, age undetermined Inferior injury pattern ACUTE [place] Abnormal ECG Compared to ECG 12/02/2019 17:55:49 No significant changes Electronically Signed On 12-05-19 07:00:49 CDT by Abel Burgess
== END 2019-12-03 02:54 | disposition expired ==
LOC: ER 17:28
PROC: 0BH17EZ Insertion of Endotracheal Airway into Trachea, Via Natural or Artificial Opening (ICD-10-PCS; principal; 2019-12-03)
PROC: 5A1935Z Respiratory Ventilation, Less than 24 Consecutive Hours (ICD-10-PCS; 2019-12-03)
PROC: 06HM33Z Insertion of Infusion Device into Right Femoral Vein, Percutaneous Approach (ICD-10-PCS; 2019-12-03)
DX: I21.19 ST elevation (STEMI) myocardial infarction involving other coronary artery of inferior wall (principal); J96.00 Acute respiratory failure, unspecified whether with hypoxia or hypercapnia; N17.9 Acute kidney failure, unspecified; E87.5 Hyperkalemia; I25.2 Old myocardial infarction; I10 Essential (primary) hypertension; E78.00 Pure hypercholesterolemia, unspecified; E11.9 Type 2 diabetes mellitus without complications; Z79.82 Long term (current) use of aspirin; Z86.73 Personal history of transient ischemic attack (TIA), and cerebral infarction without residual deficits; Z88.2 Allergy status to sulfonamides; Z85.841 Personal history of malignant neoplasm of brain
CPT/HCPCS: 96365; 96361; 93005 ×2; 85025; 80048; 36415; 83735; 85610; 80076; 84484; 83880; 71045; 94002; 94003; 31500; 96375; 92950; 99291; 99292; 36556; J0171; J1265; J7060; J7030 ×4; 82947